=== PATIENT | female | born 1940 | race Caucasian/White ===

== ENCOUNTER 2016-09-07 13:04 | Emergency (ER) | payer MEDICARE ==
[2016-09-07 13:18] VITALS: PULSE 80
[2016-09-07] MEDS ORDERED: SODIUM CHLORIDE 0.9% 1,000 ML IV STA (13:47)
--- NOTE | 2016-09-07 13:54 | ED ---
General Adult HPI - General Chief complaint: Abdominal Pain Stated complaint: Pain under right breast Time Seen by Provider: 09/07/16 13:38 Source: patient, family, RN notes reviewed Mode of arrival: ambulatory Limitations: no limitations - History of Present Illness Initial comments: Chief complaint and history of present illness this is a 76-year-old female here with her niece. Patient reports for the past 3 days she's had pain in the right upper quadrant and right lower rib cage area. She also reports he feels so is just under her breast. She denies any rashes or injury. The pain started in the middle of the day. Denies any nausea vomiting no sweats. No difficulty urinating. Pain does increase with deep breathing palpation. Lifting the area helps a slight amount. - Related Data Home Medications Medication Instructions Recorded Confirmed Atorvastatin Calcium [Lipitor] 20 mg PO HS 09/07/16 09/07/16 Donepezil [Aricept] 10 mg PO HS 09/07/16 09/07/16 Levothyroxine Sodium [Synthroid] 75 mcg PO DAILY 09/07/16 09/07/16 Lisinopril 40 mg PO DAILY 09/07/16 09/07/16 Previous Rx's Medication Instructions Recorded Azithromycin [Zithromax Z-pack] 250 mg PO DIRECTED #6 tab 09/07/16 Ibuprofen [Motrin] 600 mg PO Q6HR PRN #20 tab 09/07/16 Allergies Allergy/AdvReac Type Severity Reaction Status Date / Time No Known Allergies Allergy Verified 09/07/16 14:22 Review of Systems ROS Statement: Those systems with pertinent positive or pertinent negative responses have been documented in the HPI. Review of systems. She is denying any visual acuity changes no headache or stiff neck or sore throat. Her complaint is to the right lower anterior ribs ago from the epigastric region through the right upper quadrant area. Sometimes it hurts taking deep breath and coughs sometimes it hurts to push on the area in the epigastric region in the right upper quadrant but it always hurts to push on the ribs in the right lower rib cage including the costochondral area. Patient denying nausea vomiting diarrhea no change in bowel habits or appetite. No neuro deficits complained of. All systems are reviewed. Past medical problems hypertension and throat cancer over 20 years ago. She denies any other surgeries. Other than this cancer for the throat. Family history her mother had colon cancer. Patient denies ALLERGIES she quit smoking 20 years ago denies alcohol use ROS Other: All systems not noted in ROS Statement are negative. Past Medical History Past Medical History: Cancer, Hypertension Additional Past Medical History / Comment(s): throat cancer History of Any Multi-Drug Resistant Organisms: None Reported Past Surgical History: Breast Surgery Additional Past Surgical History / Comment(s): implants Past Psychological History: No Psychological Hx Reported Smoking Status: Former smoker Past Alcohol Use History: None Reported Past Drug Use History: None Reported General Exam - General Exam Comments Initial Comments: General: The patient is awake and alert, complains of 3 days of pain to the right lower anterior rib cage area. Eye: Pupils are equal, round and reactive to light, extra-ocular movements are intact ; there is normal conjunctiva bilaterally. No signs of icterus. Ears, nose, mouth and throat: There are moist mucous membranes and no oral lesions. Neck: The neck is supple, there is no tenderness , no anterior cervical lymphadenopathy, thyroid not enlarged. Cardiovascular: There is a regular rate and rhythm. No murmur, rub or gallop is appreciated. Respiratory: Lungs are clear to auscultation, respirations are non-labored, breath sounds are equal. No wheezes, stridor, rales, or rhonchi. Deep breathing and coughing seems to re-create the pain along the right lower rib cage area. Palpation of this area causes pain examination does not show any rash. Early shingles was discussed. Gastrointestinal: Soft, non-distended, non-tender abdomen without masses or organomegaly noted. There is no rebound or guarding present. No CVA tenderness. Bowel sounds are unremarkable. Initial examination of the right upper quadrant caused immediate discomfort with palpation of the right upper quadrant but on reexamination 2 minutes later it seemed to be benign. Patient has some difficulty making up her mind as to whether it's painful or not. Back: There is no tenderness to palpation in the midline. There is no obvious deformity. No rashes noted. Musculoskeletal: Normal ROM, no tenderness, There is no pedal edema. There is no calf tenderness or swelling. Sensation intact. Neurological: No neuro deficits. Skin: Skin is warm and dry and no rashes or lesions are noted. Early shingles discussed. Limitations: no limitations Course Vital Signs 09/07/16 13:16 Temperature 99.5 F Pulse Rate 80 Respiratory 18 Rate Blood Pressure 183/75 O2 Sat by Pulse 98 Oximetry Medical Decision Making - Medical Decision Making Medical decision making; x-rays were done and reviewed by radiologist his impression is there is normal bowel gas pattern. Psoas margins are normal. No organomegaly is present. Impression; unremarkable abdomen. As read by Dr. Jossue wilhelm Chest x-ray done both AP and lateral views and reviewed by radiologist his impression is the heart size is normal. The pulmonary vasculature is normal. Bilateral breast prostheses are evident. Right posterior pleural effusion or atelectasis may be present. Impression Soma; suspected posterior right lower lobe atelectasis or possibly minimal effusion posteriorly. As read by Dr. Jossue wilhelm Labs show white count of 8.8 hemoglobin 12 hematocrit 37. Potassium 4.1 with a BUN 32 creatinine 0.8 and GFR greater than 60. Amylase lipase normal limits. No elevation of liver enzymes or bilirubin. Glucose 154. CK and MB within normal limits. I discussed with the patient and niece at bedside findings of atelectasis versus pleural effusion. Also pleuritic irritation and the possibility of a small infiltrate. The patient's pain increases with a deep breath also palpation of the chest wall. No evidence of any acute fractures though this is not ruled out. The plant this time the patient be placed on 600 mg ibuprofen every 6 hours to be taken with food. Levaquin possibility of a undiagnosed pneumonia causing the pleuritic irritation causing pleurisy and/or pleural effusion. Repeat chest x-ray in 7-10 days with family physician for evaluation of worsening condition. CAT scan may be necessary if condition persists. - Lab Data Result diagrams: 09/07/16 15:08 09/07/16 14:36 Lab Results 09/07/16 09/07/16 09/07/16 Range/Units 14:36 14:36 15:08 WBC 8.8 (3.8-10.6) k/uL RBC 3.90 (3.80-5.40) m/uL Hgb 12.2 (11.4-16.0) gm/dL Hct 37.1 (34.0-46.0) % MCV 95.0 (80.0-100.0) fL MCH 31.1 (25.0-35.0) pg MCHC 32.8 (31.0-37.0) g/dL RDW 13.0 (11.5-15.5) % Plt Count 152 (150-450) k/uL Neutrophils % 78 % Lymphocytes % 10 % Monocytes % 8 % Eosinophils % 2 % Basophils % 0 % Neutrophils # 6.9 (1.3-7.7) k/uL Lymphocytes # 0.9 L (1.0-4.8) k/uL Monocytes # 0.7 (0-1.0) k/uL Eosinophils # 0.1 (0-0.7) k/uL Basophils # 0.0 (0-0.2) k/uL Sodium 143 (137-145) mmol/L Potassium 4.1 (3.5-5.1) mmol/L Chloride 106 (98-107) mmol/L Carbon Dioxide 23 (22-30) mmol/L Anion Gap 14 mmol/L BUN 32 H (7-17) mg/dL Creatinine 0.81 (0.52-1.04) mg/dL Est GFR (MDRD) Af Amer >60 (>60 ml/min/1.73 sqM) Est GFR (MDRD) Non-Af >60 (>60 ml/min/1.73 sqM) Glucose 154 H (74-99) mg/dL Calcium 9.5 (8.4-10.2) mg/dL Total Bilirubin 0.7 (0.2-1.3) mg/dL AST 21 (14-36) U/L ALT 25 (9-52) U/L Alkaline Phosphatase 63 (38-126) U/L Total Creatine Kinase 108 (30-135) U/L CK-MB (CK-2) 1.6 (0.0-2.4) ng/mL CK-MB (CK-2) Rel Index 1.5 Total Protein 7.2 (6.3-8.2) g/dL Albumin 4.2 (3.5-5.0) g/dL Amylase 86 (30-110) U/L Lipase 73 (23-300) U/L Disposition Clinical Impression: Pleurisy with effusion Disposition: HOME SELF-CARE Condition: Fair Instructions: Pleurisy (ED) Additional Instructions: Taking azithromycin until completed. Use ibuprofen 6R milligrams every 6 hours with food for pain. Follow-up with family physician for repeat chest x-ray in 7 -10 days. You may need a CAT scan for further evaluation. Prescriptions: Azithromycin [Zithromax Z-pack] 250 mg PO DIRECTED #6 tab Ibuprofen [Motrin] 600 mg PO Q6HR PRN #20 tab PRN Reason: Pain Time of Disposition: 15:57
--- NOTE | 2016-09-07 14:16 | XR ---
EXAMINATION TYPE: XR abdomen 2V DATE OF EXAM: 09/07/2016 2:05 PM COMPARISON: NONE INDICATION: Right upper quadrant pain TECHNIQUE: Abdomen is examined in the upright and supine views. FINDINGS: There is a normal bowel gas pattern. Psoas margins are normal. No organomegaly is present. IMPRESSION: 1. Unremarkable Abdomen
--- NOTE | 2016-09-07 14:16 | XR ---
EXAMINATION TYPE: XR chest 2V DATE OF EXAM: 09/07/2016 2:05 PM COMPARISON: NONE INDICATION: Right lower rib cage pain TECHNIQUE: Single frontal view of the chest is obtained. FINDINGS: The heart size is normal. The pulmonary vasculature is normal. Bilateral breast prostheses are evident. Right posterior pleural effusion or atelectasis may be prese nt. IMPRESSION: 1. Suspected posterior right lower lobe atelectasis or possibly minimal effusion posteriorly.
[2016-09-07 14:58] LABS: ALT 25 U/L (9-52); AST 21 U/L (14-36); Alkaline Phosphatase 63 U/L (38-126); Amylase 86 U/L (30-110); Anion Gap 14 mmol/L; Blood Urea Nitrogen 32 mg/dL (7-17); Calcium 9.5 mg/dL (8.4-10.2); Carbon Dioxide 23 mmol/L (22-30); Chloride 106 mmol/L (98-107); Glucose 154 mg/dL (74-99); Non-African American GFR(MDRD) >60 (>60 ml/min/1.73 sqM); Potassium 4.1 mmol/L (3.5-5.1); Sodium 143 mmol/L (137-145); Total Bilirubin 0.7 mg/dL (0.2-1.3); Total Protein 7.2 g/dL (6.3-8.2)
[2016-09-07 15:16] LABS: Creatine Kinase MB 1.6 ng/mL (0.0-2.4)
[2016-09-07 15:34] LABS: Basophils % (A) 0 %; CH 30.9; CHCM 32.7; Eosinophils # (A) 0.1 k/uL (0-0.7); Eosinophils % (A) 2 %; HCT 37.1 % (34.0-46.0); HDW 2.33; HGB 12.2 gm/dL (11.4-16.0); Luc # (Auto) 0.22; Luc % (Auto) 3; Lymphocytes # (A) 0.9 k/uL (1.0-4.8); Lymphocytes % (A) 10 %; MCH 31.1 pg (25.0-35.0); MCHC 32.8 g/dL (31.0-37.0); Mean Platelet Volume 9.2; Monocytes # (A) 0.7 k/uL (0-1.0); Monocytes % (A) 8 %; Neutrophils # (A) 6.9 k/uL (1.3-7.7); Neutrophils % (A) 78 %; WBC 8.8 k/uL (3.8-10.6); WBC (Perox) 8.75
[2016-09-07] MEDS ORDERED: IBUPROFEN 600 MG TAB PO STA (15:49)
[2016-09-07] MEDS ORDERED: AZITHROMYCIN 250 MG TAB PO STA (15:55)
[2016-09-07 15:59] LABS: Creatine Kinase 100 U/L (30-135)
[2016-09-07] MEDS ORDERED: cloNIDine HCL 0.1 MG TAB PO STA (15:59)
[2016-09-07 16:01] VITALS: BP 189/79; RESP 16; TEMP 98
[2016-09-07 16:12] LABS: Creatine Kinase MB 1.2 ng/mL (0.0-2.4); Troponin I <0.012 ng/mL (0.000-0.034)
== END 2016-09-07 16:15 | disposition home or self-care (01) ==
LOC: EC 13:04
DX: J90 Pleural effusion, not elsewhere classified (principal); R10.11 Right upper quadrant pain; I10 Essential (primary) hypertension; Z87.891 Personal history of nicotine dependence; Z79.899 Other long term (current) drug therapy
CPT/HCPCS: 36415; 71020; 74020; 80053; 82150; 82550; 82553; 83605; 83690; 84484; 85025; 96360; 99284

== ENCOUNTER → 2017-08-21 | Outpatient (CLI) | payer MEDICARE ==
--- NOTE | 2017-08-21 15:40 | MR ---
EXAMINATION TYPE: MR brain wo con DATE OF EXAM: 08/21/2017 2:53 PM COMPARISON: NONE HISTORY: Dementia without behavioral disturbance FINDINGS: The ventricles, basal cisterns and sulci overlying the cerebral convexities are at least moderately e nlarged with greater central component raising the possibility of normal pressure hydrocephalus. There is evidence of mild periventricular white matter ischemic demyelination. Remote deep white matter insults are also noted. No acute edema is seen on diffusion weighted imaging. There is no evidence for midline shift or mass effect. Acute intracranial hemorrhage or extra-axial collection is not evident. Changes of mild chronic mastoiditis bilaterally right greater than left. Chronic mucoperiosteal thick ening of the paranasal sinuses. IMPRESSION: Age-related atrophic and chronic small vessel ischemic change. Correlate for normal pressure hydroce phalus. No acute intracranial process at this time.
== END | disposition home or self-care (01) ==
LOC: RADMRIMAIN 13:27
PROVIDERS: ATTEND Psychiatry & Neurology Neurology
DX: G31.1 Senile degeneration of brain, not elsewhere classified (principal); R90.89 Other abnormal findings on diagnostic imaging of central nervous system
CPT/HCPCS: 70551

== ENCOUNTER 2018-06-16 13:21 | Inpatient (IN) | payer MEDICARE ==
[2018-06-16 13:34] LABS: Glucose,Whole Blood 86 mg/dL (75-99)
[2018-06-16] MEDS ORDERED: SODIUM CHLORIDE 0.9% 1,000 ML IV STA (13:54)
--- NOTE | 2018-06-16 14:05 | ED ---
General Adult HPI - General Chief complaint: Weakness Stated complaint: Weakness Time Seen by Provider: 06/16/18 13:40 Source: EMS, RN notes reviewed, old records reviewed, Caregiver Mode of arrival: EMS Limitations: altered mental status - History of Present Illness Initial comments: Patient 78-year-old female presenting by EMS, the chief complaints of abdominal pain. Patient has history of dementia and much of the history is provided by caregiver and is now at bedside. She states that she did have an episode of vomiting 4 days ago and did complain about some abdominal pain earlier this morning. States that she went abdominal pain when she got out of the shower. Patient at this time denies any abdominal pain. She denies any other complaints or symptoms. Caregiver stated that she complained to EMS that she had a headache when they arrived. Patient denies any headache. Denies any symptoms. EKG does show evidence for atrial fibrillation which patient and caregiver states there is no known history. Patient denies any recent fever, chills, shortness of breath, chest pain, back pain, numbness or tingling, dysuria or hematuria, constipation or diarrhea, visual changes, or any other complaints. - Related Data Home Medications Medication Instructions Recorded Confirmed Donepezil [Aricept] 10 mg PO HS 09/07/16 06/16/18 Levothyroxine Sodium [Synthroid] 75 mcg PO DAILY 09/07/16 06/16/18 Lisinopril 40 mg PO DAILY 09/07/16 06/16/18 Allergies Allergy/AdvReac Type Severity Reaction Status Date / Time No Known Allergies Allergy Verified 06/16/18 14:00 Review of Systems ROS Statement: Those systems with pertinent positive or pertinent negative responses have been documented in the HPI. ROS Other: All systems not noted in ROS Statement are negative. Past Medical History Past Medical History: Cancer, Hypertension Additional Past Medical History / Comment(s): throat cancer History of Any Multi-Drug Resistant Organisms: None Reported Past Surgical History: Breast Surgery Additional Past Surgical History / Comment(s): implants Past Psychological History: No Psychological Hx Reported Smoking Status: Former smoker Past Alcohol Use History: None Reported Past Drug Use History: None Reported General Exam - General Exam Comments Initial Comments: General: The patient is awake and alert, in no distress, and does not appear acutely ill. Eye: Pupils are equal, round and reactive to light, extra-ocular movements are intact. No nystagmus. There is normal conjunctiva bilaterally. No signs of icterus. Ears, nose, mouth and throat: There are moist mucous membranes and no oral lesions. Neck: The neck is supple, there is no tenderness or JVD. Cardiovascular: There is a regular rate. No murmur, rub or gallop is appreciated. Respiratory: Lungs are clear to auscultation, respirations are non-labored, breath sounds are equal. No wheezes, stridor, rales, or rhonchi. Gastrointestinal: Soft, non-distended, non-tender abdomen without masses or organomegaly noted. There is no rebound or guarding present. No CVA tenderness Musculoskeletal: Normal ROM, no tenderness. Strength 5/5. Sensation intact. Radial Pulses equal bilaterally 2+. Neurological: A&O x 3. CN II-XII intact, There are no obvious motor or sensory deficits. Coordination appears grossly intact. Speech is normal. Skin: Skin is warm and dry and no rashes or lesions are noted. Psychiatric: Cooperative, appropriate mood & affect, normal judgment. Limitations: altered mental status Course Vital Signs 06/16/18 06/16/18 06/16/18 13:28 15:50 16:52 Temperature 97.0 F L Pulse Rate 74 103 H 142 H Respiratory 18 18 18 Rate Blood Pressure 122/98 168/86 166/99 O2 Sat by Pulse 100 100 97 Oximetry 06/16/18 16:54 Temperature Pulse Rate 111 H Respiratory Rate Blood Pressure O2 Sat by Pulse Oximetry EKG Findings - EKG Comments: EKG Findings:: EKG performed at 1330: Shows atrial fibrillation at 85 bpm. QRS 72. QT/QTC 372/442. There is no acute ST changes. No old EKG to compare. Repeat EKG performed at 1650 shows A. fib with RVR at 140 bpm. QRS 74. QT/QTc is 316/482. No acute ST changes. Medical Decision Making - Medical Decision Making Patient reexamined at this time shows no signs of distress. Patient is symptomatic here in the emergency room has had no complaints of abdominal pain. CT of the head was performed if she states she had a headache earlier in the day. CT is negative. Patient's chest x-ray is unremarkable. Patient labs been reviewed. Negative cardiac enzymes. EKG was performed and showed A. fib. Initially was controlled. Patient's been on the heart monitor and pulse has been fluctuating between 1:30 to 150. Repeat EKG shows A. fib with RVR. Started on Cardizem drip. The emergency room. Case discussed with Karan Kaur nurse practitioner who will admit the patient for Dr. sheet. - Lab Data Result diagrams: 06/16/18 13:45 06/16/18 13:45 Lab Results 06/16/18 06/16/18 06/16/18 Range/Units 13:28 13:45 13:45 WBC 6.5 (3.8-10.6) k/uL RBC 4.90 (3.80-5.40) m/uL Hgb 14.2 (11.4-16.0) gm/dL Hct 43.7 (34.0-46.0) % MCV 89.1 (80.0-100.0) fL MCH 29.0 (25.0-35.0) pg MCHC 32.5 (31.0-37.0) g/dL RDW 14.8 (11.5-15.5) % Plt Count 226 (150-450) k/uL Neutrophils % 79 % Lymphocytes % 12 % Monocytes % 5 % Eosinophils % 2 % Basophils % 0 % Neutrophils # 5.1 (1.3-7.7) k/uL Lymphocytes # 0.8 L (1.0-4.8) k/uL Monocytes # 0.3 (0-1.0) k/uL Eosinophils # 0.1 (0-0.7) k/uL Basophils # 0.0 (0-0.2) k/uL PT (9.0-12.0) sec INR (<1.2) APTT (22.0-30.0) sec Sodium (137-145) mmol/L Potassium (3.5-5.1) mmol/L Chloride (98-107) mmol/L Carbon Dioxide (22-30) mmol/L Anion Gap mmol/L BUN (7-17) mg/dL Creatinine (0.52-1.04) mg/dL Est GFR (CKD-EPI)AfAm (>60 ml/min/1.73 sqM) Est GFR (CKD-EPI)NonAf (>60 ml/min/1.73 sqM) Glucose (74-99) mg/dL POC Glucose (mg/dL) 86 (75-99) mg/dL POC Glu Plasma Processing Centrifuge Operator ID Debra Salvador Calcium (8.4-10.2) mg/dL Total Bilirubin (0.2-1.3) mg/dL AST (14-36) U/L ALT (9-52) U/L Alkaline Phosphatase (38-126) U/L Total Creatine Kinase 53 (30-135) U/L CK-MB (CK-2) 1.5 (0.0-2.4) ng/mL CK-MB (CK-2) Rel Index 2.8 Troponin I <0.012 (0.000-0.034) ng/mL Total Protein (6.3-8.2) g/dL Albumin (3.5-5.0) g/dL 06/16/18 06/16/18 Range/Units 13:45 13:45 WBC (3.8-10.6) k/uL RBC (3.80-5.40) m/uL Hgb (11.4-16.0) gm/dL Hct (34.0-46.0) % MCV (80.0-100.0) fL MCH (25.0-35.0) pg MCHC (31.0-37.0) g/dL RDW (11.5-15.5) % Plt Count (150-450) k/uL Neutrophils % % Lymphocytes % % Monocytes % % Eosinophils % % Basophils % % Neutrophils # (1.3-7.7) k/uL Lymphocytes # (1.0-4.8) k/uL Monocytes # (0-1.0) k/uL Eosinophils # (0-0.7) k/uL Basophils # (0-0.2) k/uL PT 11.9 (9.0-12.0) sec INR 1.1 (<1.2) APTT 23.9 (22.0-30.0) sec Sodium 142 (137-145) mmol/L Potassium 4.3 (3.5-5.1) mmol/L Chloride 106 (98-107) mmol/L Carbon Dioxide 29 (22-30) mmol/L Anion Gap 7 mmol/L BUN 33 H (7-17) mg/dL Creatinine 1.01 (0.52-1.04) mg/dL Est GFR (CKD-EPI)AfAm 62 (>60 ml/min/1.73 sqM) Est GFR (CKD-EPI)NonAf 54 (>60 ml/min/1.73 sqM) Glucose 137 H (74-99) mg/dL POC Glucose (mg/dL) (75-99) mg/dL POC Glu Plasma Processing Centrifuge Operator ID Calcium 9.6 (8.4-10.2) mg/dL Total Bilirubin 0.8 (0.2-1.3) mg/dL AST 25 (14-36) U/L ALT 31 (9-52) U/L Alkaline Phosphatase 83 (38-126) U/L Total Creatine Kinase (30-135) U/L CK-MB (CK-2) (0.0-2.4) ng/mL CK-MB (CK-2) Rel Index Troponin I (0.000-0.034) ng/mL Total Protein 6.9 (6.3-8.2) g/dL Albumin 4.2 (3.5-5.0) g/dL Disposition Clinical Impression: New onset a-fib Disposition: ADMITTED IP TO THIS HOSP Condition: Stable Is patient prescribed a controlled substance at d/c from ED?: No Referrals: Violeta Galaviz NPC [REFERRING] - 1-2 days Time of Disposition: 17:01
[2018-06-16 14:11] LABS: Basophils % (A) 0 %; Eosinophils # (A) 0.1 k/uL (0-0.7); Eosinophils % (A) 2 %; HCT 43.7 % (34.0-46.0); HGB 14.2 gm/dL (11.4-16.0); Lymphocytes # (A) 0.8 k/uL (1.0-4.8); Lymphocytes % (A) 12 %; MCHC 32.5 g/dL (31.0-37.0); MCV 89.1 fL (80.0-100.0); Mean Platelet Volume 7.8; Monocytes # (A) 0.3 k/uL (0-1.0); Monocytes % (A) 5 %; Neutrophils # (A) 5.1 k/uL (1.3-7.7); Neutrophils % (A) 79 %; Platelet Count 226 k/uL (150-450); RDW 14.8 % (11.5-15.5); WBC 6.5 k/uL (3.8-10.6)
[2018-06-16 14:20] LABS: Albumin 4.2 g/dL (3.5-5.0); Calcium 9.6 mg/dL (8.4-10.2); Potassium 4.3 mmol/L (3.5-5.1); Total Bilirubin 0.8 mg/dL (0.2-1.3); Total Protein 6.9 g/dL (6.3-8.2)
[2018-06-16 14:23] LABS: INR 1.1 (<1.2); Partial Thromboplastin Time 23.9 sec (22.0-30.0); Prothrombin Time 11.9 sec (9.0-12.0)
[2018-06-16 14:31] LABS: Creatine Kinase 53 U/L (30-135)
[2018-06-16 14:44] LABS: Creatine Kinase MB 1.5 ng/mL (0.0-2.4); Troponin I <0.012 ng/mL (0.000-0.034)
--- NOTE | 2018-06-16 14:57 | XR ---
EXAMINATION TYPE: XR chest 2V DATE OF EXAM: 06/16/2018 COMPARISON: Prior chest 09/07/2016 HISTORY: Abdominal pain, vomiting, weakness for 3 days TECHNIQUE: Frontal and lateral views of the chest are obtained. FINDINGS: Bilateral breast prostheses are present. Exam is rotated and there are overlying cardiac l rhoda. Heart size is felt likely to be stable accounting for differences in technique, rotation. No in creased lung opacity, pneumothorax, or pleural effusion. Prominent lung volume may be indicative of u nderlying COPD. IMPRESSION: Borderline cardiac size may be technical.
--- NOTE | 2018-06-16 14:59 | XR ---
Abdomen HISTORY: Vomiting and weakness, abdomen pain Frontal view the abdomen on 2 images Lung bases are clear. There is no evident bowel obstruction or pneumoperitoneum. There are overlying cardiac leads. Probable vascular calcifications within the pelvis. Degenerative disc changes are pres ent in the visualized spine. Question some sclerosis which is asymmetric involving the right sacroili ac joint. IMPRESSION: Nonobstructive bowel gas pattern. Possible sacroiliitis.
--- NOTE | 2018-06-16 16:31 | CT ---
EXAMINATION TYPE: CT brain wo con DATE OF EXAM: 06/16/2018 HISTORY: Weakness, fall without injury CT DLP: 1028.4 mGycm. Automated Exposure Control for Dose Reduction was Utilized. TECHNIQUE: CT scan of the head is performed without contrast. COMPARISON: MRI brain August 21, 2017. FINDINGS: There is no acute intracranial hemorrhage or midline shift identified. There is diffuse v entricular and sulcal prominence consistent with diffuse age-related cerebral atrophy. Ventricle size is unchanged from prior MRI with slight asymmetrical enlargement of left side noted. There is low-at tenuation in the periventricular white matter consistent with chronic small vessel ischemic change. The globes are intact and the visualized sinuses are clear. The calvarium is intact. IMPRESSION: No acute intracranial hemorrhage or midline shift. There is moderate diffuse age-relate d cerebral atrophy and mild to minimal chronic small vessel ischemic change redemonstrated.
[2018-06-16] MEDS ORDERED: DILTIAZEM DRIP BOLUS FROM BAG 1 MG SOLN IV ONE (16:57)
[2018-06-16] MEDS ORDERED: HEPARIN SOD,PORK IN 0.45% NACL 25,000 UNIT in 0.45% NACL 1 250ML.BAG IV SCH (17:00)
[2018-06-16] MEDS ORDERED: LORazepam 2 MG/ML INJ IV PRN (17:21)
[2018-06-16] MEDS ORDERED: SODIUM CHLORIDE 0.9% 1,000 ML IV ONE (17:21)
[2018-06-16] MEDS ORDERED: NALOXONE 0.4 MG/ML 1 ML VIAL IV PRN (17:21)
[2018-06-16] MEDS ORDERED: ONDANSETRON 4 MG/2 ML VIAL IVP PRN (17:21)
[2018-06-16] MEDS: DILTIAZEM 50 MG in SODIUM CHLORIDE 0.9% 40 ML IV SCH (17:57)
[2018-06-16] MEDS ORDERED: hydrALAZINE HCL 20 MG/ML 1 ML VIAL IVP PRN (20:33)
[2018-06-16] MEDS: cloNIDine HCL 0.1 MG TAB PO SCH (22:46)
[2018-06-17] MEDS ORDERED: ACETAMINOPHEN TAB 500 MG TAB PO PRN (00:10)
[2018-06-17] MEDS ORDERED: ALPRAZolam 0.25 MG TAB PO PRN (00:10)
[2018-06-17 03:37] LABS: ALT 35 U/L (9-52); AST 23 U/L (14-36); Albumin 3.6 g/dL (3.5-5.0); Alkaline Phosphatase 73 U/L (38-126); Anion Gap 8 mmol/L; Blood Urea Nitrogen 27 mg/dL (7-17); Carbon Dioxide 22 mmol/L (22-30); Chloride 109 mmol/L (98-107); Glucose 90 mg/dL (74-99); Potassium 3.7 mmol/L (3.5-5.1); Sodium 139 mmol/L (137-145); Total Bilirubin 0.8 mg/dL (0.2-1.3); Total Protein 6.1 g/dL (6.3-8.2)
[2018-06-17 03:51] LABS: Basophils % (A) 1 %; Eosinophils # (A) 0.1 k/uL (0-0.7); Eosinophils % (A) 2 %; HCT 40.4 % (34.0-46.0); HGB 12.9 gm/dL (11.4-16.0); Lymphocytes # (A) 1.3 k/uL (1.0-4.8); Lymphocytes % (A) 20 %; MCH 28.8 pg (25.0-35.0); MCHC 31.8 g/dL (31.0-37.0); MCV 90.3 fL (80.0-100.0); Mean Platelet Volume 7.9; Monocytes # (A) 0.4 k/uL (0-1.0); Monocytes % (A) 7 %; Neutrophils # (A) 4.4 k/uL (1.3-7.7); Neutrophils % (A) 69 %; Platelet Count 193 k/uL (150-450); RBC 4.47 m/uL (3.80-5.40); RDW 14.8 % (11.5-15.5); WBC 6.4 k/uL (3.8-10.6)
--- NOTE | 2018-06-17 05:22 | HP ---
HISTORY AND PHYSICAL DATE OF SERVICE: 06/16/2018 CHIEF COMPLAINT: Weakness and atrial fibrillation. HISTORY OF PRESENT ILLNESS: This 78-year-old woman with a past medical history of atrial fibrillation, dementia, hypertension, DJD being followed by Dr. Martínez in the outpatient setting apparently living with a niece. The patient has significant dementia. The patient is complaining of abdominal pain and multiple symptoms. Patient taken to [facility] and was found to have atrial fibrillation with fast ventricular rate. The patient was started on Cardizem drip and patient admitted for further evaluation and treatment. Patient is confused, conscious, but unable to give coherent history. Patient was started on heparin also. Most of the history was taken from my discussion with staff and as well as review of the chart at this time. PAST MEDICAL HISTORY: History of atrial fibrillation, history of dementia, history hypertension, DJD, history of throat cancer, breast surgery per chart. MEDICATIONS: Medications are: 1. Levothyroxine 75 mcg p.o. daily. 2. Lisinopril 40 mg daily. 3. Aricept 10 mg q.h.s. ALLERGIES: Allergies are none. Family history, social history and review of systems could not be taken because of significant dementia. Previous history of smoking per chart. PHYSICAL EXAMINATION: The patient is conscious, confused. Pulse is 96, irregular, blood pressure 165/109, respiration 18, temperature 97.6, pulse ox 98% on room air. HEENT: Conjunctivae normal. Oral mucous moist. Neck is no jugular venous distention. No carotid bruit. No lymph node enlargement. CARDIOVASCULAR: S1, S2 muffled, irregular. No murmur. No thrills. RESPIRATORY: Diminished breath sounds at the bases. A few scattered rhonchi. No crackles. ABDOMEN: Soft, nontender, and scaphoid. No mass palpable. No distention. Bowel sounds present. No ascites. LEGS: No edema, no swelling. NERVOUS SYSTEM: Higher functions as mentioned earlier. Moves all 4 limbs. Mild diffuse weakness. LYMPHATICS: No lymphadenopathy of the neck, axillae or groin. SKIN: No ulcer, rash or bleeding. LABS: WBC 6.5, hemoglobin is 14.2, sodium 142, potassium 4.3, glucose 137. ASSESSMENT: 1. Atrial fibrillation with fast ventricular rate. 2. History of chronic atrial fibrillation. 3. Dementia. 4. Change in mental status with chronic encephalopathy. 5. Hypertension. 6. Degenerative joint disease. 7. Hypothyroidism. 8. History of throat cancer. 9. History of breast surgery. 10.Remote history of nicotine dependence. RECOMMENDATIONS AND DISCUSSION: Recommend to continue current medications. Continue with monitor and symptomatic treatment. Otherwise, José Miguel nelson, get 2D echo with Doppler, cardiology consultation. I would also resume the home medication. Otherwise, will closely monitor. The p.r.n. hydralazine and clonidine has been given. I would also recommend initiate metoprolol and further recommendations will follow. A copy of dictation forwarded to Dr. Martínez who is the primary physician. MMODL / IJN: [id number] /
[2018-06-17] MEDS: METOPROLOL TARTRATE 25 MG TAB PO SCH ×3 (06:26→22:42)
[2018-06-17] MEDS: PANTOPRAZOLE 40 MG TABLET PO SCH (06:29)
[2018-06-17 09:48] VITALS: BMI 22.8
[2018-06-17] MEDS: cloNIDine HCL 0.1 MG TAB PO SCH (09:59)
[2018-06-17] MEDS: LISINOPRIL 20 MG TAB PO SCH (10:00)
[2018-06-17] MEDS: LEVOTHYROXINE 75 MCG TAB PO SCH (10:00)
--- NOTE | 2018-06-17 12:28 | CONS ---
CONSULTATION Suze Matthews is a 78-year-old lady with history of dementia, hypertension, and hypothyroidism who was brought to hospital because she was unstable on her feet and could barely stand. She was found to be in new onset atrial fibrillation due to which she is admitted to hospital. She was at rapid ventricular rate, started on Cardizem drip. At the time of my evaluation, patient appears confused. I got much of the information from the niece who lives with her who felt that she is stable enough to be on an anticoagulant. PAST MEDICAL HISTORY: Significant for atrial fibrillation, hypertension, dementia, degenerative joint disease, hypothyroidism. MEDICATIONS: Include Aricept, lisinopril, levothyroxine. ALLERGIES: There are no known drug allergies. FAMILY HISTORY: Negative for premature coronary artery disease. SOCIAL HISTORY: Negative for current smoking, EtOH abuse, or drug abuse. REVIEW OF SYSTEMS: HEENT is unremarkable. CARDIAC: As described above. RESPIRATORY: As described above. GI: Negative. GENITOURINARY: Negative. ALLERGY/IMMUNOLOGY: Negative. MUSCULOSKELETAL: Significant for arthritis. PSYCHOSOCIAL: Negative. ENDOCRINE: Negative. DERM: Negative. CONSTITUTIONAL: Negative. ONCOLOGICAL: Negative. Rest of the system review is not relevant. PHYSICAL EXAM: Heart rate is 50 beats per minute. Blood pressure is 81/50, respiratory rate is 18. Chest exam reveals good air entry bilaterally. Heart exam reveals first and second heart sounds. No gallop. Irregular rhythm. No murmur. Abdomen is soft, nontender. Exam of extremities did not reveal any edema. Peripheral pulses are felt. LABS: Show that the hemoglobin is normal. Potassium is 3.7, creatinine is 0.7, AST, ALT are within normal limits. ASSESSMENT: 1. New onset atrial fibrillation with rapid ventricular rate. It is unclear if the patient had prior history of atrial fibrillation. She had a stress test done in April of 2016 and at that time she was in sinus rhythm. 2. Hypertension. 3. Hypothyroidism. PLAN: Will switch the patient to Eliquis 5 mg b.i.d., stop the IV Cardizem and continue the metoprolol at 25 b.i.d. for rate control. Obtain a 2D echo to evaluate LV function. MMHARSHL / IJN: [id number] /
[2018-06-17] MEDS: DILTIAZEM 50 MG in SODIUM CHLORIDE 0.9% 40 ML IV SCH (13:03)
[2018-06-17] MEDS: APIXABAN 5 MG TAB PO SCH ×2 (13:15→22:41)
[2018-06-17 17:29] LABS: Glucose,Whole Blood 116 mg/dL (75-99)
--- NOTE | 2018-06-17 17:49 | ECHOF ---
Referral Reason:afib MEASUREMENTS -------- HEIGHT: 152.4 cm WEIGHT: 59.0 kg BP: 123/56 RVIDd: 2.6 cm (< 3.3) IVSd: 1.5 cm (0.6 - 1.1) LVIDd: 2.7 cm (3.9 - 5.3) LVPWd: 1.7 cm (0.6 - 1.1) IVSs: 1.7 cm LVIDs: 1.9 cm LVPWs: 2.1 cm LAESV Index (A-L): 52.62 ml/m Ao Diam: 2.2 cm (2.0 - 3.7) AV Cusp: 1.8 cm (1.5 - 2.6) LA Diam: 3.3 cm (2.7 - 3.8) MV EXCURSION: 19.436 mm (> 18.000) MV EF SLOPE: 102 mm/s (70 - 150) EPSS: 0.2 cm AR PHT: 324 ms RAP: 5.00 mmHg RVSP: 36.66 mmHg FINDINGS -------- Atrial fibrillation. This was a technically good study. The left ventricular size is normal. There is moderate concentric left ventricular hypertrophy. O verall left ventricular systolic function is normal with, an EF between 55 - 60 %. The right ventricle is normal in size and function. LA is severely dilated >40 ml/m2 RA appears enlarged. Aortic valve is trileaflet and is mildly thickened. Mild mitral annular calcification present. Elxlyfiz-ip-[id number] mitral regurgitation is present. Severe tricuspid regurgitation present. There is mild pulmonary hypertension. The right ventricul ar systolic pressure, as measured by Doppler, is 36.66mmHg. Trace/mild (physiologic) pulmonic regurgitation. The aortic root size is normal. Normal inferior vena cava with normal inspiratory collapse consistent with estimated right atrial pre ssure of 5 mmHg. There is no pericardial effusion. CONCLUSIONS -------- 1. Atrial fibrillation. 2. This was a technically good study. 3. The left ventricular size is normal. 4. There is moderate concentric left ventricular hypertrophy. 5. Overall left ventricular systolic function is normal with, an EF between 55 - 60 %. 6. LA is severely dilated >40 ml/m2 7. RA appears enlarged. 8. Aortic valve is trileaflet and is mildly thickened. 9. Mild mitral annular calcification present. 10. Lqclnvtx-nu-gxoewm mitral regurgitation is present. 11. Severe tricuspid regurgitation present. 12. There is mild pulmonary hypertension. 13. Trace/mild (physiologic) pulmonic regurgitation. 14. The aortic root size is normal. 15. Normal inferior vena cava with normal inspiratory collapse consistent with estimated right atrial pressure of 5 mmHg. 16. There is no pericardial effusion. METAL SPRAYER: Sera Suazo RDCS
[2018-06-17] MEDS ORDERED: DONEPEZIL 10 MG TAB PO SCH (21:00)
--- NOTE | 2018-06-17 22:43 | PN ---
PROGRESS NOTE DATE OF SERVICE: 2018. HISTORY: This 78-year-old woman who was admitted with weakness as well as atrial fibrillation with fast ventricular rate, is also confused. The heart rate is improving at this time. Dr. Madison is following the patient closely. A 2D echo with Doppler was done today which showed ejection fraction about 50 to 60 percent. Left atrium severely dilated more than 40, and moderate to severe mitral regurgitation and severe tricuspid regurgitation was also noted. The patient is closely monitored. PAST MEDICAL HISTORY: Reviewed. REVIEW OF SYSTEMS: Could not be taken. CURRENT MEDICATIONS: 1. Tylenol 500 mg p.o. every 6 hours p.r.n. 2. Xanax 0.5 t.i.d. 3. Eliquis 5 mg p.o. b.i.d. which was just started. 4. Aricept 10 mg at bedtime. 5. Alprazolam 10 mg every 6 hours p.r.n. 6. Synthroid. 7. Zestril 20 mg. 8. Ativan. 9. Lopressor 25 mg b.i.d. 10.Narcan. 11.Zofran. 12.Protonix. PHYSICAL EXAM: The patient is confused. Pulse is 68, blood pressure 140/76, respirations 18, temperature 99 degrees, pulse ox 100 percent room on room air. HEENT: Conjunctivae normal. Oral mucosa moist. NECK: No jugular venous distention. No lymph node enlargement. CARDIOVASCULAR: S1 and S2 muffled. Ejection systolic murmur. LUNGS: Breath sounds diminished at the bases. Few scattered rhonchi. No crackles. ABDOMEN: Soft, nontender. NERVOUS SYSTEM: No focal deficits. LABS: CBC within normal limits and sodium 139, potassium 3.7, total protein 6.1. ASSESSMENT: 1. Atrial fibrillation with fast ventricular rate present on admission. 2. History of chronic atrial fibrillation. 3. Severely dilated left atrium with moderate to severe mitral regurgitation as well as severe tricuspid regurgitation on the 2D echo. 4. History of dementia. 5. Change in mental status, acute on chronic metabolic encephalopathy. 6. Hypertension. 7. Degenerative joint disease. 8. Hypothyroidism. 9. History of throat cancer. 10.History of breast surgery. 11.Remote history of nicotine dependence. 12.FULL CODE. RECOMMENDATIONS AND DISCUSSION: In this 78-year-old woman who presented with multiple complex medical issues, we will continue current management and continue symptomatic management. Continue with beta blockers at 25 mg per Cardiology. Hold the beta blockers if the blood pressure or heart rate is low. Otherwise, continue to monitor Cardizem as needed. Eliquis will be initiated. PT/OT evaluation. 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 Continue the rest of medications. Prognosis guarded. Further recommendations to follow. 2D echo results noted. See orders for details. MMODL / IJN: [id number] /
[2018-06-18 05:23] VITALS: RESP 16
[2018-06-18 06:37] LABS: Basophils % (A) 0 %; Eosinophils # (A) 0.2 k/uL (0-0.7); Eosinophils % (A) 3 %; HCT 40.6 % (34.0-46.0); HGB 12.7 gm/dL (11.4-16.0); Lymphocytes # (A) 1.3 k/uL (1.0-4.8); Lymphocytes % (A) 22 %; MCHC 31.4 g/dL (31.0-37.0); MCV 89.2 fL (80.0-100.0); Mean Platelet Volume 7.3; Monocytes # (A) 0.4 k/uL (0-1.0); Monocytes % (A) 7 %; Neutrophils # (A) 3.8 k/uL (1.3-7.7); Neutrophils % (A) 65 %; Platelet Count 187 k/uL (150-450); RBC 4.55 m/uL (3.80-5.40); RDW 14.8 % (11.5-15.5); WBC 5.8 k/uL (3.8-10.6)
[2018-06-18] MEDS: PANTOPRAZOLE 40 MG TABLET PO SCH (06:43)
[2018-06-18 06:44] LABS: Potassium 3.9 mmol/L (3.5-5.1)
[2018-06-18 06:45] LABS: Calcium 9.2 mg/dL (8.4-10.2)
[2018-06-18] MEDS: APIXABAN 5 MG TAB PO SCH (08:10)
[2018-06-18] MEDS: METOPROLOL TARTRATE 25 MG TAB PO SCH (08:11)
[2018-06-18] MEDS: LISINOPRIL 20 MG TAB PO SCH (08:11)
[2018-06-18] MEDS: LEVOTHYROXINE 75 MCG TAB PO SCH (08:11)
[2018-06-18 11:24] VITALS: TEMP 98.4
--- NOTE | 2018-06-18 12:06 | P.PN ---
Subjective Progress Note Date: 06/18/18 Principal diagnosis: Atrial fibrillation This is 78-year-old female with known history of dementia, hypertension, hypothyroidism, who initially was brought to the hospital because of weakness. She was found to be in atrial fibrillation with rapid ventricular response. Patient initially was started on a Cardizem drip as well as IV heparin. She continues to be in atrial fibrillation today, her heart rate overall is in the 60s. On review of all the rhythm strips through the night last night, it does appear at times that the patient's having intermittent pauses of approximately 2 seconds. She did have an echocardiogram with Doppler study performed which revealed an ejection fraction of 55-60%, moderate to severe mitral regurgitation and severe tricuspid regurg. She was also initiated yesterday on Eliquis, IV Cardizem was discontinued, she is currently on metoprolol 25 mg one tablet by mouth twice a day. Objective - Vital Signs Vital signs: Vital Signs Temp 98.4 F 06/18/18 11:20 Pulse 88 06/18/18 11:20 Resp 16 06/18/18 11:20 BP 142/90 06/18/18 11:20 Pulse Ox 99 06/18/18 11:20 Intake & Output 06/17/18 06/18/18 06/18/18 18:59 06:59 18:59 Intake Total 240 Output Total 600 1200 Balance -600 -1200 240 Weight 53 kg 63 kg Intake: Oral 240 Output: Urine 600 1200 Other: Voiding Method Toilet Toilet Toilet Diaper Diaper Diaper # Voids 1 - Exam PHYSICAL EXAMINATION: GENERAL: 78-year-old female in no acute distress at the time of my examination HEENT: Head is atraumatic, normocephalic. Pupils equal, round. Sclera anicteric. Conjunctiva are clear. Mucous membranes of the mouth are moist. Neck is supple. There is no elevated jugular venous pressure. No carotid bruit is heard. HEART EXAMINATION: Heart S1 and S2 irregularly irregular a systolic murmur is heard CHEST EXAMINATION: Lungs reveal fine wheezing throughout ABDOMEN: Soft, nontender. Bowel sounds are heard. No organomegaly noted. EXTREMITIES: 2+ peripheral pulses with no evidence of peripheral edema and no calf tenderness noted. NEUROLOGIC patient is awake, alert and oriented 2 . . - Labs CBC & Chem 7: 06/18/18 05:47 06/18/18 05:47 Labs: Abnormal Lab Results - Last 24 Hours (Table) 06/17/18 06/18/18 06/18/18 Range/Units 17:02 05:47 05:47 Chloride 109 H (98-107) mmol/L BUN 24 H (7-17) mg/dL POC Glucose (mg/dL) 116 H (75-99) mg/dL TSH 10.100 H (0.465-4.680) mIU/L Assessment and Plan Plan: Assessment and plan #1 atrial fibrillation, persistent #2 hypothyroidism #3 hypertension #4 dementia #5 history of throat cancer Plan From cardiology's perspective, we'll recommend to continue the patient on Eliquis 5 mg one tablet by mouth twice a day, lisinopril 20 mg daily, metoprolol 25 mg one tablet by mouth twice a day. Discharged home once cleared by primary. Follow-up appointment in the office post discharge. DNP note has been reviewed, I agree with a documented findings and plan of care. Patient was seen and examined.
[2018-06-18 12:29] LABS: Glucose,Whole Blood 102 mg/dL (75-99)
--- NOTE | 2018-06-18 12:45 | CT ---
EXAMINATION TYPE: CT brain wo con DATE OF EXAM: 06/18/2018 COMPARISON: 06/16/2018 HISTORY: Left sided weakness. CT DLP: 928.[address] of the brain was performed. The ventricles, basal cisterns and sulci overlying the cerebral convexities demonstrate mild enlargem ent. There is no evidence for intracranial hemorrhage or sulcal effacement. There is decreased attenuation about the periventricular white matter and deep white matter of both c erebral hemispheres, compatible with chronic small vessel ischemia. Differential diagnosis does inclu de demyelination. No mass effects are seen.No midline shift. Osseous calvarium is intact. If symptoms persist consider MRI. IMPRESSION: 1. Age related atrophic and chronic small vessel ischemic change without acute intracranial process s een at this time.
[2018-06-18 14:12] VITALS: PULSE 74
--- NOTE | 2018-06-18 14:17 | CT ---
EXAMINATION TYPE: CODE STROKE: CTA head neck DATE OF EXAM: 06/18/2018 COMPARISON: HISTORY: Left sided weakness CT DLP: 398.9 mGycm CONTRAST: Performed with IV Contrast, patient injected with 65 mL of Isovue 370. Combination Contrast CTA cervical carotids and [place] CTA cervical carotids with 3-D recons truction Contrast CTA of the cervical carotids was performed 3-D reconstruction imaging obtained at a separate workstation. Right carotid system: Mild plaque is seen of the right common carotid artery. There is moderate plaq ue also noted at the carotid bulb and proximal ICA. Estimated diameter reduction of 50%. ECA is occ luded. Right vertebral artery appears unremarkable. Left carotid system: Mild plaque is seen of the left common carotid artery. There is moderate plaque also noted at the carotid bulb and proximal ICA. Estimated diameter reduction of 50%. ECA is occlu ded. Left vertebral artery appears unremarkable. IMPRESSION: 1. Bilateral estimated diameter reduction of 50%. Occluded ECAs bilaterally. CTA [place] with 3-D reconstruction Contrast CTA of the [place] was performed 3-D reconstruction imaging obtained at a separate workstation. Vertebrobasilar system as well as intracranial portions of the internal carotid arteries and their ma tami tributaries are patent. I do not see evidence for sizable aneurysm or vascular malformation. Pl ease note MRI provides greater sensitivity and specificity. Visualized brain appears grossly unremar kable. IMPRESSION: 1. No siginificant abnormality.
[2018-06-18 15:08] VITALS: BP 165/91
[2018-06-18] MEDS ORDERED: METOPROLOL TARTRATE 12.5 MG TAB PO SCH (21:00)
--- NOTE | 2018-06-19 05:38 | DS ---
DISCHARGE SUMMARY DATE OF SERVICE: 06/18/2018. FINAL DIAGNOSES: 1. Acute stroke involving the left side of the body, possible right hemispheric lesion. 2. History of chronic atrial fibrillation. 3. Bilateral carotid stenosis. 4. Atrial fibrillation with fast ventricular rate, present on admission, improved. 5. Severely dilated left atrium with moderate to severe mitral regurgitation as well as severe tricuspid regurgitation. 2D echo. 6. History of dementia. 7. Change in mental status with acute on chronic metabolic encephalopathy. 8. Hypertension. 9. Degenerative joint disease. 10.Hypothyroidism. 11.History of throat cancer. 12.History of breast surgery. 13.Remote history of nicotine dependence. 14.FULL CODE. The patient transferred to [facility] in stable condition with guarded prognosis. Total time taken 35 minutes. HISTORY OF PRESENT ILLNESS: This 78-year-old woman with a past medical history of multiple medical problems, was admitted with atrial fibrillation with fast ventricular rate. Patient was treated with Cardizem and as well as anticoagulants. The patient started on Eliquis, but patient subsequently developed features of stroke on the left side of the body. The patient had a CT angio. The stroke code was called and neuro size marker from [place] evaluated the patient. The patient had an angio showed bilateral carotid stenosis and CT brain showed chronic small-vessel ischemic changes. The 2D echo with Doppler was noted. Because of concerns of significant stroke and other findings, the patient was transferred to [facility] for further evaluation and treatment. The prognosis was extremely guarded throughout the hospital stay. PHYSICAL EXAMINATION: On exam, vital signs are stable. Mildly confused. Cardio system: S1, S2. Abdomen soft. Central nervous system: Diffusely weak. Current medications: Please refer to progress note for current medications. MMODL / IJN: [id number] /
== END 2018-06-18 16:28 | disposition short-term general hospital (02) | DRG 308 ==
LOC: EC 13:21 → 3SCARD 17:27
PROVIDERS: ADMIT Internal Medicine; ATTEND Internal Medicine
DX: I48.1 Persistent atrial fibrillation (principal); G93.41 Metabolic encephalopathy; I63.9 Cerebral infarction, unspecified; E03.9 Hypothyroidism, unspecified; I08.1 Rheumatic disorders of both mitral and tricuspid valves; F03.90 Unspecified dementia, unspecified severity, without behavioral disturbance, psychotic disturbance, mood disturbance, and anxiety; I10 Essential (primary) hypertension; M19.90 Unspecified osteoarthritis, unspecified site; I65.23 Occlusion and stenosis of bilateral carotid arteries; Z79.890 Hormone replacement therapy; Z79.899 Other long term (current) drug therapy; Z87.891 Personal history of nicotine dependence; Z85.819 Personal history of malignant neoplasm of unspecified site of lip, oral cavity, and pharynx
CPT/HCPCS: 36415; 70450; 70496; 70498; 71046; 74018; 80048; 80053; 82550; 82553; 84443; 84484; 85025; 85610; 85730; 93005; 93306; 96360; 96361; 96365; 96368; 96376; 99285

== ENCOUNTER 2018-07-06 13:15 | Inpatient (IN) | payer MEDICARE ==
[2018-07-06] MEDS ORDERED: DILTIAZEM DRIP BOLUS FROM BAG 1 MG SOLN IV ONE (13:56)
[2018-07-06] MEDS ORDERED: SODIUM CHLORIDE 0.9% 1,000 ML IV STA ×2 (13:56)
--- NOTE | 2018-07-06 14:31 | ED ---
Nausea/Vomiting/Diarrhea HPI - General Chief complaint: Nausea/Vomiting/Diarrhea Stated complaint: nausea/vomiting Time Seen by Provider: 07/06/18 13:33 Source: patient, EMS, RN notes reviewed, old records reviewed Mode of arrival: EMS Limitations: altered mental status - History of Present Illness Initial comments: This is a 78-year-old female the ER for evaluation regards to not feeling well. Patient is altered mental status. Patient found to have UTI and A. fib with RVR complaint: nausea, vomiting -: unknown Severity: moderate Severity scale (1-10): 5 Consistency: constant Improves with: none Worsens with: none Associated Symptoms: nausea/vomiting, shortness of breath, other (palpitations) - Related Data Home Medications Medication Instructions Recorded Confirmed Donepezil [Aricept] 10 mg PO HS 09/07/16 07/06/18 Levothyroxine Sodium [Synthroid] 75 mcg PO DAILY 09/07/16 07/06/18 Lisinopril 40 mg PO DAILY 09/07/16 07/06/18 Atorvastatin [Lipitor] 20 mg PO DAILY 07/06/18 07/06/18 Memantine [Namenda] 10 mg PO BID 07/06/18 07/06/18 Allergies Allergy/AdvReac Type Severity Reaction Status Date / Time No Known Allergies Allergy Verified 07/06/18 14:28 Review of Systems ROS Statement: Those systems with pertinent positive or pertinent negative responses have been documented in the HPI. ROS Other: All systems not noted in ROS Statement are negative. Past Medical History Past Medical History: Atrial Fibrillation, Cancer, Dementia, Hypertension, Osteoarthritis (OA), Thyroid Disorder Additional Past Medical History / Comment(s): throat cancer; NOS Afib 06/16/18 History of Any Multi-Drug Resistant Organisms: None Reported Past Surgical History: Breast Surgery Additional Past Surgical History / Comment(s): implants Additional Past Anesthesia/Blood Transfusion Reaction / Comment(s): PT refuses blood r/t worship preferences Past Psychological History: No Psychological Hx Reported Smoking Status: Former smoker Past Alcohol Use History: None Reported Past Drug Use History: None Reported General Exam Limitations: altered mental status General appearance: alert, in no apparent distress Head exam: Present: atraumatic, normocephalic, normal inspection Eye exam: Present: normal appearance, PERRL, EOMI. Absent: scleral icterus, conjunctival injection, periorbital swelling ENT exam: Present: normal exam, mucous membranes moist Neck exam: Present: normal inspection. Absent: tenderness, meningismus, lymphadenopathy Respiratory exam: Present: normal lung sounds bilaterally. Absent: respiratory distress, wheezes, rales, rhonchi, stridor Cardiovascular Exam: Present: regular rate, normal rhythm, normal heart sounds. Absent: systolic murmur, diastolic murmur, rubs, gallop, clicks GI/Abdominal exam: Present: soft, normal bowel sounds. Absent: distended, tenderness, guarding, rebound, rigid Extremities exam: Present: normal inspection, full ROM, normal capillary refill. Absent: tenderness, pedal edema, joint swelling, calf tenderness Back exam: Present: normal inspection Neurological exam: Present: alert, oriented X3, CN II-XII intact Psychiatric exam: Present: normal affect, normal mood Skin exam: Present: warm, dry, intact, normal color. Absent: rash Course Vital Signs 07/06/18 13:33 Temperature 96.9 F L Pulse Rate 127 H Respiratory 20 Rate Blood Pressure 96/52 O2 Sat by Pulse 94 L Oximetry - Reevaluation(s) Reevaluation #1: medical record is reviewed patient does have improvement rate control Medical Decision Making - Medical Decision Making 78 female the ER for evaluation. Patient resents today for evaluation regards to nausea and vomiting, found to be in A. fib with RVR we'll admit for rate control - Lab Data Result diagrams: 07/06/18 14:30 07/06/18 14:30 Lab Results 07/06/18 07/06/18 07/06/18 Range/Units 14:30 14:30 14:30 WBC 11.7 H (3.8-10.6) k/uL RBC 5.43 H (3.80-5.40) m/uL Hgb 15.5 (11.4-16.0) gm/dL Hct 49.0 H (34.0-46.0) % MCV 90.3 (80.0-100.0) fL MCH 28.5 (25.0-35.0) pg MCHC 31.5 (31.0-37.0) g/dL RDW 14.9 (11.5-15.5) % Plt Count 247 (150-450) k/uL Neutrophils % 90 % Lymphocytes % 5 % Monocytes % 3 % Eosinophils % 1 % Basophils % 0 % Neutrophils # 10.6 H (1.3-7.7) k/uL Lymphocytes # 0.6 L (1.0-4.8) k/uL Monocytes # 0.4 (0-1.0) k/uL Eosinophils # 0.1 (0-0.7) k/uL Basophils # 0.0 (0-0.2) k/uL PT (9.0-12.0) sec INR (<1.2) APTT (22.0-30.0) sec Sodium 145 (137-145) mmol/L Potassium 5.0 (3.5-5.1) mmol/L Chloride 107 (98-107) mmol/L Carbon Dioxide 25 (22-30) mmol/L Anion Gap 13 mmol/L BUN 65 H (7-17) mg/dL Creatinine 1.56 H (0.52-1.04) mg/dL Est GFR (CKD-EPI)AfAm 37 (>60 ml/min/1.73 sqM) Est GFR (CKD-EPI)NonAf 32 (>60 ml/min/1.73 sqM) Glucose 134 H (74-99) mg/dL Calcium 10.5 H (8.4-10.2) mg/dL Magnesium 2.1 (1.6-2.3) mg/dL Total Bilirubin 1.2 (0.2-1.3) mg/dL AST 31 (14-36) U/L ALT 34 (9-52) U/L Alkaline Phosphatase 95 (38-126) U/L Total Creatine Kinase 47 (30-135) U/L CK-MB (CK-2) 1.3 (0.0-2.4) ng/mL CK-MB (CK-2) Rel Index 2.8 Troponin I <0.012 (0.000-0.034) ng/mL Total Protein 7.9 (6.3-8.2) g/dL Albumin 4.8 (3.5-5.0) g/dL TSH 13.300 H (0.465-4.680) mIU/L Urine Color Urine Appearance (Clear) Urine pH (5.0-8.0) Ur Specific [place] (1.001-1.035) Urine Protein (Negative) Urine Glucose (UA) (Negative) Urine Ketones (Negative) Urine Blood (Negative) Urine Nitrite (Negative) Urine Bilirubin (Negative) Urine Urobilinogen (<2.0) mg/dL Ur Leukocyte Esterase (Negative) Urine RBC (0-5) /hpf Urine WBC (0-5) /hpf Urine WBC Clumps (None) /hpf Ur Squamous Epith Cells (0-4) /hpf Urine Bacteria (None) /hpf Hyaline Casts (0-2) /lpf Urine Mucus (None) /hpf 07/06/18 07/06/18 Range/Units 14:30 14:51 WBC (3.8-10.6) k/uL RBC (3.80-5.40) m/uL Hgb (11.4-16.0) gm/dL Hct (34.0-46.0) % MCV (80.0-100.0) fL MCH (25.0-35.0) pg MCHC (31.0-37.0) g/dL RDW (11.5-15.5) % Plt Count (150-450) k/uL Neutrophils % % Lymphocytes % % Monocytes % % Eosinophils % % Basophils % % Neutrophils # (1.3-7.7) k/uL Lymphocytes # (1.0-4.8) k/uL Monocytes # (0-1.0) k/uL Eosinophils # (0-0.7) k/uL Basophils # (0-0.2) k/uL PT 11.3 (9.0-12.0) sec INR 1.1 (<1.2) APTT 18.5 L (22.0-30.0) sec Sodium (137-145) mmol/L Potassium (3.5-5.1) mmol/L Chloride (98-107) mmol/L Carbon Dioxide (22-30) mmol/L Anion Gap mmol/L BUN (7-17) mg/dL Creatinine (0.52-1.04) mg/dL Est GFR (CKD-EPI)AfAm (>60 ml/min/1.73 sqM) Est GFR (CKD-EPI)NonAf (>60 ml/min/1.73 sqM) Glucose (74-99) mg/dL Calcium (8.4-10.2) mg/dL Magnesium (1.6-2.3) mg/dL Total Bilirubin (0.2-1.3) mg/dL AST (14-36) U/L ALT (9-52) U/L Alkaline Phosphatase (38-126) U/L Total Creatine Kinase (30-135) U/L CK-MB (CK-2) (0.0-2.4) ng/mL CK-MB (CK-2) Rel Index Troponin I (0.000-0.034) ng/mL Total Protein (6.3-8.2) g/dL Albumin (3.5-5.0) g/dL TSH (0.465-4.680) mIU/L Urine Color Yellow Urine Appearance Turbid H (Clear) Urine pH 6.5 (5.0-8.0) Ur Specific [place] 1.015 (1.001-1.035) Urine Protein 2+ H (Negative) Urine Glucose (UA) Trace H (Negative) Urine Ketones 1+ H (Negative) Urine Blood Small H (Negative) Urine Nitrite Negative (Negative) Urine Bilirubin Negative (Negative) Urine Urobilinogen 3.0 (<2.0) mg/dL Ur Leukocyte Esterase Large H (Negative) Urine RBC 6 H (0-5) /hpf Urine WBC >182 H (0-5) /hpf Urine WBC Clumps Many H (None) /hpf Ur Squamous Epith Cells 2 (0-4) /hpf Urine Bacteria Many H (None) /hpf Hyaline Casts 15 H (0-2) /lpf Urine Mucus Occasional H (None) /hpf - EKG Data -: EKG Interpreted by Me (EKG shows a flutter rate of 97, QRS 80, QTC 459) Disposition Clinical Impression: Atrial fibrillation with RVR, Dehydration, Gastroenteritis, UTI (urinary tract infection) Disposition: ADMITTED IP TO THIS HOSP Condition: Fair Is patient prescribed a controlled substance at d/c from ED?: No
[2018-07-06] MEDS: DILTIAZEM 50 MG in SODIUM CHLORIDE 0.9% 40 ML IV SCH (14:36)
[2018-07-06 15:05] LABS: Albumin 4.8 g/dL (3.5-5.0); Calcium 10.5 mg/dL (8.4-10.2); Magnesium 2.1 mg/dL (1.6-2.3); Total Bilirubin 1.2 mg/dL (0.2-1.3); Total Protein 7.9 g/dL (6.3-8.2)
[2018-07-06 15:10] LABS: Basophils % (A) 0 %; Eosinophils # (A) 0.1 k/uL (0-0.7); Eosinophils % (A) 1 %; HGB 15.5 gm/dL (11.4-16.0); Lymphocytes # (A) 0.6 k/uL (1.0-4.8); Lymphocytes % (A) 5 %; MCH 28.5 pg (25.0-35.0); MCHC 31.5 g/dL (31.0-37.0); MCV 90.3 fL (80.0-100.0); Mean Platelet Volume 8.1; Monocytes # (A) 0.4 k/uL (0-1.0); Monocytes % (A) 3 %; Neutrophils # (A) 10.6 k/uL (1.3-7.7); Neutrophils % (A) 90 %; Platelet Count 247 k/uL (150-450); RBC 5.43 m/uL (3.80-5.40); RDW 14.9 % (11.5-15.5); WBC 11.7 k/uL (3.8-10.6)
[2018-07-06 15:13] LABS: INR 1.1 (<1.2); Prothrombin Time 11.3 sec (9.0-12.0)
[2018-07-06 15:13] LABS: Appearance,Urine Turbid (Clear); Bacteria,Urine Many /hpf; Bilirubin,Urine Negative (Negative); Blood,Urine Small (Negative); Color,Urine Yellow; Glucose,Urine (UA) Trace (Negative); Hyaline Casts,Urine 15 /lpf (0-2); Ketones,Urine 1+ (Negative); Leukocyte Esterase,Urine Large (Negative); Mucus,Urine Occasional /hpf; Nitrite,Urine Negative (Negative); PH, Urine 6.5 (5.0-8.0); Protein,Urine 2+ (Negative); RBC,Urine 6 /hpf (0-5); Specific Gravity,Urine 1.015 (1.001-1.035); Squamous Epithelial Cell,Urine 2 /hpf (0-4); WBC,Urine >182 /hpf (0-5)
[2018-07-06 15:19] LABS: Partial Thromboplastin Time 18.5 sec (22.0-30.0)
--- NOTE | 2018-07-06 15:21 | XR ---
EXAMINATION TYPE: XR chest 2V DATE OF EXAM: 07/06/2018 COMPARISON: Prior chest x-ray 06/16/2018 HISTORY: Dysrhythmia TECHNIQUE: Frontal and lateral views of the chest are obtained. FINDINGS: There is no focal air space opacity, pleural effusion, or pneumothorax seen. The cardiac silhouette size is stable, enlarged. The osseous structures are intact. Calcified breast prostheses are in place. Aorta is dense. There are cardiac leads. IMPRESSION: Stable cardiomegaly.
[2018-07-06 15:24] LABS: Creatine Kinase 47 U/L (30-135)
[2018-07-06 15:36] LABS: Creatine Kinase MB 1.3 ng/mL (0.0-2.4); Troponin I <0.012 ng/mL (0.000-0.034)
[2018-07-06] MEDS ORDERED: ONDANSETRON 4 MG/2 ML VIAL IVP PRN (15:45)
[2018-07-06] MEDS ORDERED: ASPIRIN 81 MG PO STA (15:45)
[2018-07-06] MEDS ORDERED: NITROGLYCERIN SL TABS 0.4 MG TAB SUBLINGUAL PRN (15:45)
[2018-07-06] MEDS ORDERED: ONDANSETRON 4 MG/2 ML VIAL IVP STA (15:45)
[2018-07-06] MEDS ORDERED: cefTRIAXone 2,000 MG in SODIUM CHLORIDE 0.9% 100 ML IVPB STA (16:48)
[2018-07-06] MEDS ORDERED: HEPARIN SODIUM,PORCINE 5,000 UNIT/ML 1 ML VIAL IV ONE (17:18)
[2018-07-06] MEDS ORDERED: HEPARIN SODIUM,PORCINE 5,000 UNIT/ML 1 ML VIAL IV PRN (17:18)
--- NOTE | 2018-07-06 17:29 | P.HPIM ---
History of Present Illness 78-year-old female was brought into ER with complaints of nausea vomiting diarrhea, upon arrival to ER patient is found to be in atrial fibrillation with rapid unclear rate patient that did not provide me any good history although when questioned about suprapubic pain dysuria patient denied any of those complaints. Patient appears to have baseline advanced dementia may be vascular dementia patient is on Leti present. Patient does have history of atrial fibrillation patient was admitted about couple weeks ago here at that time patient was treated failure with atrial fibrillation was started on Eliquis subsequently had a stroke and the patient was transferred to [facility] and he does not appear like patient was discharged on any of the anticoagulation her blood thinners probably because of her advancing dementia. Patient appears to have significantly abnormal urine with elevated leukocyte esterase elevated white blood cell count. Patient is alert oriented 1 not sure what her baseline is. Review of Systems Not a reliable historian because of her dementia rest of the review of systems were either negative or not obtained except those mentioned above Past Medical History Past Medical History: Atrial Fibrillation, Cancer, Dementia, Hypertension, Osteoarthritis (OA), Thyroid Disorder Additional Past Medical History / Comment(s): throat cancer; NOS Afib 06/16/18 History of Any Multi-Drug Resistant Organisms: None Reported Past Surgical History: Breast Surgery Additional Past Surgical History / Comment(s): implants Additional Past Anesthesia/Blood Transfusion Reaction / Comment(s): PT refuses blood r/t congregation preferences Past Psychological History: No Psychological Hx Reported Smoking Status: Former smoker Past Alcohol Use History: None Reported Past Drug Use History: None Reported Medications and Allergies Home Medications Medication Instructions Recorded Confirmed Type Donepezil [Aricept] 10 mg PO HS 09/07/16 07/06/18 History Levothyroxine Sodium [Synthroid] 75 mcg PO DAILY 09/07/16 07/06/18 History Lisinopril 40 mg PO DAILY 09/07/16 07/06/18 History Atorvastatin [Lipitor] 20 mg PO DAILY 07/06/18 07/06/18 History Memantine [Namenda] 10 mg PO BID 07/06/18 07/06/18 History Allergies Allergy/AdvReac Type Severity Reaction Status Date / Time No Known Allergies Allergy Verified 07/06/18 14:28 Physical Exam Vitals: Vital Signs Temp Pulse Resp BP Pulse Ox 07/06/18 13:33 96.9 F L 127 H 20 96/52 94 L Intake and Output 07/06/18 07/06/18 07/06/18 06:59 14:59 22:59 Other: Weight 56.699 kg PHYSICAL EXAMINATION: GENERAL: The patient is alert and oriented x3, not in any acute distress. Well developed, well nourished. HEENT: Pupils are round and equally reacting to light. EOMI. No scleral icterus. No conjunctival pallor. Normocephalic, atraumatic. No pharyngeal erythema. No thyromegaly. CARDIOVASCULAR: S1 and S2 present. No murmurs, rubs, or gallops. Irregularly irregular rhythm PULMONARY: Chest is clear to auscultation, no wheezing or crackles. ABDOMEN: Soft, nontender, nondistended, normoactive bowel sounds. No palpable organomegaly. MUSCULOSKELETAL: No joint swelling or deformity. EXTREMITIES: No cyanosis, clubbing, or pedal edema. NEUROLOGICAL: Gross neurological examination did not reveal any focal deficits. SKIN: No rashes. Results CBC & Chem 7: 07/06/18 14:30 07/06/18 14:30 Labs: Abnormal Lab Results - Last 24 Hours (Table) 07/06/18 07/06/18 07/06/18 Range/Units 14:30 14:30 14:30 WBC 11.7 H (3.8-10.6) k/uL RBC 5.43 H (3.80-5.40) m/uL Hct 49.0 H (34.0-46.0) % Neutrophils # 10.6 H (1.3-7.7) k/uL Lymphocytes # 0.6 L (1.0-4.8) k/uL APTT 18.5 L (22.0-30.0) sec BUN 65 H (7-17) mg/dL Creatinine 1.56 H (0.52-1.04) mg/dL Glucose 134 H (74-99) mg/dL Calcium 10.5 H (8.4-10.2) mg/dL TSH 13.300 H (0.465-4.680) mIU/L Urine Appearance (Clear) Urine Protein (Negative) Urine Glucose (UA) (Negative) Urine Ketones (Negative) Urine Blood (Negative) Ur Leukocyte Esterase (Negative) Urine RBC (0-5) /hpf Urine WBC (0-5) /hpf Urine WBC Clumps (None) /hpf Urine Bacteria (None) /hpf Hyaline Casts (0-2) /lpf Urine Mucus (None) /hpf 07/06/18 Range/Units 14:51 WBC (3.8-10.6) k/uL RBC (3.80-5.40) m/uL Hct (34.0-46.0) % Neutrophils # (1.3-7.7) k/uL Lymphocytes # (1.0-4.8) k/uL APTT (22.0-30.0) sec BUN (7-17) mg/dL Creatinine (0.52-1.04) mg/dL Glucose (74-99) mg/dL Calcium (8.4-10.2) mg/dL TSH (0.465-4.680) mIU/L Urine Appearance Turbid H (Clear) Urine Protein 2+ H (Negative) Urine Glucose (UA) Trace H (Negative) Urine Ketones 1+ H (Negative) Urine Blood Small H (Negative) Ur Leukocyte Esterase Large H (Negative) Urine RBC 6 H (0-5) /hpf Urine WBC >182 H (0-5) /hpf Urine WBC Clumps Many H (None) /hpf Urine Bacteria Many H (None) /hpf Hyaline Casts 15 H (0-2) /lpf Urine Mucus Occasional H (None) /hpf Assessment and Plan Plan: -Nausea vomiting diarrhea: May be viral gastroenteritis patient will be started on IV Pepcid IV fluids. -Possibility of urinary tract infection that cannot be ruled out will obtain urine cultures patient is on Rocephin which will be continued have diarrhea can be secondary to UTI -Acute renal failure secondary to sepsis, prerenal azotemia for nausea vomiting diarrhea and the possible urinary tract infection -Atrial fibrillation with rapid ventricular rate: Presently rate controlled patient will be started on oral metoprolol and wean off Cardizem patient had a recent echo cardiac exam which showed normal ejection fraction there is a moderate to severe mitral regurgitation and severe tricuspid regurgitation. TSH is elevated T4 is pending. Her atrial fibrillation was precipitated by infection and dehydration, IV fluids will be continued at 100 mL per hour. Patient did not have any hemorrhagic bleed but did have a stroke apparently last time, because of her dementia, physical exam is limited. Patient appears to have advanced the past 3 dementia. Patient is presently not on anti- correlation at home possibly because of her advanced dementia right no rales start her on IV heparin decision regarding anticoagulation can be made with cardiology tomorrow. -Advanced dementia appears to be vascular dementia, I cannot rule out Alzheimer' s dementia. Supportive care -Possibility of encephalopathy and toxic encephalopathy from urinary tract infection metabolic encephalopathy from acute renal failure cannot be ruled out as I do not know her baseline and patient is quite a bit confused -History of recent CVA -Hypothyroidism continue with levothyroxine patient the HSG LDL is elevated will check the T4 before increase levothyroxine
[2018-07-06] MEDS ORDERED: HEPARIN SOD,PORK IN 0.45% NACL 25,000 UNIT in 0.45% NACL 1 250ML.BAG IV SCH (17:30)
[2018-07-06 21:12] LABS: Creatine Kinase 63 U/L (30-135)
[2018-07-06 21:24] LABS: Creatine Kinase MB 1.8 ng/mL (0.0-2.4); Troponin I <0.012 ng/mL (0.000-0.034)
[2018-07-06] MEDS: FAMOTIDINE 20 MG/2 ML VIAL IV SCH (22:07)
[2018-07-06] MEDS: DONEPEZIL 10 MG TAB PO SCH (22:07)
[2018-07-06] MEDS: MEMANTINE 10 MG TAB PO SCH (22:07)
[2018-07-06] MEDS: METOPROLOL TARTRATE 50 MG TAB PO SCH (22:07)
[2018-07-07] MEDS ORDERED: LORazepam 2 MG/ML INJ IV PRN (00:02)
[2018-07-07] MEDS: HALOPERIDOL LACTATE 5 MG/ML 1 ML VIAL IVP PRN ×2 (00:05→22:06)
[2018-07-07 03:13] LABS: Basophils % (A) 0 %; Eosinophils # (A) 0.1 k/uL (0-0.7); Eosinophils % (A) 1 %; HCT 41.7 % (34.0-46.0); HGB 12.9 gm/dL (11.4-16.0); Lymphocytes # (A) 0.9 k/uL (1.0-4.8); Lymphocytes % (A) 10 %; MCH 28.6 pg (25.0-35.0); MCV 92.1 fL (80.0-100.0); Mean Platelet Volume 7.4; Monocytes # (A) 0.4 k/uL (0-1.0); Monocytes % (A) 5 %; Neutrophils # (A) 7.1 k/uL (1.3-7.7); Neutrophils % (A) 82 %; Platelet Count 219 k/uL (150-450); RBC 4.53 m/uL (3.80-5.40); WBC 8.6 k/uL (3.8-10.6)
[2018-07-07 03:30] LABS: Creatine Kinase 65 U/L (30-135)
[2018-07-07 03:44] LABS: Creatine Kinase MB 1.9 ng/mL (0.0-2.4); Troponin I <0.012 ng/mL (0.000-0.034)
[2018-07-07 03:47] LABS: Calcium 9.4 mg/dL (8.4-10.2); Potassium 4.4 mmol/L (3.5-5.1)
[2018-07-07] MEDS: DILTIAZEM 50 MG in SODIUM CHLORIDE 0.9% 40 ML IV SCH ×2 (05:10→10:41)
[2018-07-07] MEDS: LEVOTHYROXINE 75 MCG TAB PO SCH (06:35)
[2018-07-07] MEDS: METOPROLOL TARTRATE 50 MG TAB PO SCH (08:38)
[2018-07-07] MEDS: FAMOTIDINE 20 MG/2 ML VIAL IV SCH (08:38)
[2018-07-07] MEDS: ATORVASTATIN 20 MG TAB PO SCH (08:38)
[2018-07-07] MEDS: MEMANTINE 10 MG TAB PO SCH ×2 (08:38→20:11)
[2018-07-07] MEDS ORDERED: ASPIRIN 325 MG TAB PO SCH (09:00)
--- NOTE | 2018-07-07 10:00 | P.CRDCN ---
History of Present Illness Consult date: 07/07/18 Requesting physician: Cecil Zimmerman Consult reason: atrial fibrillation Chief complaint: Vomiting and diarrhea History of present illness: This is a 78-year-old female with known history of dementia, hypertension, hypothyroidism, who apparently came to the hospital with symptoms of nausea vomiting and diarrhea. On arrival here she was found to be in atrial fibrillation with a rapid ventricular response. Although the history was obtained from the medical record as the patient is quite confused and has advanced dementia. Patient had a recent admission to the hospital last month, new onset of atrial fibrillation was diagnosed at that time and patient was recommended to take Eliquis 5 mg one tablet by mouth twice a day. She was also diagnosed on that recent admission with acute stroke. She also had an echocardiogram with Doppler study performed at that time which revealed a normal left ventricular systolic function with moderate to severe mitral regurgitation and severe tricuspid regurgitation. Cardiology consultation was again request on this admission because of atrial fibrillation. Blood pressure 124/60 with a heart rate in the 60s, 99% on room air. White blood cell count on admission 11.7, 8.6 this morning, hemoglobin 12.9, platelet count 219. Sodium 146, potassium 4.4, BUN 60, creatinine 1.1, creatinine on admission was 1.5. Magnesium 2.1. Troponins negative 3. TSH 13.3. Urinalysis shows evidence of a UTI. Past Medical History Past Medical History: Atrial Fibrillation, Cancer, Dementia, Hypertension, Osteoarthritis (OA), Thyroid Disorder Additional Past Medical History / Comment(s): throat cancer; NOS Afib 06/16/18, tia History of Any Multi-Drug Resistant Organisms: None Reported Past Surgical History: Breast Surgery Additional Past Surgical History / Comment(s): implants Additional Past Anesthesia/Blood Transfusion Reaction / Comment(s): PT refuses blood r/t protestant preferences Smoking Status: Former smoker - Past Family History Father Family Medical History: Dementia Mother Family Medical History: Dementia, Diabetes Mellitus Medications and Allergies Home Medications Medication Instructions Recorded Confirmed Type Donepezil [Aricept] 10 mg PO HS 09/07/16 07/06/18 History Levothyroxine Sodium [Synthroid] 75 mcg PO DAILY 09/07/16 07/06/18 History Lisinopril 40 mg PO DAILY 09/07/16 07/06/18 History Atorvastatin [Lipitor] 20 mg PO DAILY 07/06/18 07/06/18 History Memantine [Namenda] 10 mg PO BID 07/06/18 07/06/18 History Allergies Allergy/AdvReac Type Severity Reaction Status Date / Time No Known Allergies Allergy Verified 07/06/18 14:28 Physical Exam Vitals: Vital Signs Temp Pulse Pulse Resp BP BP Pulse Ox 07/07/18 08:50 98.7 F 65 18 125/65 99 07/07/18 06:14 75 15 134/83 97 07/06/18 23:40 15 07/06/18 23:39 57 L 15 143/70 98 07/06/18 23:08 57 L 07/06/18 21:59 15 07/06/18 21:49 98.0 F 71 15 166/93 96 07/06/18 21:30 97.8 F 62 18 146/87 98 07/06/18 20:00 98.1 F 64 16 149/82 98 07/06/18 19:00 98.0 F 68 18 157/87 98 07/06/18 18:04 72 16 147/80 98 07/06/18 17:57 97.8 F 89 20 135/91 98 07/06/18 17:00 98.0 F 81 16 132/87 98 07/06/18 16:00 97.4 F L 93 16 129/80 98 07/06/18 15:00 98.0 F 98 18 130/78 98 07/06/18 13:33 96.9 F L 127 H 20 96/52 94 L Intake and Output 07/06/18 07/07/18 07/07/18 22:59 06:59 14:59 Intake Total 889.474 Balance 889.474 Intake: Intake, IV Titration 889.474 Amount Diltiazem 50 mg In Sodium 42.667 Chloride 0.9% 40 ml @ 5 MG/HR 5 mls/hr IV .Q10H VANDANA Rx#:[id number] Heparin Sod,Pork in 0.45% 46.807 NaCl 25,000 unit In 0.45 % NaCl 1 250ml.bag @ 12 UNITS/KG/HR 6.8 mls/hr IV .Q24H VANDANA Rx#:[id number] Sodium Chloride 0.9% 1, 800 000 ml @ 100 mls/hr IV . Q10H STA Rx#:[id number] Other: # Voids 2 Weight 52.5 kg PHYSICAL EXAMINATION: GENERAL: 78-year-old female in no acute distress at the time of my examination HEENT: Head is atraumatic, normocephalic. Pupils equal, round. Sclera anicteric. Conjunctiva are clear. Mucous membranes of the mouth are moist. Neck is supple. There is no elevated jugular venous pressure. No carotid bruit is heard. HEART EXAMINATION: Heart S1 and S2 irregularly irregular a systolic murmur is heard. CHEST EXAMINATION: Lungs are clear to auscultation and precussion. No chest wall tenderness is noted on palpation or with deep breathing. ABDOMEN: Soft, nontender. Bowel sounds are heard. No organomegaly noted. EXTREMITIES: 2+ peripheral pulses with no evidence of peripheral edema and no calf tenderness noted. NEUROLOGIC [patient is sleepy, confused Results 07/07/18 02:47 07/07/18 02:47 Cardiac Enzymes 07/06/18 07/06/18 07/06/18 Range/Units 14:30 14:30 20:33 AST 31 (14-36) U/L CK-MB (CK-2) 1.3 1.8 (0.0-2.4) ng/mL Troponin I <0.012 <0.012 (0.000-0.034) ng/mL 07/07/18 Range/Units 02:47 AST (14-36) U/L CK-MB (CK-2) 1.9 (0.0-2.4) ng/mL Troponin I <0.012 (0.000-0.034) ng/mL Coagulation 07/06/18 07/07/18 Range/Units 14:30 02:47 PT 11.3 (9.0-12.0) sec APTT 18.5 L 140.9 H* (22.0-30.0) sec Lipids 07/07/18 Range/Units 02:47 Triglycerides 47 (<150) mg/dL Cholesterol 134 (<200) mg/dL HDL Cholesterol 46 (40-60) mg/dL CBC 07/06/18 07/07/18 Range/Units 14:30 02:47 WBC 11.7 H 8.6 (3.8-10.6) k/uL RBC 5.43 H 4.53 (3.80-5.40) m/uL Hgb 15.5 12.9 (11.4-16.0) gm/dL Hct 49.0 H 41.7 (34.0-46.0) % Plt Count 247 219 (150-450) k/uL Comprehensive Metabolic Panel 07/06/18 07/07/18 Range/Units 14:30 02:47 Sodium 145 146 H (137-145) mmol/L Potassium 5.0 4.4 (3.5-5.1) mmol/L Chloride 107 115 H (98-107) mmol/L Carbon Dioxide 25 23 (22-30) mmol/L BUN 65 H 60 H (7-17) mg/dL Creatinine 1.56 H 1.10 H (0.52-1.04) mg/dL Glucose 134 H 137 H (74-99) mg/dL Calcium 10.5 H 9.4 (8.4-10.2) mg/dL AST 31 (14-36) U/L ALT 34 (9-52) U/L Alkaline Phosphatase 95 (38-126) U/L Total Protein 7.9 (6.3-8.2) g/dL Albumin 4.8 (3.5-5.0) g/dL Current Medications Generic Name Dose Route Start Last Admin Trade Name Freq PRN Reason Stop Dose Admin Aspirin 325 mg 07/07/18 09:00 07/07/18 08:38 Aspirin PO 325 mg DAILY VANDANA Administration Atorvastatin Calcium 20 mg 07/07/18 09:00 07/07/18 08:38 Lipitor PO 20 mg DAILY VANDANA Administration Donepezil HCl 10 mg 07/06/18 21:00 07/06/18 22:07 Aricept PO 10 mg HS VANDANA Administration Famotidine 20 mg 07/06/18 21:00 07/07/18 08:38 Pepcid IV 20 mg Q12HR VANDANA Administration Haloperidol Lactate 0.5 mg 07/07/18 00:00 07/07/18 00:05 Haldol IVP 0.5 mg Q8HR PRN Administration Agitation or Acute Psychosis Heparin Sodium (Porcine) 0 unit 07/06/18 17:18 Heparin IV PER PROTOCOL PRN Low PTT Protocol Diltiazem HCl 50 mg/ Sodium 50 mls @ 5 mls/hr 07/06/18 14:00 07/07/18 05:10 Chloride IV Not Given .Q10H VANDANA 5 MG/HR Ceftriaxone Sodium 1,000 mg/ 50 mls @ 100 mls/hr 07/07/18 09:00 07/07/18 08: 38 Sodium Chloride IVPB 100 mls/hr Q12HR VANDANA Administration Heparin Sodium/Sodium Chloride 250 mls @ 6.8 mls/hr 07/06/18 17:30 07/07/18 05:01 25,000 unit/ Sodium Chloride IV 9 units/kg/hr .Q24H VANDANA 5.1 mls/hr Titration Protocol 12 UNITS/KG/HR Levothyroxine Sodium 75 mcg 07/07/18 06:30 07/07/18 06:35 Synthroid PO 75 mcg DAILY@0630 VANDANA Administration Lorazepam 1 mg 07/07/18 00:02 Ativan IV Q4HR PRN Anxiety Memantine 10 mg 07/06/18 21:00 07/07/18 08:38 Namenda PO 10 mg BID VANDANA Administration Metoprolol Tartrate 50 mg 07/06/18 21:00 07/07/18 08:38 Lopressor PO 50 mg BID VANDANA Administration Nitroglycerin 0.4 mg 07/06/18 15:45 Nitrostat SUBLINGUAL Q5M PRN Chest Pain Ondansetron HCl 4 mg 07/06/18 15:45 Zofran IVP Q6HR PRN Nausea And Vomiting Intake and Output 07/06/18 07/07/18 07/07/18 22:59 06:59 14:59 Intake Total 889.474 Balance 889.474 Intake: Intake, IV Titration 889.474 Amount Diltiazem 50 mg In Sodium 42.667 Chloride 0.9% 40 ml @ 5 MG/HR 5 mls/hr IV .Q10H [facility]NA Rx#:[id number] Heparin Sod,Pork in 0.45% 46.807 NaCl 25,000 unit In 0.45 % NaCl 1 250ml.bag @ 12 UNITS/KG/HR 6.8 mls/hr IV .Q24H [facility]ANDANA Rx#:[id number] Sodium Chloride 0.9% 1, 800 000 ml @ 100 mls/hr IV . Q10H STA Rx#:[id number] Other: # Voids 2 Weight 52.5 kg 07/07/18 02:47 07/07/18 02:47 EKG Interpretations (text) EKG shows atrial fibrillation with a rapid ventricular response. Assessment and Plan Plan: Assessment and plan #1 symptoms of nausea vomiting and diarrhea #2 UTI #3 atrial fibrillation with rapid ventricular response, chronic persistent, recently diagnosed, she had been started on Eliquis 5 twice a day, 10 you prior to her discharge last month. #4 advanced dementia #5 hypertension #6 recent CVA #7 hypothyroidism Plan Patient had an echocardiogram with Doppler study performed a couple of weeks ago which revealed a normal left ventricular systolic function with moderate to severe MR and severe TR. We will discontinue the Cardizem drip and start the patient on by mouth Lopressor for more optimal rate control. We will also look further into the patient's home situation, to see whether or not she is a candidate for anticoagulation with her advanced dementia. Further recommendations to follow. DNP note has been reviewed, I agree with a documented findings and plan of care. Patient was seen and examined.
[2018-07-07] MEDS: APIXABAN 5 MG TAB PO SCH ×2 (12:29→20:11)
[2018-07-07] MEDS: METOPROLOL TARTRATE 25 MG TAB PO SCH (20:11)
[2018-07-07] MEDS: DONEPEZIL 10 MG TAB PO SCH (20:11)
[2018-07-08] MEDS: LEVOTHYROXINE 75 MCG TAB PO SCH (06:35)
[2018-07-08] MEDS: ATORVASTATIN 20 MG TAB PO SCH (08:41)
[2018-07-08] MEDS: METOPROLOL TARTRATE 25 MG TAB PO SCH ×3 (08:41→20:36)
[2018-07-08] MEDS: APIXABAN 5 MG TAB PO SCH ×2 (08:41→20:36)
[2018-07-08] MEDS ORDERED: cefTRIAXone 2 GM VIAL ONE ×2 (08:41)
[2018-07-08] MEDS: MEMANTINE 10 MG TAB PO SCH ×2 (08:41→20:36)
[2018-07-08] MEDS: FAMOTIDINE 20 MG TAB PO SCH (08:41)
[2018-07-08] MEDS ORDERED: ASPIRIN 81 MG PO SCH (09:00)
[2018-07-08 09:04] LABS: Basophils % (A) 1 %; Eosinophils # (A) 0.1 k/uL (0-0.7); Eosinophils % (A) 2 %; HCT 38.6 % (34.0-46.0); HGB 12.3 gm/dL (11.4-16.0); Lymphocytes # (A) 1.1 k/uL (1.0-4.8); Lymphocytes % (A) 19 %; MCHC 31.9 g/dL (31.0-37.0); MCV 90.8 fL (80.0-100.0); Mean Platelet Volume 7.6; Monocytes # (A) 0.3 k/uL (0-1.0); Monocytes % (A) 5 %; Neutrophils # (A) 3.9 k/uL (1.3-7.7); Neutrophils % (A) 72 %; Platelet Count 183 k/uL (150-450); RBC 4.25 m/uL (3.80-5.40); RDW 15.1 % (11.5-15.5); WBC 5.5 k/uL (3.8-10.6)
[2018-07-08 13:34] LABS: Calcium 9.1 mg/dL (8.4-10.2); Potassium 3.8 mmol/L (3.5-5.1)
--- NOTE | 2018-07-08 14:03 | P.PN ---
Subjective Progress Note Date: 07/08/18 Hospital course:78-year-old female was brought into ER with complaints of nausea vomiting diarrhea, upon arrival to ER patient is found to be in atrial fibrillation with rapid unclear rate patient that did not provide me any good history although when questioned about suprapubic pain dysuria patient denied any of those complaints. Patient appears to have baseline advanced dementia may be vascular dementia patient is on Leti present. Patient does have history of atrial fibrillation patient was admitted about couple weeks ago here at that time patient was treated failure with atrial fibrillation was started on Eliquis subsequently had a stroke and the patient was transferred to [facility] and he does not appear like patient was discharged on any of the anticoagulation her blood thinners probably because of her advancing dementia. Patient appears to have significantly abnormal urine with elevated leukocyte esterase elevated white blood cell count. Patient is alert oriented 1 not sure what her baseline is. 07/08/2018. Cardizem drip discontinued yesterday, Lopressor initiated.Telemetry reporting atrial fibrillation/flutter with controlled ventricular rate. Anticoagulated on Eliquis. Preliminary urine culture in progress. Continues on Rocephin. Urinary retention, required straight cath. Creatinine improving, 0.78. Sodium 143. Family considering subacute rehab, [facility]. Unable to perform review of systems given patient's dementia, A & O X 1. Active Medications Apixaban (Eliquis) 5 mg PO BID [facility] Last Admin: 07/08/18 08:41 Dose: 5 mg Atorvastatin Calcium (Lipitor) 20 mg PO DAILY [facility] Last Admin: 07/08/18 08:41 Dose: 20 mg Donepezil HCl (Aricept) 10 mg PO HS [facility] Last Admin: 07/07/18 20:11 Dose: 10 mg Famotidine (Pepcid) 20 mg PO DAILY [facility] Last Admin: 07/08/18 08:41 Dose: 20 mg Haloperidol Lactate (Haldol) 0.5 mg IVP Q8HR PRN PRN Reason: Agitation or Acute Psychosis Last Admin: 07/07/18 22:06 Dose: 0.5 mg Ceftriaxone Sodium 1,000 mg/ (Sodium Chloride) 50 mls @ 100 mls/hr IVPB Q12HR [facility] Last Admin: 07/08/18 08:41 Dose: 100 mls/hr Levothyroxine Sodium (Synthroid) 75 mcg PO DAILY@0630 [facility] Last Admin: 07/08/18 06:35 Dose: 75 mcg Lorazepam (Ativan) 1 mg IV Q4HR PRN PRN Reason: Anxiety Memantine (Namenda) 10 mg PO BID [facility] Last Admin: 07/08/18 08:41 Dose: 10 mg Metoprolol Tartrate (Lopressor) 25 mg PO TID [facility] Nitroglycerin (Nitrostat) 0.4 mg SUBLINGUAL Q5M PRN PRN Reason: Chest Pain Ondansetron HCl (Zofran) 4 mg IVP Q6HR PRN PRN Reason: Nausea And Vomiting Objective - Vital Signs Vital signs: Vital Signs Temp 98.7 F 07/07/18 08:50 Pulse 65 07/07/18 08:50 Resp 18 07/07/18 08:50 BP 125/65 07/07/18 08:50 Pulse Ox 99 07/07/18 08:50 Intake & Output 07/06/18 07/07/18 07/07/18 18:59 06:59 18:59 Intake Total 889.474 Balance 889.474 Weight 56.699 kg 52.5 kg Intake: Intake, IV Titration 889.474 Amount Diltiazem 50 mg In Sodium 42.667 Chloride 0.9% 40 ml @ 5 MG/HR 5 mls/hr IV .Q10H [facility] Rx#:[id number] Heparin Sod,Pork in 0.45% 46.807 NaCl 25,000 unit In 0.45 % NaCl 1 250ml.bag @ 12 UNITS/KG/HR 6.8 mls/hr IV .Q24H [facility] Rx#:[id number] Sodium Chloride 0.9% 1, 800 000 ml @ 100 mls/hr IV . Q10H [facility] Rx#:[id number] Other: # Voids 2 - Exam GENERAL: The patient is sitting up in bed, alert and oriented x1, no acute distress. Well developed, well nourished. HEENT: Pupils are round and equally reacting to light. EOMI. No scleral icterus. No conjunctival pallor. Normocephalic, atraumatic. CARDIOVASCULAR: S1 and S2 present. Systolic murmur, no rubs, or gallops. Irregularly irregular rhythm PULMONARY: Chest is clear to auscultation, no wheezing or crackles. ABDOMEN: Soft, nontender, nondistended, normoactive bowel sounds. No palpable organomegaly. MUSCULOSKELETAL: No joint swelling or deformity. EXTREMITIES: No cyanosis, clubbing, or pedal edema. NEUROLOGICAL: Gross neurological examination did not reveal any focal deficits. SKIN: No rashes. - Labs CBC & Chem 7: 07/08/18 07:41 07/08/18 07:41 Labs: Abnormal Lab Results - Last 24 Hours (Table) 07/06/18 07/06/18 07/06/18 Range/Units 14:30 14:30 14:30 WBC 11.7 H (3.8-10.6) k/uL RBC 5.43 H (3.80-5.40) m/uL Hct 49.0 H (34.0-46.0) % Neutrophils # 10.6 H (1.3-7.7) k/uL Lymphocytes # 0.6 L (1.0-4.8) k/uL APTT 18.5 L (22.0-30.0) sec Sodium (137-145) mmol/L Chloride (98-107) mmol/L BUN 65 H (7-17) mg/dL Creatinine 1.56 H (0.52-1.04) mg/dL Glucose 134 H (74-99) mg/dL Calcium 10.5 H (8.4-10.2) mg/dL TSH 13.300 H (0.465-4.680) mIU/L Urine Appearance (Clear) Urine Protein (Negative) Urine Glucose (UA) (Negative) Urine Ketones (Negative) Urine Blood (Negative) Ur Leukocyte Esterase (Negative) Urine RBC (0-5) /hpf Urine WBC (0-5) /hpf Urine WBC Clumps (None) /hpf Urine Bacteria (None) /hpf Hyaline Casts (0-2) /lpf Urine Mucus (None) /hpf 07/06/18 07/07/18 07/07/18 Range/Units 14:51 02:47 02:47 WBC (3.8-10.6) k/uL RBC (3.80-5.40) m/uL Hct (34.0-46.0) % Neutrophils # (1.3-7.7) k/uL Lymphocytes # (1.0-4.8) k/uL APTT 140.9 H* (22.0-30.0) sec Sodium 146 H (137-145) mmol/L Chloride 115 H (98-107) mmol/L BUN 60 H (7-17) mg/dL Creatinine 1.10 H (0.52-1.04) mg/dL Glucose 137 H (74-99) mg/dL Calcium (8.4-10.2) mg/dL TSH (0.465-4.680) mIU/L Urine Appearance Turbid H (Clear) Urine Protein 2+ H (Negative) Urine Glucose (UA) Trace H (Negative) Urine Ketones 1+ H (Negative) Urine Blood Small H (Negative) Ur Leukocyte Esterase Large H (Negative) Urine RBC 6 H (0-5) /hpf Urine WBC >182 H (0-5) /hpf Urine WBC Clumps Many H (None) /hpf Urine Bacteria Many H (None) /hpf Hyaline Casts 15 H (0-2) /lpf Urine Mucus Occasional H (None) /hpf 07/07/18 Range/Units 02:47 WBC (3.8-10.6) k/uL RBC (3.80-5.40) m/uL Hct (34.0-46.0) % Neutrophils # (1.3-7.7) k/uL Lymphocytes # 0.9 L (1.0-4.8) k/uL APTT (22.0-30.0) sec Sodium (137-145) mmol/L Chloride (98-107) mmol/L BUN (7-17) mg/dL Creatinine (0.52-1.04) mg/dL Glucose (74-99) mg/dL Calcium (8.4-10.2) mg/dL TSH (0.465-4.680) mIU/L Urine Appearance (Clear) Urine Protein (Negative) Urine Glucose (UA) (Negative) Urine Ketones (Negative) Urine Blood (Negative) Ur Leukocyte Esterase (Negative) Urine RBC (0-5) /hpf Urine WBC (0-5) /hpf Urine WBC Clumps (None) /hpf Urine Bacteria (None) /hpf Hyaline Casts (0-2) /lpf Urine Mucus (None) /hpf Assessment and Plan Assessment: -Nausea vomiting diarrhea: May be viral gastroenteritis -Possibility of urinary tract infection, urine culture pending -Acute renal failure secondary to sepsis, prerenal azotemia from nausea, vomiting, diarrhea and possible urinary tract infection -Atrial fibrillation with rapid ventricular rate, currently controlled ventricular rate precipitated by dehydration, infection. Recent echo showed normal ejection fraction. Moderate to severe mitral regurgitation, severe tricuspid regurgitation. TSH is elevated T4 is pending. -Advanced dementia appears to be vascular dementia, possible Alzheimer's dementia. -Possibility of encephalopathy, toxic encephalopathy from urinary tract infection. - metabolic encephalopathy from acute renal failure -History of recent CVA -Hypothyroidism Plan: Continue current medication regime ,monitoring and symptomatic treatment. maintain supportive care .Discharge planning in progress for subacute rehab to [facility] tomorrow pending authorization. The impression and plan of care has been dictated as directed. : I performed a history and examination of this patient, discussed the same with the dictator. I agree with the dictator's note ,documented as a scribe. Any additional findings or plans will be noted.
--- NOTE | 2018-07-08 14:39 | P.PN ---
Subjective Progress Note Date: 07/08/18 This is a 78-year-old female with known history of dementia, hypertension, hypothyroidism, who apparently came to the hospital with symptoms of nausea vomiting and diarrhea. On arrival here she was found to be in atrial fibrillation with a rapid ventricular response. Although the history was obtained from the medical record as the patient is quite confused and has advanced dementia. Patient had a recent admission to the hospital last month, new onset of atrial fibrillation was diagnosed at that time and patient was recommended to take Eliquis 5 mg one tablet by mouth twice a day. She was also diagnosed on that recent admission with acute stroke. She also had an echocardiogram with Doppler study performed at that time which revealed a normal left ventricular systolic function with moderate to severe mitral regurgitation and severe tricuspid regurgitation. Cardiology consultation was again request on this admission because of atrial fibrillation. Blood pressure 124/60 with a heart rate in the 60s, 99% on room air. White blood cell count on admission 11.7, 8.6 this morning, hemoglobin 12.9, platelet count 219. Sodium 146, potassium 4.4, BUN 60, creatinine 1.1, creatinine on admission was 1.5. Magnesium 2.1. Troponins negative 3. TSH 13.3. Urinalysis shows evidence of a UTI. 07/08/2018 Patient was seen and examined this morning, continues to be in atrial fibrillation, heart rate in the 90s to low 100s, blood pressure 158/80. We will increase her dose of metoprolol to a 3 times a day dose. He is not felt to be a candidate for anticoagulation because of her severe dementia and risk of falls. Objective - Vital Signs Vital signs: Vital Signs Temp 96.5 F L 07/08/18 11:21 Pulse 96 07/08/18 11:21 Resp 18 07/08/18 11:21 BP 130/92 07/08/18 11:21 Pulse Ox 100 07/08/18 11:21 Intake & Output 07/07/18 07/08/18 07/08/18 18:59 06:59 18:59 Intake Total 118 360 Output Total 350 400 Balance -232 -400 360 Weight 50 kg Intake: Oral 118 360 Output: Urine 350 400 Straight 350 400 Other: # Voids 2 1 2 - Exam PHYSICAL EXAMINATION: GENERAL: 78-year-old female in no acute distress at the time of my examination HEENT: Head is atraumatic, normocephalic. Pupils equal, round. Sclera anicteric. Conjunctiva are clear. Mucous membranes of the mouth are moist. Neck is supple. There is no elevated jugular venous pressure. No carotid bruit is heard. HEART EXAMINATION: Heart S1 and S2 irregularly irregular a systolic murmur is heard. CHEST EXAMINATION: Lungs are clear to auscultation and precussion. No chest wall tenderness is noted on palpation or with deep breathing. ABDOMEN: Soft, nontender. Bowel sounds are heard. No organomegaly noted. EXTREMITIES: 2+ peripheral pulses with no evidence of peripheral edema and no calf tenderness noted. NEUROLOGIC [patient is sleepy, confused - Labs CBC & Chem 7: 07/08/18 07:41 07/08/18 07:41 Labs: Abnormal Lab Results - Last 24 Hours (Table) 07/08/18 Range/Units 07:41 Chloride 114 H (98-107) mmol/L BUN 41 H (7-17) mg/dL Glucose 104 H (74-99) mg/dL Microbiology - Last 24 Hours (Table) 07/07/18 18:45 Urine Culture - Preliminary Urine,Catheterized Assessment and Plan Plan: Assessment and plan #1 symptoms of nausea vomiting and diarrhea #2 UTI #3 atrial fibrillation with rapid ventricular response, chronic persistent, recently diagnosed, she had been started on Eliquis 5 twice a day, 10 you prior to her discharge last month. #4 advanced dementia #5 hypertension #6 recent CVA #7 hypothyroidism Plan Cardiology's perspective, we'll increase beta meghna to a 3 times a day dose. Patient is not felt to be a candidate for anticoagulation because of severe dementia and risk for falls. We will follow her along with you now on an as- needed basis only, please don't hesitate to call with any questions. DNP note has been reviewed, I agree with a documented findings and plan of care. Patient was seen and examined.
[2018-07-08] MEDS: DONEPEZIL 10 MG TAB PO SCH (20:37)
[2018-07-09] MEDS: LEVOTHYROXINE 75 MCG TAB PO SCH (06:22)
[2018-07-09 06:36] LABS: Basophils % (A) 1 %; Eosinophils # (A) 0.2 k/uL (0-0.7); Eosinophils % (A) 3 %; HCT 40.4 % (34.0-46.0); HGB 12.9 gm/dL (11.4-16.0); Lymphocytes # (A) 1.8 k/uL (1.0-4.8); Lymphocytes % (A) 27 %; MCH 28.8 pg (25.0-35.0); Mean Platelet Volume 7.6; Monocytes # (A) 0.3 k/uL (0-1.0); Monocytes % (A) 5 %; Neutrophils % (A) 63 %; Platelet Count 195 k/uL (150-450); RBC 4.49 m/uL (3.80-5.40); RDW 15.1 % (11.5-15.5); WBC 6.4 k/uL (3.8-10.6)
[2018-07-09] MEDS ORDERED: cefTRIAXone 2 GM VIAL ONE (10:15)
[2018-07-09] MEDS: APIXABAN 5 MG TAB PO SCH ×2 (10:17→20:32)
[2018-07-09] MEDS: FAMOTIDINE 20 MG TAB PO SCH (10:17)
[2018-07-09] MEDS: MEMANTINE 10 MG TAB PO SCH ×2 (10:17→20:32)
[2018-07-09] MEDS: METOPROLOL TARTRATE 25 MG TAB PO SCH ×3 (10:17→20:32)
[2018-07-09] MEDS: ATORVASTATIN 20 MG TAB PO SCH (10:17)
--- NOTE | 2018-07-09 14:10 | P.DS ---
Providers Date of admission: 07/06/18 15:45 Attending physician: Cecil Zimmerman Consults: 07/06/18 15:45 Consult Physician Urgent Consulting Provider: Jesus Dewey Consult Reason/Comments: afib Do you want consulting provider notified?: Yes Primary care physician: Carmenza Martínez [facility] Course: Final Diagnoses: -Nausea vomiting diarrhea, poss. viral gastroenteritis, resolved -Possibility of urinary tract infection, urine culture no growth at 18hrs -Acute renal failure secondary to sepsis, prerenal azotemia from nausea, vomiting, diarrhea and possible urinary tract infection, improved -Atrial fibrillation with rapid ventricular rate, currently controlled ventricular rate precipitated by dehydration, infection. Recent echo showed normal ejection fraction. Moderate to severe mitral regurgitation, severe tricuspid regurgitation. TSH is elevated T4 is pending.Repeat TSH/Free T4 in one mth. -Advanced dementia appears to be vascular dementia, possible Alzheimer's dementia. -Possibility of encephalopathy, toxic encephalopathy possibly from urinary tract infection. - metabolic encephalopathy from acute renal failure -History of recent CVA -Hypothyroidism - Urinary retention, F/U with urology in 1 week Hospital course:78-year-old female was brought into ER with complaints of nausea vomiting diarrhea, upon arrival to ER patient is found to be in atrial fibrillation with rapid unclear rate patient that did not provide me any good history although when questioned about suprapubic pain dysuria patient denied any of those complaints. Patient appears to have baseline advanced dementia may be vascular dementia patient is on Leti present. Patient does have history of atrial fibrillation patient was admitted about couple weeks ago here at that time patient was treated failure with atrial fibrillation was started on Eliquis subsequently had a stroke and the patient was transferred to [facility] and he does not appear like patient was discharged on any of the anticoagulation her blood thinners probably because of her advancing dementia. Patient appears to have significantly abnormal urine with elevated leukocyte esterase elevated white blood cell count. Patient is alert oriented 1 not sure what her baseline is. Cardizem drip discontinued yesterday, Lopressor initiated.Telemetry reporting atrial fibrillation/flutter with controlled ventricular rate. Preliminary urine culture in progress. Continues on Rocephin. Urinary retention, required straight cath. Creatinine improving, 0.78. Sodium 143. Family considering subacute rehab, [facility]. Per Cardiology, given her dementia and hx of falls, patient is not a candidate for anticoagulation.Cleared by cardiolgy for DC. Pt is being Discharged to [facility] in a stable condition with guarded prognosis. - Exam GENERAL: The patient is sitting up in bed, alert and oriented x1, no acute distress CARDIOVASCULAR: S1 and S2 present. Systolic murmur, no rubs, or gallops. Irregularly irregular rhythm PULMONARY: Chest is clear to auscultation, no wheezing or crackles. ABDOMEN: Soft, nontender, nondistended, normoactive bowel sounds. No palpable organomegaly. NEUROLOGICAL: Gross neurological examination did not reveal any focal deficits. Microbiology 07/07/18 18:45 Urine,Catheterized Urine Culture - Final The impression and plan of care has been dictated as directed. : I performed a history and examination of this patient, discussed the same with the dictator. I agree with the dictator's note ,documented as a scribe. Any additional findings or plans will be noted. Time taken 35 min. Patient Condition at Discharge: Stable Plan - Discharge Summary Discharge Rx Participant: Yes New Discharge Prescriptions: New Famotidine [Pepcid] 20 mg PO DAILY tab Metoprolol Tartrate [Lopressor] 25 mg PO TID tab Cefuroxime Axetil [Ceftin] 500 mg PO BID #10 tab Continue Levothyroxine Sodium [Synthroid] 75 mcg PO DAILY Donepezil [Aricept] 10 mg PO HS Memantine [Namenda] 10 mg PO BID Atorvastatin [Lipitor] 20 mg PO DAILY Discontinued Lisinopril 40 mg PO DAILY Discharge Medication List Donepezil [Aricept] 10 mg PO HS 09/07/16 [History] Levothyroxine Sodium [Synthroid] 75 mcg PO DAILY 09/07/16 [History] Atorvastatin [Lipitor] 20 mg PO DAILY 07/06/18 [History] Memantine [Namenda] 10 mg PO BID 07/06/18 [History] Cefuroxime Axetil [Ceftin] 500 mg PO BID #10 tab 07/09/18 [Rx] Famotidine [Pepcid] 20 mg PO DAILY tab 07/09/18 [Rx] Metoprolol Tartrate [Lopressor] 25 mg PO TID tab 07/09/18 [Rx] Follow up Appointment(s)/Referral(s): Andres Collier MD [STAFF PHYSICIAN] - 1 Week (urinary retention) Carmenza Martínez III, MD [Primary Care Provider] - 3 Days Volodymyr Pereyra MD [REFERRING] - 1 Week Activity/Diet/Wound Care/Special Instructions: ECF SHe is not felt to be a candidate for anticoagulation because of her severe dementia and risk of falls, as per Cardiology. repeat TSH/free T4 in 30 days 30 day copay for Eliquis or Xarelto would be $117/mo
--- NOTE | 2018-07-09 19:42 | P.PN ---
Subjective Progress Note Date: 07/08/18 Hospital course:78-year-old female was brought into ER with complaints of nausea vomiting diarrhea, upon arrival to ER patient is found to be in atrial fibrillation with rapid unclear rate patient that did not provide me any good history although when questioned about suprapubic pain dysuria patient denied any of those complaints. Patient appears to have baseline advanced dementia may be vascular dementia patient is on Leti present. Patient does have history of atrial fibrillation patient was admitted about couple weeks ago here at that time patient was treated failure with atrial fibrillation was started on Eliquis subsequently had a stroke and the patient was transferred to [facility] and he does not appear like patient was discharged on any of the anticoagulation her blood thinners probably because of her advancing dementia. Patient appears to have significantly abnormal urine with elevated leukocyte esterase elevated white blood cell count. Patient is alert oriented 1 not sure what her baseline is. 07/08/2018. Cardizem drip discontinued yesterday, Lopressor initiated.Telemetry reporting atrial fibrillation/flutter with controlled ventricular rate. Beta meghna frequency increased. Anticoagulated on Eliquis. Cardiology discussed with family, anticoagulation is not recommended given patient's severe dementia and risk of falls. Preliminary urine culture in progress. Continues on Rocephin. Urinary retention, required straight cath. Significant improvement in renal function with Creatinine 0.78. Sodium 143. Family considering subacute rehab, [facility]. Unable to perform review of systems given patient's dementia, A & O X 1. Active Medications Apixaban (Eliquis) 5 mg PO BID [facility] Last Admin: 07/08/18 08:41 Dose: 5 mg Atorvastatin Calcium (Lipitor) 20 mg PO DAILY [facility] Last Admin: 07/08/18 08:41 Dose: 20 mg Donepezil HCl (Aricept) 10 mg PO HS [facility] Last Admin: 07/07/18 20:11 Dose: 10 mg Famotidine (Pepcid) 20 mg PO DAILY [facility] Last Admin: 07/08/18 08:41 Dose: 20 mg Haloperidol Lactate (Haldol) 0.5 mg IVP Q8HR PRN PRN Reason: Agitation or Acute Psychosis Last Admin: 07/07/18 22:06 Dose: 0.5 mg Ceftriaxone Sodium 1,000 mg/ (Sodium Chloride) 50 mls @ 100 mls/hr IVPB Q12HR [facility] Last Admin: 07/08/18 08:41 Dose: 100 mls/hr Levothyroxine Sodium (Synthroid) 75 mcg PO DAILY@0630 [facility] Last Admin: 07/08/18 06:35 Dose: 75 mcg Lorazepam (Ativan) 1 mg IV Q4HR PRN PRN Reason: Anxiety Memantine (Namenda) 10 mg PO BID [facility] Last Admin: 07/08/18 08:41 Dose: 10 mg Metoprolol Tartrate (Lopressor) 25 mg PO TID [facility] Nitroglycerin (Nitrostat) 0.4 mg SUBLINGUAL Q5M PRN PRN Reason: Chest Pain Ondansetron HCl (Zofran) 4 mg IVP Q6HR PRN PRN Reason: Nausea And Vomiting Objective - Vital Signs Vital signs: Vital Signs Temp 97.4 F L 07/08/18 16:00 Pulse 72 07/08/18 16:00 Resp 18 07/08/18 16:00 BP 143/97 07/08/18 16:00 Pulse Ox 96 07/08/18 16:00 Intake & Output 07/07/18 07/08/18 07/08/18 18:59 06:59 18:59 Intake Total 118 600 Output Total 350 400 Balance -232 -400 600 Weight 50 kg Intake: Oral 118 600 Output: Urine 350 400 Straight 350 400 Other: # Voids 2 1 2 - Exam GENERAL: The patient is sitting up in bed, alert and oriented x1, no acute distress. HEENT: Pupils are round and equally reacting to light. EOMI. No scleral icterus. No conjunctival pallor. Normocephalic, atraumatic. CARDIOVASCULAR: S1 and S2 present. Systolic murmur, no rubs, or gallops. Irregularly irregular rhythm PULMONARY: Chest is clear to auscultation, no wheezing or crackles. ABDOMEN: Soft, nontender, nondistended, normoactive bowel sounds. No palpable organomegaly. MUSCULOSKELETAL: No joint swelling or deformity. EXTREMITIES: No cyanosis, clubbing, or pedal edema. NEUROLOGICAL: Gross neurological examination did not reveal any focal deficits. SKIN: No rashes. - Labs CBC & Chem 7: 07/09/18 05:53 07/08/18 07:41 Labs: Abnormal Lab Results - Last 24 Hours (Table) 07/08/18 Range/Units 07:41 Chloride 114 H (98-107) mmol/L BUN 41 H (7-17) mg/dL Glucose 104 H (74-99) mg/dL Microbiology - Last 24 Hours (Table) 07/07/18 18:45 Urine Culture - Preliminary Urine,Catheterized Assessment and Plan Assessment: -Nausea vomiting diarrhea: May be viral gastroenteritis, improving -Possibility of urinary tract infection, urine culture pending -Acute renal failure secondary to sepsis, prerenal azotemia from nausea, vomiting, diarrhea and possible urinary tract infection, improved -Atrial fibrillation with rapid ventricular rate, currently controlled ventricular rate ,precipitated by dehydration, infection. Recent echo showed normal ejection fraction. Moderate to severe mitral regurgitation, severe tricuspid regurgitation. -Advanced dementia appears to be vascular dementia, possible Alzheimer's dementia. -Possibility of encephalopathy, toxic encephalopathy from urinary tract infection. - metabolic encephalopathy from acute renal failure -History of recent CVA -Hypothyroidism; TSH 13.3, free T4 6 .1. Recommend repeat levels in one month. Plan: Continue current medication regime ,monitoring and symptomatic treatment. Maintain IV antibiotics, Follow cultures closely.Discharge planning in progress for subacute rehab to [facility] tomorrow pending authorization. In regards to patient's urinary retention, patient will need to follow up with urology outpatient. The impression and plan of care has been dictated as directed. : I performed a history and examination of this patient, discussed the same with the dictator. I agree with the dictator's note ,documented as a scribe. Any additional findings or plans will be noted.
[2018-07-09] MEDS: DONEPEZIL 10 MG TAB PO SCH (20:32)
[2018-07-10] MEDS: LEVOTHYROXINE 75 MCG TAB PO SCH ×2 (05:44→05:47)
[2018-07-10] MEDS: MEMANTINE 10 MG TAB PO SCH ×2 (08:32→20:40)
[2018-07-10] MEDS: METOPROLOL TARTRATE 25 MG TAB PO SCH ×3 (08:32→20:40)
[2018-07-10] MEDS: APIXABAN 5 MG TAB PO SCH ×2 (08:32→20:40)
[2018-07-10] MEDS: ATORVASTATIN 20 MG TAB PO SCH (08:32)
[2018-07-10] MEDS: FAMOTIDINE 20 MG TAB PO SCH (08:32)
[2018-07-10 10:04] LABS: Calcium 9.3 mg/dL (8.4-10.2); Potassium 3.9 mmol/L (3.5-5.1)
[2018-07-10 10:42] LABS: Basophils % (A) 1 %; Eosinophils # (A) 0.2 k/uL (0-0.7); Eosinophils % (A) 3 %; HCT 43.2 % (34.0-46.0); HGB 13.8 gm/dL (11.4-16.0); Lymphocytes # (A) 1.3 k/uL (1.0-4.8); Lymphocytes % (A) 18 %; MCH 28.7 pg (25.0-35.0); MCHC 31.9 g/dL (31.0-37.0); Mean Platelet Volume 8.6; Monocytes # (A) 0.4 k/uL (0-1.0); Monocytes % (A) 5 %; Neutrophils # (A) 5.2 k/uL (1.3-7.7); Neutrophils % (A) 72 %; Platelet Count 188 k/uL (150-450); RDW 15.1 % (11.5-15.5); WBC 7.2 k/uL (3.8-10.6)
--- NOTE | 2018-07-10 14:28 | P.DS ---
Providers Date of admission: 07/06/18 15:45 Attending physician: Cecil Zimmerman Consults: 07/06/18 15:45 Consult Physician Urgent Consulting Provider: Jesus Dewey Consult Reason/Comments: afib Do you want consulting provider notified?: Yes Primary care physician: Carmenza Martínez [facility] Course: Patient is awaiting disposition to subacute rehabilitation. - Exam GENERAL: The patient is sitting up in bed, alert and oriented x1, no acute distress CARDIOVASCULAR: S1 and S2 present. Systolic murmur, no rubs, or gallops. Irregularly irregular rhythm PULMONARY: Chest is clear to auscultation, no wheezing or crackles. ABDOMEN: Soft, nontender, nondistended, normoactive bowel sounds. No palpable organomegaly. NEUROLOGICAL: Gross neurological examination did not reveal any focal deficits. Please refer to dictation of discharge summary from yesterday for further details Patient Condition at Discharge: Stable Plan - Discharge Summary Discharge Rx Participant: Yes New Discharge Prescriptions: New Famotidine [Pepcid] 20 mg PO DAILY tab Metoprolol Tartrate [Lopressor] 25 mg PO TID tab Cefuroxime Axetil [Ceftin] 500 mg PO BID #10 tab Continue Levothyroxine Sodium [Synthroid] 75 mcg PO DAILY Donepezil [Aricept] 10 mg PO HS Memantine [Namenda] 10 mg PO BID Atorvastatin [Lipitor] 20 mg PO DAILY Discontinued Lisinopril 40 mg PO DAILY Discharge Medication List Donepezil [Aricept] 10 mg PO HS 09/07/16 [History] Levothyroxine Sodium [Synthroid] 75 mcg PO DAILY 09/07/16 [History] Atorvastatin [Lipitor] 20 mg PO DAILY 07/06/18 [History] Memantine [Namenda] 10 mg PO BID 07/06/18 [History] Cefuroxime Axetil [Ceftin] 500 mg PO BID #10 tab 07/09/18 [Rx] Famotidine [Pepcid] 20 mg PO DAILY tab 07/09/18 [Rx] Metoprolol Tartrate [Lopressor] 25 mg PO TID tab 07/09/18 [Rx] Follow up Appointment(s)/Referral(s): Volodymyr Pereyra MD [REFERRING] - 1 Week Andres Collier MD [STAFF PHYSICIAN] - 1 Week (urinary retention) Carmenza Martínez III, MD [Primary Care Provider] - 3 Days Patient Instructions/Handouts: A-fib (Atrial Fibrillation) (DC), Urinary Tract Infection in Women (DC) Activity/Diet/Wound Care/Special Instructions: ECF SHe is not felt to be a candidate for anticoagulation because of her severe dementia and risk of falls, as per Cardiology. repeat TSH/free T4 in 30 days 30 day copay for Eliquis or Xarelto would be $117/mo
[2018-07-10] MEDS: DONEPEZIL 10 MG TAB PO SCH (20:40)
[2018-07-11] MEDS: LEVOTHYROXINE 75 MCG TAB PO SCH (05:43)
[2018-07-11] MEDS: METOPROLOL TARTRATE 25 MG TAB PO SCH ×3 (08:38→20:31)
[2018-07-11] MEDS: MEMANTINE 10 MG TAB PO SCH ×2 (08:38→20:31)
[2018-07-11] MEDS: APIXABAN 5 MG TAB PO SCH ×2 (08:38→20:30)
[2018-07-11] MEDS: FAMOTIDINE 20 MG TAB PO SCH (08:38)
[2018-07-11] MEDS: ATORVASTATIN 20 MG TAB PO SCH (08:38)
[2018-07-11 08:50] LABS: Basophils % (A) 0 %; Eosinophils # (A) 0.2 k/uL (0-0.7); Eosinophils % (A) 3 %; HCT 39.4 % (34.0-46.0); HGB 12.8 gm/dL (11.4-16.0); Lymphocytes # (A) 1.6 k/uL (1.0-4.8); Lymphocytes % (A) 23 %; MCH 28.9 pg (25.0-35.0); MCHC 32.5 g/dL (31.0-37.0); MCV 88.8 fL (80.0-100.0); Mean Platelet Volume 9.1; Monocytes # (A) 0.4 k/uL (0-1.0); Monocytes % (A) 6 %; Neutrophils # (A) 4.6 k/uL (1.3-7.7); Neutrophils % (A) 66 %; Platelet Count 186 k/uL (150-450); RBC 4.43 m/uL (3.80-5.40); RDW 15.3 % (11.5-15.5)
--- NOTE | 2018-07-11 13:42 | P.PN ---
Subjective 78-year-old female was brought into ER with complaints of nausea vomiting diarrhea, upon arrival to ER patient is found to be in atrial fibrillation with rapid unclear rate patient that did not provide me any good history although when questioned about suprapubic pain dysuria patient denied any of those complaints. Patient appears to have baseline advanced dementia may be vascular dementia patient is on Leti present. Patient does have history of atrial fibrillation patient was admitted about couple weeks ago here at that time patient was treated failure with atrial fibrillation was started on Eliquis subsequently had a stroke and the patient was transferred to [facility] and he does not appear like patient was discharged on any of the anticoagulation her blood thinners probably because of her advancing dementia. Patient appears to have significantly abnormal urine with elevated leukocyte esterase elevated white blood cell count. Patient is alert oriented 1 not sure what her baseline is. Cardizem drip discontinued yesterday, Lopressor initiated.Telemetry reporting atrial fibrillation/flutter with controlled ventricular rate. Preliminary urine culture in progress. Continues on Rocephin. Urinary retention, required straight cath. Creatinine improving, 0.78. Sodium 143. Family considering subacute rehab, [facility]. 07/11/2018 No overnight events patient is awaiting disposition to subacute rehab Active Medications Apixaban (Eliquis) 5 mg PO BID [facility] Last Admin: 07/11/18 08:38 Dose: 5 mg Atorvastatin Calcium (Lipitor) 20 mg PO DAILY [facility] Last Admin: 07/11/18 08:38 Dose: 20 mg Cefdinir (Omnicef) 300 mg PO BID [facility] Donepezil HCl (Aricept) 10 mg PO HS [facility] Last Admin: 07/10/18 20:40 Dose: 10 mg Famotidine (Pepcid) 20 mg PO DAILY [facility] Last Admin: 07/11/18 08:38 Dose: 20 mg Haloperidol Lactate (Haldol) 0.5 mg IVP Q8HR PRN PRN Reason: Agitation or Acute Psychosis Last Admin: 07/07/18 22:06 Dose: 0.5 mg Levothyroxine Sodium (Synthroid) 75 mcg PO DAILY@0630 [facility] Last Admin: 07/11/18 05:43 Dose: Not Given Lorazepam (Ativan) 1 mg IV Q4HR PRN PRN Reason: Anxiety Memantine (Namenda) 10 mg PO BID [facility] Last Admin: 07/11/18 08:38 Dose: 10 mg Metoprolol Tartrate (Lopressor) 25 mg PO TID [facility] Last Admin: 07/11/18 08:38 Dose: 25 mg Nitroglycerin (Nitrostat) 0.4 mg SUBLINGUAL Q5M PRN PRN Reason: Chest Pain Ondansetron HCl (Zofran) 4 mg IVP Q6HR PRN PRN Reason: Nausea And Vomiting Objective - Vital Signs Vital signs: Vital Signs Temp 97.6 F 07/11/18 07:00 Pulse 60 07/11/18 07:00 Resp 20 07/11/18 07:00 BP 145/77 07/11/18 07:00 Pulse Ox 98 07/11/18 07:00 Intake & Output 07/10/18 07/11/18 07/11/18 18:59 06:59 18:59 Intake Total 50 Balance 50 Intake: Oral 50 Other: Voiding Method Incontinent Incontinent Incontinent # Voids 1 - Exam PHYSICAL EXAMINATION: GENERAL: The patient is alert and oriented x1, not in any acute distress. Well developed, well nourished. HEENT: Pupils are round and equally reacting to light. EOMI. No scleral icterus. No conjunctival pallor. Normocephalic, atraumatic. No pharyngeal erythema. No thyromegaly. CARDIOVASCULAR: S1 and S2 present. No murmurs, rubs, or gallops. PULMONARY: Chest is clear to auscultation, no wheezing or crackles. ABDOMEN: Soft, nontender, nondistended, normoactive bowel sounds. No palpable organomegaly. MUSCULOSKELETAL: No joint swelling or deformity. EXTREMITIES: No cyanosis, clubbing, or pedal edema. NEUROLOGICAL: Gross neurological examination did not reveal any focal deficits. SKIN: No rashes. - Labs CBC & Chem 7: 07/11/18 07:46 07/10/18 09:34 Assessment and Plan Plan: -Nausea vomiting diarrhea, poss. viral gastroenteritis, resolved -Possibility of urinary tract infection, urine culture no growth at -Acute renal failure secondary to sepsis, prerenal azotemia from nausea, vomiting, diarrhea and possible urinary tract infection, improved -Atrial fibrillation with rapid ventricular rate, currently controlled ventricular rate precipitated by dehydration, infection. Recent echo showed normal ejection fraction. Moderate to severe mitral regurgitation, severe tricuspid regurgitation. TSH is elevated T4 is pending.Repeat TSH/Free T4 in one mth. -Advanced dementia appears to be vascular dementia, possible Alzheimer's dementia. -Possibility of encephalopathy, toxic encephalopathy possibly from urinary tract infection. - metabolic encephalopathy from acute renal failure -History of recent CVA -Hypothyroidism - Urinary retention, F/U with urology in 1 week
[2018-07-11] MEDS: CEFDINIR 300 MG CAP PO SCH (20:30)
[2018-07-11] MEDS: DONEPEZIL 10 MG TAB PO SCH (20:31)
[2018-07-12] MEDS: LEVOTHYROXINE 75 MCG TAB PO SCH (06:22)
[2018-07-12] MEDS: METOPROLOL TARTRATE 25 MG TAB PO SCH (08:14)
[2018-07-12] MEDS: APIXABAN 5 MG TAB PO SCH (08:14)
[2018-07-12] MEDS: MEMANTINE 10 MG TAB PO SCH (08:14)
[2018-07-12] MEDS: FAMOTIDINE 20 MG TAB PO SCH (08:14)
[2018-07-12] MEDS: ATORVASTATIN 20 MG TAB PO SCH (08:14)
[2018-07-12] MEDS: CEFDINIR 300 MG CAP PO SCH (08:14)
[2018-07-12 09:29] LABS: Basophils % (A) 0 %; Eosinophils # (A) 0.2 k/uL (0-0.7); Eosinophils % (A) 3 %; HCT 39.7 % (34.0-46.0); HGB 12.9 gm/dL (11.4-16.0); Lymphocytes # (A) 1.3 k/uL (1.0-4.8); Lymphocytes % (A) 17 %; MCHC 32.5 g/dL (31.0-37.0); MCV 89.2 fL (80.0-100.0); Mean Platelet Volume 8.7; Monocytes # (A) 0.4 k/uL (0-1.0); Monocytes % (A) 5 %; Neutrophils # (A) 5.3 k/uL (1.3-7.7); Neutrophils % (A) 72 %; Platelet Count 177 k/uL (150-450); RBC 4.45 m/uL (3.80-5.40); RDW 15.1 % (11.5-15.5); WBC 7.3 k/uL (3.8-10.6)
[2018-07-12 14:49] VITALS: BP 130/81; PULSE 87; RESP 16; TEMP 97.6
== END 2018-07-12 16:18 | DRG 871 ==
LOC: EC 13:15 → 3SCARD 15:45 → 4MS4W 07-09 21:31
PROVIDERS: ADMIT Hospitalist; ATTEND Hospitalist
DX: A41.9 Sepsis, unspecified organism (principal); G93.41 Metabolic encephalopathy; F23 Brief psychotic disorder; I48.92 Unspecified atrial flutter; N17.9 Acute kidney failure, unspecified; N39.0 Urinary tract infection, site not specified; E03.9 Hypothyroidism, unspecified; E86.0 Dehydration; F03.90 Unspecified dementia, unspecified severity, without behavioral disturbance, psychotic disturbance, mood disturbance, and anxiety; F41.9 Anxiety disorder, unspecified; I08.1 Rheumatic disorders of both mitral and tricuspid valves; I10 Essential (primary) hypertension; I48.91 Unspecified atrial fibrillation; Z86.73 Personal history of transient ischemic attack (TIA), and cerebral infarction without residual deficits; A08.4 Viral intestinal infection, unspecified; R65.20 Severe sepsis without septic shock; Z79.01 Long term (current) use of anticoagulants; Z79.890 Hormone replacement therapy; Z79.899 Other long term (current) drug therapy; Z83.3 Family history of diabetes mellitus; Z85.819 Personal history of malignant neoplasm of unspecified site of lip, oral cavity, and pharynx; Z87.891 Personal history of nicotine dependence; Z91.81 History of falling; F02.80 Dementia in other diseases classified elsewhere, unspecified severity, without behavioral disturbance, psychotic disturbance, mood disturbance, and anxiety; R33.9 Retention of urine, unspecified; M19.90 Unspecified osteoarthritis, unspecified site
CPT/HCPCS: 36415; 71046; 80048; 80053; 80061; 81001; 82550; 82553; 83735; 84436; 84443; 84484; 85025; 85610; 85730; 87086; 93005; 96365; 96366; 96367; 96375; 96376; 99285

== ENCOUNTER 2018-12-17 09:31 | Inpatient (IN) | payer MEDICARE ==
[2018-12-17] MEDS ORDERED: ACETAMINOPHEN TAB 325 MG TAB PO STA (09:54)
--- NOTE | 2018-12-17 09:58 | ED ---
General Adult HPI - General Chief complaint: Altered Mental Status Stated complaint: Altered Mental Status Time Seen by Provider: 12/17/18 09:49 Source: patient, EMS, RN notes reviewed Mode of arrival: EMS Limitations: altered mental status - History of Present Illness Initial comments: Patient is a pleasant 78-year-old female presenting to the emergency Department with concern for altered mental status. Onset of symptoms was a couple of days ago. Patient has difficulty holding a conversation. Patient does have known dementia. Patient denies any complaints at this time however does provide very limited history. Patient denies pain. - Related Data Home Medications Medication Instructions Recorded Confirmed Donepezil [Aricept] 10 mg PO DAILY@1700 09/07/16 12/17/18 Levothyroxine Sodium [Synthroid] 75 mcg PO DAILY@0800 09/07/16 12/17/18 Atorvastatin [Lipitor] 20 mg PO DAILY@1700 07/06/18 12/17/18 Memantine [Namenda] 10 mg PO BID@0800,1700 07/06/18 12/17/18 Acetaminophen Tab [Tylenol Tab] 1,000 mg PO Q8H PRN 12/17/18 12/17/18 Metoprolol Tartrate [Lopressor] 25 mg PO BID@0800,1700 12/17/18 12/17/18 risperiDONE 0.25 mg PO HS@199912/17/18 12/17/18 Allergies Allergy/AdvReac Type Severity Reaction Status Date / Time No Known Allergies Allergy Verified 12/17/18 10:00 Review of Systems ROS Statement: Those systems with pertinent positive or pertinent negative responses have been documented in the HPI. ROS Other: All systems not noted in ROS Statement are negative. Limitations: ROS unobtainable due to patients medical condition Past Medical History Past Medical History: Atrial Fibrillation, Cancer, CVA/TIA, Dementia, Hyperlipidemia, Hypertension, Osteoarthritis (OA), Thyroid Disorder Additional Past Medical History / Comment(s): throat cancer - 20 years ago; NOS Afib 06/16/18. TIA - 06/18 transfered to [facility] History of Any Multi-Drug Resistant Organisms: None Reported Past Surgical History: Breast Surgery Additional Past Surgical History / Comment(s): implants Additional Past Anesthesia/Blood Transfusion Reaction / Comment(s): PT refuses blood r/t rastafarian preferences Past Psychological History: No Psychological Hx Reported Smoking Status: Former smoker Past Alcohol Use History: None Reported Past Drug Use History: None Reported - Past Family History Father Family Medical History: Dementia Mother Family Medical History: Dementia, Diabetes Mellitus General Exam Limitations: altered mental status General appearance: alert, in no apparent distress Head exam: Present: atraumatic Eye exam: Present: normal appearance, PERRL ENT exam: Present: mucous membranes dry Neck exam: Present: normal inspection Respiratory exam: Present: normal lung sounds bilaterally Cardiovascular Exam: Present: tachycardia, irregular rhythm GI/Abdominal exam: Present: soft. Absent: tenderness Neurological exam: Present: alert Expanded Cranial nerves: EOM's Intact: Normal Motor strength exam: RUE: 5, LUE: 5, RLE: 3, LLE: 4 Eye Response: (4) open spontaneously Motor Response: (6) obeys commands Verbal Response: (4) confused conversation Psychiatric exam: Present: normal affect, normal mood Skin exam: Present: normal color. Absent: rash Course Vital Signs 12/17/18 12/17/18 12/17/18 09:33 09:34 09:45 Temperature 100.1 F H Pulse Rate 71 Respiratory 18 Rate Blood Pressure 157/70 157/70 O2 Sat by Pulse 96 96 Oximetry 12/17/18 12/17/18 12/17/18 10:30 10:58 11:01 Temperature Pulse Rate 137 H 140 H 144 H Respiratory 18 18 18 Rate Blood Pressure 150/119 123/108 113/77 O2 Sat by Pulse 98 96 Oximetry 12/17/18 12/17/18 11:02 11:16 Temperature Pulse Rate 137 H 123 H Respiratory 19 19 Rate Blood Pressure 105/69 117/80 O2 Sat by Pulse 99 99 Oximetry EKG Findings - EKG Comments: EKG Findings:: A. fib with RVR, rate 151. QRS 80. QT 258. QTC 408. Normal axis. Normal QRS. Nonspecific ST-T. Medical Decision Making - Medical Decision Making Patient reevaluated and updated. Case discussed in detail with Dr. Hicks, covering for Dr. hutchinson, who will admit. Patient does meet sepsis criteria diagnosed at 11:41 AM. Blood culture and urine culture and lactic acid have been ordered. IV antibiotics will be ordered. - Lab Data Result diagrams: 12/17/18 10:00 12/17/18 10:00 Lab Results 12/17/18 12/17/18 12/17/18 Range/Units 10:00 10:00 10:00 WBC 15.1 H (3.8-10.6) k/uL RBC 4.12 (3.80-5.40) m/uL Hgb 12.6 (11.4-16.0) gm/dL Hct 38.2 (34.0-46.0) % MCV 92.7 (80.0-100.0) fL MCH 30.5 (25.0-35.0) pg MCHC 32.9 (31.0-37.0) g/dL RDW 14.5 (11.5-15.5) % Plt Count 227 (150-450) k/uL Neutrophils % 89 % Lymphocytes % 5 % Monocytes % 5 % Eosinophils % 0 % Basophils % 0 % Neutrophils # 13.5 H (1.3-7.7) k/uL Lymphocytes # 0.7 L (1.0-4.8) k/uL Monocytes # 0.7 (0-1.0) k/uL Eosinophils # 0.1 (0-0.7) k/uL Basophils # 0.0 (0-0.2) k/uL PT (9.0-12.0) sec INR (<1.2) APTT (22.0-30.0) sec Sodium 139 (137-145) mmol/L Potassium 4.0 (3.5-5.1) mmol/L Chloride 101 (98-107) mmol/L Carbon Dioxide 28 (22-30) mmol/L Anion Gap 10 mmol/L BUN 26 H (7-17) mg/dL Creatinine 0.88 (0.52-1.04) mg/dL Est GFR (CKD-EPI)AfAm 74 (>60 ml/min/1.73 sqM) Est GFR (CKD-EPI)NonAf 64 (>60 ml/min/1.73 sqM) Glucose 109 H (74-99) mg/dL Plasma Lactic Acid Dilip 2.0 (0.7-2.0) mmol/L Calcium 9.3 (8.4-10.2) mg/dL Total Bilirubin 1.6 H (0.2-1.3) mg/dL AST 62 H (14-36) U/L ALT 48 (9-52) U/L Alkaline Phosphatase 134 H (38-126) U/L Troponin I (0.000-0.034) ng/mL Total Protein 6.6 (6.3-8.2) g/dL Albumin 3.7 (3.5-5.0) g/dL Urine Color Urine Appearance (Clear) Urine pH (5.0-8.0) Ur Specific [place] (1.001-1.035) Urine Protein (Negative) Urine Glucose (UA) (Negative) Urine Ketones (Negative) Urine Blood (Negative) Urine Nitrite (Negative) Urine Bilirubin (Negative) Urine Urobilinogen (<2.0) mg/dL Ur Leukocyte Esterase (Negative) Urine RBC (0-5) /hpf Urine WBC (0-5) /hpf Urine WBC Clumps (None) /hpf Ur Squamous Epith Cells (0-4) /hpf Urine Bacteria (None) /hpf Urine Mucus (None) /hpf 12/17/18 12/17/18 12/17/18 Range/Units 10:00 10:00 10:59 WBC (3.8-10.6) k/uL RBC (3.80-5.40) m/uL Hgb (11.4-16.0) gm/dL Hct (34.0-46.0) % MCV (80.0-100.0) fL MCH (25.0-35.0) pg MCHC (31.0-37.0) g/dL RDW (11.5-15.5) % Plt Count (150-450) k/uL Neutrophils % % Lymphocytes % % Monocytes % % Eosinophils % % Basophils % % Neutrophils # (1.3-7.7) k/uL Lymphocytes # (1.0-4.8) k/uL Monocytes # (0-1.0) k/uL Eosinophils # (0-0.7) k/uL Basophils # (0-0.2) k/uL PT 10.5 (9.0-12.0) sec INR 1.0 (<1.2) APTT 26.8 (22.0-30.0) sec Sodium (137-145) mmol/L Potassium (3.5-5.1) mmol/L Chloride (98-107) mmol/L Carbon Dioxide (22-30) mmol/L Anion Gap mmol/L BUN (7-17) mg/dL Creatinine (0.52-1.04) mg/dL Est GFR (CKD-EPI)AfAm (>60 ml/min/1.73 sqM) Est GFR (CKD-EPI)NonAf (>60 ml/min/1.73 sqM) Glucose (74-99) mg/dL Plasma Lactic Acid Dilip (0.7-2.0) mmol/L Calcium (8.4-10.2) mg/dL Total Bilirubin (0.2-1.3) mg/dL AST (14-36) U/L ALT (9-52) U/L Alkaline Phosphatase (38-126) U/L Troponin I <0.012 (0.000-0.034) ng/mL Total Protein (6.3-8.2) g/dL Albumin (3.5-5.0) g/dL Urine Color Yellow Urine Appearance Cloudy H (Clear) Urine pH 5.5 (5.0-8.0) Ur Specific [place] 1.022 (1.001-1.035) Urine Protein 2+ H (Negative) Urine Glucose (UA) Negative (Negative) Urine Ketones 1+ H (Negative) Urine Blood Small H (Negative) Urine Nitrite Negative (Negative) Urine Bilirubin Negative (Negative) Urine Urobilinogen 2.0 (<2.0) mg/dL Ur Leukocyte Esterase Large H (Negative) Urine RBC 3 (0-5) /hpf Urine WBC 133 H (0-5) /hpf Urine WBC Clumps Moderate H (None) /hpf Ur Squamous Epith Cells 3 (0-4) /hpf Urine Bacteria Rare H (None) /hpf Urine Mucus Rare H (None) /hpf - Radiology Data Radiology results: report reviewed (Computed tomography scan the brain reveals no acute process), image reviewed (Chest x-ray shows no acute process) Critical Care Time Critical Care Time: Yes Total Critical Care Time: 33 Disposition Clinical Impression: Atrial fibrillation with RVR, Dehydration, UTI (urinary tract infection), Sepsis Disposition: ADMITTED IP TO THIS HOSP Is patient prescribed a controlled substance at d/c from ED?: No Referrals: Nandini Adams MD [Primary Care Provider] - 1-2 days Decision Time: 11:42
[2018-12-17] MEDS ORDERED: SODIUM CHLORIDE 0.9% 500 ML 500 ML IV SCH (10:00)
[2018-12-17 10:12] LABS: Basophils % (A) 0 %; Eosinophils # (A) 0.1 k/uL (0-0.7); Eosinophils % (A) 0 %; HCT 38.2 % (34.0-46.0); HGB 12.6 gm/dL (11.4-16.0); Lymphocytes # (A) 0.7 k/uL (1.0-4.8); Lymphocytes % (A) 5 %; MCH 30.5 pg (25.0-35.0); MCHC 32.9 g/dL (31.0-37.0); MCV 92.7 fL (80.0-100.0); Mean Platelet Volume 7.8; Monocytes # (A) 0.7 k/uL (0-1.0); Monocytes % (A) 5 %; Neutrophils # (A) 13.5 k/uL (1.3-7.7); Neutrophils % (A) 89 %; Platelet Count 227 k/uL (150-450); RBC 4.12 m/uL (3.80-5.40); RDW 14.5 % (11.5-15.5); WBC 15.1 k/uL (3.8-10.6)
--- NOTE | 2018-12-17 10:16 | CT ---
EXAMINATION TYPE: CT brain wo con DATE OF EXAM: 12/17/2018 COMPARISON: 06/18/2018 HISTORY: Altered mental status CT DLP: 1174.[address] of the brain was performed. The ventricles, basal cisterns and sulci overlying the cerebral convexities demonstrate mild enlargem ent. There is no evidence for intracranial hemorrhage or sulcal effacement. There is decreased attenuation about the periventricular white matter and deep white matter of both c erebral hemispheres, compatible with chronic small vessel ischemia. Differential diagnosis does inclu de demyelination. No mass effects are seen.No midline shift. Osseous calvarium is intact. If symptoms persist consider MRI. IMPRESSION: 1. Age related atrophic and chronic small vessel ischemic change without acute intracranial process s een at this time.
--- NOTE | 2018-12-17 10:17 | XR ---
EXAMINATION TYPE: XR chest 2V DATE OF EXAM: 12/17/2018 COMPARISON: 07/06/2018 HISTORY: Shortness of breath TECHNIQUE: Frontal and lateral views of the chest are obtained. FINDINGS: Scattered senescent parenchymal changes noted. Hyperinflation compatible with COPD. No evidence for infiltrate. No evidence for atelectasis. Cardiomegaly with mild pulmonary venous engorgement. No evidence for overt failure. Mediastinal structures are stable and grossly unremarkable. No evidence for hilar prominence. Degenerative changes dorsal spine. IMPRESSION: 1. No evidence for acute pulmonary disease.
[2018-12-17 10:20] LABS: Partial Thromboplastin Time 26.8 sec (22.0-30.0); Prothrombin Time 10.5 sec (9.0-12.0)
[2018-12-17 10:22] LABS: Albumin 3.7 g/dL (3.5-5.0); Calcium 9.3 mg/dL (8.4-10.2); Total Bilirubin 1.6 mg/dL (0.2-1.3); Total Protein 6.6 g/dL (6.3-8.2)
[2018-12-17] MEDS: DILTIAZEM 125 MG in SODIUM CHLORIDE 0.9% 100 ML IV SCH (10:51)
[2018-12-17 11:17] LABS: Appearance,Urine Cloudy (Clear); Bacteria,Urine Rare /hpf; Bilirubin,Urine Negative (Negative); Blood,Urine Small (Negative); Color,Urine Yellow; Glucose,Urine (UA) Negative (Negative); Ketones,Urine 1+ (Negative); Leukocyte Esterase,Urine Large (Negative); Mucus,Urine Rare /hpf; Nitrite,Urine Negative (Negative); PH, Urine 5.5 (5.0-8.0); Protein,Urine 2+ (Negative); RBC,Urine 3 /hpf (0-5); Specific Gravity,Urine 1.022 (1.001-1.035); Squamous Epithelial Cell,Urine 3 /hpf (0-4); WBC,Urine 133 /hpf (0-5)
[2018-12-17] MEDS ORDERED: cefTRIAXone IN SWFI 1,000 MG/10 ML SYRINGE IVP STA (11:42)
[2018-12-17] MEDS ORDERED: ACETAMINOPHEN TAB 325 MG TAB PO PRN (11:43)
[2018-12-17] MEDS ORDERED: NALOXONE 0.4 MG/ML 1 ML VIAL IV PRN (11:43)
[2018-12-17] MEDS: SODIUM CHLORIDE 0.9% 1,000 ML IV SCH (11:57)
--- NOTE | 2018-12-17 12:18 | P.HPIM ---
History of Present Illness H&P Date: 12/17/18 This is a 78-year-old female patient of Dr. Adams. Patient presented with complaints of altered mental status changes and increased weakness. Patient's past medical history includes advanced dementia in which she resides at the [facility] facility. Patient's daughter is at bedside. Additional medical history includes atrial fibrillation she believes was diagnosed in June and July but was never started on anticoagulation. Per previous medical records patient was not started on anticoagulation due to advanced dementia. Additional medical history includes throat cancer, CVA, hyperlipidemia, hypertension, arthritis and thyroid disorder. CT completed showing age-related atrophic and chronic small vessel ischemic change without acute intracranial process seen at this time. Chest x-ray completed showing no evidence for acute pulmonary disease. EKG completed showing atrial fibrillation with rapid ventricular response heart rate 154. Patient was started on Cardizem drip in ER. Cardiology services have been consulted. Per patient's daughter would like patient to be a DO NOT RESUSC ITATE. Will also consult case management to assist patient's family in legal DNR paperwork. UA positive for urinary tract infection. started on Rocephin for urinary tract infection. Urine and blood culture ordered. Review of Systems Please refer to HPI otherwise unremarkable Past Medical History Past Medical History: Atrial Fibrillation, Cancer, CVA/TIA, Dementia, Hyperlipidemia, Hypertension, Osteoarthritis (OA), Thyroid Disorder Additional Past Medical History / Comment(s): throat cancer - 20 years ago; NOS Afib 06/16/18. TIA - 06/18 transfered to [place] History of Any Multi-Drug Resistant Organisms: None Reported Past Surgical History: Breast Surgery Additional Past Surgical History / Comment(s): implants Additional Past Anesthesia/Blood Transfusion Reaction / Comment(s): PT refuses blood r/t orthodoxy preferences Past Psychological History: No Psychological Hx Reported Smoking Status: Former smoker Past Alcohol Use History: None Reported Past Drug Use History: None Reported - Past Family History Father Family Medical History: Dementia Mother Family Medical History: Dementia, Diabetes Mellitus Medications and Allergies Home Medications Medication Instructions Recorded Confirmed Type Donepezil [Aricept] 10 mg PO DAILY@1700 09/07/16 12/17/18 History Levothyroxine Sodium [Synthroid] 75 mcg PO DAILY@0800 09/07/16 12/17/18 History Atorvastatin [Lipitor] 20 mg PO DAILY@1700 07/06/18 12/17/18 History Memantine [Namenda] 10 mg PO BID@0800,1700 07/06/18 12/17/18 History Acetaminophen Tab [Tylenol Tab] 1,000 mg PO Q8H PRN 12/17/18 12/17/18 History Metoprolol Tartrate [Lopressor] 25 mg PO BID@0800,1700 12/17/18 12/17/18 History risperiDONE 0.25 mg PO HS@199912/17/18 12/17/18 History Allergies Allergy/AdvReac Type Severity Reaction Status Date / Time No Known Allergies Allergy Verified 12/17/18 10:00 Physical Exam Vitals: Vital Signs Temp Pulse Resp BP Pulse Ox 12/17/18 11:56 98.5 F 12/17/18 11:16 123 H 19 117/80 99 12/17/18 11:02 137 H 19 105/69 99 12/17/18 11:01 144 H 18 113/77 12/17/18 10:58 140 H 18 123/108 96 12/17/18 10:30 137 H 18 150/119 98 12/17/18 09:45 157/70 12/17/18 09:34 96 12/17/18 09:33 100.1 F H 71 18 157/70 96 Intake and Output 12/16/18 12/17/18 12/17/18 22:59 06:59 14:59 Other: Weight 50.802 kg Head normocephalic Neck supple Lungs clear to auscultation bilaterally no wheezing or crackles Heart regular rate and rhythm S1-S2, no rub or gallop Abdomen is soft nontender nondistended positive bowel sounds no hepatosplenomegaly Extremities no edema Neuro advanced dementia does follow commands. Alert and oriented to 1 Results CBC & Chem 7: 12/17/18 10:00 12/17/18 10:00 Labs: Abnormal Lab Results - Last 24 Hours (Table) 12/17/18 12/17/18 12/17/18 Range/Units 10:00 10:00 10:59 WBC 15.1 H (3.8-10.6) k/uL Neutrophils # 13.5 H (1.3-7.7) k/uL Lymphocytes # 0.7 L (1.0-4.8) k/uL BUN 26 H (7-17) mg/dL Glucose 109 H (74-99) mg/dL Total Bilirubin 1.6 H (0.2-1.3) mg/dL AST 62 H (14-36) U/L Alkaline Phosphatase 134 H (38-126) U/L Urine Appearance Cloudy H (Clear) Urine Protein 2+ H (Negative) Urine Ketones 1+ H (Negative) Urine Blood Small H (Negative) Ur Leukocyte Esterase Large H (Negative) Urine WBC 133 H (0-5) /hpf Urine WBC Clumps Moderate H (None) /hpf Urine Bacteria Rare H (None) /hpf Urine Mucus Rare H (None) /hpf Assessment and Plan Assessment: 1. Altered mental status and increased weakness due to urinary tract infection. Head CT completed showing age-related atrophic and chronic small vessel ischemic changes without acute intracranial process seen at this time. 2. Urinary tract infection. Urine culture ordered. Patient started on Rocephin 3. Atrial fibrillation with rapid ventricular response. Patient started on Cardizem cardiology service consulted 4. History of paroxysmal atrial fibrillation. Per patient's daughter patient was diagnosed in June was seen by cardiology. Anticoagulation was discussed but not started per DPOA. At this time will consult cardiology services 5. Advanced dementia 6. History of previous TIA 7. History of throat cancer 8. History of Hyperlipidemia 9. History of essential hypertension 10. History of osteoarthritis 11. History of hypothyroidism maintained on Synthroid. Will order TSH level 12. Elevated liver enzymes. Alkaline phosphatase slightly elevated at 134 and AST 62. Lipitor on hold. We'll continue to monitor closely DVT prophylaxis Lovenox. GI prophylaxis Protonix Blood and urine culture ordered Cardiology consult placed PT and OT consult placed Time with Patient: Greater than 30 (Greater than 60% of the total time spent in counseling and coordination of care. I performed an examination of the patient and discussed their management with the Nurse Practitioner. I have reviewed the Nurse Practitioner's notes and agree with the documented findings and plan of care)
--- NOTE | 2018-12-17 13:18 | CDI ---
Documentation Clarification Form Date: 12/17/2018 1:06:41 PM From: Anisa Oden RN CCDS Admit Date: 12/17/2018 11:43:00 AM Patient Name: Suze Matthews Visit Number: [id number] Discharge Date: ATTENTION: The Clinical Documentation Specialists (CDI) and [facility] Coding Staff appreciate your assistance in clarifying documentation. Please respond to the clarification below the line at the bottom and electronically sign. The CDI & [facility] Coding staff will review the response and follow-up if needed. Please note: Queries are made part of the Legal Health Record. If you have any questions, please contact the author of this message via ITS. Dr. Bryon Hicks Altered Mental Status and increased weakness due to urinary tract infection . History/Risk Factors: 78 year old female presents to the ED via EMS for mental status changes. Medical History Atrial fibrillation; Cancer; CVA/TIA; Dementia ; Hyperlipidemia ; HTN; OA Clinical Indicators: Labs: WBc 15.1; bun 26.0; UA leukocyte esterase large, wbc 133, bacteria rare. CT Brain - Age related atrophic and chornic small vessel ischemic change without acute intracranial process seen at this time. Treatment: Rocpehin, 0.9ns 500cc/ bolus In your professional opinion, please clarify the etiology of the Altered Mental Status, if known. Acute Metabolic Encephalopathy due to urinary tract infection. Other condition (please specify) Unable to determine (Last Revision: August 2017) Acute metabolic encephalopathy due to urinary tract infection MTDD
[2018-12-17] MEDS: METOPROLOL TARTRATE 25 MG TAB PO SCH (16:42)
[2018-12-17] MEDS: MEMANTINE 10 MG TAB PO SCH (16:42)
[2018-12-17] MEDS: DONEPEZIL 10 MG TAB PO SCH (16:42)
[2018-12-17] MEDS ORDERED: ATORVASTATIN 20 MG TAB PO SCH (17:00)
[2018-12-17] MEDS: risperiDONE 0.25 MG TAB PO SCH (20:38)
[2018-12-18] MEDS: SODIUM CHLORIDE 0.9% 1,000 ML IV SCH ×2 (05:18→13:45)
[2018-12-18 06:50] LABS: Basophils % (A) 0 %; Eosinophils # (A) 0.1 k/uL (0-0.7); Eosinophils % (A) 1 %; HCT 35.7 % (34.0-46.0); HGB 11.5 gm/dL (11.4-16.0); Lymphocytes # (A) 0.8 k/uL (1.0-4.8); Lymphocytes % (A) 8 %; MCH 30.4 pg (25.0-35.0); MCHC 32.2 g/dL (31.0-37.0); MCV 94.2 fL (80.0-100.0); Mean Platelet Volume 8.2; Monocytes # (A) 0.5 k/uL (0-1.0); Monocytes % (A) 5 %; Neutrophils # (A) 8.8 k/uL (1.3-7.7); Neutrophils % (A) 85 %; Platelet Count 195 k/uL (150-450); RBC 3.79 m/uL (3.80-5.40); RDW 15.2 % (11.5-15.5); WBC 10.4 k/uL (3.8-10.6)
[2018-12-18 07:03] LABS: ALT 42 U/L (9-52); AST 47 U/L (14-36); African American GFR (CKD) >90 (>60 ml/min/1.73 sqM); Albumin 3.4 g/dL (3.5-5.0); Alkaline Phosphatase 121 U/L (38-126); Anion Gap 8 mmol/L; Blood Urea Nitrogen 22 mg/dL (7-17); Calcium 8.8 mg/dL (8.4-10.2); Carbon Dioxide 25 mmol/L (22-30); Chloride 103 mmol/L (98-107); Glucose 107 mg/dL (74-99); Magnesium 1.7 mg/dL (1.6-2.3); Potassium 3.2 mmol/L (3.5-5.1); Sodium 136 mmol/L (137-145); Total Bilirubin 1.2 mg/dL (0.2-1.3); Total Protein 6.2 g/dL (6.3-8.2)
[2018-12-18] MEDS: MEMANTINE 10 MG TAB PO SCH ×2 (07:37→16:10)
[2018-12-18] MEDS: FAMOTIDINE 20 MG TAB PO SCH (07:37)
[2018-12-18] MEDS: ENOXAPARIN 40 MG/0.4 ML SYRINGE SQ SCH (07:38)
[2018-12-18] MEDS: METOPROLOL TARTRATE 25 MG TAB PO SCH (07:38)
[2018-12-18] MEDS: LEVOTHYROXINE 75 MCG TAB PO SCH (07:38)
[2018-12-18] MEDS ORDERED: METOPROLOL TARTRATE 25 MG TAB PO ONE (08:29)
[2018-12-18] MEDS: DILTIAZEM 125 MG in SODIUM CHLORIDE 0.9% 100 ML IV SCH (11:43)
--- NOTE | 2018-12-18 13:55 | P.CRDCN ---
History of Present Illness History of present illness: This is a pleasant 78-year-old female past medical history significant for paroxysmal atrial fibrillation not on alf anticoagulation secondary to advanced dementia, hypertension, dyslipidemia, TIA and throat cancer. We have been asked to see her in consultation secondary to atrial fibrillation with rapid ventricular response. She was brought to the emergency department by her daughter secondary to altered mental status. EKG obtained on admission reveals atrial fibrillation with heart rate of 151. She was started on a Cardizem infusion. She is seen and examined resting comfortably laying flat in bed in no acute distress. She is pleasantly confused at baseline and denies all complaints of chest discomfort, shortness of breath, dizziness or palpitations. Laboratory data reviewed, WBC 15.1, hemoglobin 11.5, platelets 195, sodium 136, potassium 3.2, creatinine 0.67, magnesium 1.6, cardiac enzymes negative 1, TSH 2.25. Current daily cardiac medications include Lopressor 25 mg twice a day, atorvastatin 20 mg daily. Most recent echocardiogram obtained June 2018 reveals preserved LV systolic function with ejection fraction 55-60%, severe mitral regurgitation, moderate to severe tricuspid regurgitation and moderate pulmonary hypertension with RVSP of 36 mmHg. At the time of my exam: CONSTITUTIONAL: Denies fever. Denies chills. EYES: Denies blurred vision. Denies vision changes. Denies eye pain. EARS, NOSE, MOUTH & THROAT: Denies headache. Denies sore throat. Denies ear pain. CARDIOVASCULAR: Denies chest pain. Denies shortness of breath. Denies orthopnea. Denies PND. Denies palpitations. RESPIRATORY: Denies cough. GASTROINTESTINAL: Denies abdominal pain. Denies diarrhea. Denies constipation. Denies nausea. Denies vomiting. MUSCULOSKELETAL: Denies myalgias. INTEGUMENTARY: Denies pruitis. Denies rash. NEUROLOGIC: Denies numbness. Denies tingling. Denies weakness. PSYCHIATRIC: Denies anxiety. Denies depression. ENDOCRINE: Denies fatigue. Denies weight change. Denies polydipsia. Denies polyurina. GENITOURINARY: Denies burning, hematuria or urgency with micturation. HEMATOLOGIC: Denies history of anemia. Denies bleeding. Blood pressure 154/75 heart rate 63 afebrile maintaining oxygen saturation on room air GENERAL: This is a 78-year-old occasion female in no apparent distress at the time of my examination. HEENT: Head is atraumatic, normocephalic. Pupils are equal, round. Sclerae anicteric. Conjunctivae are clear. Mucous membranes of the mouth are moist. Neck is supple. There is no jugular venous distention. No carotid bruit is heard. LUNGS: Clear to auscultation no wheezes, rales or rhonchi. No chest wall tenderness is noted on palpation or with deep breathing. HEART: Irregular rate and rhythm without murmurs, rubs or gallops. S1 and S2 heard. ABDOMEN: Soft, nontender. Bowel sounds are heard. No organomegaly noted. EXTREMITIES: No evidence of peripheral edema and no calf tenderness noted. VASCULAR: Radial and dorsalis pedis pulses palpated, no evidence of clubbing. NEUROLOGIC: Patient is awake, alert and oriented to self. ASSESSMENT Paroxysmal atrial fibrillation with rapid ventricular response on long-term anti coagulation Urinary tract infection Leukocytosis Hypokalemia PLAN Increase Lopressor to 50 mg twice a day. Discontinue Cardizem infusion. Continue to monitor on telemetry. He consider adding digoxin if heart rates continued to be uncontrolled. We will continue to follow make recommendations accordingly. Thank you kindly for this consultation. Nurse Practitioner note has been reviewed, I agree with a documented findings and plan of care. Patient was seen and examined. Past Medical History Past Medical History: Atrial Fibrillation, Cancer, CVA/TIA, Dementia, Hyperlipidemia, Hypertension, Osteoarthritis (OA), Thyroid Disorder Additional Past Medical History / Comment(s): throat cancer - 20 years ago; NOS Afib 06/16/18. TIA - 06/18 transfered to [place] History of Any Multi-Drug Resistant Organisms: None Reported Past Surgical History: Breast Surgery Additional Past Surgical History / Comment(s): implants Additional Past Anesthesia/Blood Transfusion Reaction / Comment(s): PT refuses blood r/t buddhist preferences Past Psychological History: No Psychological Hx Reported Additional Psychological History / Comment(s): lives with daughter carlos Smoking Status: Former smoker Past Alcohol Use History: None Reported Additional Past Alcohol Use History / Comment(s): started smoking at age 16 and quit 2008 smoked 1 ppd Past Drug Use History: None Reported - Past Family History Father Family Medical History: Dementia Mother Family Medical History: Dementia, Diabetes Mellitus Medications and Allergies Home Medications Medication Instructions Recorded Confirmed Type Donepezil [Aricept] 10 mg PO DAILY@1700 09/07/16 12/17/18 History Levothyroxine Sodium [Synthroid] 75 mcg PO DAILY@0800 09/07/16 12/17/18 History Atorvastatin [Lipitor] 20 mg PO DAILY@1700 07/06/18 12/17/18 History Memantine [Namenda] 10 mg PO BID@0800,1700 07/06/18 12/17/18 History Acetaminophen Tab [Tylenol Tab] 1,000 mg PO Q8H PRN 12/17/18 12/17/18 History Metoprolol Tartrate [Lopressor] 25 mg PO BID@0800,1700 12/17/18 12/17/18 History risperiDONE 0.25 mg PO HS@199912/17/18 12/17/18 History Allergies Allergy/AdvReac Type Severity Reaction Status Date / Time No Known Allergies Allergy Verified 12/17/18 10:00 Physical Exam Vitals: Vital Signs Temp Pulse Pulse Resp BP BP Pulse Ox 12/18/18 03:20 98.8 F 78 16 128/64 96 12/17/18 23:00 98.2 F 80 16 167/72 97 12/17/18 19:15 98.8 F 83 16 136/92 97 12/17/18 16:00 104 H 20 143/69 99 12/17/18 12:47 98.3 F 96 20 136/82 97 12/17/18 12:45 97 18 136/97 12/17/18 12:30 112 H 19 138/71 12/17/18 12:15 109 H 19 131/102 12/17/18 12:00 120 H 21 126/106 12/17/18 11:56 98.5 F 12/17/18 11:46 141 H 22 119/87 12/17/18 11:31 131 H 18 117/80 12/17/18 11:16 123 H 19 117/80 99 12/17/18 11:02 137 H 19 105/69 99 12/17/18 11:01 144 H 18 113/77 12/17/18 10:58 140 H 18 123/108 96 12/17/18 10:30 137 H 18 150/119 98 12/17/18 09:45 157/70 12/17/18 09:34 96 07/19/19 09:33 100.1 F H 71 18 157/70 96 Intake and Output 12/17/18 12/18/18 12/18/18 22:59 06:59 14:59 Intake Total 40 0 Balance 40 0 Intake: Intake, IV Titration 40 0 Amount Diltiazem 125 mg In 40 0 Sodium Chloride 0.9% 100 ml @ 5 MG/HR 5 mls/hr IV .Q24H [facility] Rx#:[id number] Other: Voiding Method Indwelling Catheter Indwelling Catheter Results 12/18/18 06:33 12/18/18 06:33 Cardiac Enzymes 12/17/18 12/17/18 12/18/18 Range/Units 10:00 10:00 06:33 AST 62 H 47 H (14-36) U/L Troponin I <0.012 (0.000-0.034) ng/mL Coagulation 12/17/18 Range/Units 10:00 PT 10.5 (9.0-12.0) sec APTT 26.8 (22.0-30.0) sec CBC 12/17/18 12/18/18 Range/Units 10:00 06:33 WBC 15.1 H 10.4 (3.8-10.6) k/uL RBC 4.12 3.79 L (3.80-5.40) m/uL Hgb 12.6 11.5 (11.4-16.0) gm/dL Hct 38.2 35.7 (34.0-46.0) % Plt Count 227 195 (150-450) k/uL Comprehensive Metabolic Panel 12/17/18 12/18/18 Range/Units 10:00 06:33 Sodium 139 136 L (137-145) mmol/L Potassium 4.0 3.2 L (3.5-5.1) mmol/L Chloride 101 103 (98-107) mmol/L Carbon Dioxide 28 25 (22-30) mmol/L BUN 26 H 22 H (7-17) mg/dL Creatinine 0.88 0.67 (0.52-1.04) mg/dL Glucose 109 H 107 H (74-99) mg/dL Calcium 9.3 8.8 (8.4-10.2) mg/dL AST 62 H 47 H (14-36) U/L ALT 48 42 (9-52) U/L Alkaline Phosphatase 134 H 121 (38-126) U/L Total Protein 6.6 6.2 L (6.3-8.2) g/dL Albumin 3.7 3.4 L (3.5-5.0) g/dL Current Medications Generic Name Dose Route Start Last Admin Trade Name Freq PRN Reason Stop Dose Admin Acetaminophen 650 mg 12/17/18 11:43 Tylenol Tab PO Q6HR PRN Mild Pain or Fever > 100.5 Donepezil HCl 10 mg 12/17/18 17:00 12/17/18 16:42 Aricept PO 10 mg DAILY@1700 VANDANA Administration Enoxaparin Sodium 40 mg 12/18/18 09:00 12/18/18 07:38 Lovenox SQ 40 mg DAILY VANDANA Administration Famotidine 20 mg 12/18/18 09:00 12/18/18 07:37 Pepcid PO 20 mg DAILY VANDANA Administration Diltiazem HCl 125 mg/ Sodium 125 mls @ 5 mls/hr 12/17/18 10:30 12/17/18 23:59 Chloride IV 5 mg/hr .Q24H VANDANA 5 mls/hr Infusion 5 MG/HR Ceftriaxone Sodium 1 gm/ 50 mls @ 100 mls/hr 12/18/18 09:00 12/18/18 07:41 Sodium Chloride IVPB 100 mls/hr Q24HR VANDANA Administration Sodium Chloride 1,000 mls @ 75 mls/hr 12/17/18 11:45 12/18/18 05:18 Saline 0.9% IV Not Given .[id number] [facility] Levothyroxine Sodium 75 mcg 12/18/18 08:00 12/18/18 07:38 Synthroid PO 75 mcg DAILY@0800 VANDANA Administration Memantine 10 mg 12/17/18 17:00 12/18/18 07:37 Namenda PO 10 mg BID@0800,1700 [facility] Administration Metoprolol Tartrate 50 mg 12/18/18 17:00 Lopressor PO BID@0800,1700 [facility] Naloxone HCl 0.2 mg 12/17/18 11:43 Narcan IV Q2M PRN Opioid Reversal Risperidone 0.25 mg 12/17/18 20:00 12/17/18 20:38 Risperdal PO 0.25 mg HS@2000 [facility] Administration Intake and Output 12/17/18 12/18/1819 22:59 06:59 14:59 Intake Total 40 0 Balance 40 0 Intake: Intake, IV Titration 40 0 Amount Diltiazem 125 mg In 40 0 Sodium Chloride 0.9% 100 ml @ 5 MG/HR 5 mls/hr IV .Q24H [facility] Rx#:[id number] Other: Voiding Method Indwelling Catheter Indwelling Catheter 12/18/18 06:33 12/18/18 06:33
[2018-12-18] MEDS ORDERED: Potassium Replacement Protocol 1 EACH MISC MISCELLANE PRN (14:20)
--- NOTE | 2018-12-18 14:40 | P.PN ---
Subjective Progress Note Date: 12/18/18 This is a 78-year-old female patient of Dr. Adams. Patient presented with complaints of altered mental status changes and increased weakness. Patient's past medical history includes advanced dementia in which she resides at the [facility] facility. Patient's daughter is at bedside. Additional medical history includes atrial fibrillation she believes was diagnosed in June and July but was never started on anticoagulation. Per previous medical records patient was not started on anticoagulation due to advanced dementia. Additional medical history includes throat cancer, CVA, hyperlipidemia, hypertension, arthritis and thyroid disorder. CT completed showing age-related atrophic and chronic small vessel ischemic change without acute intracranial process seen at this time. Chest x-ray completed showing no evidence for acute pulmonary disease. EKG completed showing atrial fibrillation with rapid ventricular response heart rate 154. Patient was started on Cardizem drip in ER. Cardiology services have been consulted. Per patient's daughter would like patient to be a DO NOT RESUSCITATE. Will also consult case management to assist patient's family in legal DNR paperwork. UA positive for urinary tract infection. started on Rocephin for urinary tract infection. Urine and blood culture ordered. On 12/18/2018 patient is alert confused in no apparent distress there is no fever or chills no headache or dizziness no chest pain no shortness of breath no cough no nausea or vomiting no abdominal pain no diarrhea and no urinary symptoms Objective - Vital Signs Vital signs: Vital Signs Temp 98.7 F 12/18/18 08:00 Pulse 146 H 12/18/18 08:00 Resp 20 12/18/18 08:00 BP 140/90 12/18/18 08:00 Pulse Ox 96 12/18/18 08:00 Intake & Output 12/17/18 12/18/18 12/18/18 18:59 06:59 18:59 Intake Total 40 0 25 Balance 40 0 25 Weight 50.802 kg 52.8 kg Intake: Intake, IV Titration 40 0 Amount Diltiazem 125 mg In 40 0 Sodium Chloride 0.9% 100 ml @ 5 MG/HR 5 mls/hr IV .Q24H [facility] Rx#:[id number] Oral 25 Other: Voiding Method Indwelling Catheter Indwelling Catheter # Voids 0 - Exam In general patient is alert and oriented 2 in no apparent distress Head normocephalic and atraumatic Neck supple no JVD no goiter Lungs clear to auscultation bilaterally no wheezing or crackles Heart regular rate and rhythm S1-S2, no rub or gallop Abdomen is soft nontender nondistended positive bowel sounds no hepatosplenomegaly Extremities no edema no cyanosis or clubbing Neuro advanced dementia does follow commands. - Labs CBC & Chem 7: 12/18/18 06:33 12/18/18 06:33 Labs: Abnormal Lab Results - Last 24 Hours (Table) 12/18/18 12/18/18 Range/Units 06:33 06:33 RBC 3.79 L (3.80-5.40) m/uL Neutrophils # 8.8 H (1.3-7.7) k/uL Lymphocytes # 0.8 L (1.0-4.8) k/uL Sodium 136 L (137-145) mmol/L Potassium 3.2 L (3.5-5.1) mmol/L BUN 22 H (7-17) mg/dL Glucose 107 H (74-99) mg/dL AST 47 H (14-36) U/L Total Protein 6.2 L (6.3-8.2) g/dL Albumin 3.4 L (3.5-5.0) g/dL Microbiology - Last 24 Hours (Table) 12/17/18 10:59 Urine Culture - Preliminary Urine,Catheterized Proteus spec 12/17/18 10:00 Blood Culture - Preliminary Blood No Growth after 24 hours Assessment and Plan Plan: 1. Altered mental status and increased weakness due to urinary tract infection. Head CT completed showing age-related atrophic and chronic small vessel ischemic changes without acute intracranial process seen at this time. 2. Urinary tract infection. Urine culture ordered. Patient started on Omari ephin 3. Atrial fibrillation with rapid ventricular response. Patient started on Cardizem cardiology service consulted 4. History of paroxysmal atrial fibrillation. Per patient's daughter patient was diagnosed in June was seen by cardiology. Anticoagulation was discussed but not started per DPOA. At this time will consult cardiology services 5. Advanced dementia 6. History of previous TIA 7. History of throat cancer 8. History of Hyperlipidemia 9. History of essential hypertension 10. History of osteoarthritis 11. History of hypothyroidism maintained on Synthroid. Will order TSH level 12. Elevated liver enzymes. Alkaline phosphatase slightly elevated at 134 and AST 62. Lipitor on hold. We'll continue to monitor closely DVT prophylaxis Lovenox. GI prophylaxis Protonix Blood and urine culture ordered Cardiology consult placed PT and OT consult placed
[2018-12-18] MEDS ORDERED: DIGOXIN 250 MCG/ML 2 ML AMP IVP ONE ×2 (15:38→21:40)
[2018-12-18] MEDS: POTASSIUM CHLORIDE ER 20 MEQ TAB.ER PO SCH ×2 (15:50→16:10)
[2018-12-18] MEDS: METOPROLOL TARTRATE 50 MG TAB PO SCH (16:10)
[2018-12-18] MEDS: DONEPEZIL 10 MG TAB PO SCH (16:10)
[2018-12-18] MEDS: risperiDONE 0.25 MG TAB PO SCH (20:41)
[2018-12-19] MEDS: SODIUM CHLORIDE 0.9% 1,000 ML IV SCH ×2 (05:37→16:44)
[2018-12-19 06:25] LABS: Basophils % (A) 0 %; Eosinophils # (A) 0.2 k/uL (0-0.7); Eosinophils % (A) 2 %; HCT 38.1 % (34.0-46.0); HGB 12.5 gm/dL (11.4-16.0); Lymphocytes # (A) 0.9 k/uL (1.0-4.8); Lymphocytes % (A) 10 %; MCH 30.8 pg (25.0-35.0); MCHC 32.8 g/dL (31.0-37.0); MCV 93.9 fL (80.0-100.0); Mean Platelet Volume 8.3; Monocytes # (A) 0.5 k/uL (0-1.0); Monocytes % (A) 5 %; Neutrophils # (A) 7.5 k/uL (1.3-7.7); Neutrophils % (A) 81 %; Platelet Count 180 k/uL (150-450); RBC 4.06 m/uL (3.80-5.40); RDW 14.9 % (11.5-15.5); WBC 9.3 k/uL (3.8-10.6)
[2018-12-19 06:40] LABS: ALT 62 U/L (9-52); AST 61 U/L (14-36); African American GFR (CKD) >90 (>60 ml/min/1.73 sqM); Albumin 3.3 g/dL (3.5-5.0); Alkaline Phosphatase 115 U/L (38-126); Anion Gap 9 mmol/L; Blood Urea Nitrogen 15 mg/dL (7-17); Calcium 8.9 mg/dL (8.4-10.2); Carbon Dioxide 25 mmol/L (22-30); Chloride 107 mmol/L (98-107); Glucose 91 mg/dL (74-99); Potassium 3.7 mmol/L (3.5-5.1); Sodium 141 mmol/L (137-145); Total Protein 6.2 g/dL (6.3-8.2)
[2018-12-19] MEDS: METOPROLOL TARTRATE 50 MG TAB PO SCH ×2 (10:33→16:40)
[2018-12-19] MEDS: ENOXAPARIN 40 MG/0.4 ML SYRINGE SQ SCH (10:33)
[2018-12-19] MEDS: FAMOTIDINE 20 MG TAB PO SCH (10:33)
[2018-12-19] MEDS: LEVOTHYROXINE 75 MCG TAB PO SCH (10:33)
[2018-12-19] MEDS: MEMANTINE 10 MG TAB PO SCH ×2 (10:33→16:40)
--- NOTE | 2018-12-19 11:00 | P.PN ---
Subjective Progress Note Date: 12/19/18 This is a 78-year-old female patient of Dr. Adams. Patient presented with complaints of altered mental status changes and increased weakness. Patient's past medical history includes advanced dementia in which she resides at the [facility] facility. Patient's daughter is at bedside. Additional medical history includes atrial fibrillation she believes was diagnosed in June and July but was never started on anticoagulation. Per previous medical records patient was not started on anticoagulation due to advanced dementia. Additional medical history includes throat cancer, CVA, hyperlipidemia, hypertension, arthritis and thyroid disorder. CT completed showing age-related atrophic and chronic small vessel ischemic change without acute intracranial process seen at this time. Chest x-ray completed showing no evidence for acute pulmonary disease. EKG completed showing atrial fibrillation with rapid ventricular response heart rate 154. Patient was started on Cardizem drip in ER. Cardiology services have been consulted. Per patient's daughter would like patient to be a DO NOT RESUSCITATE. Will also consult case management to assist patient's family in legal DNR paperwork. UA positive for urinary tract infection. started on Rocephin for urinary tract infection. Urine and blood culture ordered. On 12/18/2018 patient is alert confused in no apparent distress there is no fever or chills no headache or dizziness no chest pain no shortness of breath no cough no nausea or vomiting no abdominal pain no diarrhea and no urinary symptom On 12/19/2018 patient is sleepy but does wake up to follow commands. Patient remains baseline confused. Heart rate has improved but still remains elevated. Medications adjusted per cardiology. Per nursing staff will address anticoagulation with cardiology. Objective - Vital Signs Vital signs: Vital Signs Temp 97.8 F 12/19/18 03:20 Pulse 111 H 12/19/18 08:00 Resp 20 12/19/18 08:00 BP 178/89 12/19/18 08:00 Pulse Ox 100 12/19/18 08:00 Intake & Output 12/18/18 12/19/18 12/19/18 18:59 06:59 18:59 Intake Total 300 0 Output Total 800 1040 Balance -500 -1040 0 Weight 52.8 kg 54 kg Intake: Oral 300 0 Output: Urine 800 1040 Other: Voiding Method Indwelling Catheter Indwelling Catheter Indwelling Catheter # Bowel Movements 2 - Exam In general patient is alert and oriented 2 in no apparent distress Head normocephalic and atraumatic Neck supple no JVD no goiter Lungs clear to auscultation bilaterally no wheezing or crackles Heart regular rate and rhythm S1-S2, no rub or gallop Abdomen is soft nontender nondistended positive bowel sounds no hepatosplenomegaly Extremities no edema no cyanosis or clubbing Neuro advanced dementia does follow commands. - Labs CBC & Chem 7: 12/19/18 06:12 12/19/18 06:12 Labs: Abnormal Lab Results - Last 24 Hours (Table) 12/19/18 12/19/18 Range/Units 06:12 06:12 Lymphocytes # 0.9 L (1.0-4.8) k/uL AST 61 H (14-36) U/L ALT 62 H (9-52) U/L Total Protein 6.2 L (6.3-8.2) g/dL Albumin 3.3 L (3.5-5.0) g/dL Microbiology - Last 24 Hours (Table) 12/17/18 10:59 Urine Culture - Preliminary Urine,Catheterized Proteus spec 12/17/18 10:00 Blood Culture - Preliminary Blood No Growth after 24 hours Assessment and Plan Assessment: 1. Altered mental status and increased weakness due to urinary tract infection. Head CT completed showing age-related atrophic and chronic small vessel ischemic changes without acute intracranial process seen at this time. 2. Urinary tract infection. Urine culture ordered. Patient started on Rocep hin. Urine culture growing Proteus mirabilis 3. Atrial fibrillation with rapid ventricular response. Patient started on Cardizem cardiology service consulted 4. History of paroxysmal atrial fibrillation. Per patient's daughter patient was diagnosed in June was seen by cardiology. Anticoagulation was discussed but not started per DPOA. At this time will consult cardiology services. Per nursing staff will discuss with cardiology. 5. Advanced dementia 6. History of previous TIA 7. History of throat cancer 8. History of Hyperlipidemia 9. History of essential hypertension 10. History of osteoarthritis 11. History of hypothyroidism maintained on Synthroid. TSH level II.250 12. Elevated liver enzymes. Alkaline phosphatase slightly elevated at 134 and AST 62. Lipitor on hold. We'll continue to monitor closely DVT prophylaxis Lovenox. GI prophylaxis Protonix Blood and urine culture ordered Cardiology consult placed PT and OT consult placed I performed an examination of the patient and discussed their management with the Nurse Practitioner. I have reviewed the Nurse Practitioner's notes and agree with the documented findings and plan of care
[2018-12-19] MEDS: LISINOPRIL 5 MG TAB PO SCH (11:19)
--- NOTE | 2018-12-19 12:41 | P.PN ---
Subjective This is a pleasant 78-year-old female past medical history significant for paroxysmal atrial fibrillation not on prison anticoagulation secondary to advanced dementia, hypertension, dyslipidemia, TIA and throat cancer. We have been asked to see her in consultation secondary to atrial fibrillation with rapid ventricular response. She was brought to the emergency department by her daughter secondary to altered mental status. EKG obtained on admission reveals atrial fibrillation with heart rate of 151. She was started on a Cardizem infusion. She is seen and examined resting comfortably laying flat in bed in no acute distress. She is pleasantly confused at baseline and denies all complaints of chest discomfort, shortness of breath, dizziness or palpitations. Laboratory data reviewed, WBC 15.1, hemoglobin 11.5, platelets 195, sodium 136, potassium 3.2, creatinine 0.67, magnesium 1.6, cardiac enzymes negative 1, TSH 2.25. Current daily cardiac medications include Lopressor 25 mg twice a day, atorvastatin 20 mg daily. Most recent echocardiogram obtained June 2018 reveals preserved LV systolic function with ejection fraction 55-60%, severe mitral regurgitation, moderate to severe tricuspid regurgitation and moderate pulmonary hypertension with RVSP of 36 mmHg. 12/19/2018 Seen and examined resting comfortably in bed in no acute distress. Cardizem was discontinued yesterday and she did have one episode of rapid ventricular rates where digoxin IV was given. Ongoing telemetry monitoring reveals controlled v entricular rates with episodes of bradycardia noted to the night while sleeping. Blood pressure 178/89. Laboratory data reviewed, WBC 9.3, hemoglobin 12.5, platelets 180, sodium 141, potassium 3.7, creatinine 0.65. GENERAL: This is a 78-year-old occasion female in no apparent distress at the time of my examination. HEENT: Head is atraumatic, normocephalic. Pupils are equal, round. Sclerae anict deena. Conjunctivae are clear. Mucous membranes of the mouth are moist. Neck is supple. There is no jugular venous distention. No carotid bruit is heard. LUNGS: Clear to auscultation no wheezes, rales or rhonchi. No chest wall tenderness is noted on palpation or with deep breathing. HEART: Irregular rate and rhythm without murmurs, rubs or gallops. S1 and S2 heard. EXTREMITIES: No evidence of peripheral edema and no calf tenderness noted. ASSESSMENT Paroxysmal atrial fibrillation with rapid ventricular response not on long-term anticoagulation secondary to advanced dementia Urinary tract infection Leukocytosis Hypokalemia PLAN Add lisinopril 5 mg daily for blood pressure control. Continue metoprolol 50 mg twice a day. Nurse Practitioner note has been reviewed, I agree with a documented findings and plan of care. Patient was seen and examined. Objective - Vital Signs Vital signs: Vital Signs Temp 97.8 F 12/19/18 03:20 Pulse 111 H 12/19/18 08:00 Resp 20 12/19/18 08:00 BP 178/89 12/19/18 08:00 Pulse Ox 100 12/19/18 08:00 Intake & Output 12/18/18 12/19/18 12/19/18 18:59 06:59 18:59 Intake Total 300 0 Output Total 800 1040 Balance -500 -1040 0 Weight 52.8 kg 54 kg Intake: Oral 300 0 Output: Urine 800 1040 Other: Voiding Method Indwelling Catheter Indwelling Catheter Indwelling Catheter # Bowel Movements 2 - Labs CBC & Chem 7: 12/19/18 06:12 12/19/18 06:12 Labs: Abnormal Lab Results - Last 24 Hours (Table) 12/19/18 12/19/18 Range/Units 06:12 06:12 Lymphocytes # 0.9 L (1.0-4.8) k/uL AST 61 H (14-36) U/L ALT 62 H (9-52) U/L Total Protein 6.2 L (6.3-8.2) g/dL Albumin 3.3 L (3.5-5.0) g/dL Microbiology - Last 24 Hours (Table) 12/17/18 10:00 Blood Culture - Preliminary Blood No Growth after 48 hours 12/17/18 10:59 Urine Culture - Final Urine,Catheterized Proteus mirabilis
[2018-12-19] MEDS: DONEPEZIL 10 MG TAB PO SCH (16:40)
[2018-12-19] MEDS: risperiDONE 0.25 MG TAB PO SCH (22:06)
[2018-12-20 06:32] LABS: Basophils % (A) 0 %; Eosinophils # (A) 0.2 k/uL (0-0.7); Eosinophils % (A) 3 %; HCT 34.9 % (34.0-46.0); HGB 11.1 gm/dL (11.4-16.0); Lymphocytes # (A) 0.8 k/uL (1.0-4.8); Lymphocytes % (A) 14 %; MCHC 31.8 g/dL (31.0-37.0); MCV 94.4 fL (80.0-100.0); Monocytes # (A) 0.4 k/uL (0-1.0); Monocytes % (A) 7 %; Neutrophils # (A) 4.5 k/uL (1.3-7.7); Neutrophils % (A) 74 %; Platelet Count 213 k/uL (150-450); RDW 14.6 % (11.5-15.5)
[2018-12-20 06:45] LABS: ALT 68 U/L (9-52); AST 75 U/L (14-36); African American GFR (CKD) >90 (>60 ml/min/1.73 sqM); Albumin 2.5 g/dL (3.5-5.0); Alkaline Phosphatase 102 U/L (38-126); Anion Gap 5 mmol/L; Blood Urea Nitrogen 17 mg/dL (7-17); Calcium 8.2 mg/dL (8.4-10.2); Carbon Dioxide 23 mmol/L (22-30); Chloride 111 mmol/L (98-107); Glucose 89 mg/dL (74-99); Potassium 3.7 mmol/L (3.5-5.1); Sodium 139 mmol/L (137-145); Total Bilirubin 0.6 mg/dL (0.2-1.3)
[2018-12-20] MEDS: MEMANTINE 10 MG TAB PO SCH ×2 (09:37→16:53)
[2018-12-20] MEDS: LISINOPRIL 5 MG TAB PO SCH (09:37)
[2018-12-20] MEDS: SODIUM CHLORIDE 0.9% 1,000 ML IV SCH ×2 (09:37→21:17)
[2018-12-20] MEDS: METOPROLOL TARTRATE 50 MG TAB PO SCH ×2 (09:37→16:52)
[2018-12-20] MEDS: FAMOTIDINE 20 MG TAB PO SCH (09:37)
[2018-12-20] MEDS: LEVOTHYROXINE 75 MCG TAB PO SCH (09:37)
[2018-12-20] MEDS: ENOXAPARIN 40 MG/0.4 ML SYRINGE SQ SCH (09:37)
--- NOTE | 2018-12-20 09:54 | P.PN ---
Subjective Progress Note Date: 12/20/18 This is a 78-year-old female patient of Dr. Adams. Patient presented with complaints of altered mental status changes and increased weakness. Patient's past medical history includes advanced dementia in which she resides at the [facility] facility. Patient's daughter is at bedside. Additional medical history includes atrial fibrillation she believes was diagnosed in June and July but was never started on anticoagulation. Per previous medical records patient was not started on anticoagulation due to advanced dementia. Additional medical history includes throat cancer, CVA, hyperlipidemia, hypertension, arthritis and thyroid disorder. CT completed showing age-related atrophic and chronic small vessel ischemic change without acute intracranial process seen at this time. Chest x-ray completed showing no evidence for acute pulmonary disease. EKG completed showing atrial fibrillation with rapid ventricular response heart rate 154. Patient was started on Cardizem drip in ER. Cardiology services have been consulted. Per patient's daughter would like patient to be a DO NOT RESUSCITATE. Will also consult case management to assist patient's family in legal DNR paperwork. UA positive for urinary tract infection. started on Rocephin for urinary tract infection. Urine and blood culture ordered. On 12/18/2018 patient is alert confused in no apparent distress there is no fever or chills no headache or dizziness no chest pain no shortness of breath no cough no nausea or vomiting no abdominal pain no diarrhea and no urinary symptom On 12/19/2018 patient is sleepy but does wake up to follow commands. Patient remains baseline confused. Heart rate has improved but still remains elevated. Medications adjusted per cardiology. Per nursing staff will address anticoagulation with cardiology. On 12/20/2017 patient awake and following commands. Per cardiology patient has been increased. Heart rate has improved. Discussed integrative issues cardiology will discuss with patient's DPOA per cardiology. At that time patient denies any specific complaints Objective - Vital Signs Vital signs: Vital Signs Temp 98.4 F 12/20/18 04:00 Pulse 85 12/20/18 04:00 Resp 17 12/20/18 04:00 BP 169/73 12/20/18 04:00 Pulse Ox 95 12/20/18 04:00 Intake & Output 12/19/18 12/20/18 12/20/18 18:59 06:59 18:59 Intake Total 0 240 Output Total 625 230 Balance -625 -230 240 Weight 33.5 kg Intake: Oral 0 240 Output: Urine 625 230 Other: Voiding Method Indwelling Catheter Indwelling Catheter - Exam In general patient is alert and oriented 2 in no apparent distress Head normocephalic and atraumatic Neck supple no JVD no goiter Lungs clear to auscultation bilaterally no wheezing or crackles Heart regular rate and rhythm S1-S2, no rub or gallop Abdomen is soft nontender nondistended positive bowel sounds no hepatos plenomegaly Extremities no edema no cyanosis or clubbing Neuro advanced dementia does follow commands. - Labs CBC & Chem 7: 12/20/18 06:06 12/20/18 06:06 Labs: Abnormal Lab Results - Last 24 Hours (Table) 12/20/18 12/20/18 Range/Units 06:06 06:06 RBC 3.70 L (3.80-5.40) m/uL Hgb 11.1 L (11.4-16.0) gm/dL Lymphocytes # 0.8 L (1.0-4.8) k/uL Chloride 111 H (98-107) mmol/L Calcium 8.2 L (8.4-10.2) mg/dL AST 75 H (14-36) U/L ALT 68 H (9-52) U/L Total Protein 5.0 L (6.3-8.2) g/dL Albumin 2.5 L (3.5-5.0) g/dL Microbiology - Last 24 Hours (Table) 12/17/18 10:00 Blood Culture - Preliminary Blood No Growth after 48 hours 12/17/18 10:59 Urine Culture - Final Urine,Catheterized Proteus mirabilis Assessment and Plan Assessment: 1. Altered mental status and increased weakness due to urinary tract infection. Head CT completed showing age-related atrophic and chronic small vessel ischemic changes without acute intracranial process seen at this time. 2. Urinary tract infection. Urine culture ordered. Patient started on Rocephin. Urine culture growing Proteus mirabilis. Blood culture showing no growth 3. Atrial fibrillation with rapid ventricular response. Patient started on Cardizem cardiology service consulted 4. History of paroxysmal atrial fibrillation. Per patient's daughter patient was diagnosed in June was seen by cardiology. Anticoagulation was discussed but not started per DPOA. At this time will consult cardiology services. Per nursing staff will discuss with cardiology. Metroprolol has been increased per cardiology 5. Advanced dementia 6. History of previous TIA 7. History of throat cancer 8. History of Hyperlipidemia 9. History of essential hypertension 10. History of osteoarthritis 11. History of hypothyroidism maintained on Synthroid. TSH level 1.250 12. Elevated liver enzymes. Alkaline phosphatase slightly elevated at 134 and AST 62. Lipitor on hold. We'll continue to monitor closely DVT prophylaxis Lovenox. GI prophylaxis Protonix Blood and urine culture ordered Cardiology consult placed PT and OT consult placed I performed an examination of the patient and discussed their management with the Nurse Practitioner. I have reviewed the Nurse Practitioner's notes and agree with the documented findings and plan of care
--- NOTE | 2018-12-20 12:14 | P.PN ---
Subjective Progress Note Date: 12/20/18 This is a pleasant 78-year-old female past medical history significant for paroxysmal atrial fibrillation not on fci anticoagulation secondary to advanced dementia, hypertension, dyslipidemia, TIA and throat cancer. We had patient was seen and examined this morning, in no acute distress. been asked to see her in consultation secondary to atrial fibrillation with rapid ventricular response. She was brought to the emergency department by her daughter secondary to altered mental status. EKG obtained on admission reveals atrial fibrillation with heart rate of 151. Patient was seen and examined this morning, in no acute distress, heart rate in the 60s to 80s, at times heart rate does drop during sleeping while awake if maintained at an inadequate rate. Her blood pressure 156/90. Objective - Vital Signs Vital signs: Vital Signs Temp 97.6 F 12/20/18 12:00 Pulse 67 12/20/18 12:00 Resp 15 12/20/18 12:00 BP 154/73 12/20/18 12:00 Pulse Ox 96 12/20/18 12:00 Intake & Output 12/19/18 12/20/18 12/20/18 18:59 06:59 18:59 Intake Total 0 240 Output Total 625 230 Balance -625 -230 240 Weight 33.5 kg Intake: Oral 0 240 Output: Urine 625 230 Other: Voiding Method Indwelling Catheter Indwelling Catheter Indwelling Catheter - Exam GENERAL: This is a 78-year-old occasion female in no apparent distress at the time of my examination. HEENT: Head is atraumatic, normocephalic. Pupils are equal, round. Sclerae anict deena. Conjunctivae are clear. Mucous membranes of the mouth are moist. Neck is supple. There is no jugular venous distention. No carotid bruit is heard. LUNGS: Clear to auscultation no wheezes, rales or rhonchi. No chest wall tenderness is noted on palpation or with deep breathing. HEART: Irregular rate and rhythm without murmurs, rubs or gallops. S1 and S2 heard. EXTREMITIES: No evidence of peripheral edema and no calf tenderness noted. - Labs CBC & Chem 7: 12/20/18 06:06 12/20/18 06:06 Labs: Abnormal Lab Results - Last 24 Hours (Table) 12/20/18 12/20/18 Range/Units 06:06 06:06 RBC 3.70 L (3.80-5.40) m/uL Hgb 11.1 L (11.4-16.0) gm/dL Lymphocytes # 0.8 L (1.0-4.8) k/uL Chloride 111 H (98-107) mmol/L Calcium 8.2 L (8.4-10.2) mg/dL AST 75 H (14-36) U/L ALT 68 H (9-52) U/L Total Protein 5.0 L (6.3-8.2) g/dL Albumin 2.5 L (3.5-5.0) g/dL Microbiology - Last 24 Hours (Table) 12/17/18 10:00 Blood Culture - Preliminary Blood No Growth after 72 hours 12/17/18 10:59 Urine Culture - Final Urine,Catheterized Proteus mirabilis Assessment and Plan Plan: ASSESSMENT and plan #1 Paroxysmal atrial fibrillation with rapid ventricular response not on long- term anticoagulation secondary to advanced dementia #2 Urinary tract infection #3 Leukocytosis #4 Hypokalemia #5 hypertension #6 hyperlipidemia #7 prior TIA #8 history of throat cancer Plan From cardiology's perspective, we will continue the patient on her current medications. We will follow her along with you now on an as-needed basis only, please on hesitate to call if you have any questions. DNP note has been reviewed, I agree with a documented findings and plan of care. Patient was seen and examined.
[2018-12-20] MEDS: DONEPEZIL 10 MG TAB PO SCH (16:53)
[2018-12-20] MEDS: risperiDONE 0.25 MG TAB PO SCH (19:45)
[2018-12-21] MEDS: hydrALAZINE HCL 20 MG/ML 1 ML VIAL IVP PRN ×2 (00:01→08:36)
[2018-12-21 06:44] LABS: Basophils % (A) 1 %; Eosinophils # (A) 0.2 k/uL (0-0.7); Eosinophils % (A) 4 %; HGB 12.5 gm/dL (11.4-16.0); Hypochromasia Slight; Lymphocytes # (A) 0.8 k/uL (1.0-4.8); Lymphocytes % (A) 11 %; MCH 30.2 pg (25.0-35.0); MCHC 31.1 g/dL (31.0-37.0); MCV 96.9 fL (80.0-100.0); Mean Platelet Volume 7.7; Monocytes # (A) 0.6 k/uL (0-1.0); Monocytes % (A) 8 %; Neutrophils # (A) 5.2 k/uL (1.3-7.7); Neutrophils % (A) 74 %; Platelet Count 235 k/uL (150-450); RBC 4.13 m/uL (3.80-5.40); RDW 14.3 % (11.5-15.5); WBC 7.1 k/uL (3.8-10.6)
[2018-12-21 06:56] LABS: ALT 60 U/L (9-52); AST 51 U/L (14-36); African American GFR (CKD) >90 (>60 ml/min/1.73 sqM); Alkaline Phosphatase 128 U/L (38-126); Anion Gap 10 mmol/L; Blood Urea Nitrogen 11 mg/dL (7-17); Calcium 8.5 mg/dL (8.4-10.2); Carbon Dioxide 21 mmol/L (22-30); Chloride 106 mmol/L (98-107); Glucose 93 mg/dL (74-99); Potassium 3.2 mmol/L (3.5-5.1); Sodium 137 mmol/L (137-145); Total Bilirubin 0.7 mg/dL (0.2-1.3); Total Protein 5.7 g/dL (6.3-8.2)
[2018-12-21] MEDS: LEVOTHYROXINE 75 MCG TAB PO SCH (08:26)
[2018-12-21] MEDS: MEMANTINE 10 MG TAB PO SCH ×2 (08:26→17:56)
[2018-12-21] MEDS: POTASSIUM CHLORIDE ER 20 MEQ TAB.ER PO SCH ×2 (08:26→09:32)
[2018-12-21] MEDS: METOPROLOL TARTRATE 50 MG TAB PO SCH ×2 (08:26→17:56)
[2018-12-21] MEDS: LISINOPRIL 5 MG TAB PO SCH (08:26)
[2018-12-21] MEDS: FAMOTIDINE 20 MG TAB PO SCH (08:26)
[2018-12-21] MEDS: ENOXAPARIN 40 MG/0.4 ML SYRINGE SQ SCH (08:27)
[2018-12-21] MEDS: SODIUM CHLORIDE 0.9% 1,000 ML IV SCH (08:35)
--- NOTE | 2018-12-21 10:33 | P.PN ---
Subjective Progress Note Date: 12/21/18 This is a 78-year-old female patient of Dr. Adams. Patient presented with complaints of altered mental status changes and increased weakness. Patient's past medical history includes advanced dementia in which she resides at the [facility] facility. Patient's daughter is at bedside. Additional medical history includes atrial fibrillation she believes was diagnosed in June and July but was never started on anticoagulation. Per previous medical records patient was not started on anticoagulation due to advanced dementia. Additional medical history includes throat cancer, CVA, hyperlipidemia, hypertension, arthritis and thyroid disorder. CT completed showing age-related atrophic and chronic small vessel ischemic change without acute intracranial process seen at this time. Chest x-ray completed showing no evidence for acute pulmonary disease. EKG completed showing atrial fibrillation with rapid ventricular response heart rate 154. Patient was started on Cardizem drip in ER. Cardiology services have been consulted. Per patient's daughter would like patient to be a DO NOT RESUSCITATE. Will also consult case management to assist patient's family in legal DNR paperwork. UA positive for urinary tract infection. started on Rocephin for urinary tract infection. Urine and blood culture ordered. On 12/18/2018 patient is alert confused in no apparent distress there is no fever or chills no headache or dizziness no chest pain no shortness of breath no cough no nausea or vomiting no abdominal pain no diarrhea and no urinary symptom On 12/19/2018 patient is sleepy but does wake up to follow commands. Patient remains baseline confused. Heart rate has improved but still remains elevated. Medications adjusted per cardiology. Per nursing staff will address anticoagulation with cardiology. On 12/20/2017 patient awake and following commands. Per cardiology patient has been increased. Heart rate has improved. Discussed anticoagulation issues cardiology will discuss with patient's DPOA per cardiology. At that time patient denies any specific complaints On 12/21/2018 patient's awake and following commands. Patient's Metroprolol increased per cardiology. Per nursing staff patient had adequate output through [facility] last night will remove Wood catheter today and monitor for urinary retention and output. Patient maintained on IV antibiotics for urinary tract infection. Home health care to be arranged. Patient denies any specific complaints Objective - Vital Signs Vital signs: Vital Signs Temp 97.8 F 12/21/18 08:00 Pulse 72 12/21/18 08:00 Resp 18 12/21/18 08:00 BP 171/79 12/21/18 08:00 Pulse Ox 96 12/21/18 08:00 Intake & Output 12/20/18 12/21/18 12/21/18 18:59 06:59 18:59 Intake Total 480 0 Output Total 1500 200 Balance 480 -1500 -200 Weight 52.2 kg Intake: Oral 480 0 Output: Urine 1200 200 Stool 300 Other: Voiding Method Indwelling Catheter Indwelling Catheter # Bowel Movements 1 - Exam In general patient is alert and oriented 2 in no apparent distress Head normocephalic and atraumatic Neck supple no JVD no goiter Lungs clear to auscultation bilaterally no wheezing or crackles Heart regular rate and rhythm S1-S2, no rub or gallop Abdomen is soft nontender nondistended positive bowel sounds no hepatosplenomegaly Extremities no edema no cyanosis or clubbing Neuro advanced dementia does follow commands. - Labs CBC & Chem 7: 12/21/18 05:48 12/21/18 05:48 Labs: Abnormal Lab Results - Last 24 Hours (Table) 12/21/18 12/21/18 Range/Units 05:48 05:48 Lymphocytes # 0.8 L (1.0-4.8) k/uL Potassium 3.2 L (3.5-5.1) mmol/L Carbon Dioxide 21 L (22-30) mmol/L AST 51 H (14-36) U/L ALT 60 H (9-52) U/L Alkaline Phosphatase 128 H (38-126) U/L Total Protein 5.7 L (6.3-8.2) g/dL Albumin 3.0 L (3.5-5.0) g/dL Microbiology - Last 24 Hours (Table) 12/17/18 10:00 Blood Culture - Preliminary Blood No Growth after 72 hours Assessment and Plan Assessment: 1. Altered mental status and increased weakness due to urinary tract infection. Head CT completed showing age-related atrophic and chronic small vessel ischemic changes without acute intracranial process seen at this time. 2. Urinary tract infection. Urine culture ordered. Patient started on Rocephi n. Urine culture growing Proteus mirabilis. Blood culture showing no growth 3. Atrial fibrillation with rapid ventricular response. Patient started on Cardizem cardiology service consulted 4. History of paroxysmal atrial fibrillation. Per patient's daughter patient was diagnosed in June was seen by cardiology. Anticoagulation was discussed but not started per DPOA. At this time will consult cardiology services. Per nursing staff will discuss with cardiology. Metroprolol has been increased per cardiology 5. Advanced dementia 6. History of previous TIA 7. History of throat cancer 8. History of Hyperlipidemia 9. History of essential hypertension 10. History of osteoarthritis 11. History of hypothyroidism maintained on Synthroid. TSH level 1.250 12. Elevated liver enzymes. Alkaline phosphatase slightly elevated at 134 and AST 62. Lipitor on hold. We'll continue to monitor closely DVT prophylaxis Lovenox. GI prophylaxis Protonix Blood and urine culture ordered Cardiology consult placed PT and OT consult placed I performed an examination of the patient and discussed their management with the Nurse Practitioner. I have reviewed the Nurse Practitioner's notes and agree with the documented findings and plan of care
--- NOTE | 2018-12-21 11:05 | P.PN ---
Subjective Progress Note Date: 12/21/18 This is a pleasant 78-year-old female past medical history significant for paroxysmal atrial fibrillation not on fdc anticoagulation secondary to advanced dementia, hypertension, dyslipidemia, TIA and throat cancer. We had patient was seen and examined this morning, in no acute distress. been asked to see her in consultation secondary to atrial fibrillation with rapid ventricular response. She was brought to the emergency department by her daughter secondary to altered mental status. EKG obtained on admission reveals atrial fibrillation with heart rate of 151. Patient was seen and examined this morning, in no acute distress, heart rate in the 60s to 80s, at times heart rate does drop during sleeping while awake if maintained at an inadequate rate. Her blood pressure 156/90. 12/21/2018 Patient seen and examined this morning, awake, following commands. Blood pressure 170/70 with a heart rate in the 70s, 96% on room air. Repeat blood pressure after medication administration in the 150 systolic range. White blood cell count 7.1, hemoglobin 12.5, platelet count 235. Sodium 137, potassium 3.2, BUN 11 and creatinine 0.6. AST and ALT are improving Objective - Vital Signs Vital signs: Vital Signs Temp 97.8 F 12/21/18 08:00 Pulse 72 12/21/18 08:00 Resp 18 12/21/18 08:00 BP 171/79 12/21/18 08:00 Pulse Ox 96 12/21/18 08:00 Intake & Output 12/20/18 12/21/18 12/21/18 18:59 06:59 18:59 Intake Total 480 0 Output Total 1500 200 Balance 480 -1500 -200 Weight 52.2 kg Intake: Oral 480 0 Output: Urine 1200 200 Stool 300 Other: Voiding Method Indwelling Catheter Indwelling Catheter Indwelling Catheter # Bowel Movements 1 - Exam GENERAL: This is a 78-year-old occasion female in no apparent distress at the time of my examination. HEENT: Head is atraumatic, normocephalic. Pupils are equal, round. Sclerae anicteric. Conjunctivae are clear. Mucous membranes of the mouth are moist. Neck is supple. There is no jugular venous distention. No carotid bruit is heard. LUNGS: Clear to auscultation no wheezes, rales or rhonchi. No chest wall tenderness is noted on palpation or with deep breathing. HEART: Irregular rate and rhythm without murmurs, rubs or gallops. S1 and S2 heard. EXTREMITIES: No evidence of peripheral edema and no calf tenderness noted. - Labs CBC & Chem 7: 12/21/18 05:48 12/21/18 05:48 Labs: Abnormal Lab Results - Last 24 Hours (Table) 12/21/18 12/21/18 Range/Units 05:48 05:48 Lymphocytes # 0.8 L (1.0-4.8) k/uL Potassium 3.2 L (3.5-5.1) mmol/L Carbon Dioxide 21 L (22-30) mmol/L AST 51 H (14-36) U/L ALT 60 H (9-52) U/L Alkaline Phosphatase 128 H (38-126) U/L Total Protein 5.7 L (6.3-8.2) g/dL Albumin 3.0 L (3.5-5.0) g/dL Microbiology - Last 24 Hours (Table) 12/17/18 10:00 Blood Culture - Preliminary Blood No Growth after 72 hours Assessment and Plan Plan: ASSESSMENT and plan #1 Paroxysmal atrial fibrillation with rapid ventricular response not on long- term anticoagulation secondary to advanced dementia #2 Urinary tract infection #3 Leukocytosis #4 Hypokalemia #5 hypertension #6 hyperlipidemia #7 prior TIA #8 history of throat cancer Plan From cardiology's perspective, we will continue the patient on her current medications. We will follow her along with you now on an as-needed basis only, please on hesitate to call if you have any questions. DNP note has been reviewed, I agree with a documented findings and plan of care. Patient was seen and examined.
[2018-12-21] MEDS: DONEPEZIL 10 MG TAB PO SCH (17:56)
[2018-12-21] MEDS: risperiDONE 0.25 MG TAB PO SCH (20:23)
[2018-12-22] MEDS: hydrALAZINE HCL 20 MG/ML 1 ML VIAL IVP PRN (08:07)
[2018-12-22] MEDS: ENOXAPARIN 40 MG/0.4 ML SYRINGE SQ SCH (08:07)
[2018-12-22] MEDS: LEVOTHYROXINE 75 MCG TAB PO SCH (08:07)
[2018-12-22] MEDS: MEMANTINE 10 MG TAB PO SCH (08:07)
[2018-12-22] MEDS: LISINOPRIL 5 MG TAB PO SCH (08:07)
[2018-12-22] MEDS: METOPROLOL TARTRATE 50 MG TAB PO SCH (08:07)
[2018-12-22] MEDS: FAMOTIDINE 20 MG TAB PO SCH (08:07)
[2018-12-22] MEDS: SODIUM CHLORIDE 0.9% 1,000 ML IV SCH ×2 (08:08→10:55)
[2018-12-22] MEDS ORDERED: APIXABAN 2.5 MG TABLET PO SCH ×2 (09:45→21:00)
[2018-12-22 10:01] LABS: Basophils % (A) 0 %; Eosinophils # (A) 0.2 k/uL (0-0.7); Eosinophils % (A) 4 %; HCT 38.3 % (34.0-46.0); HGB 12.1 gm/dL (11.4-16.0); Lymphocytes # (A) 0.6 k/uL (1.0-4.8); Lymphocytes % (A) 11 %; MCHC 31.7 g/dL (31.0-37.0); MCV 94.7 fL (80.0-100.0); Mean Platelet Volume 7.9; Monocytes # (A) 0.4 k/uL (0-1.0); Monocytes % (A) 7 %; Neutrophils # (A) 4.2 k/uL (1.3-7.7); Neutrophils % (A) 77 %; Platelet Count 268 k/uL (150-450); RBC 4.04 m/uL (3.80-5.40); RDW 14.4 % (11.5-15.5); WBC 5.4 k/uL (3.8-10.6)
[2018-12-22 10:10] LABS: ALT 47 U/L (9-52); AST 34 U/L (14-36); African American GFR (CKD) >90 (>60 ml/min/1.73 sqM); Alkaline Phosphatase 124 U/L (38-126); Anion Gap 9 mmol/L; Blood Urea Nitrogen 11 mg/dL (7-17); Calcium 8.8 mg/dL (8.4-10.2); Carbon Dioxide 23 mmol/L (22-30); Chloride 109 mmol/L (98-107); Glucose 115 mg/dL (74-99); Potassium 3.3 mmol/L (3.5-5.1); Sodium 141 mmol/L (137-145); Total Bilirubin 0.4 mg/dL (0.2-1.3); Total Protein 5.7 g/dL (6.3-8.2)
[2018-12-22] MEDS ORDERED: Potassium Replacement Protocol 1 EACH MISC MISCELLANE PRN (10:14)
[2018-12-22] MEDS: POTASSIUM CHLORIDE ER 20 MEQ TAB.ER PO SCH ×2 (10:49→11:49)
[2018-12-22 11:22] VITALS: BP 143/84; PULSE 85; RESP 18; TEMP 97.6
--- NOTE | 2018-12-22 12:17 | P.PN ---
Subjective Progress Note Date: 12/22/18 This is a pleasant 78-year-old female past medical history significant for paroxysmal atrial fibrillation not on intermediate anticoagulation secondary to advanced dementia, hypertension, dyslipidemia, TIA and throat cancer. We had patient was seen and examined this morning, in no acute distress. been asked to see her in consultation secondary to atrial fibrillation with rapid ventricular response. She was brought to the emergency department by her daughter secondary to altered mental status. EKG obtained on admission reveals atrial fibrillation with heart rate of 151. Patient was seen and examined this morning, in no acute distress, heart rate in the 60s to 80s, at times heart rate does drop during sleeping while awake if maintained at an inadequate rate. Her blood pressure 156/90. 12/21/2018 Patient seen and examined this morning, awake, following commands. Blood pressure 170/70 with a heart rate in the 70s, 96% on room air. Repeat blood pressure after medication administration in the 150 systolic range. White blood cell count 7.1, hemoglobin 12.5, platelet count 235. Sodium 137, potassium 3.2, BUN 11 and creatinine 0.6. AST and ALT are improving 12/22/2018 Patient seen and examined this morning, hemodynamically stable. On review of prior records, it does appear that the patient was recommended to take anticoagulation, she does have advanced dementia but she does not have history of falls, we will start her on anticoagulation at this time. Arrangements are being made for her to be discharged home today. Objective - Vital Signs Vital signs: Vital Signs Temp 97.6 F 12/22/18 11:00 Pulse 85 12/22/18 11:00 Resp 18 12/22/18 11:00 BP 143/84 12/22/18 11:00 Pulse Ox 98 12/22/18 11:00 Intake & Output 12/21/18 12/22/18 12/22/18 18:59 06:59 18:59 Intake Total 120 115 0 Output Total 200 1 Balance -80 114 0 Intake: Oral 120 115 0 Output: Urine 200 Stool 1 Other: Voiding Method Indwelling Catheter Indwelling Catheter Indwelling Catheter # Voids 1 2 # Bowel Movements 1 - Exam GENERAL: This is a 78-year-old occasion female in no apparent distress at the time of my examination. HEENT: Head is atraumatic, normocephalic. Pupils are equal, round. Sclerae anicteric. Conjunctivae are clear. Mucous membranes of the mouth are moist. Neck is supple. There is no jugular venous distention. No carotid bruit is heard. LUNGS: Clear to auscultation no wheezes, rales or rhonchi. No chest wall tenderness is noted on palpation or with deep breathing. HEART: Irregular rate and rhythm without murmurs, rubs or gallops. S1 and S2 heard. EXTREMITIES: No evidence of peripheral edema and no calf tenderness noted. - Labs CBC & Chem 7: 12/22/18 09:00 12/22/18 09:00 Labs: Abnormal Lab Results - Last 24 Hours (Table) 12/22/18 12/22/18 Range/Units 09:00 09:00 Lymphocytes # 0.6 L (1.0-4.8) k/uL Potassium 3.3 L (3.5-5.1) mmol/L Chloride 109 H (98-107) mmol/L Glucose 115 H (74-99) mg/dL Total Protein 5.7 L (6.3-8.2) g/dL Albumin 3.0 L (3.5-5.0) g/dL Microbiology - Last 24 Hours (Table) 12/17/18 10:00 Blood Culture - Preliminary Blood No Growth after 120 hours Assessment and Plan Plan: ASSESSMENT and plan #1 Paroxysmal atrial fibrillation with rapid ventricular response not on long- term anticoagulation secondary to advanced dementia #2 Urinary tract infection #3 Leukocytosis #4 Hypokalemia #5 hypertension #6 hyperlipidemia #7 prior TIA #8 history of throat cancer Plan From cardiology's perspective, we will continue the patient on her current medications. we will also on Eliquis 2.5 mg one tablet by mouth twice a day Medication regime.We will follow her along with you now on an as-needed basis only, please on hesitate to call if you have any questions. DNP note has been reviewed, I agree with a documented findings and plan of care. Patient was seen and examined.
--- NOTE | 2018-12-22 14:06 | P.DS ---
Providers Date of admission: 12/17/18 11:43 Expected date of discharge: 12/22/18 Attending physician: Bryon Hicks Consults: 12/17/18 11:44 Consult Physician Urgent Consulting Provider: Emerson Nunes Consult Reason/Comments: a fib Do you want consulting provider notified?: Yes Primary care physician: Nandini Adams Hospital Course: Discharge diagnosis 1. Altered mental status and increased weakness due to urinary tract infection. Head CT completed showing age-related atrophic and chronic small vessel ischemic changes without acute intracranial process seen at this time. 2. Urinary tract infection. Patient started on Rocephin. Urine culture growing Proteus mirabilis. Blood culture showing no growth 3. Atrial fibrillation with rapid ventricular response. Patient's heart rate has improved Metroprolol has been increased. 4. History of paroxysmal atrial fibrillation. Per patient's daughter patient was diagnosed in June was seen by cardiology. Anticoagulation was discussed but not started per DPOA. At this time will consult cardiology services. Per nursing staff will discuss with cardiology. Metroprolol has been increased per cardiology. Per cardiology patient has been started on eliquis 2.5 twice a day for anticoagulation 5. Advanced dementia 6. History of previous TIA 7. History of throat cancer 8. History of Hyperlipidemia 9. History of essential hypertension 10. History of osteoarthritis 11. History of hypothyroidism maintained on Synthroid. TSH level 1.250 12. Elevated liver enzymes. Alkaline phosphatase slightly elevated at 134 and AST 62. Lipitor on hold. We'll continue to monitor closely. Resolved Hospital course This is a 78-year-old female patient of Dr. Adams. Patient presented with complaints of altered mental status changes and increased weakness. Patient's past medical history includes advanced dementia in which she resides at the [facility] facility. Patient's daughter is at bedside. Additional medical history includes atrial fibrillation she believes was diagnosed in June and July but was never started on anticoagulation. Per previous medical records patient was not started on anticoagulation due to advanced dementia. Additional medical history includes throat cancer, CVA, hyperlipidemia, hypertension, arthritis and thyroid disorder. CT completed showing age-related atrophic and chronic small vessel ischemic change without acute intracranial process seen at this time. Chest x-ray completed showing no evidence for acute pulmonary disease. EKG completed showing atrial fibrillation with rapid ventricular response heart rate 154. Patient was started on Cardizem drip in ER. Cardiology services have been consulted. Per patient's daughter would like patient to be a DO NOT RESUSCITATE. Will also consult case management to assist patient's family in legal DNR paperwork. UA positive for urinary tract infection. started on Rocephin for urinary tract infection. Urine and blood culture ordered. On 12/18/2018 patient is alert confused in no apparent distress there is no fever or chills no headache or dizziness no chest pain no shortness of breath no cough no nausea or vomiting no abdominal pain no diarrhea and no urinary symptom On 12/19/2018 patient is sleepy but does wake up to follow commands. Patient remains baseline confused. Heart rate has improved but still remains elevated. Medications adjusted per cardiology. Per nursing staff will address anticoagulation with cardiology. On 12/20/2017 patient awake and following commands. Per cardiology patient has been increased. Heart rate has improved. Discussed anticoagulation issues cardiology will discuss with patient's DPOA per cardiology. At that time patient denies any specific complaints On 12/21/2018 patient's awake and following commands. Patient's Metroprolol increased per cardiology. Per nursing staff patient had adequate output through [facility] last night will remove Wood catheter today and monitor for urinary retention and output. Patient maintained on IV antibiotics for urinary tract infection. Home health care to be arranged. Patient denies any specific complaints On 12/22/2018 patient awake and following commands. Heart rate remains controlled. Lisinopril and metoprolol has been increased per cardiology. Pat ient also started on eliquis for antibiotic. Patient for atrial fibrillation per cardiology services. At this time patient denies any chest pain or shortness of breath. Patient denies nausea vomiting or diarrhea. Patient denies any urinary burning or frequency. Patient will be DC'd home to [facility] I performed an examination of the patient and discussed their management with the Nurse Practitioner. I have reviewed the Nurse Practitioner's notes and agree with the documented findings and plan of care Patient Condition at Discharge: Stable Plan - Discharge Summary Discharge Rx Participant: Yes New Discharge Prescriptions: New Apixaban [Eliquis] 2.5 mg PO BID 30 Days #60 tablet Lisinopril [Zestril] 5 mg PO DAILY 30 Days #30 tab Cefuroxime Axetil [Ceftin] 500 mg PO BID 5 Days #10 tab Continue Levothyroxine Sodium [Synthroid] 75 mcg PO DAILY@0800 Donepezil [Aricept] 10 mg PO DAILY@1700 Memantine [Namenda] 10 mg PO BID@0800,1700 Atorvastatin [Lipitor] 20 mg PO DAILY@1700 risperiDONE 0.25 mg PO HS@1999 Acetaminophen Tab [Tylenol] 1,000 mg PO Q8H PRN PRN Reason: Pain Metoprolol Tartrate [Lopressor] 25 mg PO BID@0800,1700 Discharge Medication List Donepezil [Aricept] 10 mg PO DAILY@1700 09/07/16 [History] Levothyroxine Sodium [Synthroid] 75 mcg PO DAILY@0800 09/07/16 [History] Atorvastatin [Lipitor] 20 mg PO DAILY@1700 07/06/18 [History] Memantine [Namenda] 10 mg PO BID@0800,1700 07/06/18 [History] Acetaminophen Tab [Tylenol] 1,000 mg PO Q8H PRN 12/17/18 [History] Metoprolol Tartrate [Lopressor] 25 mg PO BID@0800,1700 12/17/18 [History] risperiDONE 0.25 mg PO HS@199912/17/18 [History] Apixaban [Eliquis] 2.5 mg PO BID 30 Days #60 tablet 12/22/18 [Rx] Cefuroxime Axetil [Ceftin] 500 mg PO BID 5 Days #10 tab 12/22/18 [Rx] Lisinopril [Zestril] 5 mg PO DAILY 30 Days #30 tab 12/22/18 [Rx] Follow up Appointment(s)/Referral(s): [facility] [Provider Group] - 1 Week (Will consult with Dr. Madison. Patient has follow up with cement mixer driver from [facility]) Nandini Adams MD [Primary Care Provider] - 12/23/18 (Dr will be rounding on .) Ambulatory/Diagnostic Orders: Comprehensive Metabolic Panel [LAB.AMB] Time Frame: 2 Days, Location: None Selected Patient Instructions/Handouts: Dehydration (DC), Urinary Tract Infection in Women (DC) Activity/Diet/Wound Care/Special Instructions: Patient resides at [facility] ([phone]) - will need wheelchair van transport home Contact ERIC De La Cruz prior to discharge. Home Care - The Care Team - [phone] Activity as tolerated Diet heart healthy Discharge Disposition: HOME WITH HOME HEALTH SERVICES
== END 2018-12-22 16:42 | disposition home health service (06) | DRG 689 ==
LOC: EC 09:31 → 3SCARD 11:43
PROVIDERS: ADMIT Internal Medicine; ATTEND Internal Medicine
DX: N39.0 Urinary tract infection, site not specified (principal); G93.41 Metabolic encephalopathy; B96.4 Proteus (mirabilis) (morganii) as the cause of diseases classified elsewhere; E03.9 Hypothyroidism, unspecified; E78.5 Hyperlipidemia, unspecified; E86.0 Dehydration; E87.6 Hypokalemia; F03.90 Unspecified dementia, unspecified severity, without behavioral disturbance, psychotic disturbance, mood disturbance, and anxiety; I08.1 Rheumatic disorders of both mitral and tricuspid valves; I10 Essential (primary) hypertension; I27.20 Pulmonary hypertension, unspecified; R74.8 Abnormal levels of other serum enzymes; I48.0 Paroxysmal atrial fibrillation; Z79.01 Long term (current) use of anticoagulants; Z66 Do not resuscitate; Z79.890 Hormone replacement therapy; Z79.899 Other long term (current) drug therapy; Z83.3 Family history of diabetes mellitus; Z86.73 Personal history of transient ischemic attack (TIA), and cerebral infarction without residual deficits; Z87.891 Personal history of nicotine dependence; Z85.01 Personal history of malignant neoplasm of esophagus
CPT/HCPCS: 36415; 70450; 71046; 80053; 81001; 83605; 83735; 84132; 84443; 84484; 85025; 85610; 85730; 87040; 87077; 87086; 87186; 93005; 96365; 96366; 96375; 99291

== ENCOUNTER 2018-12-27 10:26 | Observation (INO) | payer MEDICARE ==
[2018-12-27] MEDS ORDERED: SODIUM CHLORIDE 0.9% 500 ML 500 ML IV STA (11:18)
--- NOTE | 2018-12-27 11:18 | ED ---
General Adult HPI - General Chief complaint: Syncope Stated complaint: Syncope Time Seen by Provider: 12/27/18 10:46 Source: patient, RN notes reviewed Mode of arrival: EMS Limitations: no limitations - History of Present Illness Initial comments: Suze is a 78-year-old female with a history of atrial fibrillation, throat cancer 20 years ago, TIA, dementia, hyperlipidemia, hypertension who presents to the emergency department for a chief complaint of possible syncopal episode. I did discuss this case with staff at the halfway [facility]. Staff states that patient was sitting up eating oatmeal today. States that they left the room when they came back a minute later patient was face down on the table and did seem conscious but was unresponsive and drooling. Sates she had a low blood pressure and low heart rate. States they called EMS. When EMS arrived patient was alert and at her baseline. Vitals were stable. Patient did not fall. Review of systems - Related Data Home Medications Medication Instructions Recorded Confirmed Donepezil [Aricept] 10 mg PO DAILY@1700 09/07/16 12/27/18 Levothyroxine Sodium [Synthroid] 75 mcg PO DAILY@0800 09/07/16 12/27/18 Atorvastatin [Lipitor] 20 mg PO DAILY@1700 07/06/18 12/27/18 Memantine [Namenda] 10 mg PO BID@0800,1700 07/06/18 12/27/18 Acetaminophen Tab [Tylenol] 1,000 mg PO Q8H PRN 12/17/18 12/27/18 risperiDONE 0.25 mg PO HS@199912/17/18 12/27/18 Previous Rx's Medication Instructions Recorded Apixaban [Eliquis] 2.5 mg PO BID 30 Days #60 tablet 12/22/18 Cefuroxime Axetil [Ceftin] 500 mg PO BID 5 Days #10 tab 12/22/18 Lisinopril [Zestril] 5 mg PO DAILY 30 Days #30 tab 12/22/18 Metoprolol Tartrate [Lopressor] 50 mg PO BID@0800,1700 30 Days #60 12/22/18 tab Allergies Allergy/AdvReac Type Severity Reaction Status Date / Time No Known Allergies Allergy Verified 12/27/18 11:58 Review of Systems ROS Statement: Those systems with pertinent positive or pertinent negative responses have been documented in the HPI. ROS Other: All systems not noted in ROS Statement are negative. Past Medical History Past Medical History: Atrial Fibrillation, Cancer, CVA/TIA, Dementia, Hyperlipidemia, Hypertension, Osteoarthritis (OA), Thyroid Disorder Additional Past Medical History / Comment(s): throat cancer - 20 years ago; NOS Afib 06/16/18. TIA - 06/18 transfered to [facility] History of Any Multi-Drug Resistant Organisms: None Reported Past Surgical History: Breast Surgery Additional Past Surgical History / Comment(s): implants Additional Past Anesthesia/Blood Transfusion Reaction / Comment(s): PT refuses blood r/t christian preferences Past Psychological History: No Psychological Hx Reported Smoking Status: Former smoker Past Alcohol Use History: None Reported Past Drug Use History: None Reported - Past Family History Father Family Medical History: Dementia Mother Family Medical History: Dementia, Diabetes Mellitus General Exam Limitations: no limitations General appearance: alert, in no apparent distress Head exam: Present: atraumatic, normocephalic, normal inspection Eye exam: Present: normal appearance, PERRL, EOMI. Absent: scleral icterus, conjunctival injection, periorbital swelling ENT exam: Present: normal exam, mucous membranes moist Neck exam: Present: normal inspection, full ROM. Absent: tenderness, meningismus, lymphadenopathy Respiratory exam: Present: normal lung sounds bilaterally. Absent: respiratory distress, wheezes, rales, rhonchi, stridor Cardiovascular Exam: Present: regular rate, normal rhythm, normal heart sounds. Absent: systolic murmur, diastolic murmur, rubs, gallop, clicks GI/Abdominal exam: Present: soft, normal bowel sounds. Absent: distended, tend erness, guarding, rebound, rigid Neurological exam: Present: alert. Absent: oriented X3 (severe dementia, at baseline) Psychiatric exam: Present: normal affect, normal mood Course Vital Signs 12/27/18 12/27/18 12/27/18 10:34 11:01 12:00 Temperature 97.9 F Pulse Rate 62 59 L 56 L Respiratory 20 18 20 Rate Blood Pressure 133/75 118/71 147/89 O2 Sat by Pulse 94 L 100 99 Oximetry 12/27/18 13:10 Temperature Pulse Rate 83 Respiratory 18 Rate Blood Pressure 146/63 O2 Sat by Pulse 97 Oximetry - Reevaluation(s) Reevaluation #1: 12/27/18 11:44 Patient was recently admitted for urinary tract infection, dehydration, A. fib with RVR and started on Eliquis, Ceftin, and Zestril EKG Findings - EKG Comments: EKG Findings:: Atrial fibrillation, ventricular rate 65, QRS 78, QTC 484 Medical Decision Making - Medical Decision Making 78-year-old female presents to the emergency department for a chief complaint of syncopal episode. AFC states patient was found face down and unresponsive on the table. States that the blood pressure was 60/40 and her heart rate was in the 40s. On evaluation today patient vitals are stable here in the emergency department. She is pleasant and alert although not oriented due to dementia. Apparently this is patient's baseline. CBC and CMP are unremarkable. Troponin is negative. EKG shows a atrial fibrillation with a ventricular rate of 65. Urine shows possible urinary tract infection however patient currently on antibiotics and does show improvement from last urinalysis. Chest x-ray shows no acute process. Brain CT was reviewed by myself and Dr. Alexis, report reads stable ventriculomegaly. It is noted that patient was recently started on lisinopril and increased metoprolol during her recent admission which may have caused her syncopal episode bradycardia and hypotension. However patient will be admitted for further evaluation and monitoring to rule out other causes. - Lab Data Result diagrams: 12/27/18 11:00 12/27/18 11:00 Lab Results 12/27/18 12/27/18 12/27/18 Range/Units 11:00 11:00 11:00 WBC 8.5 (3.8-10.6) k/uL RBC 4.26 (3.80-5.40) m/uL Hgb 13.3 (11.4-16.0) gm/dL Hct 40.5 (34.0-46.0) % MCV 95.1 (80.0-100.0) fL MCH 31.2 (25.0-35.0) pg MCHC 32.8 (31.0-37.0) g/dL RDW 15.3 (11.5-15.5) % Plt Count 323 (150-450) k/uL Neutrophils % 86 % Lymphocytes % 7 % Monocytes % 4 % Eosinophils % 2 % Basophils % 0 % Neutrophils # 7.3 (1.3-7.7) k/uL Lymphocytes # 0.6 L (1.0-4.8) k/uL Monocytes # 0.3 (0-1.0) k/uL Eosinophils # 0.2 (0-0.7) k/uL Basophils # 0.0 (0-0.2) k/uL PT 11.4 (9.0-12.0) sec INR 1.1 (<1.2) APTT 25.3 (22.0-30.0) sec Sodium 142 (137-145) mmol/L Potassium 3.7 (3.5-5.1) mmol/L Chloride 102 (98-107) mmol/L Carbon Dioxide 28 (22-30) mmol/L Anion Gap 12 mmol/L BUN 16 (7-17) mg/dL Creatinine 0.84 (0.52-1.04) mg/dL Est GFR (CKD-EPI)AfAm 78 (>60 ml/min/1.73 sqM) Est GFR (CKD-EPI)NonAf 67 (>60 ml/min/1.73 sqM) Glucose 118 H (74-99) mg/dL Plasma Lactic Acid Dilip (0.7-2.0) mmol/L Calcium 9.3 (8.4-10.2) mg/dL Magnesium 1.7 (1.6-2.3) mg/dL Total Bilirubin 1.0 (0.2-1.3) mg/dL AST 37 H (14-36) U/L ALT 47 (9-52) U/L Alkaline Phosphatase 142 H (38-126) U/L Troponin I (0.000-0.034) ng/mL Total Protein 7.1 (6.3-8.2) g/dL Albumin 4.0 (3.5-5.0) g/dL Urine Color Urine Appearance (Clear) Urine pH (5.0-8.0) Ur Specific [place] (1.001-1.035) Urine Protein (Negative) Urine Glucose (UA) (Negative) Urine Ketones (Negative) Urine Blood (Negative) Urine Nitrite (Negative) Urine Bilirubin (Negative) Urine Urobilinogen (<2.0) mg/dL Ur Leukocyte Esterase (Negative) Urine RBC (0-5) /hpf Urine WBC (0-5) /hpf Ur Squamous Epith Cells (0-4) /hpf Urine Bacteria (None) /hpf Cellular Casts (0) /lpf Hyaline Casts (0-2) /lpf Granular Casts (0) /lpf Urine Mucus (None) /hpf 12/27/18 12/27/18 12/27/18 Range/Units 11:00 11:28 11:45 WBC (3.8-10.6) k/uL RBC (3.80-5.40) m/uL Hgb (11.4-16.0) gm/dL Hct (34.0-46.0) % MCV (80.0-100.0) fL MCH (25.0-35.0) pg MCHC (31.0-37.0) g/dL RDW (11.5-15.5) % Plt Count (150-450) k/uL Neutrophils % % Lymphocytes % % Monocytes % % Eosinophils % % Basophils % % Neutrophils # (1.3-7.7) k/uL Lymphocytes # (1.0-4.8) k/uL Monocytes # (0-1.0) k/uL Eosinophils # (0-0.7) k/uL Basophils # (0-0.2) k/uL PT (9.0-12.0) sec INR (<1.2) APTT (22.0-30.0) sec Sodium (137-145) mmol/L Potassium (3.5-5.1) mmol/L Chloride (98-107) mmol/L Carbon Dioxide (22-30) mmol/L Anion Gap mmol/L BUN (7-17) mg/dL Creatinine (0.52-1.04) mg/dL Est GFR (CKD-EPI)AfAm (>60 ml/min/1.73 sqM) Est GFR (CKD-EPI)NonAf (>60 ml/min/1.73 sqM) Glucose (74-99) mg/dL Plasma Lactic Acid Dilip 1.2 (0.7-2.0) mmol/L Calcium (8.4-10.2) mg/dL Magnesium (1.6-2.3) mg/dL Total Bilirubin (0.2-1.3) mg/dL AST (14-36) U/L ALT (9-52) U/L Alkaline Phosphatase (38-126) U/L Troponin I <0.012 (0.000-0.034) ng/mL Total Protein (6.3-8.2) g/dL Albumin (3.5-5.0) g/dL Urine Color Yellow Urine Appearance Cloudy H (Clear) Urine pH 6.5 (5.0-8.0) Ur Specific [place] 1.020 (1.001-1.035) Urine Protein 2+ H (Negative) Urine Glucose (UA) Trace H (Negative) Urine Ketones 1+ H (Negative) Urine Blood Small H (Negative) Urine Nitrite Negative (Negative) Urine Bilirubin Negative (Negative) Urine Urobilinogen <2.0 (<2.0) mg/dL Ur Leukocyte Esterase Trace H (Negative) Urine RBC 18 H (0-5) /hpf Urine WBC 8 H (0-5) /hpf Ur Squamous Epith Cells 9 H (0-4) /hpf Urine Bacteria Rare H (None) /hpf Cellular Casts 4 (0) /lpf Hyaline Casts 17 H (0-2) /lpf Granular Casts 4 (0) /lpf Urine Mucus Few H (None) /hpf Disposition Clinical Impression: Syncope, History of hypotension Disposition: ADMITTED IP TO THIS HOSP Condition: Fair Is patient prescribed a controlled substance at d/c from ED?: No Referrals: Nandini Adams MD [Primary Care Provider] - 1-2 days Time of Disposition: 13:47
[2018-12-27 11:46] LABS: Basophils % (A) 0 %; Eosinophils # (A) 0.2 k/uL (0-0.7); Eosinophils % (A) 2 %; HCT 40.5 % (34.0-46.0); HGB 13.3 gm/dL (11.4-16.0); Lymphocytes # (A) 0.6 k/uL (1.0-4.8); Lymphocytes % (A) 7 %; MCH 31.2 pg (25.0-35.0); MCHC 32.8 g/dL (31.0-37.0); MCV 95.1 fL (80.0-100.0); Mean Platelet Volume 7.8; Monocytes # (A) 0.3 k/uL (0-1.0); Monocytes % (A) 4 %; Neutrophils # (A) 7.3 k/uL (1.3-7.7); Neutrophils % (A) 86 %; Platelet Count 323 k/uL (150-450); RBC 4.26 m/uL (3.80-5.40); RDW 15.3 % (11.5-15.5); WBC 8.5 k/uL (3.8-10.6)
[2018-12-27 11:51] LABS: INR 1.1 (<1.2); Partial Thromboplastin Time 25.3 sec (22.0-30.0); Prothrombin Time 11.4 sec (9.0-12.0)
[2018-12-27 11:56] LABS: Calcium 9.3 mg/dL (8.4-10.2); Magnesium 1.7 mg/dL (1.6-2.3); Potassium 3.7 mmol/L (3.5-5.1); Total Protein 7.1 g/dL (6.3-8.2)
[2018-12-27 12:21] LABS: Appearance,Urine Cloudy (Clear); Bacteria,Urine Rare /hpf; Bilirubin,Urine Negative (Negative); Blood,Urine Small (Negative); Cellular Casts,Urine 4 /lpf (0); Color,Urine Yellow; Glucose,Urine (UA) Trace (Negative); Granular Casts,Urine 4 /lpf (0); Hyaline Casts,Urine 17 /lpf (0-2); Ketones,Urine 1+ (Negative); Leukocyte Esterase,Urine Trace (Negative); Mucus,Urine Few /hpf; Nitrite,Urine Negative (Negative); PH, Urine 6.5 (5.0-8.0); Protein,Urine 2+ (Negative); RBC,Urine 18 /hpf (0-5); Squamous Epithelial Cell,Urine 9 /hpf (0-4); Urobilinogen,Urine <2.0 mg/dL (<2.0); WBC,Urine 8 /hpf (0-5)
--- NOTE | 2018-12-27 12:38 | XR ---
EXAMINATION TYPE: XR chest 2V DATE OF EXAM: 12/27/2018 COMPARISON: Prior chest x-ray 12/17/2018 HISTORY: Syncope TECHNIQUE: Frontal and lateral views of the chest are obtained. FINDINGS: There is no focal air space opacity, pleural effusion, or pneumothorax seen. The cardiac silhouette size is stable, enlarged. There are overlying calcified breast prostheses and cardiac le ads. The osseous structures are intact. The aorta is dense. IMPRESSION: No acute cardiopulmonary process.
--- NOTE | 2018-12-27 12:45 | CT ---
EXAMINATION TYPE: CT brain wo con DATE OF EXAM: 12/27/2018 COMPARISON: 12/17/2018 HISTORY: 78-year-old female with Syncope TECHNIQUE: Examination was done in axial plane without intravenous contrast. Coronal and sagittal r econstructions performed. CT DLP: 1143.4 mGycm Automated exposure control for dose reduction was used. FINDINGS: There is no evidence of acute intracranial hemorrhage, acute ischemic changes, mass, mass-effect, or extra-axial fluid collection. There is no effacement of cerebral sulci or basal subarachnoid cister ns. There is no midline shift. Wasserman-white matter distinction is preserved. Stable moderate ventriculomegaly is somewhat out of proportion to the degree of sulcal prominence. Mi ld white matter hypodensities in both cerebral hemispheres. Cerumen within the right greater than left external auditory canals. Paranasal sinuses and mastoid ai r cells are well pneumatized. IMPRESSION: 1. Stable moderate ventriculomegaly likely in part due to central cerebral atrophy. However, as the v entricular prominence is somewhat out of proportion to the degree of cortical atrophy, correlate for a possible component of NPH. 2. Otherwise, no acute intracranial abnormality seen.
[2018-12-27] MEDS ORDERED: ACETAMINOPHEN TAB 500 MG TAB PO PRN (13:42)
--- NOTE | 2018-12-27 14:49 | P.HPIM ---
History of Present Illness H&P Date: 12/27/18 This is a 78-year-old female patient of Dr. Adams. Patient presented with complaints of syncopal episode. Patient has known advanced dementia. Niece is at bedside. Per niece patient was found facedown at breakfast. Patient currently resides at [facility]. Vitals were taken by nursing staff at facility and patient was found to be bradycardic and hypotensive. Additional medical history includes atrial fibrillation, throat cancer, CVA, advanced dementia, hyperlipidemia, hypertension, osteoarthritis and hypothyroidism. Patient was recently admitted for UTI plus A. fib with RVR. At that time patient's metoprolol was increased to 50 mg twice a day. Head CT completed showing stable moderate ventriculomegaly likely in part due to central cerebral atrophy. However as the ventricular prominence is somewhat out of proportion to the degree of cortical atrophy correlate for a possible component of NPH. Otherwise no acute intracranial abnormality seen. Chest x-ray completed showing no acute cardiopulmonary process. EKG completed showing atrial fibrillation ST and T-wave abnormality consider lateral ischemia prolonged QT. Patient did receive fluid bolus. Heart rate and blood pressure has improved. UA showing trace amount of leukocyte Estrace. Troponin negative. Patient is resting comfortably in bed. Patient is confused which is her baseline. Patient denies any chest pain or shortness of breath. Patient denies nausea vomiting or diarrhea. Patient denies any urinary burning or frequency. Review of Systems Please refer to HPI otherwise unremarkable Past Medical History Past Medical History: Atrial Fibrillation, Cancer, CVA/TIA, Dementia, Hyperlipidemia, Hypertension, Osteoarthritis (OA), Thyroid Disorder Additional Past Medical History / Comment(s): throat cancer - 20 years ago; NOS Afib 06/16/18. TIA - 06/18 transfered to [facility] History of Any Multi-Drug Resistant Organisms: None Reported Past Surgical History: Breast Surgery Additional Past Surgical History / Comment(s): implants Past Anesthesia/Blood Transfusion Reactions: No Reported Reaction Additional Past Anesthesia/Blood Transfusion Reaction / Comment(s): PT refuses blood r/t scientology preferences Past Psychological History: No Psychological Hx Reported Additional Psychological History / Comment(s): lives at [facility]- has a ronn Gayle and Chloe that check in on her Smoking Status: Former smoker Past Alcohol Use History: None Reported Additional Past Alcohol Use History / Comment(s): started smoking at age 16 and quit 2008 smoked 1 ppd Past Drug Use History: None Reported - Past Family History Father Family Medical History: Dementia Mother Family Medical History: Dementia, Diabetes Mellitus Medications and Allergies Home Medications Medication Instructions Recorded Confirmed Type Donepezil [Aricept] 10 mg PO DAILY@1700 09/07/16 12/27/18 History Levothyroxine Sodium [Synthroid] 75 mcg PO DAILY@0800 09/07/16 12/27/18 History Atorvastatin [Lipitor] 20 mg PO DAILY@1700 07/06/18 12/27/18 History Memantine [Namenda] 10 mg PO BID@0800,1700 07/06/18 12/27/18 History Acetaminophen Tab [Tylenol] 1,000 mg PO Q8H PRN 12/17/18 12/27/18 History risperiDONE 0.25 mg PO HS@2000 12/17/18 12/27/18 History Apixaban [Eliquis] 2.5 mg PO BID 30 Days #60 tablet 12/22/18 12/27/18 Rx Cefuroxime Axetil [Ceftin] 500 mg PO BID 5 Days #10 tab 12/22/18 12/27/18 Rx Lisinopril [Zestril] 5 mg PO DAILY 30 Days #30 tab 12/22/18 12/27/18 Rx Metoprolol Tartrate [Lopressor] 50 mg PO BID@0800,1700 30 Days #60 12/22/18 12/27/18 Rx tab Allergies Allergy/AdvReac Type Severity Reaction Status Date / Time No Known Allergies Allergy Verified 12/27/18 11:58 Physical Exam Vitals: Vital Signs Temp Pulse Resp BP Pulse Ox 12/27/18 13:10 83 18 146/63 97 12/27/18 12:00 56 L 20 147/89 99 12/27/18 11:01 59 L 18 118/71 100 12/27/18 10:34 97.9 F 62 20 133/75 94 L Intake and Output 12/26/18 12/27/18 12/27/18 22:59 06:59 14:59 Other: Weight 61.235 kg Head normocephalic Neck supple Lungs clear to auscultation bilaterally no wheezing or crackles Heart regular rate and rhythm S1-S2, no rub or gallop Abdomen is soft nontender nondistended positive bowel sounds no hepatosplenomegaly Extremities no edema Neuro advanced dementia Results CBC & Chem 7: 12/27/18 11:00 12/27/18 11:00 Labs: Abnormal Lab Results - Last 24 Hours (Table) 12/27/18 12/27/18 12/27/18 Range/Units 11:00 11:00 11:28 Lymphocytes # 0.6 L (1.0-4.8) k/uL Glucose 118 H (74-99) mg/dL AST 37 H (14-36) U/L Alkaline Phosphatase 142 H (38-126) U/L Urine Appearance Cloudy H (Clear) Urine Protein 2+ H (Negative) Urine Glucose (UA) Trace H (Negative) Urine Ketones 1+ H (Negative) Urine Blood Small H (Negative) Ur Leukocyte Esterase Trace H (Negative) Urine RBC 18 H (0-5) /hpf Urine WBC 8 H (0-5) /hpf Ur Squamous Epith Cells 9 H (0-4) /hpf Urine Bacteria Rare H (None) /hpf Hyaline Casts 17 H (0-2) /lpf Urine Mucus Few H (None) /hpf Assessment and Plan Assessment: 1. Syncopal episode. Patient was found to be bradycardic and hypotensive at custodial. Head CT completed showing stable moderate ventriculomegaly likely in part due to central cerebral atrophy however as the ventricular prominence is somewhat out of proportion to the degree cortical atrophy correlate for possible component of NPH. Patient received 1 L fluid bolus heart rate has improved. 2. Bradycardia. EKG completed showing atrial fibrillation heart rate 65 ST-T wave abnormality. Patient's Metroprolol recently increased during previous admission. Metroprolol lisinopril currently on hold. Patient's respiratory also on hold due to potential for QT prolonging with Aricept. Cardiology services have been consulted 3. Recent urinary tract infection. UA repeated showing straits amount of leukocyte Estrace. Patient maintained on Omnicef 4. Paroxysmal atrial fibrillation. Patient was started on eliquis 2.5 twice a day to previous admission 5. Advanced dementia 6. History of previous TIA 7. History of throat cancer 8. History of hyperlipidemia 9. History of essential hypertension 10. History of osteoarthritis 11. History of hypothyroidism maintained on Synthroid. TSH level checked on 12/17/2018 1.250 DVT prophylaxis eliquis. GI prophylaxis Pepcid Time with Patient: Greater than 30 (Greater than 60% of the total time spent in counseling and coordination of care, I performed an examination of the patient and discussed their management with the Nurse Practitioner. I have reviewed the Nurse Practitioner's notes and agree with the documented findings and plan of care)
[2018-12-27] MEDS: SODIUM CHLORIDE 0.9% 1,000 ML IV SCH (16:13)
--- NOTE | 2018-12-27 17:30 | P.CNNES ---
History of Present Illness Consult date: 12/27/18 Requesting physician: Hailey Parsons Reason for Consult: Abnormal CT Head Chief complaint: Found face down at breakfast this morning History of Present Illness: This is a 78 LH female who was recently discharged from our facility for AMS in the setting of UTI and afib with RVR recently started on DOAC. Patient does have a h/o advanced dementia. Niece at the beside provides most of the historical information. According to patient's niece, patient has an outpatient neurologist Dr. Gunn who treats her dementia. She is unaware of her CT Head findings even though she has had numerous CTs and MRI of the Brain in the past several years. Niece does say that she has difficulty with walking and has urinary incontinence. Note that she was recently treated for a UTI. 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 Her last CTA was done in 06/2018. This morning, patient was at breakfast when she was found face down. She was noted to be hypotensive and bradycardic at the time. She is being fluid resuscitated. She has no new focal neuro complaints. There was no report of w itnessed tonic-clonic activity, repetitive behavior suspicious for automatism, tongue/cheek biting or post-ictal confusion. Review of Systems Unable to obtain from patient due to advanced dementia Past Medical History Past Medical History: Atrial Fibrillation, Cancer, CVA/TIA, Dementia, Hyperlipidemia, Hypertension, Osteoarthritis (OA), Thyroid Disorder Additional Past Medical History / Comment(s): throat cancer - 20 years ago; NOS Afib 06/16/18. TIA - 06/18 transfered to [facility] History of Any Multi-Drug Resistant Organisms: None Reported Past Surgical History: Breast Surgery Additional Past Surgical History / Comment(s): implants Past Anesthesia/Blood Transfusion Reactions: No Reported Reaction Additional Past Anesthesia/Blood Transfusion Reaction / Comment(s): PT refuses blood r/t hindu preferences Past Psychological History: No Psychological Hx Reported Additional Psychological History / Comment(s): lives at [facility]- has a ronn Gayle and Chloe that check in on her Smoking Status: Former smoker Past Alcohol Use History: None Reported Additional Past Alcohol Use History / Comment(s): started smoking at age 16 and quit 2008 smoked 1 ppd Past Drug Use History: None Reported - Past Family History Father Family Medical History: Dementia Mother Family Medical History: Dementia, Diabetes Mellitus Medications and Allergies Home Medications Medication Instructions Recorded Confirmed Type Donepezil [Aricept] 10 mg PO DAILY@1700 09/07/16 12/27/18 History Levothyroxine Sodium [Synthroid] 75 mcg PO DAILY@0800 09/07/16 12/27/18 History Atorvastatin [Lipitor] 20 mg PO DAILY@1700 07/06/18 12/27/18 History Memantine [Namenda] 10 mg PO BID@0800,1700 07/06/18 12/27/18 History Acetaminophen Tab [Tylenol] 1,000 mg PO Q8H PRN 12/17/18 12/27/18 History risperiDONE 0.25 mg PO HS@199912/17/18 12/27/18 History Apixaban [Eliquis] 2.5 mg PO BID 30 Days #60 tablet 12/22/18 12/27/18 Rx Cefuroxime Axetil [Ceftin] 500 mg PO BID 5 Days #10 tab 12/22/18 12/27/18 Rx Lisinopril [Zestril] 5 mg PO DAILY 30 Days #30 tab 12/22/18 12/27/18 Rx Metoprolol Tartrate [Lopressor] 50 mg PO BID@0800,1700 30 Days #60 12/22/18 12/27/18 Rx tab Allergies Allergy/AdvReac Type Severity Reaction Status Date / Time No Known Allergies Allergy Verified 12/27/18 11:58 Physical Examination - Vital Signs Vital Signs: Vital Signs Temp Pulse Pulse Resp BP BP Pulse Ox 12/27/18 15:00 98.6 F 75 15 188/79 97 12/27/18 13:40 95 12/27/18 13:10 83 18 146/63 97 12/27/18 12:00 56 L 20 147/89 99 12/27/18 11:01 59 L 18 118/71 100 12/27/18 10:34 97.9 F 62 20 133/75 94 L Intake and Output 12/27/18 12/27/18 12/27/18 06:59 14:59 22:59 Other: Weight 61.235 kg Gen NAD Pleasant and cooperative HEENT NCAT Sclera without icterus O/P clear Neck Supple No carotid bruit Cor Irregularly irregular Lungs CTAB Abd Soft NTND +BS Ext Warm to touch No edema Neuro MS A+Ox1 Only oriented to herself and recognizes her niece Perseverates with echopraxia and semantic paraphasia Able to follow one-step commands CN PERRL VFF no APD EOMI no nystagmus or KEYSHA No facial asymmetry Masseter's symmetric Hearing intact to normal voice bilaterally Speech not dysarthric Equal elevation of palate Tongue midline Sym shrug and SCM bilaterally Motor Normal bulk Bilateral paratonia No pronator drift or tremors Strength 5/5 sym throughout Sens Intact to LT x4 No neglect Coord No dysmetria on FTN bilaterally DTRs 2+/4 sym throughout Toes downgoing bilaterally No clonus at achilles Gait Deferred NIHSS 1b2=2 Results - Laboratory Findings CBC and BMP: 12/27/18 11:00 12/27/18 11:00 Abnormal Lab Findings: Abnormal Labs 12/27/18 12/27/18 12/27/18 11:00 11:00 11:28 Lymphocytes # 0.6 L Glucose 118 H AST 37 H Alkaline Phosphatase 142 H Urine Appearance Cloudy H Urine Protein 2+ H Urine Glucose (UA) Trace H Urine Ketones 1+ H Urine Blood Small H Ur Leukocyte Esterase Trace H Urine RBC 18 H Urine WBC 8 H Ur Squamous Epith Cells 9 H Urine Bacteria Rare H Hyaline Casts 17 H Urine Mucus Few H - Diagnostic Findings Additional findings: CT Head wo cont 12/27/18. Global atrophy with ventriculomegaly, stable compared with earlier imaging. No ICH or CVA. Nil acute. CTA Head/Neck 12/27/18. 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 No VBI. I have reviewed neuroimages myself. 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 Nothing in history to suggest seizure. E tiology of her syncope is likely hemodynamic related given she was indeed found hypotensive and bradycardic. Plan: -Long discussion held with patient and niece. While patient does have advanced dementia, urinary incontinence and difficulty with ambulation, definitive treat ment of communicating hydrocephalus would be S[employer]IOR [employer]AD[employer]EL[employer] shunt placement. They are both against any aggressive surgical intervention, not to mention we do not have neurosurgery at our facility. We have decided not to pursue any further work-up at this point. -She will follow up with her usual outpatient neurologist Dr. Gunn for her dementia and follow up cranial imaging should they change their mind. -Fluid resuscitation. -Cardiology consult. -Reviewed CTA findings from earlier this year with patient/niece. 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 She is already on DOAC and statin. -Continue donepezil 10mg/day. Cases of seizure have been reported with the use of centrally acting cholinesterase inhibitor, but there is nothing in her history to suggest epileptic seizure. -No further inpatient neuro recs at this time. Will revisit patient prn. Please call with new ?. Thank you for this consultation. Time with Patient: Greater than 30 (Time spent in direct patient care, greater than 50% of which was spent in [id number] counseling and coordination of care: 70 minutes)
[2018-12-27] MEDS: DONEPEZIL 10 MG TAB PO SCH (18:07)
[2018-12-27] MEDS: ATORVASTATIN 20 MG TAB PO SCH (18:07)
[2018-12-27] MEDS: MEMANTINE 10 MG TAB PO SCH (18:07)
[2018-12-27] MEDS: APIXABAN 2.5 MG TABLET PO SCH (20:45)
[2018-12-27] MEDS ORDERED: CEFDINIR 300 MG CAP PO SCH (21:00)
[2018-12-28] MEDS: SODIUM CHLORIDE 0.9% 1,000 ML IV SCH ×2 (06:02→21:02)
[2018-12-28] MEDS: LEVOTHYROXINE 75 MCG TAB PO SCH (07:54)
[2018-12-28] MEDS: APIXABAN 2.5 MG TABLET PO SCH ×2 (07:55→21:00)
[2018-12-28] MEDS: FAMOTIDINE 20 MG TAB PO SCH (07:55)
[2018-12-28] MEDS: MEMANTINE 10 MG TAB PO SCH ×2 (07:55→17:38)
[2018-12-28] MEDS: METOPROLOL TARTRATE 25 MG TAB PO SCH ×3 (09:25→23:27)
--- NOTE | 2018-12-28 10:19 | P.PN ---
Subjective Progress Note Date: 12/28/18 This is a 78-year-old female patient of Dr. Adams. Patient presented with complaints of syncopal episode. Patient has known advanced dementia. Niece is at bedside. Per niece patient was found facedown at breakfast. Patient currently resides at [facility]. Vitals were taken by nursing staff at facility and patient was found to be bradycardic and hypotensive. Additional medical history includes atrial fibrillation, throat cancer, CVA, advanced dementia, hyperlipidemia, hypertension, osteoarthritis and hypothyroidism. Patient was recently admitted for UTI plus A. fib with RVR. At that time patient's metoprolol was increased to 50 mg twice a day. Head CT completed showing stable moderate ventriculomegaly likely in part due to central cerebral atrophy. However as the ventricular prominence is somewhat out of proportion to the degree of cortical atrophy correlate for a possible component of NPH. Otherwise no acute intracranial abnormality seen. Chest x-ray completed showing no acute cardiopulmonary process. EKG completed showing atrial fibrillation ST and T-wave abnormality consider lateral ischemia prolonged QT. Patient did receive fluid bolus. Heart rate and blood pressure has improved. UA showing trace amount of leukocyte Estrace. Troponin negative. Patient is resting comfortably in bed. Patient is confused which is her baseline. Patient denies any chest pain or shortness of breath. Patient denies nausea vomiting or diarrhea. Patient denies any urinary burning or frequency On 12/28/2018 patient's currently sitting up in chair eating breakfast. Heart rate elevated a.m. patient has known history of atrial fibrillation. Discussed case with cardiology services nurse practitioner Diana. Lopressor has been added per cardiology at lower dose. At that time patient denies any chest pain or shortness of breath. Denies any nausea vomiting or Diarrhea. Denies any urinary burning or frequency Objective - Vital Signs Vital signs: Vital Signs Temp 98 F 12/28/18 04:00 Pulse 78 12/28/18 04:00 Resp 16 12/28/18 04:00 BP 144/80 12/28/18 04:00 Pulse Ox 98 12/28/18 04:00 Intake & Output 12/27/18 12/28/18 12/28/18 18:59 06:59 18:59 Intake Total 262.5 Balance 262.5 Weight 61.235 kg Intake: Intake, IV Titration 262.5 Amount Sodium Chloride 0.9% 1, 262.5 000 ml @ 75 mls/hr IV . [id number] [facility] Rx#:[id number] Other: Voiding Method Toilet Diaper Incontinent # Voids 2 - Exam Head normocephalic Neck supple Lungs clear to auscultation bilaterally no wheezing or crackles Heart irregular rate and rhythm Abdomen is soft nontender nondistended positive bowel sounds no hepatosplenomegaly Extremities no edema Neuro advanced dementia - Labs CBC & Chem 7: 12/27/18 11:00 12/27/18 11:00 Labs: Abnormal Lab Results - Last 24 Hours (Table) 12/27/18 12/27/18 12/27/18 Range/Units 11:00 11:00 11:28 Lymphocytes # 0.6 L (1.0-4.8) k/uL Glucose 118 H (74-99) mg/dL AST 37 H (14-36) U/L Alkaline Phosphatase 142 H (38-126) U/L Urine Appearance Cloudy H (Clear) Urine Protein 2+ H (Negative) Urine Glucose (UA) Trace H (Negative) Urine Ketones 1+ H (Negative) Urine Blood Small H (Negative) Ur Leukocyte Esterase Trace H (Negative) Urine RBC 18 H (0-5) /hpf Urine WBC 8 H (0-5) /hpf Ur Squamous Epith Cells 9 H (0-4) /hpf Urine Bacteria Rare H (None) /hpf Hyaline Casts 17 H (0-2) /lpf Urine Mucus Few H (None) /hpf Microbiology - Last 24 Hours (Table) 12/27/18 11:28 Urine Culture - Preliminary Urine,Voided Assessment and Plan Assessment: 1. Syncopal episode. Patient was found to be bradycardic and hypotensive at residential. Head CT completed showing stable moderate ventriculomegaly likely in part due to central cerebral atrophy however as the ventricular prominence is somewhat out of proportion to the degree cortical atrophy correlate for possible component of NPH. Patient received 1 L fluid bolus heart rate has improved. 2. Bradycardia. EKG completed showing atrial fibrillation heart rate 65 ST-T wave abnormality. Patient's Metroprolol recently increased during previous admission. Metroprolol lisinopril currently on hold. Patient's respiratory also on hold due to potential for QT prolonging with Aricept. Cardiology services have been consulted 3. Recent urinary tract infection. UA repeated showing straits amount of leukocyte Estrace. Patient maintained on Omnicef 4. Paroxysmal atrial fibrillation. Patient was started on eliquis 2.5 twice a day to previous admission. Patient having elevated heart rate. Cardiology services have restarted metoprolol 25 twice a day. 5. Advanced dementia 6. History of previous TIA 7. History of throat cancer 8. History of hyperlipidemia 9. History of essential hypertension 10. History of osteoarthritis 11. History of hypothyroidism maintained on Synthroid. TSH level checked on 12/17/2018 1.250 12. Cerebral ventriculomegaly. Neurology services have been consulted. Per neurology's note a long discussion was held with patient and family in regards to treatment and transfer for possible [employer] shunt. Family against any aggressive surgical intervention. Per neurology patient to follow-up with her neurologist Dr. Fonseca upon discharge patient to continue on anticoagulation and statin DVT prophylaxis eliquis. GI prophylaxis Pepcid I performed an examination of the patient and discussed their management with the Nurse Practitioner. I have reviewed the Nurse Practitioner's notes and agree with the documented findings and plan of care
[2018-12-28 10:25] LABS: Albumin 4.2 g/dL (3.5-5.0); Calcium 9.4 mg/dL (8.4-10.2); Potassium 3.3 mmol/L (3.5-5.1); Total Bilirubin 0.9 mg/dL (0.2-1.3); Total Protein 7.4 g/dL (6.3-8.2)
[2018-12-28 10:34] LABS: Basophils % (A) 1 %; Eosinophils # (A) 0.2 k/uL (0-0.7); Eosinophils % (A) 2 %; HCT 44.9 % (34.0-46.0); HGB 13.8 gm/dL (11.4-16.0); Hypochromasia Slight; Lymphocytes % (A) 10 %; MCH 30.4 pg (25.0-35.0); MCHC 30.7 g/dL (31.0-37.0); Mean Platelet Volume 7.6; Monocytes # (A) 0.3 k/uL (0-1.0); Monocytes % (A) 3 %; Neutrophils % (A) 83 %; Platelet Count 355 k/uL (150-450); RBC 4.53 m/uL (3.80-5.40); RDW 14.8 % (11.5-15.5); WBC 9.6 k/uL (3.8-10.6)
[2018-12-28] MEDS ORDERED: Potassium Replacement Protocol 1 EACH MISC MISCELLANE PRN (12:16)
[2018-12-28] MEDS: LISINOPRIL 5 MG TAB PO SCH (12:28)
[2018-12-28] MEDS: POTASSIUM CHLORIDE ER 20 MEQ TAB.ER PO SCH ×2 (12:28→13:22)
--- NOTE | 2018-12-28 13:27 | P.CRDCN ---
History of Present Illness History of present illness: This is a pleasant 78 year old female past medical history significant for paroxysmal atrial fibrillation on long-term anticoagulation, hypertension, dyslipidemia, TIA, advanced dementia and throat cancer. We then assessed to see her in consultation secondary to bradycardia. Apparently she was at home the extended care facility where she lives and was found to be hypotensive and bradycardic. She was sent to the hospital for further evaluation. The patient herself is a poor historian due to advanced dementia. Information is obtained from the medical record and nursing staff. Upon arrival to ED blood pressure was 133.75 with heart rate in 56-62 range. There has been no documented bradycardia or hypotension since admission yesterday morning. Lisinopril and lopressor were held per the primary care team. This morning her heart rates were jumping up into the 160 range. She was apparently completely asymptomatic during that time. Lopressor was resumed. Currently blood pressure is 127/83 with a heart rate of 71. She denies feeling palpitations, shortness of breath, dizziness or chest pain. EKG reveals atrial fibrillation with controlled ventricular response heart rate 65 with T-wave inversion in lateral leads. Chest x-ray is negative for an acute cardiopulmonary process. CT brain reveals stable moderate ventriculomegaly, central cerebral atrophy but no acute intracranial abnormality noted. Laboratory data reviewed, WBC 9.6, hemoglobin 13.8, platelets 355, sodium 141, potassium 3.3, creatinine 0.77, magnesium 1.7, cardiac enzymes negative 3, LDL 93. TSH obtained on last admission 12/17/2018 was 2.25. Current cardiac medications include Eliquis 2.5 mg twice a day, atorvastatin 20 mg daily, lisinopril 5 mg daily and Lopressor 50 mg twice a day. Most recent echocardiogram obtained June 2018 reveals preserved LV systolic function with ejection fraction 55-60%, severe mitral regurgitation, moderate to severe tricuspid regurgitation and mild pulmonary hypertension with RVSP of 36 mmHg. At the time of my exam: CONSTITUTIONAL: Denies fever. Denies chills. EYES: Denies blurred vision. Denies vision changes. Denies eye pain. EARS, NOSE, MOUTH & THROAT: Denies headache. Denies sore throat. Denies ear pain. CARDIOVASCULAR: Denies chest pain. Denies shortness of breath. Denies orthopnea. Denies PND. Denies palpitations. RESPIRATORY: Denies cough. GASTROINTESTINAL: Denies abdominal pain. Denies diarrhea. Denies constipation. Denies nausea. Denies vomiting. MUSCULOSKELETAL: Denies myalgias. INTEGUMENTARY: Denies pruitis. Denies rash. NEUROLOGIC: Denies numbness. Denies tingling. Denies weakness. PSYCHIATRIC: Denies anxiety. Denies depression. ENDOCRINE: Denies fatigue. Denies weight change. Denies polydipsia. Denies polyurina. GENITOURINARY: Denies burning, hematuria or urgency with micturation. HEMATOLOGIC: Denies history of anemia. Denies bleeding. GENERAL: This is a 78-year-old female in no apparent distress at the time of my examination. HEENT: Head is atraumatic, normocephalic. Pupils are equal, round. Sclerae anicteric. Conjunctivae are clear. Mucous membranes of the mouth are moist. Neck is supple. There is no jugular venous distention. No carotid bruit is heard. LUNGS: Clear to auscultation no wheezes, rales or rhonchi. No chest wall tenderness is noted on palpation or with deep breathing. HEART: Irregular rate and rhythm with faint systolic ejection murmur at the left sternal border, no rubs or gallops. S1 and S2 heard. ABDOMEN: Soft, nontender. Bowel sounds are heard. No organomegaly noted. EXTREMITIES: No evidence of peripheral edema and no calf tenderness noted. VASCULAR: Radial and dorsalis pedis pulses palpated, no evidence of clubbing. NEUROLOGIC: Patient is awake, alert and pleasantly confused ASSESSMENT Paroxysmal atrial fibrillation on penitentiary anticoagulation with variable ventricular rates Hypertension Dyslipidemia TIA in the past PLAN Resume lopressor at 25 mg TID. Resume lisinopril as previously ordered. Check for orthostatic changes. Would recommend some IV fluids, however she continues to pull out her IV. Encourages oral intake. Thank you kindly for this consultation. Nurse Practitioner note has been reviewed, I agree with a documented findings and plan of care. Patient was seen and examined. Past Medical History Past Medical History: Atrial Fibrillation, Cancer, CVA/TIA, Dementia, Hyperlipidemia, Hypertension, Osteoarthritis (OA), Thyroid Disorder Additional Past Medical History / Comment(s): throat cancer - 20 years ago; NOS Afib 06/16/18. TIA - 06/18 transfered to [place] History of Any Multi-Drug Resistant Organisms: None Reported Past Surgical History: Breast Surgery Additional Past Surgical History / Comment(s): implants Past Anesthesia/Blood Transfusion Reactions: No Reported Reaction Additional Past Anesthesia/Blood Transfusion Reaction / Comment(s): PT refuses blood r/t zoroastrian preferences Past Psychological History: No Psychological Hx Reported Smoking Status: Former smoker Past Alcohol Use History: None Reported Past Drug Use History: None Reported - Past Family History Father Family Medical History: Dementia Mother Family Medical History: Dementia, Diabetes Mellitus Medications and Allergies Home Medications Medication Instructions Recorded Confirmed Type Donepezil [Aricept] 10 mg PO DAILY@1700 09/07/16 12/27/18 History Levothyroxine Sodium [Synthroid] 75 mcg PO DAILY@0800 09/07/16 12/27/18 History Atorvastatin [Lipitor] 20 mg PO DAILY@1700 07/06/18 12/27/18 History Memantine [Namenda] 10 mg PO BID@0800,1700 07/06/18 12/27/18 History Acetaminophen Tab [Tylenol] 1,000 mg PO Q8H PRN 12/17/18 12/27/18 History risperiDONE 0.25 mg PO HS@2000 12/17/18 12/27/18 History Apixaban [Eliquis] 2.5 mg PO BID 30 Days #60 tablet 12/22/18 12/27/18 Rx Cefuroxime Axetil [Ceftin] 500 mg PO BID 5 Days #10 tab 12/22/18 12/27/18 Rx Lisinopril [Zestril] 5 mg PO DAILY 30 Days #30 tab 12/22/18 12/27/18 Rx Metoprolol Tartrate [Lopressor] 50 mg PO BID@0800,1700 30 Days #60 12/22/18 12/27/18 Rx tab Allergies Allergy/AdvReac Type Severity Reaction Status Date / Time No Known Allergies Allergy Verified 12/27/18 11:58 Physical Exam Vitals: Vital Signs Temp Pulse Resp BP Pulse Ox 12/28/18 12:13 97.5 F L 71 16 127/83 100 12/28/18 04:00 98 F 78 16 144/80 98 12/27/18 20:40 98.7 F 63 16 128/68 98 12/27/18 18:08 97.2 F L 65 17 163/73 97 12/27/18 15:00 98.6 F 75 15 188/79 97 12/27/18 13:40 95 Intake and Output 12/27/18 12/28/18 12/28/18 22:59 06:59 14:59 Intake Total 262.5 Balance 262.5 Intake: Intake, IV Titration 262.5 Amount Sodium Chloride 0.9% 1, 262.5 000 ml @ 75 mls/hr IV . [id number] [facility] Rx#:[id number] Other: Voiding Method Toilet Diaper Incontinent # Voids 2 Results 12/28/18 09:35 12/28/18 09:35 Cardiac Enzymes 12/27/18 12/27/18 12/28/18 Range/Units 16:52 22:46 09:35 AST 37 H (14-36) U/L Troponin I <0.012 <0.012 (0.000-0.034) ng/mL Lipids 12/28/18 Range/Units 09:35 Triglycerides 104 (<150) mg/dL Cholesterol 162 (<200) mg/dL HDL Cholesterol 48 (40-60) mg/dL CBC 12/28/18 Range/Units 09:35 WBC 9.6 (3.8-10.6) k/uL RBC 4.53 (3.80-5.40) m/uL Hgb 13.8 (11.4-16.0) gm/dL Hct 44.9 (34.0-46.0) % Plt Count 355 (150-450) k/uL Comprehensive Metabolic Panel 12/28/18 Range/Units 09:35 Sodium 141 (137-145) mmol/L Potassium 3.3 L (3.5-5.1) mmol/L Chloride 102 (98-107) mmol/L Carbon Dioxide 23 (22-30) mmol/L BUN 17 (7-17) mg/dL Creatinine 0.77 (0.52-1.04) mg/dL Glucose 115 H (74-99) mg/dL Calcium 9.4 (8.4-10.2) mg/dL AST 37 H (14-36) U/L ALT 33 (9-52) U/L Alkaline Phosphatase 133 H (38-126) U/L Total Protein 7.4 (6.3-8.2) g/dL Albumin 4.2 (3.5-5.0) g/dL Current Medications Generic Name Dose Route Start Last Admin Trade Name Vidya PRN Reason Stop Dose Admin Acetaminophen 1,000 mg 12/27/18 13:42 Tylenol Tab PO Q8H PRN Mild Pain Apixaban 2.5 mg 12/27/18 21:00 12/28/18 07:55 Eliquis PO 2.5 mg BID VANDANA Administration Atorvastatin Calcium 20 mg 12/27/18 17:00 12/27/18 18:07 Lipitor PO 20 mg DAILY@1700 VANDANA Administration Donepezil HCl 10 mg 12/27/18 17:00 12/27/18 18:07 Aricept PO 10 mg DAILY@1700 VANDANA Administration Famotidine 20 mg 12/28/18 09:00 12/28/18 07:55 Pepcid PO 20 mg DAILY VANDANA Administration Sodium Chloride 1,000 mls @ 75 mls/hr 12/27/18 14:45 12/28/18 06:02 Saline 0.9% IV 75 mls/hr .[id number] VANDANA Administration Levothyroxine Sodium 75 mcg 12/28/18 08:00 12/28/18 07:54 Synthroid PO 75 mcg DAILY@0800 VANDANA Administration Lisinopril 5 mg 12/28/18 11:15 12/28/18 12:28 Zestril PO 5 mg DAILY VANDANA Administration Memantine 10 mg 12/27/18 17:00 12/28/18 07:55 Namenda PO 10 mg BID@0800,1700 VANDANA Administration Metoprolol Tartrate 25 mg 12/28/18 09:00 12/28/18 09:25 Lopressor PO 25 mg TID VANDANA Administration Miscellaneous Information 1 each 12/28/18 12:16 Potassium Per Protocol MISCELLANE DAILY PRN Per Protocol Protocol Potassium Chloride 20 meq 12/28/18 13:00 12/28/18 12:28 K-Dur 20 PO 12/28/18 14:01 20 meq Q1HR VANDANA Administration Protocol Intake and Output 12/27/18 12/28/18 12/28/18 22:59 06:59 14:59 Intake Total 262.5 Balance 262.5 Intake: Intake, IV Titration 262.5 Amount Sodium Chloride 0.9% 1, 262.5 000 ml @ 75 mls/hr IV . [id number] [facility] Rx#:[id number] Other: Voiding Method Toilet Diaper Incontinent # Voids 2 12/28/18 09:35 12/28/18 09:35
[2018-12-28] MEDS: DONEPEZIL 10 MG TAB PO SCH (17:36)
[2018-12-28] MEDS: ATORVASTATIN 20 MG TAB PO SCH (17:38)
[2018-12-29] MEDS: LEVOTHYROXINE 75 MCG TAB PO SCH (08:12)
[2018-12-29] MEDS: LISINOPRIL 5 MG TAB PO SCH (08:12)
[2018-12-29] MEDS: MEMANTINE 10 MG TAB PO SCH ×2 (08:12→16:58)
[2018-12-29] MEDS: APIXABAN 2.5 MG TABLET PO SCH (08:12)
[2018-12-29] MEDS: FAMOTIDINE 20 MG TAB PO SCH (08:12)
[2018-12-29] MEDS: METOPROLOL TARTRATE 25 MG TAB PO SCH (08:12)
[2018-12-29 10:05] LABS: Basophils % (A) 0 %; Eosinophils # (A) 0.2 k/uL (0-0.7); Eosinophils % (A) 3 %; HCT 37.7 % (34.0-46.0); HGB 11.8 gm/dL (11.4-16.0); Lymphocytes # (A) 0.9 k/uL (1.0-4.8); Lymphocytes % (A) 13 %; MCH 29.3 pg (25.0-35.0); MCHC 31.2 g/dL (31.0-37.0); Mean Platelet Volume 7.9; Monocytes # (A) 0.4 k/uL (0-1.0); Monocytes % (A) 6 %; Neutrophils # (A) 4.9 k/uL (1.3-7.7); Neutrophils % (A) 75 %; Platelet Count 353 k/uL (150-450); RBC 4.01 m/uL (3.80-5.40); RDW 14.3 % (11.5-15.5); WBC 6.5 k/uL (3.8-10.6)
[2018-12-29 10:19] LABS: ALT 35 U/L (9-52); AST 36 U/L (14-36); African American GFR (CKD) >90 (>60 ml/min/1.73 sqM); Albumin 3.8 g/dL (3.5-5.0); Alkaline Phosphatase 117 U/L (38-126); Anion Gap 11 mmol/L; Blood Urea Nitrogen 14 mg/dL (7-17); Calcium 9.2 mg/dL (8.4-10.2); Carbon Dioxide 25 mmol/L (22-30); Chloride 106 mmol/L (98-107); Glucose 95 mg/dL (74-99); Potassium 3.8 mmol/L (3.5-5.1); Sodium 142 mmol/L (137-145); Total Bilirubin 0.5 mg/dL (0.2-1.3); Total Protein 6.8 g/dL (6.3-8.2)
[2018-12-29] MEDS ORDERED: POTASSIUM CHLORIDE ER 10 MEQ TAB.ER.PRT PO SCH (11:00)
[2018-12-29 12:52] VITALS: BP 153/82; PULSE 69; RESP 16; TEMP 98.6
--- NOTE | 2018-12-29 13:44 | P.DS ---
Providers Date of admission: 12/27/18 13:46 Expected date of discharge: 12/29/18 Attending physician: Bryon Hicks Consults: 12/27/18 13:40 Consult Physician Routine Consulting Provider: Haresh Garcia Consult Reason/Comments: near sycope, hypotension/bradycardia Do you want consulting provider notified?: Yes 12/27/18 15:22 Consult Physician Routine Consulting Provider: Binu Mireles Consult Reason/Comments: CT of head result Do you want consulting provider notified?: Yes Primary care physician: Nandini Adams Hospital Course: Discharge diagnosis 1. Syncopal episode. Patient was found to be [facility]cardic and [facility]ensive [facility]. Head CT completed showing stable moderate ventriculomegaly likely in part due to central cerebral atrophy however as the ventricular prominence is somewhat out of proportion to the degree cortical atrophy correlate for possible component of NPH. Patient received 1 L fluid bolus heart rate has improved. 2. Bradycardia. EKG completed showing atrial fibrillation heart rate 65 ST-T wave abnormality. Patient's Metroprolol recently increased during previous admission. Metroprolol lisinopril currently on hold. Patient's respiratory also on hold due to potential for QT prolonging with Aricept. Discussed case with cardiology [employer] Kadi. Patient may be DC'd per cardiology. Okay to resume patient's Risperdal. Patient to follow-up outpatient with cardiology services for repeat EKG in outpatient setting 3. Recent urinary tract infection. UA repeated showing straits amount of leukocyte Estrace. Patient maintained on Omnicef 4. Paroxysmal atrial fibrillation. Patient was started on eliquis 2.5 twice a day to previous admission. Patient having elevated heart rate. Cardiology services have restarted metoprolol 25 twice a day. 5. Advanced dementia 6. History of previous TIA 7. History of throat cancer 8. History of hyperlipidemia 9. History of essential hypertension 10. History of osteoarthritis 11. History of hypothyroidism maintained on Synthroid. TSH level checked on 12/17/2018 1.250 12. Cerebral ventriculomegaly. Neurology services have been consulted. Per neurology's note a long discussion was held with patient and family in regards to treatment and transfer for possible RELAY TESTER shunt. Family against any aggressive surgical intervention. Per neurology patient to follow-up with her neurologist Dr. Fonseca upon discharge patient to continue on anticoagulation and statin Hospital course This is a 78-year-old female patient of Dr. Adams. Patient presented with complaints of syncopal episode. Patient has known advanced dementia. Niece is at bedside. Per niece patient was found facedown at breakfast. Patient currently resides at [facility]. Vitals were taken by nursing staff at facility and patient was found to be bradycardic and hypotensive. Additional medical history includes atrial fibrillation, throat cancer, CVA, advanced dementia, hyperlipidemia, hypertension, osteoarthritis and hypothyroidism. Patient was recently admitted for UTI plus A. fib with RVR. At that time patient's metoprolol was increased to 50 mg twice a day. Head CT completed showing stable moderate ventriculomegaly likely in part due to central cerebral atrophy. However as the ventricular prominence is somewhat out of proportion to the degree of cortical atrophy correlate for a possible component of NPH. Otherwise no acute intracranial abnormality seen. Chest x-ray completed showing no acute cardiopulmonary process. EKG completed showing atrial fibrillation ST and T-wave abnormality consider lateral ischemia prolonged QT. Patient did receive fluid bolus. Heart rate and blood pressure has improved. UA showing trace amount of leukocyte Estrace. Troponin negative. Patient is resting comfortably in bed. Patient is confused which is her baseline. Patient denies any chest pain or shortness of breath. Patient denies nausea vomiting or diarrhea. Patient denies any urinary burning or frequency On 12/28/2018 patient's currently sitting up in chair eating breakfast. Heart rate elevated a.m. patient has known history of atrial fibrillation. Discussed case with cardiology services nurse practitioner Diana. Lopressor has been added per cardiology at lower dose. At that time patient denies any chest pain or shortness of breath. Denies any nausea vomiting or Diarrhea. Denies any urinary burning or frequency On 12/29/2018 patient is currently sitting comfortably in bed. Patient denies any specific complaints. Heart rate has improved. Discussed case with cardiology services patient has been cleared for discharge. Patient to be DC'd on lower dose of Lopressor 25 twice a day. Okay to resume patient's home dose of her risperdal. She denies any specific complaints. Patient to return to [facility] facility with home healthcare I performed an examination of the patient and discussed their management with the Nurse Practitioner. I have reviewed the Nurse Practitioner's notes and agree with the documented findings and plan of care Patient Condition at Discharge: Stable Plan - Discharge Summary Discharge Rx Participant: No New Discharge Prescriptions: No Action Levothyroxine Sodium [Synthroid] 75 mcg PO DAILY@0800 Donepezil [Aricept] 10 mg PO DAILY@1700 Memantine [Namenda] 10 mg PO BID@0800,1700 Atorvastatin [Lipitor] 20 mg PO DAILY@1700 risperiDONE 0.25 mg PO HS@2000 Acetaminophen Tab [Tylenol] 1,000 mg PO Q8H PRN PRN Reason: Pain Apixaban [Eliquis] 2.5 mg PO BID 30 Days #60 tablet Lisinopril [Zestril] 5 mg PO DAILY 30 Days #30 tab Cefuroxime Axetil [Ceftin] 500 mg PO BID 5 Days #10 tab Metoprolol Tartrate [Lopressor] 50 mg PO BID@0800,1700 30 Days #60 tab Discharge Medication List Donepezil [Aricept] 10 mg PO DAILY@1700 09/07/16 [History] Levothyroxine Sodium [Synthroid] 75 mcg PO DAILY@0800 09/07/16 [History] Atorvastatin [Lipitor] 20 mg PO DAILY@1700 07/06/18 [History] Memantine [Namenda] 10 mg PO BID@0800,1700 07/06/18 [History] Acetaminophen Tab [Tylenol] 1,000 mg PO Q8H PRN 12/17/18 [History] risperiDONE 0.25 mg PO HS@199912/17/18 [History] Apixaban [Eliquis] 2.5 mg PO BID 30 Days #60 tablet 12/22/18 [Rx] Cefuroxime Axetil [Ceftin] 500 mg PO BID 5 Days #10 tab 12/22/18 [Rx] Lisinopril [Zestril] 5 mg PO DAILY 30 Days #30 tab 12/22/18 [Rx] Metoprolol Tartrate [Lopressor] 50 mg PO BID@0800,1700 30 Days #60 tab 12/22/18 [Rx] Follow up Appointment(s)/Referral(s): [facility], [NON-STAFF] - 1-2 Days Nandini Adams MD [Primary Care Provider] - 1-2 days Annie Pittman MD [STAFF PHYSICIAN] - 1 Week Patient Instructions/Handouts: Syncope (DC) Activity/Diet/Wound Care/Special Instructions: If orthostatics are negative, then patient is cleared from cardiology standpoint. Discharge with Metoprolol 25mg TID
--- NOTE | 2018-12-29 14:09 | P.PN ---
Subjective This is a pleasant 78 year old female past medical history significant for paroxysmal atrial fibrillation on long-term anticoagulation, hypertension, dyslipidemia, TIA, advanced dementia and throat cancer. We then assessed to see her in consultation secondary to bradycardia. Apparently she was at home the extended care facility where she lives and was found to be hypotensive and bradycardic. She was sent to the hospital for further evaluation. The patient herself is a poor historian due to advanced dementia. Information is obtained from the medical record and nursing staff. Upon arrival to ED blood pressure was 133.75 with heart rate in 56-62 range. There has been no documented bradycardia or hypotension since admission yesterday morning. Lisinopril and lopressor were held per the primary care team. This morning her heart rates were jumping up into the 160 range. She was apparently completely asymptomatic during that time. Lopressor was resumed. Currently blood pressure is 127/83 with a heart rate of 71. She denies feeling palpitations, shortness of breath, dizziness or chest pain. EKG reveals atrial fibrillation with controlled ventricular response heart rate 65 with T-wave inversion in lateral leads. Chest x-ray is negative for an acute cardiopulmonary process. CT brain reveals stable moderate ventriculomegaly, central cerebral atrophy but no acute intracranial abnormality noted. Laboratory data reviewed, WBC 9.6, hemoglobin 13.8, platelets 355, sodium 141, potassium 3.3, creatinine 0.77, magnesium 1.7, cardiac enzymes negative 3, LDL 93. TSH obtained on last admission 12/17/2018 was 2.25. Current cardiac medications include Eliquis 2.5 mg twice a day, atorvastatin 20 mg daily, lisinopril 5 mg daily and Lopressor 50 mg twice a day. Most recent echocardiogram obtained June 2018 reveals preserved LV systolic function with ejection fraction 55-60%, severe mitral regurgitation, moderate to severe tricuspid regurgitation and mild pulmonary hypertension with RVSP of 36 mmHg. 12/29/2018 Pt is seen and examined sitting up in the chair. She continues to deny all complaints. Telemetry tracings reviewed, ongoing atrial fibrillation. Overnight she was having pauses of approximately 2 seconds, longest was 2.4 seconds by measurement. These occurred while she was sleeping. No evidence to suggest synco pe. Lopressor had been decreased from 50 BID to 25 TID. Blood pressure 153/82 hert rate currently in the 60-70 range. Laboratory data reviewed and unremarkable. HEENT: Head is atraumatic, normocephalic. Pupils are equal, round. Sclerae anicteric. Conjunctivae are clear. Mucous membranes of the mouth are moist. Neck is supple. There is no jugular venous distention. No carotid bruit is heard. LUNGS: Clear to auscultation no wheezes, rales or rhonchi. No chest wall tenderness is noted on palpation or with deep breathing. HEART: Irregular rate and rhythm with faint systolic ejection murmur at the left sternal border, no rubs or gallops. S1 and S2 heard. EXTREMITIES: No evidence of peripheral edema and no calf tenderness noted. ASSESSMENT Paroxysmal atrial fibrillation on intermediate accountant anticoagulation with variable ventricular rates Hypertension Dyslipidemia TIA in the past Dementia PLAN Decrease lopressor to 25 mg BID. Hold for systolic blood pressure less than 90 or heart rate less then 50. Potassium is running on the low end of normal, will recommend a small dose of daily potassium. Ok to resume risperdal. Follow up with Dr. Madison upon discharge. Nurse Practitioner note has been reviewed, I agree with a documented findings and plan of care. Patient was seen and examined. Objective - Vital Signs Vital signs: Vital Signs Temp 98.6 F 12/29/18 12:51 Pulse 69 12/29/18 12:51 Resp 16 12/29/18 12:51 BP 153/82 12/29/18 12:51 Pulse Ox 95 12/29/18 12:51 Intake & Output 12/28/18 12/29/18 12/29/18 18:59 06:59 18:59 Intake Total 400 240 Balance 400 240 Intake: Oral 400 240 Other: Voiding Method Toilet Diaper Diaper Diaper Incontinent Incontinent Incontinent # Voids 1 3 2 - Labs CBC & Chem 7: 12/29/18 08:58 12/29/18 08:58 Labs: Abnormal Lab Results - Last 24 Hours (Table) 12/29/18 Range/Units 08:58 Lymphocytes # 0.9 L (1.0-4.8) k/uL Microbiology - Last 24 Hours (Table) 12/27/18 11:28 Urine Culture - Final Urine,Voided
[2018-12-29] MEDS: ATORVASTATIN 20 MG TAB PO SCH (16:58)
[2018-12-29] MEDS: DONEPEZIL 10 MG TAB PO SCH (16:58)
[2018-12-29] MEDS ORDERED: METOPROLOL TARTRATE 25 MG TAB PO SCH (21:00)
== END 2018-12-29 17:35 | disposition home health service (06) ==
LOC: EC 10:26 → 3NMEDONC 13:46
PROVIDERS: ADMIT Internal Medicine; ATTEND Internal Medicine
DX: R55 Syncope and collapse (principal); R00.1 Bradycardia, unspecified; I95.9 Hypotension, unspecified; G93.89 Other specified disorders of brain; I48.0 Paroxysmal atrial fibrillation; N39.0 Urinary tract infection, site not specified; F03.90 Unspecified dementia, unspecified severity, without behavioral disturbance, psychotic disturbance, mood disturbance, and anxiety; R32 Unspecified urinary incontinence; E78.5 Hyperlipidemia, unspecified; M19.90 Unspecified osteoarthritis, unspecified site; E03.9 Hypothyroidism, unspecified; Z79.890 Hormone replacement therapy; Z87.891 Personal history of nicotine dependence; Z79.899 Other long term (current) drug therapy; Z86.73 Personal history of transient ischemic attack (TIA), and cerebral infarction without residual deficits; Z85.819 Personal history of malignant neoplasm of unspecified site of lip, oral cavity, and pharynx; Z79.01 Long term (current) use of anticoagulants; Z83.3 Family history of diabetes mellitus; Z81.8 Family history of other mental and behavioral disorders
CPT/HCPCS: 96361; 96360; 99285; 36415; 93005 ×2; 97116; 97530 ×2; 97162; 97166; 80061; 80053 ×3; 83605; 83735; 84484; 85025 ×3; 85610; 85730; 81001; 87086; 71046; 70450; G0378 ×3

== ENCOUNTER 2019-03-02 14:22 | Observation (INO) | payer MEDICARE ==
[2019-03-02] MEDS ORDERED: SODIUM CHLORIDE 0.9% 1,000 ML IV STA (14:42)
[2019-03-02] MEDS ORDERED: ASPIRIN 81 MG PO STA (14:45)
--- NOTE | 2019-03-02 14:45 | ED ---
General Adult HPI - General Chief complaint: Chest Pain Stated complaint: AFIB Time Seen by Provider: 03/02/19 14:33 Source: EMS Mode of arrival: EMS Limitations: altered mental status, physical limitation - History of Present Illness Initial comments: Dictation was produced using [employer] dictation software. please excuse any grammatical, word or spelling errors. Chief Complaint: 78-year-old female presents with chief complaint of chest pain. History of Present Illness: 78-year-old female presents today with chest pain. Patient has a history of dementia. She is an unreliable historian. Patient resides in a living facility where she told staff that her heart hurt. Patient is a history of A. fib according to documentation she takes anticoagulation medications. According to EMS who relayed information to my nurse there was no concern about patient's mentation. Unable to obtain R was at this time secondary to history of dementia. PHYSICAL EXAM: General Impression: Alert and oriented x2/4, not in acute distress HEENT: Normocephalic atraumatic, extra-ocular movements intact, pupils equal and reactive to light bilaterally, mucous membranes moist. Cardiovascular: Irregular Chest: Lungs clear to auscultation bilaterally, no rhonchi, no wheeze, no rales Abdomen: Bowel sounds present, abdomen soft, non-tender, non-distended, no organomegaly Musculoskeletal: Pulses present and equal in all extremities, no peripheral edema Motor: no focal deficits noted Neurological: CN II-XII grossly intact, no focal motor or sensory deficits noted Skin: Intact with no visualized rashes Psych: Normal affect and mood ED course: 78-year-old female presents with chest pain. Patient unable to provide history at this time given history of dementia. There is one piece history were patient complained of her heart hurting by EMS. Signs upon arrival shows heart rate of 120, respiratory signs within acceptable limits. EKG is consistent with H fibrillation. Patient is well-appearing at bedside. She does not appear to be in a short of distress secondary to pain.Return evaluation obtained. CBC, coag panel, metabolic panel was obtained showing no acute processes. Cardiac enzymes negative. Chest x-ray is nonacute. Patient's A. fib is slightly elevated rate in the 120s. Patient given fluids and small IV push and metoprolol. Unable to get more detailed history at this time. Patient be admitted for cardiac monitoring, serial troponins and cardiology consultation. This patient is Dr. Castillo willing to accept patients care. EKG interpretation: Ventricular rate 115, A. fib, QRS 80, QTc 453. no QTC prol ongation. There are no T-wave inversions in the lateral precordial leads compared to EKG from 12/17/2018 - Related Data Home Medications Medication Instructions Recorded Confirmed Donepezil [Aricept] 10 mg PO DAILY@0800 09/07/16 03/02/19 Levothyroxine Sodium [Synthroid] 75 mcg PO DAILY@0800 09/07/16 03/02/19 Atorvastatin [Lipitor] 20 mg PO HS@199907/06/18 03/02/19 Memantine [Namenda] 10 mg PO BID@0800,199907/06/18 03/02/19 Acetaminophen Tab [Tylenol] 1,000 mg PO Q8H PRN 12/17/18 03/02/19 risperiDONE 0.25 mg PO BID@0800,199912/17/18 03/02/19 Apixaban [Eliquis] 2.5 mg PO BID@0800,199903/02/19 03/02/19 Lisinopril [Prinivil] 10 mg PO HS@199903/02/19 03/02/19 Metoprolol Tartrate [Lopressor] 25 mg PO BID@0800,199903/02/19 03/02/19 Polyethylene Glycol 3350 [Miralax] 17 gm PO Q72H PRN 03/02/19 03/02/19 Potassium Chloride ER [K-Dur 10] 10 meq PO DAILY@0800 03/02/19 03/02/19 Sennosides/Docusate Sodium 1 tab PO Q48H PRN 03/02/19 03/02/19 [Senna-S Laxative Tablet] Allergies Allergy/AdvReac Type Severity Reaction Status Date / Time No Known Allergies Allergy Verified 03/02/19 16:10 Review of Systems ROS Statement: Those systems with pertinent positive or pertinent negative responses have been documented in the HPI. ROS Other: All systems not noted in ROS Statement are negative. Past Medical History Past Medical History: Atrial Fibrillation, Cancer, CVA/TIA, Dementia, Hyperlipidemia, Hypertension, Osteoarthritis (OA), Thyroid Disorder Additional Past Medical History / Comment(s): throat cancer - 20 years ago; NOS Afib 06/16/18. TIA - 06/18 [facility]fered [facility] History of Any Multi-Drug Resistant Organisms: None Reported Past Surgical History: Breast Surgery Additional Past Surgical History / Comment(s): implants Past Anesthesia/Blood Transfusion Reactions: No Reported Reaction Additional Past Anesthesia/Blood Transfusion Reaction / Comment(s): PT refuses blood r/t evangelical preferences Past Psychological History: No Psychological Hx Reported Smoking Status: Former smoker Past Alcohol Use History: None Reported Past Drug Use History: None Reported - Past Family History Father Family Medical History: Dementia Mother Family Medical History: Dementia, Diabetes Mellitus General Exam Limitations: altered mental status, physical limitation Course Vital Signs 03/02/19 14:30 Temperature 98.2 F Pulse Rate 128 H Respiratory 17 Rate Blood Pressure 125/93 O2 Sat by Pulse 95 Oximetry Medical Decision Making - Lab Data Result diagrams: 03/02/19 15:04 03/02/19 15:04 Lab Results 03/02/19 03/02/19 03/02/19 Range/Units 15:04 15:04 15:04 WBC 7.6 (3.8-10.6) k/uL RBC 4.26 (3.80-5.40) m/uL Hgb 13.6 (11.4-16.0) gm/dL Hct 41.4 (34.0-46.0) % MCV 97.0 (80.0-100.0) fL MCH 31.8 (25.0-35.0) pg MCHC 32.8 (31.0-37.0) g/dL RDW 13.2 (11.5-15.5) % Plt Count 215 (150-450) k/uL Neutrophils % 71 % Lymphocytes % 16 % Monocytes % 10 % Eosinophils % 1 % Basophils % 1 % Neutrophils # 5.4 (1.3-7.7) k/uL Lymphocytes # 1.2 (1.0-4.8) k/uL Monocytes # 0.8 (0-1.0) k/uL Eosinophils # 0.1 (0-0.7) k/uL Basophils # 0.0 (0-0.2) k/uL PT 11.1 (9.0-12.0) sec INR 1.0 (<1.2) APTT 28.7 (22.0-30.0) sec Sodium 141 (137-145) mmol/L Potassium 4.4 (3.5-5.1) mmol/L Chloride 104 (98-107) mmol/L Carbon Dioxide 24 (22-30) mmol/L Anion Gap 13 mmol/L BUN 30 H (7-17) mg/dL Creatinine 0.94 (0.52-1.04) mg/dL Est GFR (CKD-EPI)AfAm 68 (>60 ml/min/1.73 sqM) Est GFR (CKD-EPI)NonAf 59 (>60 ml/min/1.73 sqM) Glucose 116 H (74-99) mg/dL Calcium 9.7 (8.4-10.2) mg/dL Magnesium 1.8 (1.6-2.3) mg/dL Total Bilirubin 1.6 H (0.2-1.3) mg/dL AST 24 (14-36) U/L ALT 29 (9-52) U/L Alkaline Phosphatase 111 (38-126) U/L Troponin I (0.000-0.034) ng/mL Total Protein 7.1 (6.3-8.2) g/dL Albumin 4.2 (3.5-5.0) g/dL 03/02/19 Range/Units 15:04 WBC (3.8-10.6) k/uL RBC (3.80-5.40) m/uL Hgb (11.4-16.0) gm/dL Hct (34.0-46.0) % MCV (80.0-100.0) fL MCH (25.0-35.0) pg MCHC (31.0-37.0) g/dL RDW (11.5-15.5) % Plt Count (150-450) k/uL Neutrophils % % Lymphocytes % % Monocytes % % Eosinophils % % Basophils % % Neutrophils # (1.3-7.7) k/uL Lymphocytes # (1.0-4.8) k/uL Monocytes # (0-1.0) k/uL Eosinophils # (0-0.7) k/uL Basophils # (0-0.2) k/uL PT (9.0-12.0) sec INR (<1.2) APTT (22.0-30.0) sec Sodium (137-145) mmol/L Potassium (3.5-5.1) mmol/L Chloride (98-107) mmol/L Carbon Dioxide (22-30) mmol/L Anion Gap mmol/L BUN (7-17) mg/dL Creatinine (0.52-1.04) mg/dL Est GFR (CKD-EPI)AfAm (>60 ml/min/1.73 sqM) Est GFR (CKD-EPI)NonAf (>60 ml/min/1.73 sqM) Glucose (74-99) mg/dL Calcium (8.4-10.2) mg/dL Magnesium (1.6-2.3) mg/dL Total Bilirubin (0.2-1.3) mg/dL AST (14-36) U/L ALT (9-52) U/L Alkaline Phosphatase (38-126) U/L Troponin I <0.012 (0.000-0.034) ng/mL Total Protein (6.3-8.2) g/dL Albumin (3.5-5.0) g/dL Disposition Clinical Impression: Chest pain Disposition: ADMITTED IP TO THIS HOSP Condition: Fair Referrals: Nandini Adams MD [Primary Care Provider] - 1-2 days Decision Time: 16:25
[2019-03-02 15:14] LABS: Basophils % (A) 1 %; Eosinophils # (A) 0.1 k/uL (0-0.7); Eosinophils % (A) 1 %; HCT 41.4 % (34.0-46.0); HGB 13.6 gm/dL (11.4-16.0); Lymphocytes # (A) 1.2 k/uL (1.0-4.8); Lymphocytes % (A) 16 %; MCH 31.8 pg (25.0-35.0); MCHC 32.8 g/dL (31.0-37.0); Mean Platelet Volume 7.6; Monocytes # (A) 0.8 k/uL (0-1.0); Monocytes % (A) 10 %; Neutrophils # (A) 5.4 k/uL (1.3-7.7); Neutrophils % (A) 71 %; Platelet Count 215 k/uL (150-450); RBC 4.26 m/uL (3.80-5.40); RDW 13.2 % (11.5-15.5); WBC 7.6 k/uL (3.8-10.6)
[2019-03-02 15:23] LABS: Partial Thromboplastin Time 28.7 sec (22.0-30.0); Prothrombin Time 11.1 sec (9.0-12.0)
[2019-03-02 15:26] LABS: Albumin 4.2 g/dL (3.5-5.0); Calcium 9.7 mg/dL (8.4-10.2); Magnesium 1.8 mg/dL (1.6-2.3); Potassium 4.4 mmol/L (3.5-5.1); Total Bilirubin 1.6 mg/dL (0.2-1.3); Total Protein 7.1 g/dL (6.3-8.2)
--- NOTE | 2019-03-02 15:45 | XR ---
EXAMINATION TYPE: XR chest 2V DATE OF EXAM: 03/02/2019 COMPARISON: Chest x-ray December 27, 2018 HISTORY: History of atrial fibrillation with chest pain. TECHNIQUE: Frontal and lateral views of the chest are obtained. FINDINGS: There is chronic parenchymal changes without suspicious focal air space opacity, pleural e ffusion, or pneumothorax seen. The cardiac silhouette size is enlarged with atherosclerotic aorta. Mitral annular calcifications are redemonstrated. Overlying rim calcified breast implants again seen. The osseous structures remain demineralized. IMPRESSION: Cardiomegaly and chronic changes without acute pulmonary process.
[2019-03-02] MEDS ORDERED: NITROGLYCERIN SL TABS 0.4 MG TAB SUBLINGUAL PRN (16:22)
[2019-03-02] MEDS ORDERED: METOPROLOL TARTRATE 5 MG/5 ML VIAL IVP STA (16:23)
[2019-03-02] MEDS ORDERED: POLYETHYLENE GLYCOL 3350 17 GM POWD.PACK PO PRN (16:25)
[2019-03-02] MEDS ORDERED: SENNOSIDES-DOCUSATE SODIUM 1 EACH TAB PO PRN (16:25)
[2019-03-02] MEDS ORDERED: LORazepam 2 MG/ML INJ IV STA (18:20)
[2019-03-02] MEDS ORDERED: APIXABAN 5 MG TAB PO SCH (21:00)
[2019-03-02] MEDS: APIXABAN 2.5 MG TABLET PO SCH (21:48)
[2019-03-02] MEDS: MEMANTINE 10 MG TAB PO SCH (21:48)
[2019-03-02] MEDS: METOPROLOL TARTRATE 25 MG TAB PO SCH (21:48)
[2019-03-02] MEDS: ATORVASTATIN 20 MG TAB PO SCH (21:48)
[2019-03-02] MEDS: LISINOPRIL 10 MG TAB PO SCH (21:48)
[2019-03-02] MEDS ORDERED: LORazepam 2 MG/ML INJ IV PRN (23:12)
[2019-03-03 05:09] LABS: Basophils % (A) 1 %; Eosinophils # (A) 0.1 k/uL (0-0.7); Eosinophils % (A) 2 %; HCT 37.7 % (34.0-46.0); HGB 12.6 gm/dL (11.4-16.0); Lymphocytes # (A) 1.4 k/uL (1.0-4.8); Lymphocytes % (A) 22 %; MCH 31.8 pg (25.0-35.0); MCHC 33.4 g/dL (31.0-37.0); MCV 95.1 fL (80.0-100.0); Mean Platelet Volume 7.1; Monocytes # (A) 0.6 k/uL (0-1.0); Monocytes % (A) 10 %; Neutrophils # (A) 4.2 k/uL (1.3-7.7); Neutrophils % (A) 64 %; Platelet Count 215 k/uL (150-450); RBC 3.97 m/uL (3.80-5.40); RDW 12.8 % (11.5-15.5); WBC 6.6 k/uL (3.8-10.6)
[2019-03-03 05:26] LABS: Albumin 3.5 g/dL (3.5-5.0); Calcium 9.2 mg/dL (8.4-10.2); Potassium 3.7 mmol/L (3.5-5.1); Total Bilirubin 1.2 mg/dL (0.2-1.3); Total Protein 6.2 g/dL (6.3-8.2)
[2019-03-03] MEDS: LEVOTHYROXINE 75 MCG TAB PO SCH (06:20)
[2019-03-03] MEDS: POTASSIUM CHLORIDE ER 10 MEQ TAB.ER.PRT PO SCH (10:36)
[2019-03-03] MEDS: DONEPEZIL 10 MG TAB PO SCH (10:36)
[2019-03-03] MEDS: METOPROLOL TARTRATE 25 MG TAB PO SCH ×2 (10:36→21:17)
[2019-03-03] MEDS: MEMANTINE 10 MG TAB PO SCH ×2 (10:36→21:18)
[2019-03-03] MEDS: APIXABAN 2.5 MG TABLET PO SCH ×2 (10:36→21:18)
[2019-03-03] MEDS ORDERED: ACETAMINOPHEN TAB 325 MG TAB PO PRN (10:43)
--- NOTE | 2019-03-03 10:43 | P.HPIM ---
History of Present Illness H&P Date: 03/03/19 Chief Complaint: chest pain This is a 78-year-old female patient of Dr. hutchinson. Patient presented with complaints of chest pain. Patient has known past medical history of advanced dementia. Patient lives at [facility]. According to ER records patient told staff that her heart hurt. Additional medical history includes CVA, atrial fibrillation in which she is maintained on eliquis, hyperlipidemia, hypertension, osteoarthritis, thyroid disorder and throat cancer. Chest x-ray completed showing cardiomegaly and chronic changes without acute pulmonary process. Troponins negative 3. EKG showing atrial fibrillation with rapid ventricular response heart rate 115. Cardiology services have been consulted. At this time patient is resting comfortably in bed. Patient denies any chest pain or shortness of breath. Patient denies nausea vomiting or diarrhea. Patient denies any urinary burning or frequency. Review of Systems Please refer to HPI otherwise unremarkable Past Medical History Past Medical History: Atrial Fibrillation, Cancer, CVA/TIA, Dementia, Hyperlipidemia, Hypertension, Osteoarthritis (OA), Thyroid Disorder Additional Past Medical History / Comment(s): throat cancer - 20 years ago; NOS Afib 06/16/18. TIA - 06/18 transfered to [place] History of Any Multi-Drug Resistant Organisms: None Reported Past Surgical History: Breast Surgery Additional Past Surgical History / Comment(s): implants Past Anesthesia/Blood Transfusion Reactions: No Reported Reaction Additional Past Anesthesia/Blood Transfusion Reaction / Comment(s): PT refuses blood r/t judaism preferences Past Psychological History: No Psychological Hx Reported Additional Psychological History / Comment(s): lives at [facility]- has a ronn Gayle and Chloe that check in on her Smoking Status: Never smoker Past Alcohol Use History: None Reported Additional Past Alcohol Use History / Comment(s): started smoking at age 16 and quit 2008 smoked 1 ppd Past Drug Use History: None Reported - Past Family History Father Family Medical History: Dementia Mother Family Medical History: Dementia, Diabetes Mellitus Medications and Allergies Home Medications Medication Instructions Recorded Confirmed Type Donepezil [Aricept] 10 mg PO DAILY@0800 09/07/16 03/02/19 History Levothyroxine Sodium [Synthroid] 75 mcg PO DAILY@79909/07/16 03/02/19 History Atorvastatin [Lipitor] 20 mg PO HS@199907/06/18 03/02/19 History Memantine [Namenda] 10 mg PO BID@0800,199907/06/18 03/02/19 History Acetaminophen Tab [Tylenol] 1,000 mg PO Q8H PRN 12/17/18 03/02/19 History risperiDONE 0.25 mg PO BID@0800,199912/17/18 03/02/19 History Apixaban [Eliquis] 2.5 mg PO BID@0800,199903/02/19 03/02/19 History Lisinopril [Prinivil] 10 mg PO HS@199903/02/19 03/02/19 History Metoprolol Tartrate [Lopressor] 25 mg PO BID@0800,199903/02/19 03/02/19 History Polyethylene Glycol 3350 [Miralax] 17 gm PO Q72H PRN 03/02/19 03/02/19 History Potassium Chloride ER [K-Dur 10] 10 meq PO DAILY@0800 03/02/19 03/02/19 History Sennosides/Docusate Sodium 1 tab PO Q48H PRN 03/02/19 03/02/19 History [Senna-S Laxative Tablet] Allergies Allergy/AdvReac Type Severity Reaction Status Date / Time No Known Allergies Allergy Verified 03/02/19 16:10 Physical Exam Vitals: Vital Signs Temp Pulse Pulse Resp BP BP Pulse Ox 03/03/19 08:46 136/79 03/03/19 07:46 97.5 F L 98 16 158/121 98 03/03/19 04:00 98 F 96 16 163/84 97 03/03/19 00:00 98.3 F 66 16 153/78 99 03/02/19 18:44 98 F 89 18 143/98 96 03/02/19 16:41 89 17 136/69 98 03/02/19 14:30 98.2 F 128 H 17 125/93 95 Intake and Output 03/02/19 03/03/19 03/03/19 22:59 06:59 14:59 Intake Total 0 Output Total 1500 Balance -1500 0 Intake: Oral 0 Output: Urine 1100 Straight 400 Post Void Residual 400 Other: Voiding Method Incontinent Incontinent Weight 48 kg Head normocephalic Neck supple Lungs clear to auscultation bilaterally no wheezing or crackles Heart irregular rate Abdomen is soft nontender nondistended positive bowel sounds no hepatosplenomegaly Extremities no edema Neuro advanced dementia Results CBC & Chem 7: 03/03/19 04:31 03/03/19 04:31 Labs: Abnormal Lab Results - Last 24 Hours (Table) 03/02/19 03/03/19 Range/Units 15:04 04:31 BUN 30 H 26 H (7-17) mg/dL Glucose 116 H (74-99) mg/dL Total Bilirubin 1.6 H (0.2-1.3) mg/dL Total Protein 6.2 L (6.3-8.2) g/dL Thrombosis Risk Factor Assmnt - Choose All That Apply Any of the Below Risk Factors Present?: Yes Each Factor Represents 1 point: Medical pt on bed rest Other Risk Factors: Yes Each Risk Factor Represents 3 Points: Age 75 years or older Thrombosis Risk Factor Assessment Total Risk Factor Score: 4 Thrombosis Risk Factor Assessment Level: Moderate Risk Assessment and Plan Assessment: 1. Chest pain. Troponins negative 3. Chest x-ray showing cardiomegaly and chronic changes without acute pulmonary process. EKG completed showing atrial fibrillation with rapid ventricular response. Cardiology services have been consulted to. 2. Paroxysmal atrial fibrillation. Patient maintained on eliquis 2.5 for anticoagulation 3. Advanced dementia. Patient is maintained on risperidone and Aricept. Medications do have side effects of QT prolonging this was discussed with cardiology services during previous admission. Per cardiology okay to resume both these medications. Current EKG not showing any QT prolong 4. Previous history of TIA 5. History of throat cancer 6. History of hyperlipidemia. maintained on Lipitor 7. History of essential hypertension 8. Hypothyroidism. Patient maintained on Synthroid 9. History of cerebrovascular ventricularmegaly. During previous admission head CT showing cerebral ventriculomegaly. Neurology services did evaluate and family didn't want any surgical intervention. Patient to follow-up with neurology outpatient 10. Urinary retention. Patient has known history of UTIs will order urinalysis to rule out infection. DVT prophylaxis eliquis. GI prophylaxis Pepcid Time with Patient: Greater than 30 (Greater than 60% of the total time spent in counseling and coordination of care. I performed an examination of the patient and discussed their management with the Nurse Practitioner. I have reviewed the Nurse Practitioner's notes and agree with the documented findings and plan of care)
--- NOTE | 2019-03-03 10:47 | P.CRDCN ---
History of Present Illness Consult date: 03/03/19 Requesting physician: Bryon Hicks Consult reason: chest pain Chief complaint: Chest pain History of present illness: This is a pleasant 78-year-old female with past medical history signi ficant for paroxysmal atrial fibrillation, hypertension, hyperlipidemia, TIA, advanced dementia, and throat cancer. Cardiology consultation was requested because of chest pain. Patient presented to the hospital with symptoms of chest discomfort. Most of the history was obtained from the medical record. At the time of my examination this morning the patient denies any chest discomfort. Chest x-ray shows cardiomegaly and chronic changes without any acute pulmonary process. EKG shows atrial fibrillation with a moderately rapid ventricular response. Chest x-ray shows cardiomegaly and chronic changes without any acute pulmonary process. Blood pressure 136/78 with a heart rate in 90s, 98% on room air. White blood cell count 6.6, hemoglobin 12.6, platelet count 2:15. Sodium 140, potassium 3.7, BUN 26 and creatinine 0.7. Troponins are negative 3. Past Medical History Past Medical History: Atrial Fibrillation, Cancer, CVA/TIA, Dementia, Hyper lipidemia, Hypertension, Osteoarthritis (OA), Thyroid Disorder Additional Past Medical History / Comment(s): throat cancer - 20 years ago; NOS Afib 06/16/18. TIA - 06/18 transfered to [place] History of Any Multi-Drug Resistant Organisms: None Reported Past Surgical History: Breast Surgery Additional Past Surgical History / Comment(s): implants Past Anesthesia/Blood Transfusion Reactions: No Reported Reaction Additional Past Anesthesia/Blood Transfusion Reaction / Comment(s): PT refuses blood r/t holiness preferences Past Psychological History: No Psychological Hx Reported Additional Psychological History / Comment(s): lives at [facility]- has a ronn Nalini and Chloe that check in on her Smoking Status: Never smoker Past Alcohol Use History: None Reported Additional Past Alcohol Use History / Comment(s): started smoking at age 16 and quit 2008 smoked 1 ppd Past Drug Use History: None Reported - Past Family History Father Family Medical History: Dementia Mother Family Medical History: Dementia, Diabetes Mellitus Medications and Allergies Home Medications Medication Instructions Recorded Confirmed Type Donepezil [Aricept] 10 mg PO DAILY@0800 09/07/16 03/02/19 History Levothyroxine Sodium [Synthroid] 75 mcg PO DAILY@0800 09/07/16 03/02/19 History Atorvastatin [Lipitor] 20 mg PO HS@199907/06/18 03/02/19 History Memantine [Namenda] 10 mg PO BID@0800,199907/06/18 03/02/19 History Acetaminophen Tab [Tylenol] 1,000 mg PO Q8H PRN 12/17/18 03/02/19 History risperiDONE 0.25 mg PO BID@0800,199912/17/18 03/02/19 History Apixaban [Eliquis] 2.5 mg PO BID@0800,199903/02/19 03/02/19 History Lisinopril [Prinivil] 10 mg PO HS@199903/02/19 03/02/19 History Metoprolol Tartrate [Lopressor] 25 mg PO BID@0800,199903/02/19 03/02/19 History Polyethylene Glycol 3350 [Miralax] 17 gm PO Q72H PRN 03/02/19 03/02/19 History Potassium Chloride ER [K-Dur 10] 10 meq PO DAILY@0800 03/02/19 03/02/19 History Sennosides/Docusate Sodium 1 tab PO Q48H PRN 03/02/19 03/02/19 History [Senna-S Laxative Tablet] Allergies Allergy/AdvReac Type Severity Reaction Status Date / Time No Known Allergies Allergy Verified 03/02/19 16:10 Physical Exam Vitals: Vital Signs Temp Pulse Pulse Resp BP BP Pulse Ox 03/03/19 08:46 136/79 03/03/19 07:46 97.5 F L 98 16 158/121 98 03/03/19 04:00 98 F 96 16 163/84 97 03/03/19 00:00 98.3 F 66 16 153/78 99 03/02/19 18:44 98 F 89 18 143/98 96 03/02/19 16:41 89 17 136/69 98 03/02/19 14:30 98.2 F 128 H 17 125/93 95 Intake and Output 03/02/19 03/03/19 03/03/19 22:59 06:59 14:59 Intake Total 0 Output Total 1500 Balance -1500 0 Intake: Oral 0 Output: Urine 1100 Straight 400 Post Void Residual 400 Other: Voiding Method Incontinent Incontinent Weight 48 kg PHYSICAL EXAMINATION: GENERAL: 78-year-old female in no acute distress at the time of my examination HEENT: Head is atraumatic, normocephalic. Pupils equal, round. Sclera a nicteric. Conjunctiva are clear. Mucous membranes of the mouth are moist. Neck is supple. There is no elevated jugular venous pressure. No carotid bruit is heard. HEART EXAMINATION: Heart S1 and S2 irregularly irregular a systolic ejection murmur is heard CHEST EXAMINATION: Lungs are clear to auscultation and precussion. No chest wall tenderness is noted on palpation or with deep breathing. ABDOMEN: Soft, nontender. Bowel sounds are heard. No organomegaly noted. EXTREMITIES: 2+ peripheral pulses with no evidence of peripheral edema and no calf tenderness noted. NEUROLOGIC [patient is awake, alert, confused Results 03/03/19 04:31 03/03/19 04:31 Cardiac Enzymes 03/02/19 03/02/19 03/02/19 Range/Units 15:04 15:04 21:20 AST 24 (14-36) U/L Troponin I <0.012 <0.012 (0.000-0.034) ng/mL 03/03/19 03/03/19 Range/Units 04:31 04:31 AST 21 (14-36) U/L Troponin I <0.012 (0.000-0.034) ng/mL Coagulation 03/02/19 Range/Units 15:04 PT 11.1 (9.0-12.0) sec APTT 28.7 (22.0-30.0) sec Lipids 03/03/19 Range/Units 04:31 Triglycerides 52 (<150) mg/dL Cholesterol 111 (<200) mg/dL HDL Cholesterol 50 (40-60) mg/dL CBC 03/02/19 03/03/19 Range/Units 15:04 04:31 WBC 7.6 6.6 (3.8-10.6) k/uL RBC 4.26 3.97 (3.80-5.40) m/uL Hgb 13.6 12.6 (11.4-16.0) gm/dL Hct 41.4 37.7 (34.0-46.0) % Plt Count 215 215 (150-450) k/uL Comprehensive Metabolic Panel 03/02/19 03/03/19 Range/Units 15:04 04:31 Sodium 141 140 (137-145) mmol/L Potassium 4.4 3.7 (3.5-5.1) mmol/L Chloride 104 106 (98-107) mmol/L Carbon Dioxide 24 27 (22-30) mmol/L BUN 30 H 26 H (7-17) mg/dL Creatinine 0.94 0.78 (0.52-1.04) mg/dL Glucose 116 H 91 (74-99) mg/dL Calcium 9.7 9.2 (8.4-10.2) mg/dL AST 24 21 (14-36) U/L ALT 29 21 (9-52) U/L Alkaline Phosphatase 111 93 (38-126) U/L Total Protein 7.1 6.2 L (6.3-8.2) g/dL Albumin 4.2 3.5 (3.5-5.0) g/dL Current Medications Generic Name Dose Route Start Last Admin Trade Name Vidya PRN Reason Stop Dose Admin Apixaban 2.5 mg 03/02/19 20:00 03/02/19 21:48 Eliquis PO 2.5 mg BID@ [facility] Administration Aspirin 325 mg 03/03/19 09:00 Aspirin PO DAILY [facility] Atorvastatin Calcium 20 mg 03/02/19 20:00 03/02/19 21:48 Lipitor PO 20 mg HS@1999 [facility] Administration Donepezil HCl 10 mg 03/03/19 08:00 Aricept PO DAILY@0800 [facility] Levothyroxine Sodium 75 mcg 03/03/19 06:30 03/03/19 06:20 Synthroid PO 75 mcg DAILY@0630 [facility] Administration Lisinopril 10 mg 03/02/19 20:00 03/02/19 21:48 Zestril PO 10 mg HS@1999 [facility] Administration Lorazepam 0.5 mg 03/02/19 23:12 Ativan IV Q4HR PRN Agitation Memantine 10 mg 03/02/19 20:00 03/02/19 21:48 Namenda PO 10 mg BID@ [facility] Administration Metoprolol Tartrate 25 mg 03/02/19 20:00 03/02/19 21:48 Lopressor PO 25 mg BID@ [facility] Administration Nitroglycerin 0.4 mg 03/02/19 16:22 Nitrostat SUBLINGUAL Q5M PRN Chest Pain Polyethylene Glycol 17 gm 03/02/19 16:25 Miralax PO Q72H PRN Constipation Potassium Chloride 10 meq 03/03/19 08:00 K-Dur 10 PO DAILY@0800 [facility] Senna/Docusate Sodium 1 each 03/02/19 16:25 Senokot-S PO Q48H PRN Constipation Intake and Output 03/02/19 03/03/19 03/03/19 22:59 06:59 14:59 Intake Total 0 Output Total 1500 Balance -1500 0 Intake: Oral 0 Output: Urine 1100 Straight 400 Post Void Residual 400 Other: Voiding Method Incontinent Incontinent Weight 48 kg 03/03/19 04:31 03/03/19 04:31 EKG Interpretations (text) EKG shows atrial fibrillation with a rapid ventricular response Assessment and Plan Plan: Assessment and plan #1 chest pain, atypical in nature, troponins negative 3. EKG shows atrial fibrillation with a controlled ventricular response #2 persistent atrial fibrillation on long-term anticoagulation #3 hypertension #4 hyperlipidemia #5 prior TIA #6 of advanced dementia Plan We will decrease the aspirin to 81 mg daily, add a small dose of Imdur to the medication regime. Obtain echocardiogram with Doppler study. Further recommendations to follow .DNP note has been reviewed, I agree with a documented findings and plan of care. Patient was seen and examined.
[2019-03-03] MEDS: ASPIRIN 325 MG TAB PO SCH (15:28)
[2019-03-03] MEDS: risperiDONE 0.25 MG TAB PO SCH (21:17)
[2019-03-03] MEDS: ATORVASTATIN 20 MG TAB PO SCH (21:18)
[2019-03-03] MEDS: LISINOPRIL 10 MG TAB PO SCH (21:18)
[2019-03-04 05:57] LABS: Basophils % (A) 1 %; Eosinophils # (A) 0.2 k/uL (0-0.7); Eosinophils % (A) 3 %; HCT 42.7 % (34.0-46.0); HGB 13.2 gm/dL (11.4-16.0); Lymphocytes # (A) 1.2 k/uL (1.0-4.8); Lymphocytes % (A) 23 %; MCH 30.7 pg (25.0-35.0); MCV 99.1 fL (80.0-100.0); Mean Platelet Volume 7.9; Monocytes # (A) 0.4 k/uL (0-1.0); Monocytes % (A) 8 %; Neutrophils # (A) 3.3 k/uL (1.3-7.7); Neutrophils % (A) 63 %; Platelet Count 194 k/uL (150-450); RBC 4.31 m/uL (3.80-5.40); RDW 13.1 % (11.5-15.5); WBC 5.2 k/uL (3.8-10.6)
[2019-03-04] MEDS: LEVOTHYROXINE 75 MCG TAB PO SCH (06:03)
[2019-03-04 06:18] LABS: Albumin 3.3 g/dL (3.5-5.0); Calcium 8.9 mg/dL (8.4-10.2); Potassium 3.8 mmol/L (3.5-5.1); Total Bilirubin 0.8 mg/dL (0.2-1.3); Total Protein 6.1 g/dL (6.3-8.2)
[2019-03-04] MEDS: METOPROLOL TARTRATE 25 MG TAB PO SCH (07:37)
[2019-03-04] MEDS: risperiDONE 0.25 MG TAB PO SCH (07:37)
[2019-03-04] MEDS: APIXABAN 2.5 MG TABLET PO SCH (07:38)
[2019-03-04] MEDS: POTASSIUM CHLORIDE ER 10 MEQ TAB.ER.PRT PO SCH (07:38)
[2019-03-04] MEDS: ASPIRIN 325 MG TAB PO SCH (07:38)
[2019-03-04] MEDS: DONEPEZIL 10 MG TAB PO SCH (07:38)
[2019-03-04] MEDS: MEMANTINE 10 MG TAB PO SCH (07:38)
[2019-03-04] MEDS ORDERED: FAMOTIDINE 20 MG TAB PO SCH (09:00)
[2019-03-04 11:51] VITALS: BMI 17.8
[2019-03-04 11:55] VITALS: BP 104/61; RESP 18; TEMP 97.8
--- NOTE | 2019-03-04 12:52 | P.DS ---
Providers Date of admission: 03/02/19 16:22 Expected date of discharge: 03/04/19 Attending physician: Bryon Hicks Consults: 03/02/19 16:22 Consult Physician Urgent Consulting Provider: Alize Del Toro Consult Reason/Comments: chest pain Do you want consulting provider notified?: Yes Primary care physician: Nandini Adams Hospital Course: Discharge diagnosis 1. Chest pain. Possibly secondary to atrial fibrillation with rapid ventricular response. Resolved. TN ruled out. Troponins negative 3. Chest x- ray showing cardiomegaly and chronic changes without acute pulmonary process. EKG completed showing atrial fibrillation with rapid ventricular response. 2. Paroxysmal atrial fibrillation with episodes of rapid ventricular response. Patient maintained on eliquis 2.5 for anticoagulation. Cardiology did increase the Lopressor to 50 mg daily and continue 25 mg at night. And heart rate has now been controlled. 3. Advanced dementia. Patient is maintained on risperidone and Aricept. Medications do have side effects of QT prolonging this was discussed with cardiology services during previous admission. Per cardiology okay to resume both these medications. Current EKG not showing any QT prolong 4. Previous history of TIA 5. History of throat cancer 6. History of hyperlipidemia. maintained on Lipitor 7. History of essential hypertension 8. Hypothyroidism. Patient maintained on Synthroid 9. History of cerebrovascular ventricularmegaly. During previous admission head CT showing cerebral ventriculomegaly. Neurology services did evaluate and family didn't want any surgical intervention. Patient to follow-up with neurology outpatient 10. Urinary retention. Patient is urinating without evidence of retention. Urinalysis was ordered but not collected during this admission. However, patient does not having any burning with urination, frequency or hesitancy. No evidence of any fevers. Hospital course This is a 78-year-old female patient of Dr. hutchinson. Patient presented with complaints of chest pain. Patient has known past medical history of advanced dementia. Patient lives at [facility]. According to ER records patient told staff that her heart hurt. Additional medical history includes CVA, atrial fibrillation in which she is maintained on eliquis, hyperlipidemia, hypertension, osteoarthritis, thyroid disorder and throat cancer. Chest x-ray completed showing cardiomegaly and chronic changes without acute pulmonary process. Troponins negative 3. EKG showing atrial fibrillation with rapid ventricular response heart rate 115. Cardiology services have been consulted. At this time patient is resting comfortably in bed. Patient denies any chest pain or shortness of breath. Patient denies nausea vomiting or diarrhea. Patient denies any urinary burning or frequency. 03/04/2019 patient is medically stable for discharge. She has been cleared by cardiology for discharge. She presented with chest pain. TN was ruled out. Cardiology did increase patient's Lopressor to 50 mg in the morning and continue 25 mg the evening. Echo not completed during this admission she'll follow-up with cardiology outpatient to further address the echo. Initially cardiology addressed starting Imdur. The patient was having some hypotension and chest pain resolved without the need of Imdur. Patient's symptoms have improved. TN was ruled out. She is medically stable for discharge. We'll follow-up with her PCP in 3 days and cardiology in 1 week. I performed an examination of the patient and discussed their management with the physician Automatic Nailing Machine Feeder. I have reviewed the Physician Automatic Nailing Machine Feeder's notes and agree with the documented findings and plan of care Patient Condition at Discharge: Stable Plan - Discharge Summary New Discharge Prescriptions: New Metoprolol Tartrate [Lopressor] 25 mg PO HS #30 tab Metoprolol Tartrate [Lopressor] 50 mg PO DAILY #30 tab Continue Levothyroxine Sodium [Synthroid] 75 mcg PO DAILY@0800 Donepezil [Aricept] 10 mg PO DAILY@0800 Memantine [Namenda] 10 mg PO BID@799,1999 Atorvastatin [Lipitor] 20 mg PO HS@1999 risperiDONE 0.25 mg PO BID@0800,1999 Acetaminophen Tab [Tylenol] 1,000 mg PO Q8H PRN PRN Reason: Pain Apixaban [Eliquis] 2.5 mg PO BID@08,1999 Lisinopril [Prinivil] 10 mg PO HS@1999 Polyethylene Glycol 3350 [Miralax] 17 gm PO Q72H PRN PRN Reason: Constipation Potassium Chloride ER [K-Dur 10] 10 meq PO DAILY@0800 Sennosides/Docusate Sodium [Senna-S Laxative Tablet] 1 tab PO Q48H PRN PRN Reason: Constipation Discontinued Metoprolol Tartrate [Lopressor] 25 mg PO BID@0800,1999 Discharge Medication List Donepezil [Aricept] 10 mg PO DAILY@0800 09/07/16 [History] Levothyroxine Sodium [Synthroid] 75 mcg PO DAILY@0800 09/07/16 [History] Atorvastatin [Lipitor] 20 mg PO HS@199907/06/18 [History] Memantine [Namenda] 10 mg PO BID@0800,199907/06/18 [History] Acetaminophen Tab [Tylenol] 1,000 mg PO Q8H PRN 12/17/18 [History] risperiDONE 0.25 mg PO BID@0800,199912/17/18 [History] Apixaban [Eliquis] 2.5 mg PO BID@0800,199903/02/19 [History] Lisinopril [Prinivil] 10 mg PO HS@199903/02/19 [History] Polyethylene Glycol 3350 [Miralax] 17 gm PO Q72H PRN 03/02/19 [History] Potassium Chloride ER [K-Dur 10] 10 meq PO DAILY@0800 03/02/19 [History] Sennosides/Docusate Sodium [Senna-S Laxative Tablet] 1 tab PO Q48H PRN 03/02/19 [History] Metoprolol Tartrate [Lopressor] 25 mg PO HS #30 tab 03/04/19 [Rx] Metoprolol Tartrate [Lopressor] 50 mg PO DAILY #30 tab 03/04/19 [Rx] Follow up Appointment(s)/Referral(s): [facility] [Provider Group] - 1 Week Nandini Adams MD [Primary Care Provider] - 3 Days Patient Instructions/Handouts: Chest Pain (DC) Activity/Diet/Wound Care/Special Instructions: Metoprolol dose increased to 50 mg AM, same dose of 25 mg in the evening. Discharge Disposition: HOME SELF-CARE
[2019-03-04 13:43] VITALS: PULSE 101
[2019-03-04] MEDS ORDERED: METOPROLOL TARTRATE 25 MG TAB PO SCH (21:00)
[2019-03-05] MEDS ORDERED: METOPROLOL TARTRATE 50 MG TAB PO SCH (09:00)
== END 2019-03-04 16:35 | disposition home or self-care (01) ==
LOC: EC 14:22 → 3SCARD 16:22
PROVIDERS: ADMIT Internal Medicine; ATTEND Internal Medicine
DX: R07.89 Other chest pain (principal); I11.9 Hypertensive heart disease without heart failure; I48.0 Paroxysmal atrial fibrillation; F03.90 Unspecified dementia, unspecified severity, without behavioral disturbance, psychotic disturbance, mood disturbance, and anxiety; E78.5 Hyperlipidemia, unspecified; M19.90 Unspecified osteoarthritis, unspecified site; E03.9 Hypothyroidism, unspecified; R33.9 Retention of urine, unspecified; G93.89 Other specified disorders of brain; Z79.01 Long term (current) use of anticoagulants; Z79.890 Hormone replacement therapy; Z79.899 Other long term (current) drug therapy; Z86.73 Personal history of transient ischemic attack (TIA), and cerebral infarction without residual deficits; Z87.440 Personal history of urinary (tract) infections; Z85.819 Personal history of malignant neoplasm of unspecified site of lip, oral cavity, and pharynx; Z87.891 Personal history of nicotine dependence; Z83.3 Family history of diabetes mellitus; Z81.8 Family history of other mental and behavioral disorders; I95.9 Hypotension, unspecified
CPT/HCPCS: 96361; 96374; 99285; 36415; 94760; 93005; 97162; 97165; 80061; 80053 ×3; 83735; 84484 ×2; 85025 ×3; 85610; 85730; 71046; G0378 ×3; J2060

== ENCOUNTER 2019-06-04 16:43 | Emergency (ER) | payer MEDICARE ==
[2019-06-04 17:36] VITALS: TEMP 97.8
[2019-06-04] MEDS ORDERED: LISINOPRIL 10 MG TAB PO STA ×2 (17:50→19:49)
[2019-06-04] MEDS ORDERED: METOPROLOL TARTRATE 50 MG TAB PO STA (17:50)
[2019-06-04] MEDS ORDERED: SODIUM CHLORIDE 0.9% 1,000 ML IV STA (17:51)
--- NOTE | 2019-06-04 17:54 | ED ---
General Adult HPI - General Chief complaint: Recheck/Abnormal Lab/Rx Stated complaint: htn Time Seen by Provider: 06/04/19 17:32 Source: patient, family, EMS, RN notes reviewed Mode of arrival: EMS Limitations: altered mental status - History of Present Illness Initial comments: Patient is a pleasant 78-year-old female presenting to the emergency department for hypertension. Patient is a very poor historian. Patient's niece is present. Patient denies any complaints. No pain. Patient does not feel weak. Niece states patient may have been somewhat generally weak earlier. She feels that she seems better at this point. She states patient was transferred because they were worried about her blood pressure. She states patient is at her normal mental status. - Related Data Home Medications Medication Instructions Recorded Confirmed Donepezil [Aricept] 10 mg PO DAILY@0800 09/07/16 03/02/19 Levothyroxine Sodium [Synthroid] 75 mcg PO DAILY@0800 09/07/16 03/02/19 Atorvastatin [Lipitor] 20 mg PO HS@199907/06/18 03/02/19 Memantine [Namenda] 10 mg PO BID@0800,199907/06/18 03/02/19 Acetaminophen Tab [Tylenol] 1,000 mg PO Q8H PRN 12/17/18 03/02/19 risperiDONE 0.25 mg PO BID@0800,199912/17/18 03/02/19 Apixaban [Eliquis] 2.5 mg PO BID@0800,199903/02/19 03/02/19 Lisinopril [Prinivil] 10 mg PO HS@199903/02/19 03/02/19 Polyethylene Glycol 3350 [Miralax] 17 gm PO Q72H PRN 03/02/19 03/02/19 Potassium Chloride ER [K-Dur 10] 10 meq PO DAILY@0800 03/02/19 03/02/19 Sennosides/Docusate Sodium 1 tab PO Q48H PRN 03/02/19 03/02/19 [Senna-S Laxative Tablet] Previous Rx's Medication Instructions Recorded Metoprolol Tartrate [Lopressor] 25 mg PO HS #30 tab 03/04/19 Metoprolol Tartrate [Lopressor] 50 mg PO DAILY #30 tab 03/04/19 Allergies Allergy/AdvReac Type Severity Reaction Status Date / Time No Known Allergies Allergy Verified 06/04/19 16:55 Review of Systems ROS Statement: Those systems with pertinent positive or pertinent negative responses have been documented in the HPI. ROS Other: All systems not noted in ROS Statement are negative. Constitutional: Denies: fever Eyes: Denies: eye pain ENT: Denies: ear pain Respiratory: Denies: cough, dyspnea Cardiovascular: Denies: chest pain Endocrine: Denies: fatigue Gastrointestinal: Denies: abdominal pain Genitourinary: Denies: dysuria Musculoskeletal: Denies: back pain Skin: Denies: rash Neurological: Reports: as per HPI Past Medical History Past Medical History: Atrial Fibrillation, Cancer, CVA/TIA, Dementia, Hyperlipidemia, Hypertension, Osteoarthritis (OA), Thyroid Disorder Additional Past Medical History / Comment(s): throat cancer - 20 years ago; NOS Afib 06/16/18. TIA - 06/18 transfered to [facility] History of Any Multi-Drug Resistant Organisms: None Reported Past Surgical History: Breast Surgery Additional Past Surgical History / Comment(s): implants Past Anesthesia/Blood Transfusion Reactions: No Reported Reaction Additional Past Anesthesia/Blood Transfusion Reaction / Comment(s): PT refuses blood r/t taoism preferences Past Psychological History: No Psychological Hx Reported Smoking Status: Never smoker Past Alcohol Use History: None Reported Past Drug Use History: None Reported - Past Family History Father Family Medical History: Dementia Mother Family Medical History: Dementia, Diabetes Mellitus General Exam Limitations: altered mental status General appearance: alert, in no apparent distress Head exam: Present: normocephalic Eye exam: Present: normal appearance, PERRL, EOMI ENT exam: Present: normal oropharynx Neck exam: Present: normal inspection Respiratory exam: Present: normal lung sounds bilaterally Cardiovascular Exam: Present: regular rate, irregular rhythm GI/Abdominal exam: Present: soft. Absent: distended, tenderness Extremities exam: Present: normal inspection, full ROM Neurological exam: Present: alert, CN II-XII intact. Absent: motor sensory deficit Expanded Neurological exam: Present: protecting the airway Patient oriented to: Present: person. Absent: place (Family reports as normal) Speech: Present: fluid speech Sensory exam: Upper Extremity Light Touch: Normal, Lower Extremity Light Touch: Normal Motor strength exam: RUE: 5, LUE: 5, RLE: 5, LLE: 5 Eye Response: (4) open spontaneously Motor Response: (6) obeys commands Verbal Response: (4) confused conversation Psychiatric exam: Present: normal affect, normal mood Skin exam: Present: normal color Course Vital Signs 06/04/19 16:55 Temperature 97.8 F Pulse Rate 70 Respiratory 18 Rate Blood Pressure 166/113 O2 Sat by Pulse 97 Oximetry EKG Findings - EKG Comments: EKG Findings:: A flutter with rate of 1:15. QRS 74. QT 346. QTc 478. Normal axis. LVH with repolarization change. Medical Decision Making - Medical Decision Making Patient reevaluated and resting comfortably in bed. Patient states she is symptom-free and has no complaints. Blood pressure started to improve. Patient provided additional blood pressure medication and will be discharged following this. - Lab Data Result diagrams: 06/04/19 18:32 06/04/19 18:18 Lab Results 06/04/19 06/04/19 06/04/19 Range/Units 18:18 18:32 18:32 WBC 8.0 (3.8-10.6) k/uL RBC 4.07 (3.80-5.40) m/uL Hgb 12.3 (11.4-16.0) gm/dL Hct 38.4 (34.0-46.0) % MCV 94.4 (80.0-100.0) fL MCH 30.3 (25.0-35.0) pg MCHC 32.1 (31.0-37.0) g/dL RDW 13.3 (11.5-15.5) % Plt Count 208 (150-450) k/uL Neutrophils % 79 % Lymphocytes % 12 % Monocytes % 5 % Eosinophils % 2 % Basophils % 0 % Neutrophils # 6.3 (1.3-7.7) k/uL Lymphocytes # 1.0 (1.0-4.8) k/uL Monocytes # 0.4 (0-1.0) k/uL Eosinophils # 0.2 (0-0.7) k/uL Basophils # 0.0 (0-0.2) k/uL Sodium 141 (137-145) mmol/L Potassium 4.9 (3.5-5.1) mmol/L Chloride 107 (98-107) mmol/L Carbon Dioxide 25 (22-30) mmol/L Anion Gap 9 mmol/L BUN 28 H (7-17) mg/dL Creatinine 0.80 (0.52-1.04) mg/dL Est GFR (CKD-EPI)AfAm 82 (>60 ml/min/1.73 sqM) Est GFR (CKD-EPI)NonAf 72 (>60 ml/min/1.73 sqM) Glucose 107 H (74-99) mg/dL Calcium 9.5 (8.4-10.2) mg/dL Magnesium 1.8 (1.6-2.3) mg/dL Total Bilirubin 1.7 H (0.2-1.3) mg/dL AST 48 H (14-36) U/L ALT 27 (4-34) U/L Alkaline Phosphatase 97 (38-126) U/L Total Protein 7.3 (6.3-8.2) g/dL Albumin 4.2 (3.5-5.0) g/dL Urine Color Yellow Urine Appearance Clear (Clear) Urine pH 6.0 (5.0-8.0) Ur Specific Starr 1.027 (1.001-1.035) Urine Protein 1+ H (Negative) Urine Glucose (UA) Negative (Negative) Urine Ketones Negative (Negative) Urine Blood Negative (Negative) Urine Nitrite Negative (Negative) Urine Bilirubin Negative (Negative) Urine Urobilinogen 8.0 (<2.0) mg/dL Ur Leukocyte Esterase Moderate H (Negative) Urine RBC 2 (0-5) /hpf Urine WBC 6 H (0-5) /hpf Ur Squamous Epith Cells 5 H (0-4) /hpf Urine Mucus Occasional H (None) /hpf - Radiology Data Radiology results: image reviewed (Chest x-ray shows cardiomegaly. Small pleural effusions but no heart failure. No significant change from previous.) Disposition Clinical Impression: Hypertension Disposition: HOME SELF-CARE Condition: Stable Instructions (If sedation given, give patient instructions): Hypertension (ED) Additional Instructions: Please follow-up with primary care physician in the next couple days for recheck. Return for uncontrolled blood pressure, worsening or change in symptoms, weakness, or other concerns. Is patient prescribed a controlled substance at d/c from ED?: No Referrals: Nandini Adams MD [Primary Care Provider] - 1-2 days Time of Disposition: 19:58
[2019-06-04 18:44] LABS: Basophils % (A) 0 %; Eosinophils # (A) 0.2 k/uL (0-0.7); Eosinophils % (A) 2 %; HCT 38.4 % (34.0-46.0); HGB 12.3 gm/dL (11.4-16.0); Lymphocytes % (A) 12 %; MCH 30.3 pg (25.0-35.0); MCHC 32.1 g/dL (31.0-37.0); MCV 94.4 fL (80.0-100.0); Mean Platelet Volume 8.5; Monocytes # (A) 0.4 k/uL (0-1.0); Monocytes % (A) 5 %; Neutrophils # (A) 6.3 k/uL (1.3-7.7); Neutrophils % (A) 79 %; Platelet Count 208 k/uL (150-450); RBC 4.07 m/uL (3.80-5.40); RDW 13.3 % (11.5-15.5)
[2019-06-04 18:52] LABS: Appearance,Urine Clear (Clear); Bilirubin,Urine Negative (Negative); Blood,Urine Negative (Negative); Color,Urine Yellow; Glucose,Urine (UA) Negative (Negative); Ketones,Urine Negative (Negative); Leukocyte Esterase,Urine Moderate (Negative); Mucus,Urine Occasional /hpf; Nitrite,Urine Negative (Negative); Protein,Urine 1+ (Negative); RBC,Urine 2 /hpf (0-5); Specific Gravity,Urine 1.027 (1.001-1.035); Squamous Epithelial Cell,Urine 5 /hpf (0-4); WBC,Urine 6 /hpf (0-5)
[2019-06-04 18:54] LABS: Albumin 4.2 g/dL (3.5-5.0); Calcium 9.5 mg/dL (8.4-10.2); Magnesium 1.8 mg/dL (1.6-2.3); Total Bilirubin 1.7 mg/dL (0.2-1.3); Total Protein 7.3 g/dL (6.3-8.2)
[2019-06-04 19:05] LABS: Potassium 4.9 mmol/L (3.5-5.1)
--- NOTE | 2019-06-04 19:14 | XR ---
EXAMINATION TYPE: XR chest 2V DATE OF EXAM: 06/04/2019 COMPARISON: March 02, 2019 HISTORY: Weakness TECHNIQUE: 2 views FINDINGS: Heart is enlarged. There is bilateral breast implants with calcification. Lungs are clear o f infiltrate. There is no heart failure. There is very slight blunting of the costophrenic angles. Th oracic aorta is atheromatous. The thoracic spine is intact. IMPRESSION: Cardiomegaly. Small pleural effusions but no heart failure seen. No significant change co mpared to old exam.
[2019-06-04] MEDS ORDERED: METOPROLOL TARTRATE 12.5 MG TAB PO STA (19:50)
[2019-06-05 00:40] VITALS: BP 142/99; PULSE 79; RESP 16
== END 2019-06-04 23:45 | disposition home or self-care (01) ==
LOC: EC 16:43
DX: I10 Essential (primary) hypertension (principal); I48.91 Unspecified atrial fibrillation; F03.90 Unspecified dementia, unspecified severity, without behavioral disturbance, psychotic disturbance, mood disturbance, and anxiety; E78.5 Hyperlipidemia, unspecified; E07.9 Disorder of thyroid, unspecified; Z79.890 Hormone replacement therapy; Z79.01 Long term (current) use of anticoagulants; Z79.899 Other long term (current) drug therapy; Z86.73 Personal history of transient ischemic attack (TIA), and cerebral infarction without residual deficits
CPT/HCPCS: 36415; 71046; 80053; 81001; 83735; 85025; 93005; 96360; 96361; 99284

== ENCOUNTER 2019-06-05 20:45 | Inpatient (IN) | payer MEDICARE ==
[2019-06-05] MEDS ORDERED: SODIUM CHLORIDE 0.9% 1,000 ML IV STA (21:03)
[2019-06-05] MEDS ORDERED: DILTIAZEM DRIP BOLUS FROM BAG 1 MG SOLN IV ONE (21:06)
--- NOTE | 2019-06-05 21:07 | ED ---
Weakness HPI - General Stated complaint: Altered Mental Status Time Seen by Provider: 06/05/19 21:02 Source: RN notes reviewed, old records reviewed Limitations: altered mental status - History of Present Illness Initial comments: This is a 78-year-old female who is a poor historian. Patient presents today for evaluation regarding altered mental state continued weakness persistent weakness not feeling appropriately not acting appropriately family states not eating or drinking appropriately. Patient is unable to give accurate history of condition out but denies any complaint family at bedside states patient never is completely MD Complaint: generalized weakness, lack of energy, difficulty walking -: days(s) Location: generalized, face Severity: moderate Severity scale (1-10): 4 Quality: tingling Consistency: constant Improves with: none Worsens with: none Context: new medication, recent illness, history of similar Associated Symptoms: confusion, loss of appetite, nausea/vomiting, shortness of breath - Related Data Home Medications Medication Instructions Recorded Confirmed Donepezil [Aricept] 10 mg PO DAILY@0800 09/07/16 06/06/19 Levothyroxine Sodium [Synthroid] 75 mcg PO DAILY@0800 09/07/16 06/06/19 Atorvastatin [Lipitor] 20 mg PO HS@199907/06/18 06/06/19 Memantine [Namenda] 20 mg PO BID@0800,199907/06/18 06/06/19 Acetaminophen Tab [Tylenol] 1,000 mg PO Q8H PRN 12/17/18 06/06/19 risperiDONE 0.25 mg PO BID@0800,199912/17/18 06/06/19 Apixaban [Eliquis] 2.5 mg PO BID@0800,199903/02/19 06/06/19 Lisinopril [Prinivil] 20 mg PO HS@1700 03/02/19 06/06/19 Polyethylene Glycol 3350 [Miralax] 17 gm PO Q72H PRN 03/02/19 06/06/19 Potassium Chloride ER [K-Dur 10] 10 meq PO DAILY@0800 03/02/19 06/06/19 Sennosides/Docusate Sodium 1 tab PO Q48H PRN 03/02/19 06/06/19 [Senna-S Laxative Tablet] Previous Rx's Medication Instructions Recorded Metoprolol Tartrate [Lopressor] 25 mg PO HS #30 tab 03/04/19 Metoprolol Tartrate [Lopressor] 50 mg PO DAILY #30 tab 03/04/19 Allergies Allergy/AdvReac Type Severity Reaction Status Date / Time No Known Allergies Allergy Verified 06/06/19 10:11 Review of Systems ROS Statement: Those systems with pertinent positive or pertinent negative responses have been documented in the HPI. ROS Other: All systems not noted in ROS Statement are negative. Past Medical History Past Medical History: Atrial Fibrillation, Cancer, CVA/TIA, Dementia, Hyperlipidemia, Hypertension, Osteoarthritis (OA), Thyroid Disorder Additional Past Medical History / Comment(s): throat cancer - 20 years ago; NOS Afib 06/16/18. TIA - 06/18 transfered to [facility] History of Any Multi-Drug Resistant Organisms: None Reported Past Surgical History: Breast Surgery Additional Past Surgical History / Comment(s): implants Past Anesthesia/Blood Transfusion Reactions: No Reported Reaction Additional Past Anesthesia/Blood Transfusion Reaction / Comment(s): PT refuses blood r/t christianity preferences Past Psychological History: No Psychological Hx Reported Smoking Status: Never smoker Past Alcohol Use History: None Reported Past Drug Use History: None Reported - Past Family History Father Family Medical History: Dementia Mother Family Medical History: Dementia, Diabetes Mellitus General Exam Limitations: altered mental status General appearance: alert, anxious, lethargic, cachectic Head exam: Present: atraumatic, normocephalic, normal inspection Eye exam: Present: normal appearance, PERRL, EOMI. Absent: scleral icterus, conjunctival injection, periorbital swelling ENT exam: Present: normal exam, mucous membranes moist Neck exam: Present: normal inspection. Absent: tenderness, meningismus, lymphadenopathy Respiratory exam: Present: normal lung sounds bilaterally. Absent: respiratory distress, wheezes, rales, rhonchi, stridor Cardiovascular Exam: Present: tachycardia, irregular rhythm, normal heart sounds. Absent: systolic murmur, diastolic murmur, rubs, gallop, clicks GI/Abdominal exam: Present: soft, normal bowel sounds. Absent: distended, tenderness, guarding, rebound, rigid Extremities exam: Present: normal inspection, full ROM, normal capillary refill. Absent: tenderness, pedal edema, joint swelling, calf tenderness Back exam: Present: normal inspection Neurological exam: Present: alert, oriented X3, CN II-XII intact Psychiatric exam: Present: normal affect, normal mood Skin exam: Present: warm, dry, intact, normal color. Absent: rash Course Vital Signs 06/05/19 06/05/19 06/05/19 20:50 21:04 21:08 Temperature 97.1 F L Pulse Rate 156 H 100 Pulse Rate [ 154 H Equipment Mechanic Specialist ] Respiratory 18 20 Rate Blood Pressure 152/117 152/104 O2 Sat by Pulse 85 L 97 Oximetry 06/05/19 22:08 Temperature Pulse Rate 96 Pulse Rate [ Equipment Mechanic Specialist ] Respiratory 20 Rate Blood Pressure 170/113 O2 Sat by Pulse 100 Oximetry - Reevaluation(s) Reevaluation #1: 06/05/19 22:35 Medical record including ER visit from yesterday is reviewed Reevaluation #2: 06/05/19 22:35 Patient is doing some pursed lip breathing - Consultations Consultation #1: spoke with Dr. Rashid associate professor of communication for Dr Hicks who was agreeable for admission EKG Findings - EKG Comments: EKG Findings:: EKG shows Afib 167 QRS 78 QTc 463 Medical Decision Making - Medical Decision Making 78 female presents to ED for altered mental status and weakness stability found to have significant CHF as well as dehydration as well as monitoring of neurological status as well as diuresis - Lab Data Result diagrams: 06/06/19 09:29 06/06/19 09:29 Lab Results 06/05/19 06/05/19 06/05/19 Range/Units 21:22 21:22 21:22 WBC 10.4 (3.8-10.6) k/uL RBC 4.52 (3.80-5.40) m/uL Hgb 13.6 (11.4-16.0) gm/dL Hct 42.7 (34.0-46.0) % MCV 94.5 (80.0-100.0) fL MCH 30.1 (25.0-35.0) pg MCHC 31.8 (31.0-37.0) g/dL RDW 12.9 (11.5-15.5) % Plt Count 238 (150-450) k/uL Neutrophils % 83 % Lymphocytes % 10 % Monocytes % 5 % Eosinophils % 1 % Basophils % 0 % Neutrophils # 8.7 H (1.3-7.7) k/uL Lymphocytes # 1.0 (1.0-4.8) k/uL Monocytes # 0.5 (0-1.0) k/uL Eosinophils # 0.1 (0-0.7) k/uL Basophils # 0.0 (0-0.2) k/uL PT (9.0-12.0) sec INR (<1.2) APTT (22.0-30.0) sec Sodium 138 (137-145) mmol/L Potassium 4.5 (3.5-5.1) mmol/L Chloride 106 (98-107) mmol/L Carbon Dioxide 22 (22-30) mmol/L Anion Gap 10 mmol/L BUN 26 H (7-17) mg/dL Creatinine 0.79 (0.52-1.04) mg/dL Est GFR (CKD-EPI)AfAm 84 (>60 ml/min/1.73 sqM) Est GFR (CKD-EPI)NonAf 73 (>60 ml/min/1.73 sqM) Glucose 113 H (74-99) mg/dL Lactic Ac Sepsis Rflx Plasma Lactic Acid Dilip 2.3 H* (0.7-2.0) mmol/L Calcium 9.4 (8.4-10.2) mg/dL Phosphorus 3.7 (2.5-4.5) mg/dL Magnesium 1.6 (1.6-2.3) mg/dL Total Bilirubin 2.0 H (0.2-1.3) mg/dL AST 36 (14-36) U/L ALT 26 (4-34) U/L Alkaline Phosphatase 124 (38-126) U/L Creatine Kinase 105 (30-135) U/L Troponin I (0.000-0.034) ng/mL NT-Pro-B Natriuret Pep pg/mL Total Protein 6.9 (6.3-8.2) g/dL Albumin 3.9 (3.5-5.0) g/dL TSH 0.963 (0.465-4.680) mIU/L Urine Color Urine Appearance (Clear) Urine pH (5.0-8.0) Ur Specific [place] (1.001-1.035) Urine Protein (Negative) Urine Glucose (UA) (Negative) Urine Ketones (Negative) Urine Blood (Negative) Urine Nitrite (Negative) Urine Bilirubin (Negative) Urine Urobilinogen (<2.0) mg/dL Ur Leukocyte Esterase (Negative) Urine RBC (0-5) /hpf Urine WBC (0-5) /hpf Ur Squamous Epith Cells (0-4) /hpf Urine Bacteria (None) /hpf Urine Mucus (None) /hpf 06/05/19 06/05/19 06/05/19 Range/Units 21:22 21:22 21:56 WBC (3.8-10.6) k/uL RBC (3.80-5.40) m/uL Hgb (11.4-16.0) gm/dL Hct (34.0-46.0) % MCV (80.0-100.0) fL MCH (25.0-35.0) pg MCHC (31.0-37.0) g/dL RDW (11.5-15.5) % Plt Count (150-450) k/uL Neutrophils % % Lymphocytes % % Monocytes % % Eosinophils % % Basophils % % Neutrophils # (1.3-7.7) k/uL Lymphocytes # (1.0-4.8) k/uL Monocytes # (0-1.0) k/uL Eosinophils # (0-0.7) k/uL Basophils # (0-0.2) k/uL PT (9.0-12.0) sec INR (<1.2) APTT (22.0-30.0) sec Sodium (137-145) mmol/L Potassium (3.5-5.1) mmol/L Chloride (98-107) mmol/L Carbon Dioxide (22-30) mmol/L Anion Gap mmol/L BUN (7-17) mg/dL Creatinine (0.52-1.04) mg/dL Est GFR (CKD-EPI)AfAm (>60 ml/min/1.73 sqM) Est GFR (CKD-EPI)NonAf (>60 ml/min/1.73 sqM) Glucose (74-99) mg/dL Lactic Ac Sepsis Rflx Y Plasma Lactic Acid Dilip (0.7-2.0) mmol/L Calcium (8.4-10.2) mg/dL Phosphorus (2.5-4.5) mg/dL Magnesium (1.6-2.3) mg/dL Total Bilirubin (0.2-1.3) mg/dL AST (14-36) U/L ALT (4-34) U/L Alkaline Phosphatase (38-126) U/L Creatine Kinase (30-135) U/L Troponin I <0.012 (0.000-0.034) ng/mL NT-Pro-B Natriuret Pep 97432 pg/mL Total Protein (6.3-8.2) g/dL Albumin (3.5-5.0) g/dL TSH (0.465-4.680) mIU/L Urine Color Urine Appearance (Clear) Urine pH (5.0-8.0) Ur Specific [place] (1.001-1.035) Urine Protein (Negative) Urine Glucose (UA) (Negative) Urine Ketones (Negative) Urine Blood (Negative) Urine Nitrite (Negative) Urine Bilirubin (Negative) Urine Urobilinogen (<2.0) mg/dL Ur Leukocyte Esterase (Negative) Urine RBC (0-5) /hpf Urine WBC (0-5) /hpf Ur Squamous Epith Cells (0-4) /hpf Urine Bacteria (None) /hpf Urine Mucus (None) /hpf 06/05/19 06/05/19 Range/Units 21:58 22:32 WBC (3.8-10.6) k/uL RBC (3.80-5.40) m/uL Hgb (11.4-16.0) gm/dL Hct (34.0-46.0) % MCV (80.0-100.0) fL MCH (25.0-35.0) pg MCHC (31.0-37.0) g/dL RDW (11.5-15.5) % Plt Count (150-450) k/uL Neutrophils % % Lymphocytes % % Monocytes % % Eosinophils % % Basophils % % Neutrophils # (1.3-7.7) k/uL Lymphocytes # (1.0-4.8) k/uL Monocytes # (0-1.0) k/uL Eosinophils # (0-0.7) k/uL Basophils # (0-0.2) k/uL PT 11.9 (9.0-12.0) sec INR 1.1 (<1.2) APTT 27.7 (22.0-30.0) sec Sodium (137-145) mmol/L Potassium (3.5-5.1) mmol/L Chloride (98-107) mmol/L Carbon Dioxide (22-30) mmol/L Anion Gap mmol/L BUN (7-17) mg/dL Creatinine (0.52-1.04) mg/dL Est GFR (CKD-EPI)AfAm (>60 ml/min/1.73 sqM) Est GFR (CKD-EPI)NonAf (>60 ml/min/1.73 sqM) Glucose (74-99) mg/dL Lactic Ac Sepsis Rflx Plasma Lactic Acid Dilip (0.7-2.0) mmol/L Calcium (8.4-10.2) mg/dL Phosphorus (2.5-4.5) mg/dL Magnesium (1.6-2.3) mg/dL Total Bilirubin (0.2-1.3) mg/dL AST (14-36) U/L ALT (4-34) U/L Alkaline Phosphatase (38-126) U/L Creatine Kinase (30-135) U/L Troponin I (0.000-0.034) ng/mL NT-Pro-B Natriuret Pep pg/mL Total Protein (6.3-8.2) g/dL Albumin (3.5-5.0) g/dL TSH (0.465-4.680) mIU/L Urine Color Yellow Urine Appearance Cloudy H (Clear) Urine pH 5.5 (5.0-8.0) Ur Specific [place] 1.024 (1.001-1.035) Urine Protein 1+ H (Negative) Urine Glucose (UA) Negative (Negative) Urine Ketones 1+ H (Negative) Urine Blood Negative (Negative) Urine Nitrite Negative (Negative) Urine Bilirubin Negative (Negative) Urine Urobilinogen <2.0 (<2.0) mg/dL Ur Leukocyte Esterase Small H (Negative) Urine RBC 4 (0-5) /hpf Urine WBC 7 H (0-5) /hpf Ur Squamous Epith Cells 6 H (0-4) /hpf Urine Bacteria Rare H (None) /hpf Urine Mucus Occasional H (None) /hpf - Radiology Data Radiology results: report reviewed (CT brain negative for acute disease, CXR shows significant Pulmonary Edema), image reviewed Critical Care Time Critical Care Time: Yes Total Critical Care Time: 31 Disposition Clinical Impression: Atrial fibrillation, Atrial fibrillation with RVR, Dehydration, Syncope, Hypertension, Altered mental status Disposition: ADMITTED IP TO THIS HOSP Condition: Fair Is patient prescribed a controlled substance at d/c from ED?: No
[2019-06-05] MEDS ORDERED: DILTIAZEM 125 MG in SODIUM CHLORIDE 0.9% 100 ML IV SCH (21:15)
[2019-06-05 21:32] LABS: Basophils % (A) 0 %; Eosinophils # (A) 0.1 k/uL (0-0.7); Eosinophils % (A) 1 %; HCT 42.7 % (34.0-46.0); HGB 13.6 gm/dL (11.4-16.0); Lymphocytes % (A) 10 %; MCH 30.1 pg (25.0-35.0); MCHC 31.8 g/dL (31.0-37.0); MCV 94.5 fL (80.0-100.0); Mean Platelet Volume 8.5; Monocytes # (A) 0.5 k/uL (0-1.0); Monocytes % (A) 5 %; Neutrophils # (A) 8.7 k/uL (1.3-7.7); Neutrophils % (A) 83 %; Platelet Count 238 k/uL (150-450); RBC 4.52 m/uL (3.80-5.40); RDW 12.9 % (11.5-15.5); WBC 10.4 k/uL (3.8-10.6)
[2019-06-05 21:43] LABS: Albumin 3.9 g/dL (3.5-5.0); Calcium 9.4 mg/dL (8.4-10.2); Magnesium 1.6 mg/dL (1.6-2.3); Phosphorus 3.7 mg/dL (2.5-4.5); Potassium 4.5 mmol/L (3.5-5.1); Total Protein 6.9 g/dL (6.3-8.2)
[2019-06-05] MEDS ORDERED: IPRATROPIUM-ALBUTEROL 3 ML NEB INHALATION STA (22:07)
[2019-06-05 22:14] LABS: Appearance,Urine Cloudy (Clear); Bacteria,Urine Rare /hpf; Bilirubin,Urine Negative (Negative); Blood,Urine Negative (Negative); Color,Urine Yellow; Glucose,Urine (UA) Negative (Negative); Ketones,Urine 1+ (Negative); Leukocyte Esterase,Urine Small (Negative); Mucus,Urine Occasional /hpf; Nitrite,Urine Negative (Negative); PH, Urine 5.5 (5.0-8.0); Protein,Urine 1+ (Negative); RBC,Urine 4 /hpf (0-5); Specific Gravity,Urine 1.024 (1.001-1.035); Squamous Epithelial Cell,Urine 6 /hpf (0-4); Urobilinogen,Urine <2.0 mg/dL (<2.0); WBC,Urine 7 /hpf (0-5)
--- NOTE | 2019-06-05 22:35 | XR ---
EXAMINATION TYPE: XR chest 2V DATE OF EXAM: 06/05/2019 COMPARISON: 06/04/2019 HISTORY: Weakness TECHNIQUE: 2 views FINDINGS: Heart is enlarged. There is some pulmonary vascular congestion. There are chest leads. Ther e is bilateral breast implants with calcification. IMPRESSION: Mild congestive heart failure. Small pleural effusions. Pulmonary congestion increased co mpared to yesterday.
--- NOTE | 2019-06-05 22:46 | CT ---
EXAMINATION TYPE: CT brain wo con DATE OF EXAM: 06/05/2019 COMPARISON: 12/27/2018 HISTORY: ams CT DLP: 1129.4 mGycm Automated exposure control for dose reduction was used. There is cerebral cortical atrophy. There is no mass effect nor midline shift. There is no sign of in tracranial hemorrhage. The calvarium is intact. IMPRESSION: Cerebral atrophy. No acute intracranial abnormality. No change compared to old exam.
[2019-06-05] MEDS: FUROSEMIDE 10 MG/ML 4 ML VIAL IV SCH (22:51)
[2019-06-05 22:52] LABS: INR 1.1 (<1.2); Partial Thromboplastin Time 27.7 sec (22.0-30.0); Prothrombin Time 11.9 sec (9.0-12.0)
[2019-06-06 04:23] LABS: Cholesterol 149 mg/dL (<200); HDL Cholesterol 55 mg/dL (40-60); LDL Cholesterol,Calculated 80 mg/dL (0-99); Triglycerides 69 mg/dL (<150)
[2019-06-06] MEDS ORDERED: SENNOSIDES-DOCUSATE SODIUM 1 EACH TAB PO PRN (06:28)
[2019-06-06] MEDS ORDERED: ACETAMINOPHEN TAB 500 MG TAB PO PRN (06:28)
[2019-06-06] MEDS ORDERED: POLYETHYLENE GLYCOL 3350 17 GM POWD.PACK PO PRN (06:28)
--- NOTE | 2019-06-06 08:31 | P.CRDCN ---
History of Present Illness Consult date: 06/06/19 Requesting physician: Bryon Hicks Consult reason: atrial fibrillation, congestive heart failure Chief complaint: Mental status changes History of present illness: This is a 78-year-old female with past medical history significant for paroxysmal atrial fibrillation, hypertension, hyperlipidemia, hypothyroidism TIA, advanced dementia, and throat cancer. Patient apparently presented to the hospital with altered mental status and persistent weakness, she had also not been eating and drinking appropriately. History was obtained from the medical record as the patient is not able to give a history because of her dementia. A cardiology consultation was requested for congestive cardiac failure and atrial fibrillation which the patient is known to have. She takes Eliquis at home for anticoagulation. Chest x-ray showed mild congestive heart failure with small pleural effusions. EKG shows atrial fibrillation with a rapid ventricular response. CAT scan of the brain revealed cerebral atrophy with no acute intracranial abnormality. Blood pressure this morning 140/58 with a heart rate of 110, 100% on 2 L of oxygen, temperature 99.1. White blood cell count is normal, hemoglobin 13.6, platelet count 238. Sodium 138, potassium 4.5, BUN 26, creatinine 0.7. Plasma lactic acid 2.3. Troponin 0.012, 0.014. BNP level 15,500. Influenza A and B are negative. TSH 0.96. At the time of my examination this morning, patient is resting comfortably in bed, does not appear to be very short of breath, she does open her eyes when spoken to, is mostly nonverbal. She she does not however have any chest discomfort when asked,the patient was initiated on IV Cardizem in the emergency room and continues to be on IV Cardizem at 5 mg per hour, she also takes 50 mg of Lopressor in the morning and 20 5 in the evening along with Eliquis for anticoagulation. Past Medical History Past Medical History: Atrial Fibrillation, Cancer, CVA/TIA, Dementia, Hyperlipidemia, Hypertension, Osteoarthritis (OA), Thyroid Disorder Additional Past Medical History / Comment(s): throat cancer - 20 years ago; NOS Afib 06/16/18. TIA - 06/18 transfered to [place] History of Any Multi-Drug Resistant Organisms: None Reported Past Surgical History: Breast Surgery Additional Past Surgical History / Comment(s): implants Past Anesthesia/Blood Transfusion Reactions: No Reported Reaction Additional Past Anesthesia/Blood Transfusion Reaction / Comment(s): PT refuses blood r/t jain preferences Past Psychological History: No Psychological Hx Reported Additional Psychological History / Comment(s): lives at [facility]- has a neice Nalini and Chloe that check in on her Smoking Status: Never smoker Past Alcohol Use History: None Reported Additional Past Alcohol Use History / Comment(s): started smoking at age 16 and quit 2009 smoked 1 ppd Past Drug Use History: None Reported - Past Family History Father Family Medical History: Dementia Mother Family Medical History: Dementia, Diabetes Mellitus Medications and Allergies Home Medications Medication Instructions Recorded Confirmed Type Donepezil [Aricept] 10 mg PO DAILY@0800 09/07/16 06/06/19 History Levothyroxine Sodium [Synthroid] 75 mcg PO DAILY@0800 09/07/16 06/06/19 History Atorvastatin [Lipitor] 20 mg PO HS@199907/06/18 06/06/19 History Memantine [Namenda] 20 mg PO BID@0800,199907/06/18 06/06/19 History Acetaminophen Tab [Tylenol] 1,000 mg PO Q8H PRN 12/17/18 06/06/19 History risperiDONE 0.25 mg PO BID@0800,199912/17/18 06/06/19 History Apixaban [Eliquis] 2.5 mg PO BID@0800,199903/02/19 06/06/19 History Lisinopril [Prinivil] 20 mg PO HS@199903/02/19 06/06/19 History Polyethylene Glycol 3350 [Miralax] 17 gm PO Q72H PRN 03/02/19 06/06/19 History Potassium Chloride ER [K-Dur 10] 10 meq PO DAILY@0800 03/02/19 06/06/19 History Sennosides/Docusate Sodium 1 tab PO Q48H PRN 03/02/19 06/06/19 History [Senna-S Laxative Tablet] Metoprolol Tartrate [Lopressor] 25 mg PO HS #30 tab 03/04/19 06/06/19 Rx Metoprolol Tartrate [Lopressor] 50 mg PO DAILY #30 tab 03/04/19 06/06/19 Rx Allergies Allergy/AdvReac Type Severity Reaction Status Date / Time No Known Allergies Allergy Verified 06/05/19 21:08 Physical Exam Vitals: Vital Signs Temp Pulse Pulse Resp BP BP Pulse Ox 06/06/19 05:38 145/52 06/06/19 04:00 99.1 F 105 H 18 103/67 100 06/06/19 00:00 110 H 06/05/19 23:31 97.7 F 118 H 20 149/92 06/05/19 23:00 98.7 F 96 20 174/84 97 06/05/19 22:08 96 20 170/113 100 06/05/19 21:08 100 20 152/104 97 06/05/19 21:04 97.1 F L 156 H 18 152/117 85 L 06/05/19 20:50 154 H Intake and Output 06/05/19 06/06/19 06/06/19 22:59 06:59 14:59 Intake Total 25 Balance 25 Intake: Intake, IV Titration 25 Amount Diltiazem 125 mg In 25 Sodium Chloride 0.9% 100 ml @ 5 MG/HR 5 mls/hr IV .Q24H [facility] Rx#:[id number] Other: Voiding Method Incontinent # Voids 1 Weight 54.5 kg 61 kg PHYSICAL EXAMINATION: GENERAL: 78-year-old female in no acute distress at the time of my examination HEENT: Head is atraumatic, normocephalic. Pupils equal, round. Sclera anicteric. Conjunctiva are clear. Mucous membranes of the mouth are moist. Neck is supple. There is no elevated jugular venous pressure. No carotid bruit is heard. HEART EXAMINATION: Heart S1 and S2 irregularly irregular a systolic ejection murmur is heard CHEST EXAMINATION: Lungs reveal diminished air entry to bilateral bases ABDOMEN: Soft, nontender. Bowel sounds are heard. No organomegaly noted. EXTREMITIES:[ 2+ peripheral pulses with no evidence of peripheral edema and no calf tenderness noted]. NEUROLOGIC [patient is sleepy, arouses to voice, confused Results 06/05/19 21:22 06/05/19 21:22 Cardiac Enzymes 06/05/19 06/05/19 06/06/19 Range/Units 21:22 21:22 03:37 AST 36 (14-36) U/L Troponin I <0.012 0.014 (0.000-0.034) ng/mL Coagulation 06/05/19 Range/Units 22:32 PT 11.9 (9.0-12.0) sec APTT 27.7 (22.0-30.0) sec Lipids 06/06/19 Range/Units 03:44 Triglycerides 69 (<150) mg/dL Cholesterol 149 (<200) mg/dL HDL Cholesterol 55 (40-60) mg/dL CBC 06/05/19 Range/Units 21:22 WBC 10.4 (3.8-10.6) k/uL RBC 4.52 (3.80-5.40) m/uL Hgb 13.6 (11.4-16.0) gm/dL Hct 42.7 (34.0-46.0) % Plt Count 238 (150-450) k/uL Comprehensive Metabolic Panel 06/05/19 Range/Units 21:22 Sodium 138 (137-145) mmol/L Potassium 4.5 (3.5-5.1) mmol/L Chloride 106 (98-107) mmol/L Carbon Dioxide 22 (22-30) mmol/L BUN 26 H (7-17) mg/dL Creatinine 0.79 (0.52-1.04) mg/dL Glucose 113 H (74-99) mg/dL Calcium 9.4 (8.4-10.2) mg/dL AST 36 (14-36) U/L ALT 26 (4-34) U/L Alkaline Phosphatase 124 (38-126) U/L Total Protein 6.9 (6.3-8.2) g/dL Albumin 3.9 (3.5-5.0) g/dL Current Medications Generic Name Dose Route Start Last Admin Trade Name Freq PRN Reason Stop Dose Admin Acetaminophen 1,000 mg 06/06/19 06:28 Tylenol Tab PO Q8H PRN Pain Apixaban 2.5 mg 06/06/19 08:00 Eliquis PO BID@0800,1999 [facility] Atorvastatin Calcium 20 mg 06/06/19 20:00 Lipitor PO HS@1999 [facility] Donepezil HCl 10 mg 06/06/19 08:00 Aricept PO DAILY@0800 [facility] Furosemide 40 mg 06/05/19 22:45 06/05/19 22:51 Lasix IV 40 mg Q12H [facility] Administration Diltiazem HCl 125 mg/ Sodium 125 mls @ 5 mls/hr 06/05/19 21:15 06/05/19 21:21 Chloride IV 5 mg/hr .Q24H [facility] 5 mls/hr Administration 5 MG/HR Levothyroxine Sodium 75 mcg 06/06/19 08:00 Synthroid PO DAILY@0800 [facility] Lisinopril 20 mg 06/06/19 20:00 Zestril PO HS@1999 [facility] Memantine 10 mg 06/06/19 08:00 Namenda PO BID@0800,1999 [facility] Metoprolol Tartrate 25 mg 06/06/19 21:00 Lopressor PO HS [facility] Metoprolol Tartrate 50 mg 06/06/19 09:00 Lopressor PO DAILY [facility] Polyethylene Glycol 17 gm 06/06/19 06:28 Miralax PO Q72H PRN Constipation Potassium Chloride 10 meq 06/06/19 08:00 K-Dur 10 PO DAILY@0800 [facility] Risperidone 0.25 mg 06/06/19 08:00 Risperdal PO BID@0800,1999 [facility] Senna/Docusate Sodium 1 each 06/06/19 06:28 Senokot-S PO Q48H PRN Constipation Intake and Output 06/05/19 06/06/19 06/06/19 22:59 06:59 14:59 Intake Total 25 Balance 25 Intake: Intake, IV Titration 25 Amount Diltiazem 125 mg In 25 Sodium Chloride 0.9% 100 ml @ 5 MG/HR 5 mls/hr IV .Q24H [facility] Rx#:[id number] Other: Voiding Method Incontinent # Voids 1 Weight 54.5 kg 61 kg 06/05/19 21:22 06/05/19 21:22 EKG Interpretations (text) EKG shows atrial fibrillation with a rapid ventricular response Assessment and Plan Plan: Assessment and plan #1 mental status changes #2 congestive heart failure, LV function unknown #3 atrial fibrillation with rapid ventricular response, patient does have a history of paroxysmal atrial fibrillation, on Eliquis for anticoagulation #4 hypertension #5 prior TIA #6 hyperlipidemia #7 advanced dementia Plan We will discontinue the IV Cardizem and increase the home dose of beta meghna. Continue IV Lasix for 24 hours. Obtain echocardiogram with Doppler study. DNP note has been reviewed, I agree with a documented findings and plan of care. Patient was seen and examined.
[2019-06-06] MEDS: MEMANTINE 10 MG TAB PO SCH ×2 (08:47→20:41)
[2019-06-06] MEDS: APIXABAN 2.5 MG TABLET PO SCH ×2 (08:47→20:41)
[2019-06-06] MEDS: POTASSIUM CHLORIDE ER 10 MEQ TAB.ER.PRT PO SCH (08:47)
[2019-06-06] MEDS: LEVOTHYROXINE 75 MCG TAB PO SCH (08:47)
[2019-06-06] MEDS: risperiDONE 0.25 MG TAB PO SCH ×2 (08:47→20:42)
[2019-06-06] MEDS: DONEPEZIL 10 MG TAB PO SCH (08:47)
[2019-06-06] MEDS: FUROSEMIDE 10 MG/ML 4 ML VIAL IV SCH ×2 (08:47→20:51)
[2019-06-06] MEDS ORDERED: METOPROLOL TARTRATE 50 MG TAB PO SCH ×2 (09:00→21:00)
[2019-06-06 10:00] LABS: Basophils % (A) 0 %; Eosinophils # (A) 0.1 k/uL (0-0.7); Eosinophils % (A) 1 %; HCT 36.1 % (34.0-46.0); HGB 12.1 gm/dL (11.4-16.0); Lymphocytes # (A) 0.8 k/uL (1.0-4.8); Lymphocytes % (A) 10 %; MCH 31.4 pg (25.0-35.0); MCHC 33.5 g/dL (31.0-37.0); Mean Platelet Volume 8.5; Monocytes # (A) 0.5 k/uL (0-1.0); Monocytes % (A) 6 %; Neutrophils # (A) 6.3 k/uL (1.3-7.7); Neutrophils % (A) 81 %; Platelet Count 229 k/uL (150-450); RBC 3.84 m/uL (3.80-5.40); RDW 13.1 % (11.5-15.5); WBC 7.7 k/uL (3.8-10.6)
[2019-06-06 10:14] LABS: Albumin 3.7 g/dL (3.5-5.0); Calcium 9.2 mg/dL (8.4-10.2); Potassium 3.3 mmol/L (3.5-5.1); Total Bilirubin 2.1 mg/dL (0.2-1.3); Total Protein 6.6 g/dL (6.3-8.2)
[2019-06-06] MEDS ORDERED: Potassium Replacement Protocol 1 EACH MISC MISCELLANE PRN ×2 (10:25→19:43)
[2019-06-06 11:52] VITALS: BMI 25.4
[2019-06-06] MEDS: POTASSIUM CHLORIDE ER 20 MEQ TAB.ER PO SCH ×2 (11:52→13:22)
--- NOTE | 2019-06-06 11:56 | P.HPIM ---
History of Present Illness H&P Date: 06/06/19 Chief Complaint: Altered mental status, CHF This is a 78-year-old patient of Dr. Adams. Patient presented from her facility with complaints of altered mental status changes and CHF exacerbation. Patient has known advanced dementia. History obtained from medical record no family at bedside. Per ER report patient has had increased weakness. Patient does have a past medical history of A. fib in which she is maintained on eliquis, CVA, dementia, hyperlipidemia, hypertension, osteoarthritis and thyroid disorder. Chest x-ray completed showing mild congestive heart failure. Small pleural effusion. Pulmonary congestion increased compared to yesterday. EKG completed showing atrial fibrillation with rapid ventricular response heart rate 160. Patient was given Cardizem and heart rate since improved. Head CT completed showing cerebral atrophy. No acute intracranial abnormality. No change compared to old exam. UA showing small amount of leukocyte Estrace. Jimmy saldivar started on Rocephin for UTI. Original lactic acid elevated at 2. 1 repeat 1.7. BNP elevated at 15,500. Patient started on IV Lasix. 2-D echo has been ordered. Cardiology services have been consulted. Review of Systems please refer to HPI otherwise unremarkable Past Medical History Past Medical History: Atrial Fibrillation, Cancer, CVA/TIA, Dementia, Hyperlipidemia, Hypertension, Osteoarthritis (OA), Thyroid Disorder Additional Past Medical History / Comment(s): throat cancer - 20 years ago; NOS Afib 06/16/18. TIA - 06/18 transfered to [place] History of Any Multi-Drug Resistant Organisms: None Reported Past Surgical History: Breast Surgery Additional Past Surgical History / Comment(s): implants Past Anesthesia/Blood Transfusion Reactions: No Reported Reaction Additional Past Anesthesia/Blood Transfusion Reaction / Comment(s): PT refuses blood r/t [facility] preferences Past Psychological History: No Psychological Hx Reported Additional Psychological History / Comment(s): lives at [facility]- has a ronn Toledomy and Chloe that check in on her Smoking Status: Never smoker Past Alcohol Use History: None Reported Additional Past Alcohol Use History / Comment(s): started smoking at age 16 and quit 2008 smoked 1 ppd Past Drug Use History: None Reported - Past Family History Father Family Medical History: Dementia Mother Family Medical History: Dementia, Diabetes Mellitus Medications and Allergies Home Medications Medication Instructions Recorded Confirmed Type RX: Donepezil [Aricept] 10 mg PO DAILY@0800 04/09/17 01/06/20 History RX: Levothyroxine Sodium 75 mcg PO DAILY@0800 09/07/16 06/06/19 History [Synthroid] RX: Atorvastatin [Lipitor] 20 mg PO HS@199907/06/18 06/06/19 History RX: Memantine [Namenda] 20 mg PO BID@0800,199907/06/18 06/06/19 History RX: Acetaminophen Tab [Tylenol] 1,000 mg PO Q8H PRN 12/17/18 06/06/19 History RX: risperiDONE 0.25 mg PO BID@0800,199912/17/18 06/06/19 History RX: Apixaban [Eliquis] 2.5 mg PO BID@0800,199903/02/19 06/06/19 History RX: Lisinopril [Prinivil] 20 mg PO HS@1700 03/02/19 06/06/19 History RX: Polyethylene Glycol 3350 17 gm PO Q72H PRN 03/02/19 06/06/19 History [Miralax] RX: Potassium Chloride ER [K-Dur 10 meq PO DAILY@0800 03/02/19 06/06/19 History 10] RX: Sennosides/Docusate Sodium 1 tab PO Q48H PRN 03/02/19 06/06/19 History [Senna-S Laxative Tablet] RX: Metoprolol Tartrate [Lopressor] 25 mg PO HS #30 tab 03/04/19 06/06/19 Rx RX: Metoprolol Tartrate [Lopressor] 50 mg PO DAILY #30 tab 03/04/19 06/06/19 Rx Allergies Allergy/AdvReac Type Severity Reaction Status Date / Time No Known Allergies Allergy Verified 06/06/19 10:11 Physical Exam Vitals: Vital Signs Temp Pulse Pulse Resp BP BP Pulse Ox 06/06/19 08:00 98.1 F 96 16 135/91 99 06/06/19 05:38 145/52 06/06/19 04:00 99.1 F 105 H 18 103/67 100 06/06/19 00:00 110 H 06/05/19 23:31 97.7 F 118 H 20 149/92 06/05/19 23:00 98.7 F 96 20 174/84 97 01/05/20 22:08 96 20 170/113 100 06/05/19 21:08 100 20 152/104 97 06/05/19 21:04 97.1 F L 156 H 18 152/117 85 L 06/05/19 20:50 154 H Intake and Output 06/05/19 06/06/19 06/06/19 22:59 06:59 14:59 Intake Total 25 0 Balance 25 0 Intake: Intake, IV Titration 25 Amount Diltiazem 125 mg In 25 Sodium Chloride 0.9% 100 ml @ 5 MG/HR 5 mls/hr IV .Q24H [facility] Rx#:[id number] Oral 0 Other: Voiding Method Incontinent Incontinent # Voids 1 Weight 54.5 kg 61 kg Head normocephalic Neck supple Lungs clear to auscultation bilaterally no wheezing or crackles Heart irregular rate, known afib Abdomen is soft nontender nondistended positive bowel sounds no hepatosplen omegaly Extremities no edema Neuro advance dementia Results CBC & Chem 7: 06/06/19 09:29 06/06/19 09:29 Labs: Abnormal Lab Results - Last 24 Hours (Table) 06/05/19 06/05/19 06/05/19 Range/Units 21:22 21:22 21:22 Neutrophils # 8.7 H (1.3-7.7) k/uL Lymphocytes # (1.0-4.8) k/uL Potassium (3.5-5.1) mmol/L BUN 26 H (7-17) mg/dL Glucose 113 H (74-99) mg/dL Plasma Lactic Acid Dilip 2.3 H* (0.7-2.0) mmol/L Total Bilirubin 2.0 H (0.2-1.3) mg/dL Urine Appearance (Clear) Urine Protein (Negative) Urine Ketones (Negative) Ur Leukocyte Esterase (Negative) Urine WBC (0-5) /hpf Ur Squamous Epith Cells (0-4) /hpf Urine Bacteria (None) /hpf Urine Mucus (None) /hpf 06/05/19 06/06/19 06/06/19 Range/Units 21:58 01:09 05:10 Neutrophils # (1.3-7.7) k/uL Lymphocytes # (1.0-4.8) k/uL Potassium (3.5-5.1) mmol/L BUN (7-17) mg/dL Glucose (74-99) mg/dL Plasma Lactic Acid Dilip 2.1 H* 2.1 H* (0.7-2.0) mmol/L Total Bilirubin (0.2-1.3) mg/dL Urine Appearance Cloudy H (Clear) Urine Protein 1+ H (Negative) Urine Ketones 1+ H (Negative) Ur Leukocyte Esterase Small H (Negative) Urine WBC 7 H (0-5) /hpf Ur Squamous Epith Cells 6 H (0-4) /hpf Urine Bacteria Rare H (None) /hpf Urine Mucus Occasional H (None) /hpf 06/06/19 06/06/19 Range/Units 09:29 09:29 Neutrophils # (1.3-7.7) k/uL Lymphocytes # 0.8 L (1.0-4.8) k/uL Potassium 3.3 L (3.5-5.1) mmol/L BUN 23 H (7-17) mg/dL Glucose 157 H (74-99) mg/dL Plasma Lactic Acid Dilip (0.7-2.0) mmol/L Total Bilirubin 2.1 H (0.2-1.3) mg/dL Urine Appearance (Clear) Urine Protein (Negative) Urine Ketones (Negative) Ur Leukocyte Esterase (Negative) Urine WBC (0-5) /hpf Ur Squamous Epith Cells (0-4) /hpf Urine Bacteria (None) /hpf Urine Mucus (None) /hpf Thrombosis Risk Factor Assmnt - Choose All That Apply Any of the Below Risk Factors Present?: Yes Each Factor Represents 1 point: Medical pt on bed rest Other Risk Factors: No Thrombosis Risk Factor Assessment Total Risk Factor Score: 1 Thrombosis Risk Factor Assessment Level: Low Risk Assessment and Plan Assessment: 1. Altered mental status secondary to A. fib RVR, CHF exacerbation and urinary tract infection. Head CT completed showing cerebral atrophy. No acute intracranial abnormality. No change compared to old exam. 2. Atrial fibrillation with rapid ventricular response. Patient has known history of atrial fibrillation maintained on eliquis for anticoagulation. Patient was given Cardizem. cardiology services following. Heart rate has improved 3. CHF exacerbation. 2-D echo has been ordered. Cardiology consult placed. Patient maintained on IV Lasix. 4. Urinary tract infection. Patient started on Rocephin. Urine culture ordered. Lactic acid was elevated at 2. 1 repeat 1.7 5. History of paroxysmal atrial fibrillation maintained on eliquis for anticoagulation 6. History of advanced dementia 7. History of TIA 8. History of essential hypertension 9. History of throat cancer 10. History of hyperlipidemia. Patient maintained on Lipitor 11. History of cerebrovascular ventriculomegaly. During previous admission. Head CT showing the cerebral ventriculomegaly at that time neurology services did evaluate but family did not want any surgical intervention. DVT prophylaxis eliquis. GI prophylaxis Pepcid Cardiology services have been consulted. 2-D echo has been ordered Maintained on IV Lasix Urine culture ordered maintained on Rocephin for IV antibiotics Time with Patient: Greater than 30 (Greater than 60% of the total time spent in counseling and coordination of care. I performed an examination of the patient and discussed their management with the Nurse Practitioner. I have reviewed the Nurse Practitioner's notes and agree with the documented findings and plan of care)
--- NOTE | 2019-06-06 12:41 | ECHOF ---
Referral Reason:chf MEASUREMENTS -------- HEIGHT: 154.9 cm WEIGHT: 60.8 kg BP: RVIDd: 2.3 cm (< 3.3) IVSd: 1.4 cm (0.6 - 1.1) LVIDd: 3.4 cm (3.9 - 5.3) LVPWd: 1.8 cm (0.6 - 1.1) IVSs: 1.9 cm LVIDs: 1.9 cm LVPWs: 2.1 cm Ao Diam: 3.0 cm (2.0 - 3.7) AV Cusp: 1.2 cm (1.5 - 2.6) LA Diam: 3.7 cm (2.7 - 3.8) MV EXCURSION: 17.918 mm (> 18.000) MV EF SLOPE: 99 mm/s (70 - 150) EPSS: 0.5 cm AR PHT: 593 ms RAP: 5.00 mmHg RVSP: 40.13 mmHg TAPSE: 12.75 mm FINDINGS -------- Atrial fibrillation. This was a technically difficult study with suboptimal views. Pt. Has Breast inplants The left ventricular size is normal. There is moderate concentric left ventricular hypertrophy. O verall left ventricular systolic function is normal with, an EF between 55 - 60 %. Left ventricular fillimg pressure cannot be estimated due to Atrial fibrillation. The right ventricle is normal in size. The left atrial size is normal. The right atrial size is normal. Aortic valve is trileaflet and is mildly thickened. Trace amount of aortic regurgitation. The mitral valve is normal. The mitral valve leaflets are mildly thickened. [id number] mi tral regurgitation is present. The tricuspid valve appears structurally normal. Severe tricuspid regurgitation present. There is mild pulmonary hypertension. The right ventricular systolic pressure, as measured by Doppler, is 4 0.13mmHg. There is no pulmonic regurgitation present. The aortic root size is normal. Normal inferior vena cava with normal inspiratory collapse consistent with estimated right atrial pre ssure of 5 mmHg. There is a small, generalized pericardial effusion present. CONCLUSIONS -------- 1. Atrial fibrillation. 2. This was a technically difficult study with suboptimal views. 3. Pt. Has Breast inplants 4. The left ventricular size is normal. 5. There is moderate concentric left ventricular hypertrophy. 6. Overall left ventricular systolic function is normal with, an EF between 55 - 60 %. 7. Left ventricular fillimg pressure cannot be estimated due to Atrial fibrillation. 8. The right ventricle is normal in size. 9. The left atrial size is normal. 10. The right atrial size is normal. 11. Aortic valve is trileaflet and is mildly thickened. 12. Trace amount of aortic regurgitation. 13. The mitral valve is normal. 14. The mitral valve leaflets are mildly thickened. 15. Drpsjplf-la-mifqcd mitral regurgitation is present. 16. The tricuspid valve appears structurally normal. 17. Severe tricuspid regurgitation present. 18. There is mild pulmonary hypertension. 19. The right ventricular systolic pressure, as measured by Doppler, is 40.13mmHg. 20. There is no pulmonic regurgitation present. 21. The aortic root size is normal. 22. Normal inferior vena cava with normal inspiratory collapse consistent with estimated right atrial pressure of 5 mmHg. 23. There is a small, generalized pericardial effusion present. PAPER MAKER: Sera Suazo RDCS
--- NOTE | 2019-06-06 13:47 | CDI ---
Documentation Clarification Form Date: 06/06/2019 01:35:44 PM From: Anisa Oden RN CCDS Admit Date: 06/05/2019 10:38:00 PM Patient Name: Suze Matthews Visit Number: [id number] Discharge Date: ATTENTION: The Clinical Documentation Specialists (CDI) and [facility] Coding Staff appreciate your assistance in clarifying documentation. Please respond to the clarification below the line at the bottom and electronically sign. The CDI & [facility] Coding staff will review the response and follow-up if needed. Please note: Queries are made part of the Legal Health Record. If you have any questions, please contact the author of this message via ITS. Dr. Bryon Hicks Altered Mental Status was documented in the H & P History/Risk Factors: 78-year-old female presents to the ED with generalized weakness. Medical history Paroxysmal Atrial Fibrillation; CVA/TIA; Hyperlipidemia; Dementia Clinical Indicators: Labs: Wbc 10.4; Neutrophils 8.7; Lactic acid 2.3; 06/05/2019 Chest X Ray: Mild congestive heart failure. Small pleural effusions. Pulmonary congestion increased compared to yesterday 06/05/2019Brain CT Cerebral Atrophy. Treatment: Rocpehin ivpb; Cardizem ivpb; Cardizem iv; Lasix IV q 12 hrs; Lopressor; In your professional opinion, please clarify the etiology of the Altered Mental Status, if known. * Acute Metabolic Encephalopathy secondary to A.Fib RVR, CHF Exacerbation and UTI * Other condition (please specify) * Unable to determine (Last Revision: August 2017) Acute metabolic encephalopathy secondary to afib rvr, chf,and uti MTDD
[2019-06-06] MEDS: METOPROLOL TARTRATE 50 MG TAB PO SCH ×2 (17:29→20:41)
[2019-06-06 20:32] LABS: Magnesium 1.6 mg/dL (1.6-2.3); Potassium 3.9 mmol/L (3.5-5.1)
[2019-06-06] MEDS: LISINOPRIL 10 MG TAB PO SCH (20:41)
[2019-06-06] MEDS: ATORVASTATIN 20 MG TAB PO SCH (20:41)
[2019-06-06] MEDS ORDERED: METOPROLOL TARTRATE 25 MG TAB PO SCH (21:00)
[2019-06-07 06:44] LABS: Basophils % (A) 1 %; Eosinophils # (A) 0.2 k/uL (0-0.7); Eosinophils % (A) 2 %; HCT 36.8 % (34.0-46.0); HGB 12.1 gm/dL (11.4-16.0); Lymphocytes % (A) 14 %; MCHC 32.9 g/dL (31.0-37.0); MCV 94.4 fL (80.0-100.0); Mean Platelet Volume 9.1; Monocytes # (A) 0.6 k/uL (0-1.0); Monocytes % (A) 8 %; Neutrophils % (A) 73 %; Platelet Count 230 k/uL (150-450); RDW 13.2 % (11.5-15.5); WBC 6.9 k/uL (3.8-10.6)
[2019-06-07 06:51] LABS: Albumin 3.4 g/dL (3.5-5.0); Calcium 9.2 mg/dL (8.4-10.2); Potassium 3.4 mmol/L (3.5-5.1); Total Bilirubin 1.2 mg/dL (0.2-1.3); Total Protein 6.2 g/dL (6.3-8.2)
[2019-06-07] MEDS ORDERED: Potassium Replacement Protocol 1 EACH MISC MISCELLANE PRN (07:33)
[2019-06-07] MEDS: risperiDONE 0.25 MG TAB PO SCH ×2 (09:38→20:11)
[2019-06-07] MEDS: APIXABAN 2.5 MG TABLET PO SCH ×2 (09:38→20:10)
[2019-06-07] MEDS: LEVOTHYROXINE 75 MCG TAB PO SCH (09:39)
[2019-06-07] MEDS: MEMANTINE 10 MG TAB PO SCH ×2 (09:39→20:11)
[2019-06-07] MEDS: POTASSIUM CHLORIDE ER 10 MEQ TAB.ER.PRT PO SCH (09:39)
[2019-06-07] MEDS: FAMOTIDINE 20 MG TAB PO SCH (09:39)
[2019-06-07] MEDS: FUROSEMIDE 10 MG/ML 4 ML VIAL IV SCH (09:39)
[2019-06-07] MEDS: POTASSIUM CHLORIDE ER 20 MEQ TAB.ER PO SCH ×2 (09:39→10:29)
[2019-06-07] MEDS: METOPROLOL TARTRATE 50 MG TAB PO SCH ×2 (09:39→20:11)
[2019-06-07] MEDS: DONEPEZIL 10 MG TAB PO SCH (09:43)
[2019-06-07] MEDS ORDERED: DIGOXIN 250 MCG/ML 2 ML AMP IVP ONE (10:15)
[2019-06-07] MEDS ORDERED: METOPROLOL TARTRATE 50 MG TAB PO STA (10:16)
--- NOTE | 2019-06-07 11:35 | P.PN ---
Subjective Progress Note Date: 06/07/19 This is a 78-year-old female with past medical history significant for paroxysmal atrial fibrillation, hypertension, hyperlipidemia, hypothyroidism TIA, advanced dementia, and throat cancer. Patient apparently presented to the hospital with altered mental status and persistent weakness, she had also not been eating and drinking appropriately. History was obtained from the medical record as the patient is not able to give a history because of her dementia. A cardiology consultation was requested for congestive cardiac failure and atrial fibrillation which the patient is known to have. She takes Eliquis at home for anticoagulation. Chest x-ray showed mild congestive heart failure with small pleural effusions. EKG shows atrial fibrillation with a rapid ventricular response. CAT scan of the brain revealed cerebral atrophy with no acute intracranial abnormality. Blood pressure this morning 140/58 with a heart rate of 110, 100% on 2 L of oxygen, temperature 99.1. White blood cell count is normal, hemoglobin 13.6, platelet count 238. Sodium 138, potassium 4.5, BUN 26, creatinine 0.7. Plasma lactic acid 2.3. Troponin 0.012, 0.014. BNP level 15,500. Influenza A and B are negative. TSH 0.96. At the time of my examination this morning, patient is resting comfortably in bed, does not appear to be very short of breath, she does open her eyes when spoken to, is mostly non verbal. She she does not however have any chest discomfort when asked,the patient was initiated on IV Cardizem in the emergency room and continues to be on IV Cardizem at 5 mg per hour, she also takes 50 mg of Lopressor in the morning and 20 5 in the evening along with Eliquis for anticoagulation. 06/07/2019 Patient was seen and examined this morning, she diuresed well through the night last night. At the time we were examining her heart rate was up into the 06/21/1929 range. We will increase the beta meghna to 100 mg by mouth twice a day give her one dose of IV Lanoxin, discontinue the IV Lasix and change her over to oral diuretics today. Her echocardiogram with Doppler study was perf ormed and revealed a normal left ventricular systolic function.moderate to severe mitral regurg, severe tricuspid regurg. sodium 137, potassium 3.4, BUN 25, creatinine 0.8, magnesium 1.6. Objective - Vital Signs Vital signs: Vital Signs Temp 97 F L 06/07/19 08:00 Pulse 61 06/07/19 08:00 Resp 16 06/07/19 08:00 BP 106/71 06/07/19 08:00 Pulse Ox 96 06/07/19 08:00 Intake & Output 06/06/19 06/07/19 06/07/19 18:59 06:59 18:59 Intake Total 0 340 368 Output Total 500 Balance 0 -160 368 Weight 61 kg 57.5 kg Intake: Oral 0 340 368 Output: Urine 500 Other: Voiding Method Incontinent # Voids 1 - Exam PHYSICAL EXAMINATION: GENERAL: 78-year-old female in no acute distress at the time of my examination HEENT: Head is atraumatic, normocephalic. Pupils equal, round. Sclera anicteric. Conjunctiva are clear. Mucous membranes of the mouth are moist. Neck is supple. There is no elevated jugular venous pressure. No carotid bruit is heard. HEART EXAMINATION: Heart S1 and S2 irregularly irregular a systolic ejection murmur is heard CHEST EXAMINATION: Lungs reveal improvement in air entry to bilateral bases ABDOMEN: Soft, nontender. Bowel sounds are heard. No organomegaly noted. EXTREMITIES:[ 2+ peripheral pulses with no evidence of peripheral edema and no calf tenderness noted]. NEUROLOGIC [patient is sleepy, arouses to voice, confused - Labs CBC & Chem 7: 06/07/19 06:04 06/07/19 06:04 Labs: Abnormal Lab Results - Last 24 Hours (Table) 06/07/19 Range/Units 06:04 Potassium 3.4 L (3.5-5.1) mmol/L Carbon Dioxide 31 H (22-30) mmol/L BUN 25 H (7-17) mg/dL Total Protein 6.2 L (6.3-8.2) g/dL Albumin 3.4 L (3.5-5.0) g/dL Microbiology - Last 24 Hours (Table) 06/06/19 23:00 Urine Culture - Preliminary Urine,Voided Assessment and Plan Plan: Assessment and plan #1 mental status changes #2 congestive heart failure, LV function unknown #3 atrial fibrillation with rapid ventricular response, patient does have a hi story of paroxysmal atrial fibrillation, on Eliquis for anticoagulation #4 hypertension #5 prior TIA #6 hyperlipidemia #7 advanced dementia Plan we will increase the beta meghna dose 200 mg by mouth twice a day, given one time dose of IV Lanoxin, discontinue the IV Lasix and changed to oral. Replace the potassium. DNP note has been reviewed, I agree with a documented findings and plan of care. Patient was seen and examined.
--- NOTE | 2019-06-07 12:17 | P.PN ---
Subjective Progress Note Date: 06/07/19 This is a 78-year-old patient of Dr. Adams. Patient presented from her facility with complaints of altered mental status changes and CHF exacerbation. Patient has known advanced dementia. History obtained from medical record no family at bedside. Per ER report patient has had increased weakness. Patient does have a past medical history of A. fib in which she is maintained on eliquis, CVA, dementia, hyperlipidemia, hypertension, osteoarthritis and thyroid disorder. Chest x-ray completed showing mild congestive heart failure. Small pleural effusion. Pulmonary congestion increased compared to yesterday. EKG completed showing atrial fibrillation with rapid ventricular response heart rate 160. Patient was given Cardizem and heart rate since improved. Head CT completed showing cerebral atrophy. No acute intracranial abnormality. No change compared to old exam. UA showing small amount of leukocyte Estrace. Patient started on Rocephin for UTI. Original lactic acid elevated at 2. 1 r epeat 1.7. BNP elevated at 15,500. Patient started on IV Lasix. 2-D echo has been ordered. Cardiology services have been consulted. On 06/07/2019 patient is currently resting comfortably in bed. Patient remains on IV Lasix per cardiology. 2-D echo completed showing EF of 55-60%. Patient remains on Rocephin for urinary tract infection. This time patient denies any specific complaints. Patient does have known advanced dementia appears at her baseline Objective - Vital Signs Vital signs: Vital Signs Temp 97.5 F L 06/07/19 12:00 Pulse 83 06/07/19 12:00 Resp 16 06/07/19 12:00 BP 85/55 06/07/19 12:00 Pulse Ox 97 06/07/19 12:00 Intake & Output 06/06/19 06/07/19 06/07/19 18:59 06:59 18:59 Intake Total 0 340 368 Output Total 500 Balance 0 -160 368 Weight 61 kg 57.5 kg Intake: Oral 0 340 368 Output: Urine 500 Other: Voiding Method Incontinent # Voids 1 - Exam Head normocephalic Neck supple Lungs clear to auscultation bilaterally no wheezing or crackles Heart irregular rate, known afib Abdomen is soft nontender nondistended positive bowel sounds no hepatosplenomegaly Extremities no edema Neuro advance dementia - Labs CBC & Chem 7: 06/07/19 06:04 06/07/19 06:04 Labs: Abnormal Lab Results - Last 24 Hours (Table) 06/07/19 Range/Units 06:04 Potassium 3.4 L (3.5-5.1) mmol/L Carbon Dioxide 31 H (22-30) mmol/L BUN 25 H (7-17) mg/dL Total Protein 6.2 L (6.3-8.2) g/dL Albumin 3.4 L (3.5-5.0) g/dL Microbiology - Last 24 Hours (Table) 06/06/19 23:00 Urine Culture - Preliminary Urine,Voided Assessment and Plan Assessment: 1. Altered mental status secondary to A. fib RVR, CHF exacerbation and urinary tract infection. Head CT completed showing cerebral atrophy. No acute intracranial abnormality. No change compared to old exam. 2. Atrial fibrillation with rapid ventricular response. Patient has known history of atrial fibrillation maintained on eliquis for anticoagulation. Patient was given Cardizem. cardiology services following. Patient received 1 dose of IV digoxin. Beta meghna has been increased per cardiology 3. CHF exacerbation. 2-D echo completed showing an EF of 55-60%. Cardiology consult placed. Patient maintained on IV Lasix. Patient has been transitioned to by mouth Lasix 4. Urinary tract infection. Patient started on Rocephin. Urine culture ordered. Lactic acid was elevated at 2. 1 repeat 1.7 5. History of paroxysmal atrial fibrillation maintained on eliquis for anticoag ulation 6. History of advanced dementia 7. History of TIA 8. History of essential hypertension 9. History of throat cancer 10. History of hyperlipidemia. Patient maintained on Lipitor 11. History of cerebrovascular ventriculomegaly. During previous admission. Head CT showing the cerebral ventriculomegaly at that time neurology services did evaluate but family did not want any surgical intervention. 12. Hypokalemia replacement protocol DVT prophylaxis eliquis. GI prophylaxis Pepcid Cardiology following Maintained on IV Lasix Urine culture ordered maintained on Rocephin for IV antibiotics I performed an examination of the patient and discussed their management with the Nurse Practitioner. I have reviewed the Nurse Practitioner's notes and agree with the documented findings and plan of care
[2019-06-07] MEDS: MAGNESIUM SULFATE-D5W PMX 1 GM in DEXTROSE/WATER 1 100ML.BAG IVPB SCH ×2 (12:34→13:46)
[2019-06-07] MEDS: FUROSEMIDE 40 MG TAB PO SCH (16:43)
[2019-06-07] MEDS: LISINOPRIL 10 MG TAB PO SCH (20:10)
[2019-06-07] MEDS: ATORVASTATIN 20 MG TAB PO SCH (20:10)
[2019-06-07 21:00] VITALS: RESP 18
[2019-06-08 07:06] LABS: Basophils # (A) 0.2 k/uL (0-0.2); Basophils % (A) 2 %; Eosinophils # (A) 0.2 k/uL (0-0.7); Eosinophils % (A) 4 %; HCT 39.5 % (34.0-46.0); Lymphocytes # (A) 0.9 k/uL (1.0-4.8); Lymphocytes % (A) 13 %; MCH 30.9 pg (25.0-35.0); MCHC 32.8 g/dL (31.0-37.0); MCV 94.1 fL (80.0-100.0); Mean Platelet Volume 8.9; Monocytes # (A) 0.6 k/uL (0-1.0); Monocytes % (A) 9 %; Neutrophils # (A) 4.5 k/uL (1.3-7.7); Neutrophils % (A) 70 %; Platelet Count 238 k/uL (150-450); WBC 6.4 k/uL (3.8-10.6)
[2019-06-08 07:23] LABS: Albumin 3.6 g/dL (3.5-5.0); Calcium 9.4 mg/dL (8.4-10.2); Potassium 3.9 mmol/L (3.5-5.1); Total Bilirubin 0.9 mg/dL (0.2-1.3); Total Protein 6.4 g/dL (6.3-8.2)
--- NOTE | 2019-06-08 08:58 | CDI ---
Documentation Clarification Form Date: 06/08/2019 08:23:27 AM From: Anisa Oden RN CCDS Admit Date: 06/05/2019 10:38:00 PM Patient Name: Suze Matthews Visit Number: [id number] Discharge Date: ATTENTION: The Clinical Documentation Specialists (CDI) and [facility] Coding Staff appreciate your assistance in clarifying documentation. Please respond to the clarification below the line at the bottom and electronically sign. The CDI & [facility] Coding staff will review the response and follow-up if needed. Please note: Queries are made part of the Legal Health Record. If you have any questions, please contact the author of this message via ITS. Dr. Bryon Hicks CHF exacerbation is documented in the H & P and subsequent progress note. History/Risk Factors: 78-year-old presents to the ED with altered mental status weakness. Medical history of Atrial Fib06/16/18 ; TIA in 2018; HTN; Hyperlipidemia Clinical Indicators: VS/Pulse OX: 06/05/19 152/117 156 97.1 18 85% ra BNP: 06/05/19 [id number] Echocardiogram Results: 06/06/19 Overall left ventricular systolic function is normal with, an EF between 55 60% Chest X Ray: 06/05/19 mild congestive heart failure. Small pleural effusions. Pulmonary Congestion increased compared to yesterday. Cardiology Progress note 06/07/19 Her echocardiogram with doppler study was performed and revealed a normal left ventricular systolic function. moderate to severe mitral regurg, severe tricuspid regurg. Treatment: 06/05 Lasix Ivp q 12 Hrs; 06/06 Lopressor 06/07 Lasix po; In your professional opinion, can you please clarify the acuity and type of CHF if known? * Acute Diastolic Heart Failure: * Acute Systolic & Diastolic Heart Failure: * Unable to Determine * Other, please specify (Last Revision: August 2017) Acute diastolic heart failure MTDD
[2019-06-08] MEDS: FAMOTIDINE 20 MG TAB PO SCH (09:14)
[2019-06-08] MEDS: FUROSEMIDE 40 MG TAB PO SCH ×2 (09:15→16:51)
[2019-06-08] MEDS: risperiDONE 0.25 MG TAB PO SCH (09:15)
[2019-06-08] MEDS: LEVOTHYROXINE 75 MCG TAB PO SCH (09:16)
[2019-06-08] MEDS: MEMANTINE 10 MG TAB PO SCH (09:16)
[2019-06-08] MEDS: APIXABAN 2.5 MG TABLET PO SCH (09:16)
[2019-06-08] MEDS: DONEPEZIL 10 MG TAB PO SCH (09:16)
[2019-06-08] MEDS: POTASSIUM CHLORIDE ER 10 MEQ TAB.ER.PRT PO SCH (09:16)
[2019-06-08] MEDS: METOPROLOL TARTRATE 50 MG TAB PO SCH (09:17)
[2019-06-08 12:44] VITALS: BP 91/60; PULSE 81; TEMP 98.5
--- NOTE | 2019-06-08 14:57 | P.DS ---
Providers Date of admission: 06/05/19 22:38 Expected date of discharge: 06/08/19 Attending physician: Bryon Hicks Consults: 06/05/19 22:36 Consult Physician Routine Consulting Provider: Jesus Dewey Consult Reason/Comments: chf Do you want consulting provider notified?: Yes Primary care physician: Nandini Adams Hospital Course: Discharge diagnosis 1. Metabolic encephalopathy secondary to A. fib RVR, CHF exacerbation and urinary tract infection. Head CT completed showing cerebral atrophy. No acute intracranial abnormality. No change compared to old exam. 2. Atrial fibrillation with rapid ventricular response. Patient has known history of atrial fibrillation maintained on eliquis for anticoagulation. Patient was given Cardizem. cardiology services following. Patient received 1 dose of IV digoxin. Beta meghna has been increased per cardiology 3. Acute on chronic diastolic CHF exacerbation. 2-D echo completed showing an EF of 55-60%. Cardiology consult placed. Patient maintained on IV Lasix. Patient has been transitioned to by mouth Lasix. Patient will be DC'd on Lasix 40 mg twice a day 4. Urinary tract infection. Patient started on Rocephin. Urine culture ordered. Lactic acid was elevated at 2. 1 repeat 1.7. Patient will be DC'd on Ceftin for 5 days 5. History of paroxysmal atrial fibrillation maintained on eliquis for anticoagulation. Metroprolol has been increased per cardiology. 6. History of advanced dementia 7. History of TIA 8. History of essential hypertension 9. History of throat cancer 10. History of hyperlipidemia. Patient maintained on Lipitor 11. History of cerebrovascular ventriculomegaly. During previous admission. Head CT showing the cerebral ventriculomegaly at that time neurology services did evaluate but family did not want any surgical intervention. 12. Hypokalemia replacement protocol. Resolved. Patient will be DC'd on potassium supplement Hospital course This is a 78-year-old patient of Dr. Adams. Patient presented from her facility with complaints of altered mental status changes and CHF exacerbation. Patient has known advanced dementia. History obtained from medical record no family at bedside. Per ER report patient has had increased weakness. Patient does have a past medical history of A. fib in which she is maintained on eliquis, CVA, dementia, hyperlipidemia, hypertension, osteoarthritis and thyroid disorder. Chest x-ray completed showing mild congestive heart failure. Small pleural effusion. Pulmonary congestion increased compared to yesterday. EKG completed showing atrial fibrillation with rapid ventricular response heart rate 160. Patient was given Cardizem and heart rate since improved. Head CT completed showing cerebral atrophy. No acute intracranial abnormality. No change compared to old exam. UA showing small amount of leukocyte Estrace. Patient started on Rocephin for UTI. Original lactic acid elevated at 2. 1 repeat 1.7. BNP elevated at 15,500. Patient started on IV Lasix. 2-D echo has been ordered. Cardiology services have been consulted. On 06/07/2019 patient is currently resting comfortably in bed. Patient remains on IV Lasix per cardiology. 2-D echo completed showing EF of 55-60%. Patient remains on Rocephin for urinary tract infection. This time patient denies any specific complaints. Patient does have known advanced dementia appears at her baseline On 06/08/2019 patient is currently resting comfortably in bed. Patient does appear baseline. Patient has been cleared for discharge from cardiology standpoint. Patient has been transitioned to by mouth Lasix 40 mg twice a day. Patient's Metroprolol dose has been increased per cardiology. Patient will be DC'd on Ceftin for 5 days for urinary tract infection. Repeat CMP has been ordered for 1 week due to new medication of Lasix. Patient will be returning to [facility] assisted living. At this time patient denies any chest pain or shortness breath. Patient denies nausea vomiting or diarrhea. Patient denies any urinary burning or frequency. I performed an examination of the patient and discussed their management with the Nurse Practitioner. I have reviewed the Nurse Practitioner's notes and agree with the documented findings and plan of care Patient Condition at Discharge: Stable Plan - Discharge Summary New Discharge Prescriptions: New Furosemide [Lasix] 40 mg PO BID@0900,1600 30 Days #60 tab Metoprolol Tartrate [Lopressor] 100 mg PO BID 30 Days #60 tab Continue Levothyroxine Sodium [Synthroid] 75 mcg PO DAILY@0800 Donepezil [Aricept] 10 mg PO DAILY@0800 Memantine [Namenda] 20 mg PO BID@08,1999 Atorvastatin [Lipitor] 20 mg PO HS@1999 risperiDONE 0.25 mg PO BID@08,1999 Acetaminophen Tab [Tylenol] 1,000 mg PO Q8H PRN PRN Reason: Pain Apixaban [Eliquis] 2.5 mg PO BID@0800,1999 Lisinopril [Prinivil] 20 mg PO HS@1700 Polyethylene Glycol 3350 [Miralax] 17 gm PO Q72H PRN PRN Reason: Constipation Potassium Chloride ER [K-Dur 10] 10 meq PO DAILY@0800 Sennosides/Docusate Sodium [Senna-S Laxative Tablet] 1 tab PO Q48H PRN PRN Reason: Constipation Discontinued Metoprolol Tartrate [Lopressor] 25 mg PO HS #30 tab Metoprolol Tartrate [Lopressor] 50 mg PO DAILY #30 tab Discharge Medication List Donepezil [Aricept] 10 mg PO DAILY@0800 09/07/16 [History] Levothyroxine Sodium [Synthroid] 75 mcg PO DAILY@0800 09/07/16 [History] Atorvastatin [Lipitor] 20 mg PO HS@199907/06/18 [History] Memantine [Namenda] 20 mg PO BID@0800,199907/06/18 [History] Acetaminophen Tab [Tylenol] 1,000 mg PO Q8H PRN 12/17/18 [History] risperiDONE 0.25 mg PO BID@0800,199912/17/18 [History] Apixaban [Eliquis] 2.5 mg PO BID@0800,199903/02/19 [History] Lisinopril [Prinivil] 20 mg PO HS@1700 03/02/19 [History] Polyethylene Glycol 3350 [Miralax] 17 gm PO Q72H PRN 03/02/19 [History] Potassium Chloride ER [K-Dur 10] 10 meq PO DAILY@0800 03/02/19 [History] Sennosides/Docusate Sodium [Senna-S Laxative Tablet] 1 tab PO Q48H PRN 03/02/19 [History] Furosemide [Lasix] 40 mg PO BID@0900,1600 30 Days #60 tab 06/08/19 [Rx] Metoprolol Tartrate [Lopressor] 100 mg PO BID 30 Days #60 tab 06/08/19 [Rx] Follow up Appointment(s)/Referral(s): Nandini Adams MD [Primary Care Provider] - 1-2 days Jesus Dewey MD [STAFF PHYSICIAN] - 1 Week Ambulatory/Diagnostic Orders: Comprehensive Metabolic Panel [LAB.AMB] Time Frame: 1 Week, Location: None Selected Activity/Diet/Wound Care/Special Instructions: pt lives at [facility] [phone] Activity as tolerated Diet heart healthy Discharge Disposition: HOME SELF-CARE
--- NOTE | 2019-06-08 15:15 | P.PN ---
Subjective Progress Note Date: 06/08/19 This is a 78-year-old female with past medical history significant for paroxysmal atrial fibrillation, hypertension, hyperlipidemia, hypothyroidism TIA, advanced dementia, and throat cancer. Patient apparently presented to the hospital with altered mental status and persistent weakness, she had also not been eating and drinking appropriately. History was obtained from the medical record as the patient is not able to give a history because of her dementia. A cardiology consultation was requested for congestive cardiac failure and atrial fibrillation which the patient is known to have. She takes Eliquis at home for anticoagulation. Chest x-ray showed mild congestive heart failure with small pleural effusions. EKG shows atrial fibrillation with a rapid ventricular response. CAT scan of the brain revealed cerebral atrophy with no acute intracranial abnormality. Blood pressure this morning 140/58 with a heart rate of 110, 100% on 2 L of oxygen, temperature 99.1. White blood cell count is normal, hemoglobin 13.6, platelet count 238. Sodium 138, potassium 4.5, BUN 26, creatinine 0.7. Plasma lactic acid 2.3. Troponin 0.012, 0.014. BNP level 15,500. Influenza A and B are negative. TSH 0.96. At the time of my examination this morning, patient is resting comfortably in bed, does not appear to be very short of breath, she does open her eyes when spoken to, is mostly non verbal. She she does not however have any chest discomfort when asked,the patient was initiated on IV Cardizem in the emergency room and continues to be on IV Cardizem at 5 mg per hour, she also takes 50 mg of Lopressor in the morning and 20 5 in the evening along with Eliquis for anticoagulation. 06/07/2019 Patient was seen and examined this morning, she diuresed well through the night last night. At the time we were examining her heart rate was up into the 06/21/1929 range. We will increase the beta meghna to 100 mg by mouth twice a day give her one dose of IV Lanoxin, discontinue the IV Lasix and change her over to oral diuretics today. Her echocardiogram with Doppler study was perf ormed and revealed a normal left ventricular systolic function.moderate to severe mitral regurg, severe tricuspid regurg. sodium 137, potassium 3.4, BUN 25, creatinine 0.8, magnesium 1.6. Objective - Vital Signs Vital signs: Vital Signs Temp 98.5 F 06/08/19 11:30 Pulse 81 06/08/19 11:30 Resp 18 06/08/19 11:30 BP 91/60 06/08/19 11:30 Pulse Ox 92 L 06/08/19 11:30 Intake & Output 06/07/19 06/08/19 06/08/19 18:59 06:59 18:59 Intake Total 1218 118 Output Total 850 Balance 1218 -850 118 Weight 58.4 kg Intake: IV 250 Magnesium Sulfate-D5w Pmx 200 1 gm In Dextrose/Water 1 100ml.bag @ 100 mls/hr IVPB Q1H [facility] Rx#: [id number] cefTRIAXone 1 gm In 50 Sodium Chloride 0.9% 50 ml @ 100 mls/hr IVPB Q24HR [facility] Rx#:[id number] Oral 968 118 Output: Urine 850 Other: Voiding Method Incontinent Incontinent Incontinent # Voids 2 - Exam PHYSICAL EXAMINATION: GENERAL: 78-year-old female in no acute distress at the time of my examination HEENT: Head is atraumatic, normocephalic. Pupils equal, round. Sclera anicteric. Conjunctiva are clear. Mucous membranes of the mouth are moist. Neck is supple. There is no elevated jugular venous pressure. No carotid bruit is heard. HEART EXAMINATION: Heart S1 and S2 irregularly irregular a systolic ejection murmur is heard CHEST EXAMINATION: Lungs reveal improvement in air entry to bilateral bases ABDOMEN: Soft, nontender. Bowel sounds are heard. No organomegaly noted. EXTREMITIES:[ 2+ peripheral pulses with no evidence of peripheral edema and no calf tenderness noted]. NEUROLOGIC [patient is sleepy, arouses to voice, confused - Labs CBC & Chem 7: 06/08/19 06:39 06/08/19 06:39 Labs: Abnormal Lab Results - Last 24 Hours (Table) 06/08/19 06/08/19 Range/Units 06:39 06:39 Lymphocytes # 0.9 L (1.0-4.8) k/uL BUN 34 H (7-17) mg/dL Microbiology - Last 24 Hours (Table) 06/06/19 23:00 Urine Culture - Final Urine,Voided Assessment and Plan Plan: Assessment and plan #1 mental status changes #2 congestive heart failure, LV function unknown #3 atrial fibrillation with rapid ventricular response, patient does have a history of paroxysmal atrial fibrillation, on Eliquis for anticoagulation #4 hypertension #5 prior TIA #6 hyperlipidemia #7 advanced dementia Plan From cardiology's perspective, patient may be transferred to [facility]CF today on current medications. We will make her a follow-up appointment in the office p ost discharge. DNP note has been reviewed, I agree with a documented findings and plan of care. Patient was seen and examined.
== END 2019-06-08 19:08 | disposition home or self-care (01) | DRG 291 ==
LOC: EC 20:45 → 3SCARD 22:38
PROVIDERS: ADMIT Internal Medicine; ATTEND Internal Medicine
DX: I11.0 Hypertensive heart disease with heart failure (principal); G93.41 Metabolic encephalopathy; N39.0 Urinary tract infection, site not specified; E87.2 Acidosis; I50.33 Acute on chronic diastolic (congestive) heart failure; I48.0 Paroxysmal atrial fibrillation; E03.9 Hypothyroidism, unspecified; E78.5 Hyperlipidemia, unspecified; E86.0 Dehydration; F03.90 Unspecified dementia, unspecified severity, without behavioral disturbance, psychotic disturbance, mood disturbance, and anxiety; I08.1 Rheumatic disorders of both mitral and tricuspid valves; Z79.01 Long term (current) use of anticoagulants; Z79.890 Hormone replacement therapy; Z79.899 Other long term (current) drug therapy; Z83.3 Family history of diabetes mellitus; Z85.21 Personal history of malignant neoplasm of larynx; Z86.73 Personal history of transient ischemic attack (TIA), and cerebral infarction without residual deficits; Z87.891 Personal history of nicotine dependence; G93.89 Other specified disorders of brain; Z98.82 Breast implant status
CPT/HCPCS: 36415; 70450; 71046; 80053; 80061; 81001; 82550; 83605; 83735; 83880; 84100; 84132; 84443; 84484; 85025; 85610; 85730; 87086; 87502; 93005; 93306; 94760; 96365; 96366; 96374; 96376; 99291